=== PATIENT | female | born 1945 | race Caucasian/White ===

== ENCOUNTER 2018-06-23 05:57 | Day surgery (SDC) | payer MEDICARE, OTHER, SELFPAY ==
[2018-06-16 13:39] LABS: Hematocrit 37.8 % (37-47); Hemoglobin 12.4 g/dl (12.0-15.0); Mean Corp Hgb Conc 32.8 g/gl (32-36); Mean Corpuscular Hgb 29.6 pg (27.0-32.0); Mean Corpuscular Volume 90.2 fL (81-99); Mean Platelet Vol. 9.7 fl (6.2-12.0); Platelet Count 316 K/mm3 (150-450); RBC Distribution Width CV 13.8 % (11.6-14.6); RBC Distribution Width SD 45.3 fl (35.1-43.9); Red Blood Count 4.19 M/mm3 (4.2-5.4); White Blood Count 7.6 K/mm3 (4.4-11.0)
[2018-06-16 13:42] LABS: Scan Indicated on CBC? Y/N NO
[2018-06-16 14:17] LABS: Anion Gap 4 (5-15); BUN 14 mg/dL (7-18); BUN/Creat Ratio 16.8 RATIO (10-20); Calcium,Total 8.9 mg/dL (8.5-10.1); Chloride 104 mmol/L (98-107); Creatinine, Serum 0.84 mg/dL (0.55-1.02); EST Glomerular Filtration Rate 72 mL/min (>60); Est Glom Filt Rate - Afr Amer 87 mL/min (>60); Glucose 81 mg/dL (74-106); Potassium 4.1 mmol/L (3.5-5.1); Sodium Level 139 mmol/L (136-145); Thyroid Stim Hormone (TSH) 0.83 uIU/mL (0.358-3.74)
[2018-06-23] VITALS (9 sets, daily range): BP systolic 126–158; BP diastolic 62–78; PULSE 65–91; RESP 14–18; TEMP 36.4–37; O2SAT 93–99; BMI 25.9
[2018-06-23] MEDS: Phenazopyridine 95 MG Tablet 190 MG PO (06:24)
[2018-06-23] MEDS: Lubricating Jelly 60 GM Tube 30 GM TOPICAL (07:39)
[2018-06-23] MEDS: Cefazolin 2 GM in 0.9% Normal Saline 100 ML IV (07:52)
[2018-06-23] MEDS: Bupiv/Epi 0.5% Mpf 30 ML Vial (08:10)
--- NOTE | 2018-06-23 09:25 | PCM.DC.GS ---
Discharge Diet: No Restrictions Discharge Activity: Return to Normal Activity May shower in (days): 6 May resume sexual activity in: 6 weeks Weight Bearing Status: Full weight bearing Call your doctor if your incision/area has: Sudden Increased Bleeding, Foul Smelling Discharge Call your doctor if you observe: Fever of 101 or Higher, Coldness, Increased Pain, Numbness or Tingling, Change in Color, Inability to urinate, Inability to have a bowel movement, Using more than one pad per hour, Shortness of breath, Dizziness, Fainting spells, Swelling in the ankles, Chest pain, Prolonged hiccoughing, Increased palpitations (irregular heartbeat), Calf discomfort, Uncontrolled pain Allergies/Adverse Reactions: Allergies bacitracin [From Neosporin ([id number])] Adverse Reaction (Verified 06/23/18 06:16) Unknown neomycin [From Neosporin ([id number])] Adverse Reaction (Verified 06/23/18 06:16) Unknown polymyxin B [From Neosporin ([id number])] Adverse Reaction (Verified 06/23/18 06:16) Unknown Medications to take at Discharge Esomeprazole Mag Trihydrate [Nexium] 40 mg PO DAILY 06/30/15 Gabapentin [Neurontin] 100 mg PO PRN PRN 06/30/15 Levothyroxine [Synthroid] 50 mcg PO QODAY 06/30/15 Multivit with Calcium,Iron,Min [Multiple Vitamins For Women] 1 ea PO DAILY 06/30/15 escitalopram 5 mg tablet 5 mg PO QDAY 12/28/17 Estrogens, Conjugated [Premarin] 1 applic VAGINAL QODAY 06/16/18 Gabapentin [Neurontin] 300 mg PO QHS 06/16/18 L.acidoph,Paracasei, B.lactis [Probiotic] 1 each PO DAILY 06/16/18 Levothyroxine Sodium [Synthroid] 25 mcg PO QODAY 06/16/18 Pravastatin Sodium [Pravachol] 5 mg PO QHS 06/16/18 Primary Care Physician: Adrienne Riojas MD [Primary Care Provider] - Test Results: Test results from this visit will be discussed in further detail at your follow-up appointment, if applicable. Please Follow Up With: Mita Waller MD When: 6 weeks Proposed Discharge Date: 06/23/18
[2018-06-23] MEDS: fentaNYL 100 MCG/2 ML Ampul 25 MCG IV (09:52)
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
== END 2018-06-23 17:10 | disposition home or self-care (01) ==
LOC: SDC 05:58 → AC 05:59
PROVIDERS: Family Provider Internal Medicine; PCP Internal Medicine; Visit Provider Obstetrics & Gynecology
PROC: (CPT 57260; principal; 2018-06-23 07:15)
DX: N99.3 Prolapse of vaginal vault after hysterectomy (principal); N39.3 Stress incontinence (female) (male); K21.9 Gastro-esophageal reflux disease without esophagitis; E03.9 Hypothyroidism, unspecified; E78.00 Pure hypercholesterolemia, unspecified; I44.7 Left bundle-branch block, unspecified; G47.33 Obstructive sleep apnea (adult) (pediatric)
CPT/HCPCS: 00860; 52000; 57200; 57288; 36415; 74018; 80048; 84443; 85027; 93005; J7120; C1771; J2405

== ENCOUNTER → 2018-07-12 11:09 | Outpatient (CLI) | payer MEDICARE, OTHER, SELFPAY ==
[2018-07-12 11:24] LABS: Bacteria 0 SEEN /hpf (None Seen); Mucous, Urine 0 SEEN /hpf (<or=2+); Red Blood Cells-Urine 0 SEEN /hpf (0-5); Squamous Epithelial Cells - UA 0 SEEN /hpf (5-10)
[2018-07-12 11:54] LABS: Color, Urine Yellow (Yellow); Glucose, Dipstick Normal (Normal); Ketone-Dipstick Negative (Negative); Leukocyte Esterase-Dipstick 500 /ul (Negative); Nitrite-Dipstick Negative (Negative); Occult Blood-Urine 10 /ul (Negative); Protein-Dipstick Negative (Negative); Specific Gravity, Urine 1.005 (1.002-1.030); Urine Bilirubin Dipstick Negative (Negative); Urine Clarity Clear (Clear); Urine Urobilinogen Normal (Normal)
[2018-07-12 12:06] LABS: White Blood Cells 5-10 SEEN /hpf (0-5)
== END ==
PROVIDERS: Family Provider Internal Medicine; PCP Internal Medicine; Visit Provider Obstetrics & Gynecology
DX: R31.9 Hematuria, unspecified (principal)
CPT/HCPCS: 81001; 87086

== ENCOUNTER → 2018-10-19 12:33 | Outpatient (CLI) | payer MEDICARE, OTHER, SELFPAY ==
--- NOTE | 2018-10-19 12:37 | BI_ITS ---
MAMMOGRAPHY - BILATERAL SCREENING REASON FOR EXAM: Female, 73 years old. Routine annual screening examination. PERTINENT HISTORY: Non-contributory. TECHNIQUE: Digital bilateral breast anai (3D mammographic acquisition) in the CC and MLO projections. 2-D mediolateral oblique (MLO) and craniocaudad (CC) views of both breasts were obtained. CAD: Full Field Digital Mammography with Computer Added Detection was performed. COMPARISON: Comparison is made with prior outside examination of August 16, 2017. FINDINGS: Breast Composition: There are scattered areas of fibroglandular density. There are no dominant masses or suspicious calcifications. Stable small bilateral benign-appearing axillary lymph nodes. No other significant abnormalities are identified. There has been no significant change since the prior study. BI/SCREENING MAMM (CAD), BILAT IMPRESSION: Stable bilateral screening mammogram. Yearly follow-up mammogram recommended. (A) ASSESSMENT CATEGORY: BIRADS Category 2: Benign. A letter regarding these results will be sent to the patient by the facility within 30 days. Approximately 10% of breast cancers are not detected by mammography. A normal mammogram should not delay biopsy of a clinically suspicious abnormality. [id number] Electronically Signed: Anthony Milian MD at 14:47 EST Tel [phone], Service support ,
--- OUTSIDE RECORDS SUMMARY | 2018-12-05 07:49 | XMS RPT_ITS ---
:1945 Author Organization OHIP Care Team Providers Name Role Phone Nieves Lazaro Attending Unavailable Talampas, Kira Referring Unavailable Talampas, Kira Primary Care Unavailable South, Mita Attending Unavailable South, Mita Referring Unavailable Talampas, Kira Primary Care Unavailable South, Mita Attending Unavailable South, Mita Referring Unavailable Talampas, Kira Primary Care Unavailable Marla Watson Attending Unavailable Talampas, Kira Primary Care Unavailable Cameron Mg Attending Unavailable South, Mita Referring Unavailable TALAMPAS, KIRA D Attending Unavailable TALAMPAS, KIRA D Referring Unavailable TALAMPAS, KIRA D Referring Unavailable MALI ARGUETA (DIRECTOR STAFFING) Attending Unavailable MALI ARGUETA (DIRECTOR STAFFING) Referring Unavailable TESTRAKE, ELLIE Attending Unavailable MALI ARGUETA (DIRECTOR STAFFING) Referring Unavailable TESTRAKE, ELLIE Referring Unavailable BRITT, ARTEMIO E Attending Unavailable BRITT, ARTEMIO E Referring Unavailable TESTRAKE, ELLIE Attending Unavailable TALAMPAS, KIRA D Referring Unavailable TESTRAKE, ELLIE Referring Unavailable TESTRAKE, ELLIE Referring Unavailable TESTRAKE, ELLIE Attending Unavailable TESTRAKE, ELLIE Referring Unavailable TESTRAKE, ELLIE Referring Unavailable TESTRAKE, ELLIE Referring Unavailable TESTRAKE, ELLIE Referring Unavailable TALAMPAS, KIRA D Referring Unavailable TESTRAKE, ELLIE Referring Unavailable TALAMPAS, KIRA D Attending Unavailable TALAMPAS, KIRA D Referring Unavailable BRITT, ARTEMIO E Referring Unavailable ARGUETA, MALI (DIRECTOR STAFFING) Attending Unavailable TESTRAKE, ELLIE Referring Unavailable THORPE, LILIANA (NURSE ADVISOR) Attending Unavailable ARGUETA, MALI (DIRECTOR STAFFING) Referring Unavailable TESTRAKE, ELLIE Attending Unavailable TESTRAKE, ELLIE Referring Unavailable BRITT, ARTEMIO E Attending Unavailable BRITT, ARTEMIO E Referring Unavailable INMAN, RENE Admitting Unavailable INMAN, RENE Attending Unavailable THORPE, LILIANA (NURSE ADVISOR) Referring Unavailable THORPE, LILIANA (NURSE ADVISOR) Attending Unavailable INMAN, RENE Referring Unavailable TESTRAKE, ELLIE Referring Unavailable TESTRAKE, ELLIE Attending Unavailable TESTRAKE, ELLIE Referring Unavailable BRITT, ARTEMIO E Attending Unavailable BRITT, ARTEMIO E Referring Unavailable BRITT, ARTEMIO Attending Unavailable BRITT, ARTEMIO Referring Unavailable TALAMPAS, KIRA Primary Care Unavailable BRITT, ARTEMIO Attending Unavailable BRITT, ARTEMIO Referring Unavailable TALAMPAS, KIRA Primary Care Unavailable PROBLEMS PROBLEMS DATE TYPE CONDITION / CODE ATTENDING STATUS SOURCE Active Pain, unspecified / NA Active [place] [facility] R52(ICD-10) Clinic Main [place] Repository Active Gastro-esophageal THORPE, Active [place] 9 reflux disease without LILIANA (NURSE ADVISOR) Clinic Main esophagitis / [place] K21.9(ICD-10) Repository Active Functional dyspepsia / THORPE, Active [facility] 9 K30(ICD-10) LILIANA (NURSE ADVISOR) Clinic Main [place] Repository Active Encounter for QUENTIN Active [place] 8 screening for [facility] Main malignant neoplasm of [place] colon / Z12.11(ICD-10) Repository Active Displaced fracture of NA Active [place] 8 proximal phalanx of [facility] Main left lesser toe(s), [place] subsequent encounter Repository for fracture with delayed healing / S92.512G(ICD-10) Active Other cardiomyopathies NA Active [place] [facility] / I42.8(ICD-10) Clinic Main [place] Repository Active Hyperlipidemia, NA Active [place] [facility] unspecified / Clinic Main E78.5(ICD-10) [place] Repository Active Essential (primary) NA Active [place] [facility] hypertension / Clinic Main I10(ICD-10) [place] Repository Active Nondisplaced fracture NA Active [place] 8 of proximal phalanx of [facility] Main left lesser toe(s), [place] subsequent encounter Repository for fracture with delayed healing / S92.515G(ICD-10) Active Displaced fracture of NA Active [place] 8 proximal phalanx of [facility] Main left lesser toe(s), [place] subsequent encounter Repository for fracture with malunion / S92.512P(ICD-10) Unknown R31.9 - Hematuria, South, Mita Active [facility] unspecified / Community R31.9(ICD-10) Hospital Repository Active Displaced fracture of NA Active [place] 8 proximal phalanx of [facility] Main left lesser toe(s), [place] initial encounter for Repository closed fracture / S92.512A(ICD-10) Unknown R94.31 - Abnormal Haritha, [place] Active [facility] 8 electrocardiogram Community [ECG] [EKG] / Hospital R94.31(ICD-10) Repository Unknown I44.7 - Left Haritha, Cameron Active [facility] 8 bundle-branch block, Community unspecified / Hospital I44.7(ICD-10) Repository Active Unspecified injury of NA Active [facility] 8 left foot, initial Clinic Main encounter / [place] S99.922A(ICD-10) Repository Active Left bundle-branch BRITT, Active [facility] 8 block, unspecified / ARTEMIO E Clinic Other I44.7(ICD-10) [place] Repository Admitting Unknown / UNK(Unknown) BRITT, Active [facility] 8 diagnosis [facility] Repository Active Pure NA Active [place] 8 hypercholesterolemia, Clinic Main unspecified / [place] E78.00(ICD-10) Repository Active Hypothyroidism, NA Active [place] [facility] unspecified / Clinic Main E03.9(ICD-10) [place] Repository Active Other usp NA Active [place] 8 (current) drug therapy Clinic Main / Z79.899(ICD-10) [place] Repository Active Other specified NA Active [place] 8 disorders of bone Clinic Main density and structure, [place] unspecified site / Repository M85.80(ICD-10) PROCEDURES PROCEDURES No Procedure Records FoundRESULTS RESULTS PROGRESS Observed: 11/22/2018 Status: COMPLETED Source: [place] 9:03 AM [facility] REPOSIT[facility] HNO ID: [id number] Author: Ellie Dent Service: (none) Author Type: Physician Type: Progress Notes Filed: 11/22/2018 9:09 AM Note Text: Follow up podiatric office visit for: Chief Complaint: This 73 year old who presents for follow up:fracutre of left hallux, left 2nd toe and left 3rd toe Patient is now wearing regular shoe and insert. She is walking 2 miles every other day. She has no pain. Occasionally, she will have some numbness in her left 3rd toe. Overall, she is feeling well. She has no other complaints. She has new xrays to review. PAIN EVALUATION 11/22/2018 Pain Score: 0 Pain Location: Foot-Left Description: / Duration Amount of Time: 6 Duration Units: Months Frequency: Intermittent Intervention: Declined No results found for: HBA1C PCP: Kira Robertson MD PAST MEDICAL HISTORY Diagnosis Date - Cervical disc disease - Diverticulosis of colon - GERD (gastroesophageal reflux disease) - History of shingles recurrent episodes--over 3 recurrences - HLD (hyperlipidemia) 07/22/2018 - HTN (hypertension) 07/22/2018 - Hypothyroid - Left bundle branch block EF 50% - MINA (obstructive sleep apnea) 07/21/2018 - Osteopenia - PHN (postherpetic neuralgia) 05/25/2016 - PONV (postoperative nausea and vomiting) 07/21/2018 Current Outpatient Prescriptions: sucralfate (CARAFATE) 1 gram tablet Take 1 tablet by mouth twice daily as needed. escitalopram oxalate (LEXAPRO) 10 mg tablet Take 0.5 tablets by mouth once daily. esomeprazole (NEXIUM) 40 mg capsule Take 1 capsule by mouth daily before breakfast. Take on additional capsule daily for one - two months levothyroxine (SYNTHROID) 25 mcg tablet TAKE 1 TABLET BY MOUTH EVERY OTHER DAY ON AN EMPTY STOMACH FOR THYROID. TAKE 50 MCG ON ALTERNATING DAY levothyroxine (SYNTHROID) 50 mcg tablet TAKE 1 TABLET BY MOUTH EVERY OTHER DAY. TAKE 25 MCG ON ALTERNATING DAY ezetimibe (ZETIA) 10 mg tablet Take 1 tablet by mouth once daily. gabapentin (NEURONTIN) 300 mg capsule Take 1 capsule by mouth daily at bedtime. mupirocin (BACTROBAN) 2 % ointment Apply 1 application to affected area three times daily as needed. For wounds estradiol (ESTRACE) 0.01 % (0.1 mg/gram) vaginal cream Use fingertip amount nightly x 2 weeks, then every other night x 2 weeks, then 1-2x weekly for maintenance LACTOBACILLUS ACIDOPHILUS (PROBIOTIC ORAL) Take by mouth. MULTIVITAMIN ORAL Take by mouth. No current facility-administered medications for this visit. ALLERGIES Allergen Reactions - Neosporin [Neomycin* Rash PAST SURGICAL HISTORY Procedure Laterality Date - COLONOSCOP W/ OR W/O [facility] SPEC Colonoscopy - COLONOSCOP W/ OR W/O [facility] SPEC 11/13/2018 repeat 10 years - EGD W/O OR W/BRUSH/WASH 11/13/2018 EGD - PAST SURGICAL HISTORY OF 06/23/2018 cystocele, rectocele and sling - REMOVAL GALLBLADDER Cholecystectomy - REPAIR ROTATOR CUFF,ACUTE Rotator cuff repair - S STRATASIS URETHRAL SLING 2X30 - TOTAL ABDOM HYSTERECTOMY Hysterectomy, MARISOL and BSO Physical Exam: Constitutional: Pt is a well developed 73 year old female who is alert, oriented, cooperative and in no apparent distress. OBJECTIVE: NVSI unchanged from previous visit. Dermatological: Nails 1-5 left are normal. Webspaces clean and dry 1-4 left. . Skin appears well hydrated and supple. good color, texture, turgor. No open lesions present. No callosities present. Musculoskeletal/Orthopaedic: Patient has no pain to palpation of left foot Toes 1-5 left foot are rectus xrays of left foot reviewed. There is healed fracture of left 1st and 2nd toe. 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 History and physical examination completed today. 2. Reviewed xrays with patient today. Left 1st and 2nd toe fractures are now healed. 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 This will likely not heal. If she is asympotomatic, she could likely leave alone. She opted to do this. She will continue with good appropriate shoes. If she has pain in future, she can contact me. 3. Discussed occasional burning of toe. Reminded patient of cyst of 3rd toe. This could be applying pressure on digital nerve. If this persists, sending patient to [facility] for ultrasound guided aspiration may be an option. 4. Patient elects to monitor for now. 5. F/u prn. Ellie Dent DPM CNOV Observed: 11/22/2018 Status: COMPLETED Source: [place] 8:55 AM [facility] REPOSITORY Office Visit (PODIWS) HERLINDA ROSAS ([id number]) 1945 F Date Time Provider Department 11/22/18 8:55 AM ELLIE DENT During your visit today, we recorded the following information about you: Chari Adamson Ma 11/22/2018 9:09 AM Signed AMB ROOMING INTAKE FLOWSHEET DATA Pain Pain Score: 0/10 Pain Location: Foot-Left Description: / Duration Amount of Time: 6 Duration Units: Months Frequency: Intermittent Intervention: Declined Patient here for F/U on L foot fracture. States she has no pain. States she is wearing her powersteps in her tennis shoes and has not had any pain. No redness or swelling present. States she has a feeling of numbness across the top of her foot. Ellie Dent DPM 11/22/2018 9:09 AM Signed Follow up podiatric office visit for: Chief Complaint: This 73 year old who presents for follow up:fracutre of left hallux, left 2nd toe and left 3rd toe Patient is now wearing regular shoe and insert. She is walking 2 miles every other day. She has no pain. Occasionally, she will have some numbness in her left 3rd toe. Overall, she is feeling well. She has no other complaints. She has new xrays to review. PAIN EVALUATION 11/22/2018 Pain Score: 0 Pain Location: Foot-Left Description: /Infant Duration Amount of Time: 6 Duration Units: Months Frequency: Intermittent Intervention: Declined No results found for: HBA1C PCP: Kira Robertson MD PAST MEDICAL HISTORY Diagnosis Date - Cervical disc disease - Diverticulosis of colon - GERD (gastroesophageal reflux disease) - History of shingles recurrent episodes--over 3 recurrences - HLD (hyperlipidemia) 07/22/2018 - HTN (hypertension) 07/22/2018 - Hypothyroid - Left bundle branch block EF 50% - MINA (obstructive sleep apnea) 07/21/2018 - Osteopenia - PHN (postherpetic neuralgia) 05/25/2016 - PONV (postoperative nausea and vomiting) 07/21/2018 Current Outpatient Prescriptions: sucralfate (CARAFATE) 1 gram tablet Take 1 tablet by mouth twice daily as needed. escitalopram oxalate (LEXAPRO) 10 mg tablet Take 0.5 tablets by mouth once daily. esomeprazole (NEXIUM) 40 mg capsule Take 1 capsule by mouth daily before breakfast. Take on additional capsule daily for one - two months levothyroxine (SYNTHROID) 25 mcg tablet TAKE 1 TABLET BY MOUTH EVERY OTHER DAY ON AN EMPTY STOMACH FOR THYROID. TAKE 50 MCG ON ALTERNATING DAY levothyroxine (SYNTHROID) 50 mcg tablet TAKE 1 TABLET BY MOUTH EVERY OTHER DAY. TAKE 25 MCG ON ALTERNATING DAY ezetimibe (ZETIA) 10 mg tablet Take 1 tablet by mouth once daily. gabapentin (NEURONTIN) 300 mg capsule Take 1 capsule by mouth daily at bedtime. mupirocin (BACTROBAN) 2 % ointment Apply 1 application to affected area three times daily as needed. For wounds estradiol (ESTRACE) 0.01 % (0.1 mg/gram) vaginal cream Use fingertip amount nightly x 2 weeks, then every other night x 2 weeks, then 1-2x weekly for maintenance LACTOBACILLUS ACIDOPHILUS (PROBIOTIC ORAL) Take by mouth. MULTIVITAMIN ORAL Take by mouth. No current facility-administered medications for this visit. ALLERGIES Allergen Reactions - Neosporin [Neomycin* Rash PAST SURGICAL HISTORY Procedure Laterality Date - COLONOSCOP W/ OR W/O [facility] SPEC Colonoscopy - COLONOSCOP W/ OR W/O [facility] SPEC 11/13/2018 repeat 10 years - EGD W/O OR W/BRUSH/WASH 11/13/2018 EGD - PAST SURGICAL HISTORY OF 06/23/2018 cystocele, rectocele and sling - REMOVAL GALLBLADDER Cholecystectomy - REPAIR ROTATOR CUFF,ACUTE Rotator cuff repair - S STRATASIS URETHRAL SLING 2X30 - TOTAL ABDOM HYSTERECTOMY Hysterectomy, MARISOL and BSO Physical Exam: Constitutional: Pt is a well developed 73 year old female who is alert, oriented, cooperative and in no apparent distress. OBJECTIVE: NVSI unchanged from previous visit. Dermatological: Nails 1-5 left are normal. Webspaces clean and dry 1-4 left. . Skin appears well hydrated and supple. good color, texture, turgor. No open lesions present. No callosities present. Musculoskeletal/Orthopaedic: Patient has no pain to palpation of left foot Toes 1-5 left foot are rectus xrays of left foot reviewed. There is healed fracture of left 1st and 2nd toe. 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 History and physical examination completed today. 2. Reviewed xrays with patient today. Left 1st and 2nd toe fractures are now healed. 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 This will likely not heal. If she is asympotomatic, she could likely leave alone. She opted to do this. She will continue with good appropriate shoes. If she has pain in future, she can contact me. 3. Discussed occasional burning of toe. Reminded patient of cyst of 3rd toe. This could be applying pressure on digital nerve. If this persists, sending patient to main campus for ultrasound guided aspiration may be an option. 4. Patient elects to monitor for now. 5. F/u prn. Ellie Dent DPM Referring Provider: ELLIE DENT [[id number]] Allergies As of Date: 11/22/2018 Noted Allergy Reaction NEOSPORIN ([id number]-[place]*06/14/2017 2 - Rash Date Reviewed: 11/22/2018 Reviewed by: Chari Adamson Ma - Fully Assessed Reason for Visit: Established Patient [[id number]] Primary Visit Diagnosis:Closed displaced fracture of proximal phalanx of lesser toe of left foot with malunion, subsequent encounter [S92.512P] Prescriptions as of 11/22/2018 Sig: SUCRALFATE 1 GRAM TABLET Take 1 tablet by mouth twice * ESCITALOPRAM 10 MG TABLET Take 0.5 tablets by mouth onc* ESOMEPRAZOLE MAGNESIUM 40 MG * Take 1 capsule by mouth daily* LEVOTHYROXINE 25 MCG TABLET TAKE 1 TABLET BY MOUTH EVERY * LEVOTHYROXINE 50 MCG TABLET TAKE 1 TABLET BY MOUTH EVERY * EZETIMIBE 10 MG TABLET Take 1 tablet by mouth once d* GABAPENTIN 300 MG CAPSULE Take 1 capsule by mouth daily* MUPIROCIN 2 % TOPICAL OINTMENT Apply 1 application to affect* ESTRADIOL 0.01% (0.1 MG/GRAM)* Use fingertip amount nightly * PROBIOTIC ORAL Take by mouth. MULTIVITAMIN ORAL Take by mouth. Problem List As Of Date 11/22/2018 Noted Resolved [place]-Walker grade 3 cystocele [N81.10] INVALID FOR* [place]-Walker grade 2 rectocele [N81.6] INVALID FOR* Urge incontinence [N39.41] INVALID FOR* PHN (postherpetic neuralgia) [B02.29] INVALID FOR* Hypothyroid [E03.9] History of shingles [Z86.19] More... Cervical disc disease [M50.90] GERD (gastroesophageal reflux disease) [K21.9] Cardiomyopathy, nonischemic (HCC) [I42.8] INVALID FOR* Closed disp fracture of proximal phalanx of les*INVALID FOR* More... PONV (postoperative nausea and vomiting) [R11.2*INVALID FOR* MINA (obstructive sleep apnea) [G47.33] INVALID FOR* Left bundle branch block [I44.7] INVALID FOR* More... HTN (hypertension) [I10] INVALID FOR* HLD (hyperlipidemia) [E78.5] INVALID FOR* Pure hypercholesterolemia [E78.00] INVALID FOR* Encounter for screening for malignant neoplasm *INVALID FOR* More... Gastroesophageal reflux disease without esophag*INVALID FOR* More... Disposition: Return if symptoms worsen or fail to improve. Follow-up and Disposition History Recorded Encounter Status:Closed by ELLIE DENT DPM on 11/22/18 PROGRESS Observed: 11/22/2018 Status: COMPLETED Source: [place] 8:37 AM [facility] REPOSITORY HNO ID: [id number] Author: Chari Adamson Ma Service: (none) Author Type: (none) Type: Progress Notes Filed: 11/22/2018 9:09 AM Note Text: AMB ROOMING INTAKE FLOWSHEET DATA Pain Pain Score: 0/10 Pain Location: Foot-Left Description: / Duration Amount of Time: 6 Duration Units: Months Frequency: Intermittent Intervention: Declined Patient here for F/U on L foot fracture. States she has no pain. States she is wearing her powersteps in her tennis shoes and has not had any pain. No redness or swelling present. States she has a feeling of numbness across the top of her foot. XR FOOT 3V AP/LAT/OBL Observed: 11/22/2018 Status: F Source: [facility] 8:26 AM [facility] REPOSITORY * * *Final Report* * * DATE OF EXAM: Nov 22 2018 8:26AM [id number] [id number] - XR FOOT 3V AP/LAT/OBL LT / PROCEDURE REASON: Pain * * * * Physician Interpretation * * * * EXAMINATION: XR FOOT 3V AP/LAT/OBL LT HISTORY: follow up to left foot fracture Pain . TECHNIQUE: XR FOOT 3V AP/LAT/OBL LT Laterality: LEFT Number of different views (projections): 3 M: XB_1 COMPARISON: Comparison is made to prior study dated 18 September 2018 RESULT: AP radiographs of the bilateral feet with oblique and lateral weightbearing radiographs of the left foot show no significant change in the healing fracture of the second proximal phalanx. Best seen on the AP view again noted displaced intra-articular fracture at the base of the third proximal phalanx. Appearance and alignment of the fracture fragment is unchanged. No other significant abnormality. IMPRESSION: No significant change. Website Optimization Strategist: NICOL Transcribe Date/Time: Nov 22 2018 3:12P Dictated by : PRUDENCE CARMICHAEL MD This examination was interpreted and the report reviewed and electronically signed by: PRUDENCE CARMICHAEL MD on Nov 22 2018 3:14PM EST [id number] PROGRESS Observed: 11/22/2018 Status: COMPLETED Source: [place] 8:18 AM [facility] REPOSITORY HNO ID: [id number] Author: Fam Cabrera (Rt) Service: (none) Author Type: Silver Recovery Operator Type: Progress Notes Filed: 11/22/2018 8:27 AM Note Text: Radiology Service Progress Note PATIENT NAME: Herlinda Rosas DATE OF SERVICE: November 22, 2018 TIME: 8:18 AM PATIENT IDENTITY VERIFICATION COMPLETED USING TWO (2) METHODS: Patient confirmed name verbally and Date of . PATIENT GENDER DATA: Female. status: : No status: NO. PATIENT RELEVANT IMPLANT DATA REVIEWED: Not Applicable RADIOLOGY DEPARTMENT: General X-ray: Exam(s) Completed: Lower Extremity X-Ray(s): Foot, Left and Wt. Bearing: PERIPHERAL IV DATA: Not applicable SIGNED BY: RT Deborah November 22, 2018 8:18 AM PROGRESS Observed: 11/21/2018 Status: COMPLETED Source: [place] 8:10 AM [facility] REPOSITORY HNO ID: [id number] Author: Liliana Madrid Service: (none) Author Type: Nurse Practitioner Type: Progress Notes Filed: 11/21/2018 12:11 PM Note Text: Herlinda Rosas a 73 year old female who is returning for follow up regarding GERD. I saw the patient in consultation on 10/06/18. That note has been reviewed. The patient was seen by Dr. Inman for upper endoscopy and colonoscopy 11/13/18. The procedure report has been reviewed and findings as follows: EGD Findings: ? ? ?The examined esophagus was normal. ? ? ?The entire examined stomach was normal. Biopsies were taken with a ? ? ?cold forceps for histology. Estimated blood loss was minimal. ? ? ?The examined duodenum was normal. FINAL DIAGNOSIS Stomach, antrum, biopsy - Gastric antral mucosa with patchy mild chronic inactive gastritis. - No intestinal metaplasia or morphologic evidence of Helicobacter pylori organisms. Colonoscopy Findings: ? ? ?Scattered diverticula were found in the sigmoid colon and descending ? ? ?colon. I have reviewed the procedure and pathology reports, as well as the images, with the patient. Presenting complaint: Always hungry feeling, gnawing sensation, grumbling belly. Doesn't get a full sensation. Feeling hungry started with the start of Nexium years ago. Taking Nexium 40mg twice daily. We discussed changing to pantoprazole, if her insurance covers it. She'll check her formulary. Cholecystectomy years ago. Hasn't used the Carafate for the past week. - waiting for Angelika to request refills. Not sure if it was making a difference. I suggested decreasing to twice a day, then just before bed. Having difficulty sleeping with the head elevated on a wedge. It seems to bother her neck. REVIEW OF SYSTEMS: GENERAL: No unplanned weight loss. GI: The patient states that her appetite has been adequate. She does get hungry. There has been a bit of nausea, no vomiting. She denies dysphagia and denies odynophagia. There has not been indigestion but heartburn. There has been regurgitation. Bowel habits unchanged. There has not been melena. No new or worsening abdominal pain. All other pertinent reviewed and negative other than HPI. PAST MEDICAL HISTORY Diagnosis Date - Cervical disc disease - Diverticulosis of colon - GERD (gastroesophageal reflux disease) - History of shingles recurrent episodes--over 3 recurrences - HLD (hyperlipidemia) 07/22/2018 - HTN (hypertension) 07/22/2018 - Hypothyroid - Left bundle branch block EF 50% - MINA (obstructive sleep apnea) 07/21/2018 - Osteopenia - PHN (postherpetic neuralgia) 05/25/2016 - PONV (postoperative nausea and vomiting) 07/21/2018 PAST SURGICAL HISTORY Procedure Laterality Date - COLONOSCOP W/ OR W/O [facility] SPEC Colon[facility] - [facility] 11/13/2018 repeat 10 years - EGD W/O OR W/BRUSH/WASH 11/13/2018 EGD - PAST SURGICAL HISTORY OF 06/23/2018 cystocele, rectocele and sling - REMOVAL GALLBLADDER Cholecystectomy - REPAIR ROTATOR CUFF,ACUTE Rotator cuff repair - S STRATASIS URETHRAL SLING 2X30 - TOTAL ABDOM HYSTERECTOMY Hysterectomy, MARISOL and BSO FAMILY HISTORY Problem Relation Age of Onset - Alzheimer's Disease Mother - Stroke Mother - other (Parkinson's Disease) Father - Hypertension Sister Current Outpatient Prescriptions: sucralfate (CARAFATE) 1 gram tablet TAKE 1 TABLET BY MOUTH BEFORE MEALS AND AT BEDTIME. MAY DISSOLVE TABLET IN 2 TEASPOONS OF WATER, DRINK SOON DISSOLVED. Disp: 56 tablet Rfl: 0 escitalopram oxalate (LEXAPRO) 10 mg tablet Take 0.5 tablets by mouth once daily. Disp: 45 tablet Rfl: 3 esomeprazole (NEXIUM) 40 mg capsule Take 1 capsule by mouth daily before breakfast. Take on additional capsule daily for one - two months Disp: 30 capsule Rfl: 1 levothyroxine (SYNTHROID) 25 mcg tablet TAKE 1 TABLET BY MOUTH EVERY OTHER DAY ON AN EMPTY STOMACH FOR THYROID. TAKE 50 MCG ON ALTERNATING DAY Disp: 45 tablet Rfl: 3 levothyroxine (SYNTHROID) 50 mcg tablet TAKE 1 TABLET BY MOUTH EVERY OTHER DAY. TAKE 25 MCG ON ALTERNATING DAY Disp: 45 tablet Rfl: 3 ezetimibe (ZETIA) 10 mg tablet Take 1 tablet by mouth once daily. Disp: 30 tablet Rfl: 11 gabapentin (NEURONTIN) 300 mg capsule Take 1 capsule by mouth daily at bedtime. Disp: 90 capsule Rfl: 3 mupirocin (BACTROBAN) 2 % ointment Apply 1 application to affected area three times daily as needed. For wounds Disp: 22 g Rfl: 0 estradiol (ESTRACE) 0.01 % (0.1 mg/gram) vaginal cream Use fingertip amount nightly x 2 weeks, then every other night x 2 weeks, then 1-2x weekly for maintenance Disp: 1 Tube Rfl: 3 LACTOBACILLUS ACIDOPHILUS (PROBIOTIC ORAL) Take by mouth. Disp: Rfl: MULTIVITAMIN ORAL Take by mouth. Disp: Rfl: No current facility-administered medications for this visit. SOCIAL HISTORY: Patient is . She has never smoked. Herlinda reports her alcohol use as socially. PHYSICAL EXAMINATION: Blood pressure 116/71, pulse 85, height 154.9 cm (5' 1), weight 63.5 kg (140 lb). General Appearance: Well appearing, alert, in no acute distress, well-hydrated, well nourished. Skin: Skin color, texture, turgor normal, no suspicious rashes or lesions. Eyes: Anicteric sclera. Pupils are equally round and reactive to light. Extraocular movements are intact. . Heart: RRR.. Impression: GERD 2)dyspepsia Plan: Trial of pantoprazole instead of Nexum. Consider hyoscyamine if this doesn't help. Consider pH monitor. This visit was entirely discussion. Further plan based on the effect of pantoprazole. She agrees. I have personally interviewed this patient. I have reviewed the information that the MA entered for this encounter. I spent 20 minutes in the visit, with the total modd-qw-nukd time of the visit in counseling and coordination of care. Liliana Madrid RN APRN.SANJAY CNOV Observed: 11/21/2018 Status: COMPLETED Source: [place] 8:10 AM [facility] REPOSITORY Office Visit ([facility]) HERLINDA ROSAS ([id number]) 1945 F Date Time Provider Department 11/21/18 8:10 AM LILIANA MADRID (DAQU[place]) [facility] During your visit today, we recorded the following information about you: Pulse Blood pressure Weight Height 85/minute 116/71 63.5 kg 1.549 m Liliana Madrid RN APRN.FIRE SUPPRESSION CAPTAIN 11/21/2018 12:11 PM Signed Herlinda Rosas a 73 year old female who is returning for follow up regarding GERD. I saw the patient in consultation on 10/06/18. That note has been reviewed. The patient was seen by Dr. Inman for upper endoscopy and colonoscopy 11/13/18. The procedure report has been reviewed and findings as follows: EGD Findings: ? ? ?The examined esophagus was normal. ? ? ?The entire examined stomach was normal. Biopsies were taken with a ? ? ?cold forceps for histology. Estimated blood loss was minimal. ? ? ?The examined duodenum was normal. FINAL DIAGNOSIS Stomach, antrum, biopsy - Gastric antral mucosa with patchy mild chronic inactive gastritis. - No intestinal metaplasia or morphologic evidence of Helicobacter pylori organisms. Colonoscopy Findings: ? ? ?Scattered diverticula were found in the sigmoid colon and descending ? ? ?colon. I have reviewed the procedure and pathology reports, as well as the images, with the patient. Presenting complaint: Always hungry feeling, gnawing sensation, grumbling belly. Doesn't get a full sensation. Feeling hungry started with the start of Nexium years ago. Taking Nexium 40mg twice daily. We discussed changing to pantoprazole, if her insurance covers it. She'll check her formulary. Cholecystectomy years ago. Hasn't used the Carafate for the past week. - waiting for Angelika to request refills. Not sure if it was making a difference. I suggested decreasing to twice a day, then just before bed. Having difficulty sleeping with the head elevated on a wedge. It seems to bother her neck. REVIEW OF SYSTEMS: GENERAL: No unplanned weight loss. GI: The patient states that her appetite has been adequate. She does get hungry. There has been a bit of nausea, no vomiting. She denies dysphagia and denies odynophagia. There has not been indigestion but heartburn. There has been regurgitation. Bowel habits unchanged. There has not been melena. No new or worsening abdominal pain. All other pertinent reviewed and negative other than HPI. PAST MEDICAL HISTORY Diagnosis Date - Cervical disc disease - Diverticulosis of colon - GERD (gastroesophageal reflux disease) - History of shingles recurrent episodes--over 3 recurrences - HLD (hyperlipidemia) 07/22/2018 - HTN (hypertension) 07/22/2018 - Hypothyroid - Left bundle branch block EF 50% - MINA (obstructive sleep apnea) 07/21/2018 - Osteopenia - PHN (postherpetic neuralgia) 05/25/2016 - PONV (postoperative nausea and vomiting) 07/21/2018 PAST SURGICAL HISTORY Procedure Laterality Date - COLONOSCOP W/ OR W/O [facility] SPEC Colonoscopy - COLONOSCOP W/ OR W/O [facility] SPEC 11/13/2018 repeat 10 years - EGD W/O OR W/BRUSH/WASH 11/13/2018 EGD - PAST SURGICAL HISTORY OF 06/23/2018 cystocele, rectocele and sling - REMOVAL GALLBLADDER Cholecystectomy - REPAIR ROTATOR CUFF,ACUTE Rotator cuff repair - S STRATASIS URETHRAL SLING 2X30 - TOTAL ABDOM HYSTERECTOMY Hysterectomy, MARISOL and BSO FAMILY HISTORY Problem Relation Age of Onset - Alzheimer's Disease Mother - Stroke Mother - other (Parkinson's Disease) Father - Hypertension Sister Current Outpatient Prescriptions: sucralfate (CARAFATE) 1 gram tablet TAKE 1 TABLET BY MOUTH BEFORE MEALS AND AT BEDTIME. MAY DISSOLVE TABLET IN 2 TEASPOONS OF WATER, DRINK SOON DISSOLVED. Disp: 56 tablet Rfl: 0 escitalopram oxalate (LEXAPRO) 10 mg tablet Take 0.5 tablets by mouth once daily. Disp: 45 tablet Rfl: 3 esomeprazole (NEXIUM) 40 mg capsule Take 1 capsule by mouth daily before breakfast. Take on additional capsule daily for one - two months Disp: 30 capsule Rfl: 1 levothyroxine (SYNTHROID) 25 mcg tablet TAKE 1 TABLET BY MOUTH EVERY OTHER DAY ON AN EMPTY STOMACH FOR THYROID. TAKE 50 MCG ON ALTERNATING DAY Disp: 45 tablet Rfl: 3 levothyroxine (SYNTHROID) 50 mcg tablet TAKE 1 TABLET BY MOUTH EVERY OTHER DAY. TAKE 25 MCG ON ALTERNATING DAY Disp: 45 tablet Rfl: 3 ezetimibe (ZETIA) 10 mg tablet Take 1 tablet by mouth once daily. Disp: 30 tablet Rfl: 11 gabapentin (NEURONTIN) 300 mg capsule Take 1 capsule by mouth daily at bedtime. Disp: 90 capsule Rfl: 3 mupirocin (BACTROBAN) 2 % ointment Apply 1 application to affected area three times daily as needed. For wounds Disp: 22 g Rfl: 0 estradiol (ESTRACE) 0.01 % (0.1 mg/gram) vaginal cream Use fingertip amount nightly x 2 weeks, then every other night x 2 weeks, then 1-2x weekly for maintenance Disp: 1 Tube Rfl: 3 LACTOBACILLUS ACIDOPHILUS (PROBIOTIC ORAL) Take by mouth. Disp: Rfl: MULTIVITAMIN ORAL Take by mouth. Disp: Rfl: No current facility-administered medications for this visit. SOCIAL HISTORY: Patient is . She has never smoked. Herlinda reports her alcohol use as socially. PHYSICAL EXAMINATION: Blood pressure 116/71, pulse 85, height 154.9 cm (5' 1), weight 63.5 kg (140 lb). General Appearance: Well appearing, alert, in no acute distress, well-hydrated, well nourished. Skin: Skin color, texture, turgor normal, no suspicious rashes or lesions. Eyes: Anicteric sclera. Pupils are equally round and reactive to light. Extraocular movements are intact. . Heart: RRR.. Impression: GERD 2)dyspepsia Plan: Trial of pantoprazole instead of Nexum. Consider hyoscyamine if this doesn't help. Consider pH monitor. This visit was entirely discussion. Further plan based on the effect of pantoprazole. She agrees. I have personally interviewed this patient. I have reviewed the information that the MA entered for this encounter. I spent 20 minutes in the visit, with the total gyqb-fe-zljm time of the visit in counseling and coordination of care. Liliana Madrid RN REELING MACHINE SETUP OPERATOR.SANJAY Madrid RN REELING MACHINE SETUP OPERATOR.FIRE SUPPRESSION CAPTAIN 11/21/2018 8:53 AM Addendum Decrease carafate to twice a day. See if pantoprazole is on your formulary. Let me know via MyChart or call. Small meals throughout the day instead of 3 regular meals. Drink any alcohol with food. Continue the tea with honey and see how you do. Referring Provider: RENE INMAN [[id number]] Allergies As of Date: 11/21/2018 Noted Allergy Reaction NEOSPORIN ([id number]*06/14/2017 2 - Rash Date Reviewed: 11/21/2018 Reviewed by: Tameka Benavides Ma - Fully Assessed Reason for Visit: Procedure Follow Up [1139] Primary Visit Diagnosis:Gastroesophageal reflux disease, esophagitis presence not specified [K21.9] Other Visit Diagnosis:Functional dyspepsia [K30] Order(s):sucralfate (CARAFATE) 1 gram tabletTake 1 tablet by mouth twice daily as needed.Disp: 120 tabletRfl: 2 Prescriptions as of 11/21/2018 Sig: SUCRALFATE 1 GRAM TABLET Take 1 tablet by mouth twice * ESCITALOPRAM 10 MG TABLET Take 0.5 tablets by mouth onc* ESOMEPRAZOLE MAGNESIUM 40 MG * Take 1 capsule by mouth daily* LEVOTHYROXINE 25 MCG TABLET TAKE 1 TABLET BY MOUTH EVERY * LEVOTHYROXINE 50 MCG TABLET TAKE 1 TABLET BY MOUTH EVERY * EZETIMIBE 10 MG TABLET Take 1 tablet by mouth once d* GABAPENTIN 300 MG CAPSULE Take 1 capsule by mouth daily* MUPIROCIN 2 % TOPICAL OINTMENT Apply 1 application to affect* ESTRADIOL 0.01% (0.1 MG/GRAM)* Use fingertip amount nightly * PROBIOTIC ORAL Take by mouth. MULTIVITAMIN ORAL Take by mouth. Problem List As Of Date 11/21/2018 Noted Resolved [place]-Walker grade 3 cystocele [N81.10] INVALID FOR* [place]-Walker grade 2 rectocele [N81.6] INVALID FOR* Urge incontinence [N39.41] INVALID FOR* PHN (postherpetic neuralgia) [B02.29] INVALID FOR* Hypothyroid [E03.9] History of shingles [Z86.19] More... Cervical disc disease [M50.90] GERD (gastroesophageal reflux disease) [K21.9] Cardiomyopathy, nonischemic (HCC) [I42.8] INVALID FOR* Closed disp fracture of proximal phalanx of les*INVALID FOR* More... PONV (postoperative nausea and vomiting) [R11.2*INVALID FOR* MINA (obstructive sleep apnea) [G47.33] INVALID FOR* Left bundle branch block [I44.7] INVALID FOR* More... HTN (hypertension) [I10] INVALID FOR* HLD (hyperlipidemia) [E78.5] INVALID FOR* Pure hypercholesterolemia [E78.00] INVALID FOR* Encounter for screening for malignant neoplasm *INVALID FOR* More... Gastroesophageal reflux disease without esophag*INVALID FOR* More... Other instructions from your clinician: Decrease carafate to twice a day. See if pantoprazole is on your formulary. Let me know via [employer] or call. Small meals throughout the day instead of 3 regular meals. Drink any alcohol with food. Continue the tea with honey and see how you do. Prescriptions ordered this encounter Disp Refills Start End SUCRALFATE 1 GRAM TABLET 120 * 2 11/21/2018 Route: ORAL Sig: Take 1 tablet by mouth twice daily as needed. Medications Discontinued During This Encounter sucralfate (CARAFATE) 1 gram tablet 56 t* 0 10/12/2018 11/21/2018 Cmt: Please consider 90 day supplies to promote better adherence Sig: TAKE 1 TABLET BY MOUTH BEFORE MEALS AND AT BEDTIME. MAY DISSOLVE TABLET IN 2 TEASPOONS OF WATER, DRINK SOON DISSOLVED. Disc: Changing Therapy/Dosage Form sucralfate (CARAFATE) 1 gram tablet 56 t* 0 10/12/2018 11/21/2018 Cmt: Please consider 90 day supplies to promote better adherence Sig: TAKE 1 TABLET BY MOUTH BEFORE MEALS AND AT BEDTIME. MAY DISSOLVE TABLET IN 2 TEASPOONS OF WATER, DRINK SOON DISSOLVED. Disc: Changing Therapy/Dosage Form Encounter Status:Closed by LILIANA MADRID CNP on 11/21/18 NURSING PROG Observed: 11/13/2018 Status: COMPLETED Source: [place] 1:34 PM [facility] REPOSITORY HNO ID: [id number] Author: Mary ChicasRn) ROBBIN Sanchez Service: Nursing Author Type: Registered Nurse Type: Nursing Progress Note Filed: 11/13/2018 1:35 PM Note Text: Patient did not experience a fall prior to discharge. Patient did not experience a burn prior to discharge. Mary Sanchez RN NURSING PROG Observed: 11/13/2018 Status: COMPLETED Source: [place] 1:21 PM [facility] REPOSITORY HNO ID: [id number] Author: Mary ChicasRn) ROBBIN Sanchez Service: Nursing Author Type: Registered Nurse Type: Nursing Progress Note Filed: 11/13/2018 1:21 PM Note Text: Dr. Inman at bedside with patient and patient's to discuss procedure findings. Questions answered. Mary Sanchez RN PT ED Observed: 11/13/2018 Status: COMPLETED Source: [place] 12:58 PM [facility] REPOSITORY HNO ID: [id number] Author: Mary ChicasRn) ROBBIN Sanchez Service: Nursing Author Type: Registered Nurse Type: Patient Education Filed: 11/13/2018 12:58 PM Note Text: POST OP LEARNING RESPONSE INSTRUCTION PROVIDED TO: Patient and Spouse METHOD OF INSTRUCTION: Written instruction - handouts Verbal instruction PATIENT / FAMILY RESPONSE: Verbalizes understanding of: INFECTION MANAGEMENT-Signs and symptoms of an infection and importance of contacting the physician PHYSICAL RESTRICTIONS-Physical restrictions and recommendations after discharge from the hospital POST-PROCEDURE INSTRUCTIONS-Correct actions to take to reduce post procedure complications PATIENT SAFETY PRINCIPLES WORSENING CONDITION-Signs and symptoms of a worsening condition that warrant a call to the physician FOLLOW-UP PLAN: Patient instructed to call with any further issues Follow up phone call. SUPPLEMENTAL MATERIAL: Procedure discharge instructions REFERRAL (RECOMMENDATION): None Electronically Signed By: Mary Sanchez RN In Department: AMBULATORY SURGERY NURSING PROG Observed: 11/13/2018 Status: COMPLETED Source: [place] 12:30 PM [facility] REPOSITORY HNO ID: [id number] Author: Jennifer ChicasRnJung Chirinos RN Service: Nursing Author Type: Registered Nurse Type: Nursing Progress Note Filed: 11/13/2018 12:30 PM Note Text: Patient did not experience a fall within the Intraoperative area. Patient did not experience a burn within the Intraoperative area. Jennifer Chirinos RN BRIEF OP NOT Observed: 11/13/2018 Status: COMPLETED Source: [place] 12:28 PM [facility] REPOSITORY HNO ID: [id number] Author: Rene Inman Service: Gastroenterology Author Type: Physician Type: Brief Op Note Filed: 11/13/2018 12:28 PM Note Text: BRIEF OPERATIVE NOTE PATIENT NAME: Herlinda Rosas LOG ID: [id number] Surgery Date: 11/13/2018 Surgeon(s) and Remote Sensing Specialist(s): Rene Inman MD -Primary Procedure(s): Procedure(s) (LRB): COLONOSCOPY (N/A) EGD WITH BIOPSY (N/A) Anesthesia: Procedural Sedation Findings: Normal EGD and colonic diverticulosis Estimated Blood Loss: Minimal Specimens: Antral Preop Diagnosis: Encounter for screening for malignant neoplasm of colon [Z12.11] Gastroesophageal reflux disease without esophagitis [K21.9] Postop Diagnosis: Encounter for screening for malignant neoplasm of colon [Z12.11] Gastroesophageal reflux disease without esophagitis [K21.9] SIGNATURE: Rene Inman MD DATE: November 13, 2018 TIME: 12:28 PM HISTORY PHYSICAL Observed: 11/13/2018 Status: COMPLETED Source: [place] 11:59 AM [facility] REPOSITORY HNO ID: [id number] Author: Rene Inman Service: Gastroenterology Author Type: Physician Type: HANDP Filed: 11/13/2018 12:00 PM Note Text: PROCEDURAL SEDATION HISTORY AND PHYSICAL EXAM SERVICE DATE: 11/13/2018 SERVICE TIME: 11:59 AM Subjective HPI: This is a 73 year old female who presents with GERD and the need for screening colonoscopy PAST ANESTHESIA HISTORY: No history of adverse event PAST MEDICAL HISTORY Diagnosis Date - Cervical disc disease - Diverticulosis of colon - GERD (gastroesophageal reflux disease) - History of shingles recurrent episodes--over 3 recurrences - HLD (hyperlipidemia) 07/22/2018 - HTN (hypertension) 07/22/2018 - Hypothyroid - Left bundle branch block EF 50% - MINA (obstructive sleep apnea) 07/21/2018 - Osteopenia - PHN (postherpetic neuralgia) 05/25/2016 - PONV (postoperative nausea and vomiting) 07/21/2018 PAST SURGICAL HISTORY Procedure Laterality Date - COLONOSCOP W/ OR W/O [facility] SPEC Colonoscopy - PAST SURGICAL HISTORY OF 06/23/2018 cystocele, rectocele and sling - REMOVAL GALLBLADDER Cholecystectomy - REPAIR ROTATOR CUFF,ACUTE Rotator cuff repair - S STRATASIS URETHRAL SLING 2X30 - TOTAL ABDOM HYSTERECTOMY Hysterectomy, MARISOL and BSO Prior to Admission medications as of 11/13/18 1103 Medication Sig Last Dose Taking escitalopram oxalate (LEXAPRO) 10 mg tablet Take 0.5 tablets by mouth once daily. 11/12/2018 at 2100 Yes esomeprazole (NEXIUM) 40 mg capsule Take 1 capsule by mouth daily before breakfast. Take on additional capsule daily for one - two months 11/12/2018 at 0800 Yes levothyroxine (SYNTHROID) 25 mcg tablet TAKE 1 TABLET BY MOUTH EVERY OTHER DAY ON AN EMPTY STOMACH FOR THYROID. TAKE 50 MCG ON ALTERNATING DAY 11/12/2018 at 0800 Yes gabapentin (NEURONTIN) 300 mg capsule Take 1 capsule by mouth daily at bedtime. 11/12/2018 at Unknown time Yes estradiol (ESTRACE) 0.01 % (0.1 mg/gram) vaginal cream Use fingertip amount nightly x 2 weeks, then every other night x 2 weeks, then 1-2x weekly for maintenance 11/12/2018 at 0800 Yes MULTIVITAMIN ORAL Take by mouth. Past Week at Unknown time Yes sucralfate (CARAFATE) 1 gram tablet TAKE 1 TABLET BY MOUTH BEFORE MEALS AND AT BEDTIME. MAY DISSOLVE TABLET IN 2 TEASPOONS OF WATER, DRINK SOON DISSOLVED. 11/11/2018 levothyroxine (SYNTHROID) 50 mcg tablet TAKE 1 TABLET BY MOUTH EVERY OTHER DAY. TAKE 25 MCG ON ALTERNATING DAY 11/11/2018 ezetimibe (ZETIA) 10 mg tablet Take 1 tablet by mouth once daily. Unknown at Unknown time mupirocin (BACTROBAN) 2 % ointment Apply 1 application to affected area three times daily as needed. For wounds Unknown at Unknown time LACTOBACILLUS ACIDOPHILUS (PROBIOTIC ORAL) Take by mouth. Unknown at Unknown time ALLERGIES Allergen Reactions - Neosporin [Neomycin* Rash Objective PHYSICAL EXAM: The remainder of the physical exam is noncontributory. AIRWAY: Airway Visualization of Uvula: Yes Mouth opening greater than 2 fingerbreadths: Yes Neck Full Range of Motion: Yes LUNGS: Lungs clear to auscultation, Good diaphragmatic excursion CARDIAC: Normal S1 and S2; no rubs, murmurs, or gallops Assessment/Plan ASA Class: ASA Class:: Patient with mild systemic disease Provisional Diagnosis/Treatment Plan: GERD and need for screening colonoscopy/EGD and colonoscopy SEDATION GOAL: Moderate SIGNATURE: Rene Inman MD PATIENT NAME: Herlinda Rosas DATE: November 13, 2018 TIME: 11:59 AM PAGER: NURSING PROG Observed: 11/13/2018 Status: COMPLETED Source: [place] 11:57 AM [facility] REPOSITORY HNO ID: [id number] Author: Mary Tejeda (Rn) ROBBIN Sanchez Service: Nursing Author Type: Registered Nurse Type: Nursing Progress Note Filed: 11/13/2018 11:59 AM Note Text: [facility] PRE-OP NURSING HAND OFF NOTE SBAR Hand off given to Jennifer Chirinos RN. Hand off was communicated verbally and at the patient's bedside and all questions were answered. FALLS/BASILIO Patient did not experience a fall within the Preoperative area. Patient did not experience a burn within the Preoperative area. Mary Sanchez RN PT ED Observed: 11/13/2018 Status: COMPLETED Source: [place] 11:17 AM [facility] REPOSITORY HNO ID: [id number] Author: Mary ChicasRn) ROBBIN Sanchez Service: Nursing Author Type: Registered Nurse Type: Patient Education Filed: 11/13/2018 11:18 AM Note Text: PRE OP LEARNING ASSESSMENT PROCEDURE/SURGERY: GI PROCEDURES: Colonoscopy and EGD READINESS TO LEARN COGNITIVE ABILITY: Alert and oriented MOTIVATION TO LEARN: Eager FAMILY SUPPORT: High - Very involved in pt care PATIENT LEARNS BEST BY: Verbal Instruction FACTORS AFFECTING LEARNING: None PHYSICAL LIMITATIONS AFFECTING LEARNING: None Electronically Signed By: Mary Sanchez RN In Department: AMBULATORY SURGERY SURGICAL PATHOLOGY Observed: 11/13/2018 Status: F Source: [place] 12:00 AM [facility] REPOSITORY Specimen originated from [facility] Specimen #: [id number] Submitting Physician: RENE INMAN MD FINAL DIAGNOSIS Stomach, antrum, biopsy - Gastric antral mucosa with patchy mild chronic inactive gastritis. - No intestinal metaplasia or morphologic evidence of Helicobacter pylori organisms. ES 11/16/2018 Angie Hayden M.D. (Electronic Signature) SPECIMEN SUBMITTED A: ANTRUM, BIOPSY H/H CLINICAL DATA K21.9, Z12.11 GROSS DESCRIPTION A. Received in formalin are two pieces of dumont, soft tissue aggregating to 0.5 x 0.2 x 0.2 cm. Totally submitted in one cassette. Gross examination performed at [facility], [address] [place] [address] 11/15/2018 2:09:01 AM Date of Report: 11/16/2018 Date of Procedure: 11/13/2018 Date of Receipt: 11/14/2018 Submitted by: RENE INMAN MD Location: [facility] Diagnostic interpretation performed at [place] [address]. PROGRESS Observed: 11/09/2018 Status: COMPLETED Source: [place] 9:56 AM [facility] REPOSITORY HNO ID: [id number] Author: Artemio De La Torre Service: (none) Author Type: Physician Type: Progress Notes Filed: 11/09/2018 6:13 PM Note Text: PERTINENT CARDIAC HISTORY Cardiomyopathy - mild, nonischemic, EF normalized LBBB Pericardial Ca++ HTN MINA - CPAP HL - statin intolerant ADHERENCE TO GUIDELINES FARHANA-I or ARB for HF with prior LVEF<40 (NQF 0081) - N/A ASA or Plavix for ASHD (NQF 0067) - N/A Beta stefano for ASHD with prior ME or prior LVEF<40 (NQF 0070) - N/A Beta stefano for HF with prior LVEF<40 (NQF 0083) - N/A FARHANA-I or ARB for ASHD with DM or prior LVEF<40 (NQF 0066) - N/A Statin therapy for ASHD or FHL or DM - intolerant, on Zetia BMI documented and plan if >25 (NQF 0421) - lifestyle recommendation form Tobacco use screening and referral (NQF 0028) - lifestyle recommendation form Recommendation for whole food, plant based diet - lifestyle recommendation form CLINICAL IMPRESSION/PLAN: Herlinda Rosas has stable cardiomyopathy. Her LV function has returned to normal. There is no evidence of pericardial disease. There is no evidence of progression of her conduction abnormality. We discussed signs and symptoms to watch for. I've encouraged her to increase her exercise and improve her fitness level. I recommend follow-up in 8 months or as needed. Written and verbal health teaching given to patient, patient verbalizes understanding and agrees with treatment plan. DIAGNOSIS FOR VISIT: Cardiomyopathy HISTORY OF PRESENT ILLNESS Herlinda Rosas returns for follow-up of her nonischemic myopathy and left bundle branch block. She reports stable exercise tolerance. Her recent surgery went well. She is now walking for exercise. She's had less foot discomfort and her exercise tolerance has improved. She denies chest pain. She's had no orthopnea, edema, syncope, palpitations, TIAs, amaurosis or claudication. ALLERGIES: ALLERGIES Allergen Reactions - Neosporin [Neomycin* Rash CURRENT OUTPATIENT MEDICATIONS: sucralfate (CARAFATE) 1 gram tablet TAKE 1 TABLET BY MOUTH BEFORE MEALS AND AT BEDTIME. MAY DISSOLVE TABLET IN 2 TEASPOONS OF WATER, DRINK SOON DISSOLVED. escitalopram oxalate (LEXAPRO) 10 mg tablet Take 0.5 tablets by mouth once daily. esomeprazole (NEXIUM) 40 mg capsule Take 1 capsule by mouth daily before breakfast. Take on additional capsule daily for one - two months levothyroxine (SYNTHROID) 25 mcg tablet TAKE 1 TABLET BY MOUTH EVERY OTHER DAY ON AN EMPTY STOMACH FOR THYROID. TAKE 50 MCG ON ALTERNATING DAY levothyroxine (SYNTHROID) 50 mcg tablet TAKE 1 TABLET BY MOUTH EVERY OTHER DAY. TAKE 25 MCG ON ALTERNATING DAY ezetimibe (ZETIA) 10 mg tablet Take 1 tablet by mouth once daily. gabapentin (NEURONTIN) 300 mg capsule Take 1 capsule by mouth daily at bedtime. mupirocin (BACTROBAN) 2 % ointment Apply 1 application to affected area three times daily as needed. For wounds estradiol (ESTRACE) 0.01 % (0.1 mg/gram) vaginal cream Use fingertip amount nightly x 2 weeks, then every other night x 2 weeks, then 1-2x weekly for maintenance LACTOBACILLUS ACIDOPHILUS (PROBIOTIC ORAL) Take by mouth. MULTIVITAMIN ORAL Take by mouth. PHYSICAL EXAMINATION: VITAL SIGNS: BP 124/75 Pulse 72 Ht 5' 1 (1.55m) Wt 140 lb 9.6 oz (63.8kg) BMI 26.58 kg/(m2). Chest: Clear to auscultation. Trachea is midline. Air entry is equal. Cardiac: Regular rhythm. S2 is paradoxically split. PMI is nondisplaced. There is a soft systolic ejection murmur. Carotids are brisk without bruits. JVP is less than 10 cm. Abdomen: Soft and nontender. There are no pulsatile masses or bruits. No liver enlargement. Bowel sounds are active. Extremities: No edema. Pulses are intact and symmetrical. Recent labs were reviewed. LDL has improved slightly to 124, on ezetimibe. Electronically Signed: Artemio De La Torre MD November 09, 2018 9:56 AM CC: Kira Robertson MD CNOV Observed: 11/09/2018 Status: COMPLETED Source: [place] 9:30 AM [facility] REPOSITORY Office Visit (CAWSTR) HERLINDA ROSAS ([id number]) 1945 F Date Time Provider Department 11/09/18 9:30 AM ARTEMIO DE LA TORRE CAWSTR During your visit today, we recorded the following information about you: Pulse Blood pressure Weight Height 72/minute 124/75 63.8 kg 1.549 m Artemio De La Torre MD 11/09/2018 6:13 PM Signed PERTINENT CARDIAC HISTORY Cardiomyopathy - mild, nonischemic, EF normalized LBBB Pericardial Ca++ HTN MINA - CPAP HL - statin intolerant ADHERENCE TO GUIDELINES FARHANA-I or ARB for HF with prior LVEF<40 (NQF 0081) - N/A ASA or Plavix for ASHD (NQF 0067) - N/A Beta stefano for ASHD with prior ME or prior LVEF<40 (NQF 0070) - N/A Beta stefano for HF with prior LVEF<40 (NQF 0083) - N/A FARHANA-I or ARB for ASHD with DM or prior LVEF<40 (NQF 0066) - N/A Statin therapy for ASHD or FHL or DM - intolerant, on Zetia BMI documented and plan if >25 (NQF 0421) - lifestyle recommendation form Tobacco use screening and referral (NQF 0028) - lifestyle recommendation form Recommendation for whole food, plant based diet - lifestyle recommendation form CLINICAL IMPRESSION/PLAN: Herlinda Rosas has stable cardiomyopathy. Her LV function has returned to normal. There is no evidence of pericardial disease. There is no evidence of progression of her conduction abnormality. We discussed signs and symptoms to watch for. I've encouraged her to increase her exercise and improve her fitness level. I recommend follow-up in 8 months or as needed. Written and verbal health teaching given to patient, patient verbalizes understanding and agrees with treatment plan. DIAGNOSIS FOR VISIT: Cardiomyopathy HISTORY OF PRESENT ILLNESS Herlinda Rosas returns for follow-up of her nonischemic myopathy and left bundle branch block. She reports stable exercise tolerance. Her recent surgery went well. She is now walking for exercise. She's had less foot discomfort and her exercise tolerance has improved. She denies chest pain. She's had no orthopnea, edema, syncope, palpitations, TIAs, amaurosis or claudication. ALLERGIES: ALLERGIES Allergen Reactions - Neosporin [Neomycin* Rash CURRENT OUTPATIENT MEDICATIONS: sucralfate (CARAFATE) 1 gram tablet TAKE 1 TABLET BY MOUTH BEFORE MEALS AND AT BEDTIME. MAY DISSOLVE TABLET IN 2 TEASPOONS OF WATER, DRINK SOON DISSOLVED. escitalopram oxalate (LEXAPRO) 10 mg tablet Take 0.5 tablets by mouth once daily. esomeprazole (NEXIUM) 40 mg capsule Take 1 capsule by mouth daily before breakfast. Take on additional capsule daily for one - two months levothyroxine (SYNTHROID) 25 mcg tablet TAKE 1 TABLET BY MOUTH EVERY OTHER DAY ON AN EMPTY STOMACH FOR THYROID. TAKE 50 MCG ON ALTERNATING DAY levothyroxine (SYNTHROID) 50 mcg tablet TAKE 1 TABLET BY MOUTH EVERY OTHER DAY. TAKE 25 MCG ON ALTERNATING DAY ezetimibe (ZETIA) 10 mg tablet Take 1 tablet by mouth once daily. gabapentin (NEURONTIN) 300 mg capsule Take 1 capsule by mouth daily at bedtime. mupirocin (BACTROBAN) 2 % ointment Apply 1 application to affected area three times daily as needed. For wounds estradiol (ESTRACE) 0.01 % (0.1 mg/gram) vaginal cream Use fingertip amount nightly x 2 weeks, then every other night x 2 weeks, then 1-2x weekly for maintenance LACTOBACILLUS ACIDOPHILUS (PROBIOTIC ORAL) Take by mouth. MULTIVITAMIN ORAL Take by mouth. PHYSICAL EXAMINATION: VITAL SIGNS: BP 124/75 Pulse 72 Ht 5' 1 (1.55m) Wt 140 lb 9.6 oz (63.8kg) BMI 26.58 kg/(m2). Chest: Clear to auscultation. Trachea is midline. Air entry is equal. Cardiac: Regular rhythm. S2 is paradoxically split. PMI is nondisplaced. There is a soft systolic ejection murmur. Carotids are brisk without bruits. JVP is less than 10 cm. Abdomen: Soft and nontender. There are no pulsatile masses or bruits. No liver enlargement. Bowel sounds are active. Extremities: No edema. Pulses are intact and symmetrical. Recent labs were reviewed. LDL has improved slightly to 124, on ezetimibe. Electronically Signed: Artemio De La Torre MD November 09, 2018 9:56 AM CC: MD Artemio Caal MD 11/09/2018 9:56 AM Signed LIFESTYLE CHANGE A healthy lifestyle is the most important component of your overall treatment plan. Please give serious thought to the following areas and commit to making usp changes. EAT A WHOLE FOOD, PLANT BASED DIET The nutrition your body gets is more important than the medicine you take. What matters most is the overall way you eat. We encourage you to minimize the use of animal products (which include dairy and all meats except fatty fish) and use whole, unprocessed plant foods to provide your protein, vitamins and other nutrients. We have a lot of information to share with you on this topic. This is not a diet. It is a way of life that you will keep with you. EXERCISE REGULARLY It is not important to spend hours in the gym, lifting weights and perspiring heavily. A total of 2-3 hours per week of aerobic (causing you to be moderately short of breath) exercise is sufficient to improve your health. Talk to us before you begin a new exercise program, if you have heart disease or experience shortness of breath or chest pain. REDUCE STRESS Chronic emotional and physical stress leads to disease. Ways of reducing stress include meditation, visualization, prayer, yoga and other forms of relaxation therapy. Consistency is the stroud. Find a technique that works for you and do it every day. CULTIVATE RELATIONSHIPS Loneliness and isolation have a major negative impact on health. Seek out others who can love, care for and nurture you. Avoid hurtful relationships. MAINTAIN IDEAL BODY WEIGHT The best way to do this is to do all the things above. Our bodies naturally find the right weight if we keep moving and feed ourselves the right food. If your BMI is greater than 25, we strongly recommend a referral to a weight management program. Please speak to us or your family physician about available programs. AVOID NICOTINE IN ALL FORMS This includes all tobacco products, whether chewed, smoked, vaped, or rubbed on the skin. Smoking cessation programs, which can make use of tobacco substitutes, medications to suppress cravings and behavior management, are available. Please contact your family physician about programs in your area. Referring Provider: ARTEMIO DE LA TORRE [[id number]] Allergies As of Date: 11/09/2018 Noted Allergy Reaction NEOSPORIN ([id number]*06/14/2017 2 - Rash Date Reviewed: 11/09/2018 Reviewed by: China Cadet MA - Fully Assessed Reason for Visit: Established Patient [175] Primary Visit Diagnosis:Cardiomyopathy, nonischemic (HCC) [I42.8] Other Visit Diagnosis:LBBB (left bundle branch block) [I44.7] Prescriptions as of 11/09/2018 Sig: SUCRALFATE 1 GRAM TABLET TAKE 1 TABLET BY MOUTH BEFORE* ESCITALOPRAM 10 MG TABLET Take 0.5 tablets by mouth onc* ESOMEPRAZOLE MAGNESIUM 40 MG * Take 1 capsule by mouth daily* LEVOTHYROXINE 25 MCG TABLET TAKE 1 TABLET BY MOUTH EVERY * LEVOTHYROXINE 50 MCG TABLET TAKE 1 TABLET BY MOUTH EVERY * EZETIMIBE 10 MG TABLET Take 1 tablet by mouth once d* GABAPENTIN 300 MG CAPSULE Take 1 capsule by mouth daily* MUPIROCIN 2 % TOPICAL OINTMENT Apply 1 application to affect* ESTRADIOL 0.01% (0.1 MG/GRAM)* Use fingertip amount nightly * PROBIOTIC ORAL Take by mouth. MULTIVITAMIN ORAL Take by mouth. Problem List As Of Date 11/09/2018 Noted Resolved [place]-Walker grade 3 cystocele [N81.10] INVALID FOR* [place]-Walker grade 2 rectocele [N81.6] INVALID FOR* Urge incontinence [N39.41] INVALID FOR* PHN (postherpetic neuralgia) [B02.29] INVALID FOR* Hypothyroid [E03.9] History of shingles [Z86.19] More... Cervical disc disease [M50.90] GERD (gastroesophageal reflux disease) [K21.9] Cardiomyopathy, nonischemic (HCC) [I42.8] INVALID FOR* Closed disp fracture of proximal phalanx of les*INVALID FOR* More... PONV (postoperative nausea and vomiting) [R11.2*INVALID FOR* MINA (obstructive sleep apnea) [G47.33] INVALID FOR* Left bundle branch block [I44.7] INVALID FOR* More... HTN (hypertension) [I10] INVALID FOR* HLD (hyperlipidemia) [E78.5] INVALID FOR* Pure hypercholesterolemia [E78.00] INVALID FOR* Encounter for screening for malignant neoplasm *INVALID FOR* More... Gastroesophageal reflux disease without esophag*INVALID FOR* More... Other instructions from your clinician: LIFESTYLE CHANGE A healthy lifestyle is the most important component of your overall treatment plan. Please give serious thought to the following areas and commit to making usp changes. EAT A WHOLE FOOD, PLANT BASED DIET The nutrition your body gets is more important than the medicine you take. What matters most is the overall way you eat. We encourage you to minimize the use of animal products (which include dairy and all meats except fatty fish) and use whole, unprocessed plant foods to provide your protein, vitamins and other nutrients. We have a lot of information to share with you on this topic. This is not a diet. It is a way of life that you will keep with you. EXERCISE REGULARLY It is not important to spend hours in the gym, lifting weights and perspiring heavily. A total of 2-3 hours per week of aerobic (causing you to be moderately short of breath) exercise is sufficient to improve your health. Talk to us before you begin a new exercise program, if you have heart disease or experience shortness of breath or chest pain. REDUCE STRESS Chronic emotional and physical stress leads to disease. Ways of reducing stress include meditation, visualization, prayer, yoga and other forms of relaxation therapy. Consistency is the stroud. Find a technique that works for you and do it every day. CULTIVATE RELATIONSHIPS Loneliness and isolation have a major negative impact on health. Seek out others who can love, care for and nurture you. Avoid hurtful relationships. MAINTAIN IDEAL BODY WEIGHT The best way to do this is to do all the things above. Our bodies naturally find the right weight if we keep moving and feed ourselves the right food. If your BMI is greater than 25, we strongly recommend a referral to a weight management program. Please speak to us or your family physician about available programs. AVOID NICOTINE IN ALL FORMS This includes all tobacco products, whether chewed, smoked, vaped, or rubbed on the skin. Smoking cessation programs, which can make use of tobacco substitutes, medications to suppress cravings and behavior management, are available. Please contact your family physician about programs in your area. Medications Discontinued During This Encounter esomeprazole (NEXIUM) 40 mg capsule 90 c* 3 10/24/2018 11/09/2018 Route: ORAL Sig: Take 1 capsule by mouth once daily. Patient not taking: Reported on 11/09/2018 Disc: Reason for discontinue is not on file. gabapentin (NEURONTIN) 100 mg capsule 90 c* 3 05/22/2018 11/09/2018 Sig: TAKE ONE CAPSULE BY MOUTH ONCE DAILY IN ADDITION TO 300 MG CAPSULES Patient not taking: Reported on 11/09/2018 Disc: Course of therapy completed Encounter Status:Closed by ARTEMIO DE LA TORRE MD on 11/09/18 SCREENING MAMM (CAD), Observed: 10/19/2018 Status: F Source: [place] [place] 12:37 PM [facility] [place] [facility] Imaging Services [address] [place] [id number] SCREENING MAMM (CAD), BILAT MR#: [id number] Acct: [id number] Name: HERLINDA ROSAS Rep #: [id number] : 1945 F 73 From: Anthony Milian MD PCP: Kira Robertson MD Status: REG CLI Study: SCREENING MAMM (CAD), BILAT Date of Exam: 10/19/18 Exam# [id number] Ordering Dr: Marla Watson NP-Ariel MAMMOGRAPHY - BILATERAL SCREENING REASON FOR EXAM: Female, 73 years old. Routine annual screening examination. PERTINENT HISTORY: Non-contributory. TECHNIQUE: Digital bilateral breast anai (3D mammographic acquisition) in the CC and MLO projections. 2-D mediolateral oblique (MLO) and craniocaudad (CC) views of both breasts were obtained. CAD: Full Field Digital Mammography with Computer Added Detection was performed. COMPARISON: Comparison is made with prior outside examination of August 16, 2017. FINDINGS: Breast Composition: There are scattered areas of fibroglandular density. There are no dominant masses or suspicious calcifications. Stable small bilateral benign-appearing axillary lymph nodes. No other significant abnormalities are identified. There has been no significant change since the prior study. BI/SCREENING MAMM (CAD), BILAT IMPRESSION: Stable bilateral screening mammogram. Yearly follow-up mammogram recommended. (A) ASSESSMENT CATEGORY: BIRADS Category 2: Benign. A letter regarding these results will be sent to the patient by the facility within 30 days. Approximately 10% of breast cancers are not detected by mammography. A normal mammogram should not delay biopsy of a clinically suspicious abnormality. [id number] Electronically Signed: Anthony Milian MD at 14:47 EST Tel [phone], Service support , CC: DAQUAN Watson; Kira Robertson MD Website Optimization Strategist: Signed PROGRESS Observed: 10/19/2018 Status: COMPLETED Source: [place] 12:33 PM [facility] REPOSITORY O ID: [id number] Author: Ellie Dent Service: (none) Author Type: Physician Type: Progress Notes Filed: 10/19/2018 12:38 PM Note Text: Follow up podiatric office visit for: Chief Complaint: This 73 year old who presents for follow up:left foot pain. Patient has history of fractures to left first, 2nd and 3rd toes. She has been walking now in regular shoes. She still has some mild ache but it it not terrible. She is here to discuss her pain and to seek options regarding her pain. She has no other complaints. PAIN EVALUATION 10/19/2018 Pain Score: 3 Pain Location: Foot-Left Description: Aching Duration Amount of Time: 1 Duration Units: Months Frequency: Continuous Intervention: Other: See comment none No results found for: HBA1C PCP: Kira Robertson MD PAST MEDICAL HISTORY Diagnosis Date - Cervical disc disease - Diverticulosis of colon - GERD (gastroesophageal reflux disease) - History of shingles recurrent episodes--over 3 recurrences - HLD (hyperlipidemia) 07/22/2018 - HTN (hypertension) 07/22/2018 - Hypothyroid - Left bundle branch block EF 50% - MINA (obstructive sleep apnea) 07/21/2018 - Osteopenia - PHN (postherpetic neuralgia) 05/25/2016 - PONV (postoperative nausea and vomiting) 07/21/2018 Current Outpatient Prescriptions: escitalopram oxalate (LEXAPRO) 10 mg tablet Take 0.5 tablets by mouth once daily. esomeprazole (NEXIUM) 40 mg capsule Take 1 capsule by mouth daily before breakfast. Take on additional capsule daily for one - two months estradiol (ESTRACE) 0.01 % (0.1 mg/gram) vaginal cream Use fingertip amount nightly x 2 weeks, then every other night x 2 weeks, then 1-2x weekly for maintenance ezetimibe (ZETIA) 10 mg tablet Take 1 tablet by mouth once daily. gabapentin (NEURONTIN) 100 mg capsule TAKE ONE CAPSULE BY MOUTH ONCE DAILY IN ADDITION TO 300 MG CAPSULES gabapentin (NEURONTIN) 300 mg capsule Take 1 capsule by mouth daily at bedtime. LACTOBACILLUS ACIDOPHILUS (PROBIOTIC ORAL) Take by mouth. levothyroxine (SYNTHROID) 25 mcg tablet TAKE 1 TABLET BY MOUTH EVERY OTHER DAY ON AN EMPTY STOMACH FOR THYROID. TAKE 50 MCG ON ALTERNATING DAY levothyroxine (SYNTHROID) 50 mcg tablet TAKE 1 TABLET BY MOUTH EVERY OTHER DAY. TAKE 25 MCG ON ALTERNATING DAY MULTIVITAMIN ORAL Take by mouth. mupirocin (BACTROBAN) 2 % ointment Apply 1 application to affected area three times daily as needed. For wounds NEXIUM 40 mg capsule TAKE ONE CAPSULE BY MOUTH ONCE DAILY sucralfate (CARAFATE) 1 gram tablet TAKE 1 TABLET BY MOUTH BEFORE MEALS AND AT BEDTIME. MAY DISSOLVE TABLET IN 2 TEASPOONS OF WATER, DRINK SOON DISSOLVED. No current facility-administered medications for this visit. ALLERGIES Allergen Reactions - Neosporin [Neomycin* Rash PAST SURGICAL HISTORY Procedure Laterality Date - COLONOSCOP W/ OR W/O [facility] SPEC Colonoscopy - PAST SURGICAL HISTORY OF 06/23/2018 cystocele, rectocele and sling - REMOVAL GALLBLADDER Cholecystectomy - REPAIR ROTATOR CUFF,ACUTE Rotator cuff repair - S STRATASIS URETHRAL SLING 2X30 - TOTAL ABDOM HYSTERECTOMY Hysterectomy, MARISOL and BSO Physical Exam: Constitutional: Pt is a well developed 73 year old female who is alert, oriented, cooperative and in no apparent distress. OBJECTIVE: NVSI unchanged from previous visit. Dermatological: Nails 1-5 left are normal. Webspaces clean and dry 1-4 left. Skin appears well hydrated and supple. good color, texture, turgor. No open lesions present. No callosities present. Musculoskeletal/Orthopaedic: Patient has pain to palpation of ball of left 1st, 2nd, 3rd and 4th toes. Pain present with rom of left 1st mtpj although rom is full without crepitus xrays from September reviewed. No healing is present to left 3rd toe fracture Mri of left foot reviewed. Cyst is present to left 3rd toe. ASSESSMENT: (S92.512G) Closed displaced fracture of proximal phalanx of lesser toe of left foot with delayed healing, subsequent encounter (primary encounter diagnosis) PLAN: 1. History and physical examination completed today. 2. Discussed fracture of left foot. The fracture of left 3rd toe will likely fail to heal. She does not have any pain in this area. In absence of any pain, would opt to hold on cutting this fragement of bone out. If pain were to become present, she could elect to cut this out. 3. Discussed presence of ganglion on mri. She has no pain to this area. If pain were present, ultrasound guided aspiration is possible. 4. Will repeat xrays of left foot 5. Gel inserts dispensed today. 6. Will notify patient of results. Ellie Dent DPM PROGRESS Observed: 10/19/2018 Status: COMPLETED Source: [place] 9:48 AM [facility] REPOSITORY HNO ID: [id number] Author: Arianne Wyatt RN Service: (none) Author Type: (none) Type: Progress Notes Filed: 10/19/2018 12:38 PM Note Text: Per Herlinda Ring provided with a pair of Powerstep Comfort Last full length inserts, size 5-6 1/2 and instructed/educated in its application, wear, and care. All questions were answered, and patient was able to demonstrate competence with the necessary skills to utilize the above equipment. Arianne Wyatt RN CNOV Observed: 10/19/2018 Status: COMPLETED Source: [place] 9:10 AM [facility] REPOSITORY Office Visit (PODIWS) HERLINDA ROSAS ([id number]) 1945 F Date Time Provider Department 10/19/18 9:10 AM ELLIE DENT During your visit today, we recorded the following information about you: Omaira Casper 10/19/2018 12:38 PM Signed AMB ROOMING INTAKE FLOWSHEET DATA Risk Screening Do you have concerns about personal safety or safety in the home?: No Pain Pain Score: 3/10 Pain Location: Foot-Left Description: Aching Duration Amount of Time: 1 Duration Units: Months Frequency: Continuous Intervention: Other: See comment (none) Patients for left 3rd toe fx follow up, states still feels sore all over foot not in the specific area of the fx- sometimes feels numbness in foot. Omaira Casper 10/19/2018 9:26 AM Signed Please get X-ray done prior to 1 month follow up. Arianne Wyatt RN 10/19/2018 12:38 PM Signed Per Herlinda Ring provided with a pair of Powerstep Comfort Last full length inserts, size 5-6 1/2 and instructed/educated in its application, wear, and care. All questions were answered, and patient was able to demonstrate competence with the necessary skills to utilize the above equipment. Arianne Dent DPM 10/19/2018 12:38 PM Signed Follow up podiatric office visit for: Chief Complaint: This 73 year old who presents for follow up:left foot pain. Patient has history of fractures to left first, 2nd and 3rd toes. She has been walking now in regular shoes. She still has some mild ache but it it not terrible. She is here to discuss her pain and to seek options regarding her pain. She has no other complaints. PAIN EVALUATION 10/19/2018 Pain Score: 3 Pain Location: Foot-Left Description: Aching Duration Amount of Time: 1 Duration Units: Months Frequency: Continuous Intervention: Other: See comment none No results found for: HBA1C PCP: Kira Robertson MD PAST MEDICAL HISTORY Diagnosis Date - Cervical disc disease - Diverticulosis of colon - GERD (gastroesophageal reflux disease) - History of shingles recurrent episodes--over 3 recurrences - HLD (hyperlipidemia) 07/22/2018 - HTN (hypertension) 07/22/2018 - Hypothyroid - Left bundle branch block EF 50% - MINA (obstructive sleep apnea) 07/21/2018 - Osteopenia - PHN (postherpetic neuralgia) 05/25/2016 - PONV (postoperative nausea and vomiting) 07/21/2018 Current Outpatient Prescriptions: escitalopram oxalate (LEXAPRO) 10 mg tablet Take 0.5 tablets by mouth once daily. esomeprazole (NEXIUM) 40 mg capsule Take 1 capsule by mouth daily before breakfast. Take on additional capsule daily for one - two months estradiol (ESTRACE) 0.01 % (0.1 mg/gram) vaginal cream Use fingertip amount nightly x 2 weeks, then every other night x 2 weeks, then 1-2x weekly for maintenance ezetimibe (ZETIA) 10 mg tablet Take 1 tablet by mouth once daily. gabapentin (NEURONTIN) 100 mg capsule TAKE ONE CAPSULE BY MOUTH ONCE DAILY IN ADDITION TO 300 MG CAPSULES gabapentin (NEURONTIN) 300 mg capsule Take 1 capsule by mouth daily at bedtime. LACTOBACILLUS ACIDOPHILUS (PROBIOTIC ORAL) Take by mouth. levothyroxine (SYNTHROID) 25 mcg tablet TAKE 1 TABLET BY MOUTH EVERY OTHER DAY ON AN EMPTY STOMACH FOR THYROID. TAKE 50 MCG ON ALTERNATING DAY levothyroxine (SYNTHROID) 50 mcg tablet TAKE 1 TABLET BY MOUTH EVERY OTHER DAY. TAKE 25 MCG ON ALTERNATING DAY MULTIVITAMIN ORAL Take by mouth. mupirocin (BACTROBAN) 2 % ointment Apply 1 application to affected area three times daily as needed. For wounds NEXIUM 40 mg capsule TAKE ONE CAPSULE BY MOUTH ONCE DAILY sucralfate (CARAFATE) 1 gram tablet TAKE 1 TABLET BY MOUTH BEFORE MEALS AND AT BEDTIME. MAY DISSOLVE TABLET IN 2 TEASPOONS OF WATER, DRINK SOON DISSOLVED. No current facility-administered medications for this visit. ALLERGIES Allergen Reactions - Neosporin [Neomycin* Rash PAST SURGICAL HISTORY Procedure Laterality Date - COLONOSCOP W/ OR W/O [facility] SPEC Colonoscopy - PAST SURGICAL HISTORY OF 06/23/2018 cystocele, rectocele and sling - REMOVAL GALLBLADDER Cholecystectomy - REPAIR ROTATOR CUFF,ACUTE Rotator cuff repair - S STRATASIS URETHRAL SLING 2X30 - TOTAL ABDOM HYSTERECTOMY Hysterectomy, MARISOL and BSO Physical Exam: Constitutional: Pt is a well developed 73 year old female who is alert, oriented, cooperative and in no apparent distress. OBJECTIVE: NVSI unchanged from previous visit. Dermatological: Nails 1-5 left are normal. Webspaces clean and dry 1-4 left. Skin appears well hydrated and supple. good color, texture, turgor. No open lesions present. No callosities present. Musculoskeletal/Orthopaedic: Patient has pain to palpation of ball of left 1st, 2nd, 3rd and 4th toes. Pain present with rom of left 1st mtpj although rom is full without crepitus xrays from September reviewed. No healing is present to left 3rd toe fracture Mri of left foot reviewed. Cyst is present to left 3rd toe. ASSESSMENT: (S92.512G) Closed displaced fracture of proximal phalanx of lesser toe of left foot with delayed healing, subsequent encounter (primary encounter diagnosis) PLAN: 1. History and physical examination completed today. 2. Discussed fracture of left foot. The fracture of left 3rd toe will likely fail to heal. She does not have any pain in this area. In absence of any pain, would opt to hold on cutting this fragement of bone out. If pain were to become present, she could elect to cut this out. 3. Discussed presence of ganglion on mri. She has no pain to this area. If pain were present, ultrasound guided aspiration is possible. 4. Will repeat xrays of left foot 5. Gel inserts dispensed today. 6. Will notify patient of results. Ellie Dent DPM Referring Provider: ELLIE DENT [[id number]] Allergies As of Date: 10/19/2018 Noted Allergy Reaction NEOSPORIN ([id number]*06/14/2017 2 - Rash Date Reviewed: 10/19/2018 Reviewed by: Omaira Casper - Fully Assessed Reason for Visit: Recheck [92] Cmt: left toe fx- 3rd Primary Visit Diagnosis:Closed displaced fracture of proximal phalanx of lesser toe of left foot with delayed healing, subsequent encounter [I93.564G] Order(s):XR FOOT GENERAL 3V AP/LAT/OBL LT [[id number]] Order #: [id number] FUTURE Prescriptions as of 10/19/2018 Sig: ESCITALOPRAM 10 MG TABLET Take 0.5 tablets by mouth onc* ESOMEPRAZOLE MAGNESIUM 40 MG * Take 1 capsule by mouth daily* ESTRADIOL 0.01% (0.1 MG/GRAM)* Use fingertip amount nightly * EZETIMIBE 10 MG TABLET Take 1 tablet by mouth once d* GABAPENTIN 100 MG CAPSULE TAKE ONE CAPSULE BY MOUTH ONC* GABAPENTIN 300 MG CAPSULE Take 1 capsule by mouth daily* PROBIOTIC ORAL Take by mouth. LEVOTHYROXINE 25 MCG TABLET TAKE 1 TABLET BY MOUTH EVERY * LEVOTHYROXINE 50 MCG TABLET TAKE 1 TABLET BY MOUTH EVERY * MULTIVITAMIN ORAL Take by mouth. 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 Cervical disc disease [M50.90] GERD (gastroesophageal reflux disease) [K21.9] Cardiomyopathy, nonischemic (HCC) [I42.8] INVALID FOR* Closed disp fracture of proximal phalanx of les*INVALID FOR* More... PONV (postoperative nausea and vomiting) [R11.2*INVALID FOR* MINA (obstructive sleep apnea) [G47.33] INVALID FOR* Left bundle branch block [I44.7] INVALID FOR* More... HTN (hypertension) [I10] INVALID FOR* HLD (hyperlipidemia) [E78.5] INVALID FOR* Pure hypercholesterolemia [E78.00] INVALID FOR* Encounter for screening for malignant neoplasm *INVALID FOR* More... Gastroesophageal reflux disease without esophag*INVALID FOR* More... Other instructions from your clinician: Please get X-ray done prior to 1 month follow up. Disposition: Return in about 1 month (around 11/19/2018) for Left 3rd toe fracture. Follow-up and Disposition History Recorded Encounter Status:Closed by ELLIE DENT DPM on 10/19/18 PROGRESS Observed: 10/19/2018 Status: COMPLETED Source: [place] 9:08 AM [facility] REPOSITORY HNO ID: [id number] Author: Omaira Casper Service: (none) Author Type: (none) Type: Progress Notes Filed: 10/19/2018 12:38 PM Note Text: AMB ROOMING INTAKE FLOWSHEET DATA Risk Screening Do you have concerns about personal safety or safety in the home?: No Pain Pain Score: 3/10 Pain Location: Foot-Left Description: Aching Duration Amount of Time: 1 Duration Units: Months Frequency: Continuous Intervention: Other: See comment (none) Patients for left 3rd toe fx follow up, states still feels sore all over foot not in the specific area of the fx- sometimes feels numbness in foot. Omaira Casper CNOV Observed: 10/06/2018 Status: COMPLETED Source: [place] 9:00 AM [facility] REPOSITORY Office Visit ([facility]) HERLINDA ROSAS ([id number]) 1945 F Date Time Provider Department 10/06/18 9:00 AM LILIANA MADRID ([place]) [facility] During your visit today, we recorded the following information about you: Pulse Blood pressure Weight Height 73/minute 134/71 64.3 kg 1.549 m Liliana Madrid RN APRN.[facility] 10/06/2018 10:08 AM Signed Herlinda Rosas a 73 year old female who is a consultation requested by Mali Argueta APRN, for an opinion regarding GERD. My final recommendations will be communicated back to the requesting physician by way of shared Medical record. The patient has not been seen previously by this provider. DATE OF SERVICE: By . June 30, 2015 PREOP DX left upper quadrant abdominal pain POSTOP DX same PROCEDURE Esophagogastroduodenoscopy ANESTHESIA IV conscious sedation with 5 mg versed and 100 micrograms of fentanyl, xylocaine spray to posterior pharynx x 2 MATERIAL FORWARDED TO LABORATORY FOR EXAMINATION None INDICATIONS: The patient is a 70-year-old white female, who presents with a history of left upper quadrant abdominal pain of unknown etiology. She has undergone evaluation with a CT scan and a colonoscopy. No findings were noted. An EGD was recommended and she has recently moved to this area and now she presents for esophagogastroduodenoscopy. She has been counseled as to risks of procedure including but not limited to infection, bleeding, perforation of GI tract requiring emergency surgery, inability to complete the procedure, complications of anesthesia, etc. The patient understands and agrees to proceed. DESCRIPTION OF PROCEDURE: After informed consent was given, the patient was brought to endoscopy suite. Appropriate cardiac, blood pressure and pulse oximetry monitoring was placed. Appropriate time-out protocol was followed. The patient had her posterior pharynx sprayed with Xylocaine spray x2. Bite block was then placed. IV conscious sedation was administered. The endoscope was carefully lubricated and inserted into the patient's mouth. She was then asked to swallow and the endoscope was then advanced past the cricopharyngeus area without any resistance, then into the esophagus. It was then advanced down the esophagus into the stomach, then passed pylorus into the duodenal bulb and then to the second portion of the duodenum. No lesions were seen in the duodenum. No ulcers or masses were noted. The endoscope was retracted back into the stomach where the stomach was maximally insufflated with gas. There is no evidence of any lesions. No ulcers were noted. No inflammatory, mucosal changes were noted. Retroflexed view into the fundus and the body of the stomach revealed no evidence of any lesions. The endoscope was then retracted back into the esophagus where the GE junction was noted to be at 39 cm from the patient's teeth and appeared entirely normal. So examination was then continued up the esophagus. The patient was noted to have prominent submucosal veins and one in the esophagus. However, no ulcers, no masses were noted. The endoscope was removed intact. The patient tolerated the procedure. There were no complications. The patient was seen by Mali on 09/18/18, leading to this consultation. That note has been reviewed and part as follows: Since the last visit, she states that she has had increased GERD symptoms. Typically occurring after meals. No reflux at night is noted. She reports reflux symptoms are occurring most days. Feels her symptoms have progressively worsened over the last several months. She notes nausea but no vomiting diarrhea or constipation no blood in stools no black or tarry stools no abdominal pain but increased belching. She had an EGD 4 years ago at [facility] - CT scan document. This did not show any abnormalities. She's currently been taking Nexium 40 mg once daily. Occasionally takes Zantac or Tums which is helping somewhat. Presenting complaint: The patient presents today reporting acid reflux onset 20 years ago. Usually comfortable with taking one Nexium a day. Would have to be mindful of eating chocolate or taking NSAIDs or Bactrim. She notes that for the past 2 years reflux seems to be getting worse. States recently acid sitting in my throat. Immediate reflux right after eating, which is unusual. Also reporting a lot of eructating - coming from my toes. Gurgling in the RUQ. - not painful. The patient was instructed to increase to two a day on 09/18. Carafate also added at that time (taking it 3 times a day- not doing the morning dose). She tells me that the symptoms have improved, but not resolved. The patient wonders if medications could be contributing to her change. We reviewed the med list. Also stressors - Sister moving. Mother passing away. Moving to [place] and adjusting to [place] life..... She uses CPAP. Has used a wedge pillow in the past, but not recently - I suggested she resume that. The patient denies change in bowel habits, rectal bleeding or abdominal pain. Having a bowel movement every three days. The patient denies a family history of colon cancer. She tells me that her last colonoscopy was almost ten years ago. Component Latest Ref Rng AND Units 08/28/2018 Occult Blood, Stool Negative Negative REVIEW OF SYSTEMS: GENERAL: No weight loss, malaise or fevers HEENT: Negative for frequent or significant headaches, No changes in hearing or vision, no nose bleeds or other nasal problems NECK: Negative for lumps, goiter, pain and significant neck swelling RESPIRATORY: Negative for cough, hemoptysis, wheezing, COPD, dyspnea or shortness of breath CARDIOVASCULAR: Negative for chest pain, leg swelling, hypertension, CHF or palpitations GI: The patient states that her appetite has been good. She does get hungry. There has been some nausea, no vomiting. She admits to a slight feeling of dysphagia (rice) and denies odynophagia. There has partially been indigestion with heartburn. There has been regurgitation. Bowel habits have been regular. There has not been diarrhea. There has not been constipation. The patient denies rectal bleeding. There has not been melena. No abdominal pain. PSYCH: Some stressors. Taking Lexapro for post hepatic neuralgia. I mentioned that is also good for the stress. HEMATOLOGY/LYMPHOLOGY Negative for prolonged bleeding, bruising easily or swollen nodes ENDOCRINE: Positive for hypothyroid. NEURO: No history of headaches, syncope, paralysis, seizures or tremors. All other reviewed and negative other than HPI. PAST MEDICAL HISTORY Diagnosis Date - Cervical disc disease - Diverticulosis of colon - GERD (gastroesophageal reflux disease) - History of shingles recurrent episodes--over 3 recurrences - HLD (hyperlipidemia) 07/22/2018 - HTN (hypertension) 07/22/2018 - Hypothyroid - Left bundle branch block EF 50% - MINA (obstructive sleep apnea) 07/21/2018 - Osteopenia - PHN (postherpetic neuralgia) 05/25/2016 - PONV (postoperative nausea and vomiting) 07/21/2018 PAST SURGICAL HISTORY Procedure Laterality Date - COLONOSCOP W/ OR W/O BRSH SPEC Colonoscopy - PAST SURGICAL HISTORY OF 06/23/2018 cystocele, rectocele and sling - REMOVAL GALLBLADDER Cholecystectomy - REPAIR ROTATOR CUFF,ACUTE Rotator cuff repair - S STRATASIS URETHRAL SLING 2X30 - TOTAL ABDOM HYSTERECTOMY Hysterectomy, MARISOL and BSO FAMILY HISTORY Problem Relation Age of Onset - Alzheimer's Disease Mother - Stroke Mother - other (Parkinson's Disease) Father - Hypertension Sister Current Outpatient Prescriptions: escitalopram oxalate (LEXAPRO) 10 mg tablet Take 0.5 tablets by mouth once daily. Disp: 45 tablet Rfl: 3 esomeprazole (NEXIUM) 40 mg capsule Take 1 capsule by mouth daily before breakfast. Take on additional capsule daily for one - two months Disp: 30 capsule Rfl: 1 sucralfate (CARAFATE) 1 gram tablet Take 1g before meals and at bedtime. May dissolve 1 tab into ~ 2 tsp of water, drink as soon as dissolved. Disp: 56 tablet Rfl: 0 levothyroxine (SYNTHROID) 25 mcg tablet TAKE 1 TABLET BY MOUTH EVERY OTHER DAY ON AN EMPTY STOMACH FOR THYROID. TAKE 50 MCG ON ALTERNATING DAY Disp: 45 tablet Rfl: 3 levothyroxine (SYNTHROID) 50 mcg tablet TAKE 1 TABLET BY MOUTH EVERY OTHER DAY. TAKE 25 MCG ON ALTERNATING DAY Disp: 45 tablet Rfl: 3 ezetimibe (ZETIA) 10 mg tablet Take 1 tablet by mouth once daily. Disp: 30 tablet Rfl: 11 gabapentin (NEURONTIN) 300 mg capsule Take 1 capsule by mouth daily at bedtime. Disp: 90 capsule Rfl: 3 gabapentin (NEURONTIN) 100 mg capsule TAKE ONE CAPSULE BY MOUTH ONCE DAILY IN ADDITION TO 300 MG CAPSULES Disp: 90 capsule Rfl: 3 mupirocin (BACTROBAN) 2 % ointment Apply 1 application to affected area three times daily as needed. For wounds Disp: 22 g Rfl: 0 NEXIUM 40 mg capsule TAKE ONE CAPSULE BY MOUTH ONCE DAILY Disp: 90 capsule Rfl: 3 estradiol (ESTRACE) 0.01 % (0.1 mg/gram) vaginal cream Use fingertip amount nightly x 2 weeks, then every other night x 2 weeks, then 1-2x weekly for maintenance Disp: 1 Tube Rfl: 3 LACTOBACILLUS ACIDOPHILUS (PROBIOTIC ORAL) Take by mouth. Disp: Rfl: MULTIVITAMIN ORAL Take by mouth. Disp: Rfl: No current facility-administered medications for this visit. SOCIAL HISTORY: Patient is . She has never smoked and reports her alcohol use as socially. PHYSICAL EXAMINATION: Blood pressure 134/71, pulse 73, height 154.9 cm (5' 1), weight 64.3 kg (141 lb 12.8 oz). General Appearance: Well appearing, alert, in no acute distress, well-hydrated, well nourished. Skin: Skin color, texture, turgor normal, no suspicious rashes or lesions. Head: Normocephalic, no masses, lesions or abnormalities. Eyes: Anicteric sclera. Oropharynx: Lips, mucosa, and tongue normal, teeth and gums normal, oropharynx normal. Neck: Supple, no adenopathy. Lungs: lungs clear to auscultation. No wheezing, rhonchi, rales. Heart: RRR without murmur. Abdomen: Abdomen soft, non-tender. Bowel sounds normal. No masses, organomegaly. Extremities: No deformities, edema,. Peripheral Pulses: Normal. Neurologic: Gait normal. Sensation grossly intact. Impression: GERD - consider bile reflux as well 2)colorectal cancer screening Plan: Continue current medication routine. Elevate the head of the bed. Avoid eating/meds less than 2 1/2 hrs before bed. The patient will be scheduled for an upper endoscopy as well as a colonoscopy. Preparation for the procedures, using GoLytely as the laxative, have been explained in detail. The risks, benefits, anticipated outcomes and possible complications were mentioned. I explained the procedure in understandable terms and the patient was given printed material concerning the planned procedure. The patient had the opportunity to ask questions concerning the planned procedure. The patient freely consents to the planned procedure. The patient is encouraged to call with any questions or concerns, or should there be any change in health status between now and the scheduled procedure. I have personally interviewed and examined this patient. I have read the information that the HEALTH COMMUNICATIONS SPECIALIST documented in this encounter. I spent 30 minutes in the visit, with more than 50% of the total [id number] time of the visit in counseling / coordination of care. Liliana Madrid RN APRN.SANJAY Madrid RN APRN.SANJAY 10/06/2018 9:52 AM Addendum Please follow the provided instructions for upper endoscopy and colonoscopy. You will be using GoLytely as the laxative during the preparation. You may start the laxative as early as 1:00 in the afternoon. Your procedures will be with Dr. Inman, on November 13. The endoscopy staff will call you the day before the procedure with specific on arrival time. (Tuesday for Tuesday procedures). Move Neurontin, and any snack, to earlier in the evening. Try to elevate the head of the bed or use a wedge pillow. Referring Provider: MALI ARGUETA ([facility]) [[id number]] Allergies As of Date: 10/06/2018 Noted Allergy Reaction NEOSPORIN ([id number]*06/14/2017 2 - Rash Date Reviewed: 10/06/2018 Reviewed by: Whitney Ogden HEALTH COMMUNICATIONS SPECIALIST - Fully Assessed Reason for Visit: GERD [548] Primary Visit Diagnosis:Gastroesophageal reflux disease, esophagitis presence not specified [K21.9] Other Visit Diagnoses:Encounter for screening for malignant neoplasm of colon [Z12.11] Eructation [R14.2] Order(s):EGD [[id number]] Order #: [id number] FUTURE COLONOSCOPY SCRN NOT HIGH RISK [[id number]] Order #: [id number] FUTURE peg 3350-electrolytes (COLYTE) 240-22.72-6.72 -5.84 gram solutionTake 4,000 mL by mouth one time only for 1 dose.Disp: 1 BottleRfl: 0 Prescriptions as of 10/06/2018 Sig: ESCITALOPRAM 10 MG TABLET Take 0.5 tablets by mouth onc* ESOMEPRAZOLE MAGNESIUM 40 MG * Take 1 capsule by mouth daily* SUCRALFATE 1 GRAM TABLET Take 1g before meals and at b* LEVOTHYROXINE 25 MCG TABLET TAKE 1 TABLET BY MOUTH EVERY * LEVOTHYROXINE 50 MCG TABLET TAKE 1 TABLET BY MOUTH EVERY * EZETIMIBE 10 MG TABLET Take 1 tablet by mouth once d* GABAPENTIN 300 MG CAPSULE Take 1 capsule by mouth daily* GABAPENTIN 100 MG CAPSULE TAKE ONE CAPSULE BY MOUTH ONC* MUPIROCIN 2 % TOPICAL OINTMENT Apply 1 application to affect* NEXIUM 40 MG CAPSULE,DELAYED * TAKE ONE CAPSULE BY MOUTH ONC* ESTRADIOL 0.01% (0.1 MG/GRAM)* Use fingertip amount nightly * PROBIOTIC ORAL Take by mouth. MULTIVITAMIN ORAL Take by mouth. 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 Cervical disc disease [M50.90] GERD (gastroesophageal reflux disease) [K21.9] Cardiomyopathy, nonischemic (HCC) [I42.8] INVALID FOR* Closed disp fracture of proximal phalanx of les*INVALID FOR* More... PONV (postoperative nausea and vomiting) [R11.2*INVALID FOR* MINA (obstructive sleep apnea) [G47.33] INVALID FOR* Left bundle branch block [I44.7] INVALID FOR* More... HTN (hypertension) [I10] INVALID FOR* HLD (hyperlipidemia) [E78.5] INVALID FOR* Pure hypercholesterolemia [E78.00] INVALID FOR* Other instructions from your clinician: Please follow the provided instructions for upper endoscopy and colonoscopy. You will be using GoLytely as the laxative during the preparation. You may start the laxative as early as 1:00 in the afternoon. Your procedures will be with Dr. Inman, on November 13. The endoscopy staff will call you the day before the procedure with specific on arrival time. (Tuesday for Tuesday procedures). Move Neurontin, and any snack, to earlier in the evening. Try to elevate the head of the bed or use a wedge pillow. Prescriptions ordered this encounter Disp Refills Start End PEG 3350 240 GRAM-ELECTROLYTES 22.72* 1 Chin* 0 10/06/2018 10/06/2018 Route: ORAL Sig: Take 4,000 mL by mouth one time only for 1 dose. Follow-up and Disposition History Recorded Encounter Status:Closed by LILIANA MADRID CNP on 10/06/18 HOSP Observed: 10/06/2018 Status: COMPLETED Source: [place] 12:00 AM [facility] [place] REPOSITORY Patient:Herlinda Rosas MRN: <[id number]> Height:5' 1(1.549 m) Weight:140 lb 9.6 oz (63.776 kg) Outpatient Medications as of 11/13/18: sucralfate (CARAFATE) 1 gram tablet escitalopram oxalate (LEXAPRO) 10 mg tablet esomeprazole (NEXIUM) 40 mg capsule levothyroxine (SYNTHROID) 25 mcg tablet levothyroxine (SYNTHROID) 50 mcg tablet ezetimibe (ZETIA) 10 mg tablet gabapentin (NEURONTIN) 300 mg capsule mupirocin (BACTROBAN) 2 % ointment estradiol (ESTRACE) 0.01 % (0.1 mg/gram) vaginal cream LACTOBACILLUS ACIDOPHILUS (PROBIOTIC ORAL) MULTIVITAMIN ORAL Admission/Clinic Administered Medications as of 11/13/18: lactated ringers infusion Problem List: 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 [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] Urge incontinence [N39.41] PHN (postherpetic neuralgia) [B02.29] Hypothyroid [E03.9] History of shingles [Z86.19] Cervical disc disease [M50.90] GERD (gastroesophageal reflux disease) [K21.9] Cardiomyopathy, nonischemic (HCC) [I42.8] Closed disp fracture of proximal phalanx of lesser toe of left foot [S92.512A] PONV (postoperative nausea and vomiting) [R11.2, Z98.890] MINA (obstructive sleep apnea) [G47.33] Left bundle branch block [I44.7] HTN (hypertension) [I10] HLD (hyperlipidemia) [E78.5] Pure hypercholesterolemia [E78.00] Encounter for screening for malignant neoplasm of colon [Z12.11] Gastroesophageal reflux disease without esophagitis [K21.9] Allergies: Neosporin [Guttnibh-Ejtwxzasbv-Xuqlirraf] Date Verified: 11/13/18 Lab Values No results within the last 30 days for the following basenames: K,HCT Progress Notes (CARD ADMIN [facility]): Artemio De La Torre MD 11/09/2018 6:13 PM Signed PERTINENT CARDIAC HISTORY Cardiomyopathy - mild, nonischemic, EF normalized LBBB Pericardial Ca++ HTN MINA - CPAP HL - statin intolerant ADHERENCE TO GUIDELINES FARHANA-I or ARB for HF with prior LVEF<40 (NQF 0081) - N/A ASA or Plavix for ASHD (NQF 0067) - N/A Beta stefano for ASHD with prior ME or prior LVEF<40 (NQF 0070) - N/A Beta stefano for HF with prior LVEF<40 (NQF 0083) - N/A FARHANA-I or ARB for ASHD with DM or prior LVEF<40 (NQF 0066) - N/A Statin therapy for ASHD or FHL or DM - intolerant, on Zetia BMI documented and plan if >25 ([facility] 0421) - lifestyle recommendation form Tobacco use screening and referral ([facility] 0028) - lifestyle recommendation form Recommendation for whole food, plant based diet - lifestyle recommendation form CLINICAL IMPRESSION/PLAN: Herlinda Rosas has stable cardiomyopathy. Her LV function has returned to normal. There is no evidence of pericardial disease. There is no evidence of progression of her conduction abnormality. We discussed signs and symptoms to watch for. I've encouraged her to increase her exercise and improve her fitness level. I recommend follow-up in 8 months or as needed. Written and verbal health teaching given to patient, patient verbalizes understanding and agrees with treatment plan. DIAGNOSIS FOR VISIT: Cardiomyopathy HISTORY OF PRESENT ILLNESS Herlinda Rosas returns for follow-up of her nonischemic myopathy and left bundle branch block. She reports stable exercise tolerance. Her recent surgery went well. She is now walking for exercise. She's had less foot discomfort and her exercise tolerance has improved. She denies chest pain. She's had no orthopnea, edema, syncope, palpitations, TIAs, amaurosis or claudication. ALLERGIES: ALLERGIES Allergen Reactions - Neosporin [Neomycin* Rash CURRENT OUTPATIENT MEDICATIONS: sucralfate (CARAFATE) 1 gram tablet TAKE 1 TABLET BY MOUTH BEFORE MEALS AND AT BEDTIME. MAY DISSOLVE TABLET IN 2 TEASPOONS OF WATER, DRINK SOON DISSOLVED. escitalopram oxalate (LEXAPRO) 10 mg tablet Take 0.5 tablets by mouth once daily. esomeprazole (NEXIUM) 40 mg capsule Take 1 capsule by mouth daily before breakfast. Take on additional capsule daily for one - two months levothyroxine (SYNTHROID) 25 mcg tablet TAKE 1 TABLET BY MOUTH EVERY OTHER DAY ON AN EMPTY STOMACH FOR THYROID. TAKE 50 MCG ON ALTERNATING DAY levothyroxine (SYNTHROID) 50 mcg tablet TAKE 1 TABLET BY MOUTH EVERY OTHER DAY. TAKE 25 MCG ON ALTERNATING DAY ezetimibe (ZETIA) 10 mg tablet Take 1 tablet by mouth once daily. gabapentin (NEURONTIN) 300 mg capsule Take 1 capsule by mouth daily at bedtime. mupirocin (BACTROBAN) 2 % ointment Apply 1 application to affected area three times daily as needed. For wounds estradiol (ESTRACE) 0.01 % (0.1 mg/gram) vaginal cream Use fingertip amount nightly x 2 weeks, then every other night x 2 weeks, then 1-2x weekly for maintenance LACTOBACILLUS ACIDOPHILUS (PROBIOTIC ORAL) Take by mouth. MULTIVITAMIN ORAL Take by mouth. PHYSICAL EXAMINATION: VITAL SIGNS: BP 124/75 Pulse 72 Ht 5' 1 (1.55m) Wt 140 lb 9.6 oz (63.8kg) BMI 26.58 kg/(m2). Chest: Clear to auscultation. Trachea is midline. Air entry is equal. Cardiac: Regular rhythm. S2 is paradoxically split. PMI is nondisplaced. There is a soft systolic ejection murmur. Carotids are brisk without bruits. JVP is less than 10 cm. Abdomen: Soft and nontender. There are no pulsatile masses or bruits. No liver enlargement. Bowel sounds are active. Extremities: No edema. Pulses are intact and symmetrical. Recent labs were reviewed. LDL has improved slightly to 124, on ezetimibe. Electronically Signed: Artemio De La Torre MD November 09, 2018 9:56 AM CC: MD Artemio Caal MD 11/09/2018 9:56 AM Signed LIFESTYLE CHANGE A healthy lifestyle is the most important component of your overall treatment plan. Please give serious thought to the following areas and commit to making usp changes. EAT A WHOLE FOOD, PLANT BASED DIET The nutrition your body gets is more important than the medicine you take. What matters most is the overall way you eat. We encourage you to minimize the use of animal products (which include dairy and all meats except fatty fish) and use whole, unprocessed plant foods to provide your protein, vitamins and other nutrients. We have a lot of information to share with you on this topic. This is not a diet. It is a way of life that you will keep with you. EXERCISE REGULARLY It is not important to spend hours in the gym, lifting weights and perspiring heavily. A total of 2-3 hours per week of aerobic (causing you to be moderately short of breath) exercise is sufficient to improve your health. Talk to us before you begin a new exercise program, if you have heart disease or experience shortness of breath or chest pain. REDUCE STRESS Chronic emotional and physical stress leads to disease. Ways of reducing stress include meditation, visualization, prayer, yoga and other forms of relaxation therapy. Consistency is the stroud. Find a technique that works for you and do it every day. CULTIVATE RELATIONSHIPS Loneliness and isolation have a major negative impact on health. Seek out others who can love, care for and nurture you. Avoid hurtful relationships. MAINTAIN IDEAL BODY WEIGHT The best way to do this is to do all the things above. Our bodies naturally find the right weight if we keep moving and feed ourselves the right food. If your BMI is greater than 25, we strongly recommend a referral to a weight management program. Please speak to us or your family physician about available programs. AVOID NICOTINE IN ALL FORMS This includes all tobacco products, whether chewed, smoked, vaped, or rubbed on the skin. Smoking cessation programs, which can make use of tobacco substitutes, medications to suppress cravings and behavior management, are available. Please contact your family physician about programs in your area. Progress Notes ([facility]): Zahra Aguirre LPN 10/24/2018 10:00 AM Signed Patient has been identified by name and date of : Yes Pharmacy phones for refill(s): Pending Prescriptions Disp Refills NEXIUM 40 MG CAPSULE,DELAYED RELEASE 90 capsule 3 Sig: Take 1 capsule by mouth once daily. TED: Yes Date of last office visit in primary care: 09/2018 Last 2 Encounter Wt Readings: Date: Wt: 10/06/2018 64.3 kg (141 lb 12.8 oz) 09/18/2018 63 kg (139 lb) Previous labs/tests for medication: Not applicable Please advise. Thank you. Zahra Aguirre LPN HISTORY PHYSICAL Observed: 10/05/2018 Status: COMPLETED Source: [place] 7:05 PM [facility] REPOSITORY [facility] ID: [id number] Author: Liliana Madrid Service: (none) Author Type: Nurse Practitioner Type: HANDP Filed: 10/06/2018 10:08 AM Note Text: Herlinda Kaplans a 73 year old female who is a consultation requested by Mali Argueta APRN, for an opinion regarding GERD. My final recommendations will be communicated back to the requesting physician by way of shared Medical record. The patient has not been seen previously by this provider. DATE OF SERVICE: By . June 30, 2015 PREOP DX left upper quadrant abdominal pain POSTOP DX same PROCEDURE Esophagogastroduodenoscopy ANESTHESIA IV conscious sedation with 5 mg versed and 100 micrograms of fentanyl, xylocaine spray to posterior pharynx x 2 MATERIAL FORWARDED TO LABORATORY FOR EXAMINATION None INDICATIONS: The patient is a 70-year-old white female, who presents with a history of left upper quadrant abdominal pain of unknown etiology. She has undergone evaluation with a CT scan and a colonoscopy. No findings were noted. An EGD was recommended and she has recently moved to this area and now she presents for esophagogastroduodenoscopy. She has been counseled as to risks of procedure including but not limited to infection, bleeding, perforation of GI tract requiring emergency surgery, inability to complete the procedure, complications of anesthesia, etc. The patient understands and agrees to proceed. DESCRIPTION OF PROCEDURE: After informed consent was given, the patient was brought to endoscopy suite. Appropriate cardiac, blood pressure and pulse oximetry monitoring was placed. Appropriate time-out protocol was followed. The patient had her posterior pharynx sprayed with Xylocaine spray x2. Bite block was then placed. IV conscious sedation was administered. The endoscope was carefully lubricated and inserted into the patient's mouth. She was then asked to swallow and the endoscope was then advanced past the cricopharyngeus area without any resistance, then into the esophagus. It was then advanced down the esophagus into the stomach, then passed pylorus into the duodenal bulb and then to the second portion of the duodenum. No lesions were seen in the duodenum. No ulcers or masses were noted. The endoscope was retracted back into the stomach where the stomach was maximally insufflated with gas. There is no evidence of any lesions. No ulcers were noted. No inflammatory, mucosal changes were noted. Retroflexed view into the fundus and the body of the stomach revealed no evidence of any lesions. The endoscope was then retracted back into the esophagus where the GE junction was noted to be at 39 cm from the patient's teeth and appeared entirely normal. So examination was then continued up the esophagus. The patient was noted to have prominent submucosal veins and one in the esophagus. However, no ulcers, no masses were noted. The endoscope was removed intact. The patient tolerated the procedure. There were no complications. The patient was seen by Mali on 09/18/18, leading to this consultation. That note has been reviewed and part as follows: Since the last visit, she states that she has had increased GERD symptoms. Typically occurring after meals. No reflux at night is noted. She reports reflux symptoms are occurring most days. Feels her symptoms have progressively worsened over the last several months. She notes nausea but no vomiting diarrhea or constipation no blood in stools no black or tarry stools no abdominal pain but increased belching. She had an EGD 4 years ago at [facility] - CT scan document. This did not show any abnormalities. She's currently been taking Nexium 40 mg once daily. Occasionally takes Zantac or Tums which is helping somewhat. Presenting complaint: The patient presents today reporting acid reflux onset 20 years ago. Usually comfortable with taking one Nexium a day. Would have to be mindful of eating chocolate or taking NSAIDs or Bactrim. She notes that for the past 2 years reflux seems to be getting worse. States recently acid sitting in my throat. Immediate reflux right after eating, which is unusual. Also reporting a lot of eructating - coming from my toes. Gurgling in the RUQ. - not painful. The patient was instructed to increase to two a day on 09/18. Carafate also added at that time (taking it 3 times a day- not doing the morning dose). She tells me that the symptoms have improved, but not resolved. The patient wonders if medications could be contributing to her change. We reviewed the med list. Also stressors - Sister moving. Mother passing away. Moving to [place] and adjusting to [employer] life..... She uses CPAP. Has used a wedge pillow in the past, but not recently - I suggested she resume that. The patient denies change in bowel habits, rectal bleeding or abdominal pain. Having a bowel movement every three days. The patient denies a family history of colon cancer. She tells me that her last colonoscopy was almost ten years ago. Component Latest Ref Rng AND Units 08/28/2018 Occult Blood, Stool Negative Negative REVIEW OF SYSTEMS: GENERAL: No weight loss, malaise or fevers HEENT: Negative for frequent or significant headaches, No changes in hearing or vision, no nose bleeds or other nasal problems NECK: Negative for lumps, goiter, pain and significant neck swelling RESPIRATORY: Negative for cough, hemoptysis, wheezing, COPD, dyspnea or shortness of breath CARDIOVASCULAR: Negative for chest pain, leg swelling, hypertension, CHF or palpitations GI: The patient states that her appetite has been good. She does get hungry. There has been some nausea, no vomiting. She admits to a slight feeling of dysphagia (rice) and denies odynophagia. There has partially been indigestion with heartburn. There has been regurgitation. Bowel habits have been regular. There has not been diarrhea. There has not been constipation. The patient denies rectal bleeding. There has not been melena. No abdominal pain. PSYCH: Some stressors. Taking Lexapro for post hepatic neuralgia. I mentioned that is also good for the stress. HEMATOLOGY/LYMPHOLOGY Negative for prolonged bleeding, bruising easily or swollen nodes ENDOCRINE: Positive for hypothyroid. NEURO: No history of headaches, syncope, paralysis, seizures or tremors. All other reviewed and negative other than HPI. PAST MEDICAL HISTORY Diagnosis Date - Cervical disc disease - Diverticulosis of colon - GERD (gastroesophageal reflux disease) - History of shingles recurrent episodes--over 3 recurrences - HLD (hyperlipidemia) 07/22/2018 - HTN (hypertension) 07/22/2018 - Hypothyroid - Left bundle branch block EF 50% - MINA (obstructive sleep apnea) 07/21/2018 - Osteopenia - PHN (postherpetic neuralgia) 05/25/2016 - PONV (postoperative nausea and vomiting) 07/21/2018 PAST SURGICAL HISTORY Procedure Laterality Date - COLONOSCOP W/ OR W/O [facility] SPEC Colonoscopy - PAST SURGICAL HISTORY OF 06/23/2018 cystocele, rectocele and sling - REMOVAL GALLBLADDER Cholecystectomy - REPAIR ROTATOR CUFF,ACUTE Rotator cuff repair - S STRATASIS URETHRAL SLING 2X30 - TOTAL ABDOM HYSTERECTOMY Hysterectomy, MARISOL and BSO FAMILY HISTORY Problem Relation Age of Onset - Alzheimer's Disease Mother - Stroke Mother - other (Parkinson's Disease) Father - Hypertension Sister Current Outpatient Prescriptions: escitalopram oxalate (LEXAPRO) 10 mg tablet Take 0.5 tablets by mouth once daily. Disp: 45 tablet Rfl: 3 esomeprazole (NEXIUM) 40 mg capsule Take 1 capsule by mouth daily before breakfast. Take on additional capsule daily for one - two months Disp: 30 capsule Rfl: 1 sucralfate (CARAFATE) 1 gram tablet Take 1g before meals and at bedtime. May dissolve 1 tab into ~ 2 tsp of water, drink as soon as dissolved. Disp: 56 tablet Rfl: 0 levothyroxine (SYNTHROID) 25 mcg tablet TAKE 1 TABLET BY MOUTH EVERY OTHER DAY ON AN EMPTY STOMACH FOR THYROID. TAKE 50 MCG ON ALTERNATING DAY Disp: 45 tablet Rfl: 3 levothyroxine (SYNTHROID) 50 mcg tablet TAKE 1 TABLET BY MOUTH EVERY OTHER DAY. TAKE 25 MCG ON ALTERNATING DAY Disp: 45 tablet Rfl: 3 ezetimibe (ZETIA) 10 mg tablet Take 1 tablet by mouth once daily. Disp: 30 tablet Rfl: 11 gabapentin (NEURONTIN) 300 mg capsule Take 1 capsule by mouth daily at bedtime. Disp: 90 capsule Rfl: 3 gabapentin (NEURONTIN) 100 mg capsule TAKE ONE CAPSULE BY MOUTH ONCE DAILY IN ADDITION TO 300 MG CAPSULES Disp: 90 capsule Rfl: 3 mupirocin (BACTROBAN) 2 % ointment Apply 1 application to affected area three times daily as needed. For wounds Disp: 22 g Rfl: 0 NEXIUM 40 mg capsule TAKE ONE CAPSULE BY MOUTH ONCE DAILY Disp: 90 capsule Rfl: 3 estradiol (ESTRACE) 0.01 % (0.1 mg/gram) vaginal cream Use fingertip amount nightly x 2 weeks, then every other night x 2 weeks, then 1-2x weekly for maintenance Disp: 1 Tube Rfl: 3 LACTOBACILLUS ACIDOPHILUS (PROBIOTIC ORAL) Take by mouth. Disp: Rfl: MULTIVITAMIN ORAL Take by mouth. Disp: Rfl: No current facility-administered medications for this visit. SOCIAL HISTORY: Patient is . She has never smoked and reports her alcohol use as socially. PHYSICAL EXAMINATION: Blood pressure 134/71, pulse 73, height 154.9 cm (5' 1), weight 64.3 kg (141 lb 12.8 oz). General Appearance: Well appearing, alert, in no acute distress, well-hydrated, well nourished. Skin: Skin color, texture, turgor normal, no suspicious rashes or lesions. Head: Normocephalic, no masses, lesions or abnormalities. Eyes: Anicteric sclera. Oropharynx: Lips, mucosa, and tongue normal, teeth and gums normal, oropharynx normal. Neck: Supple, no adenopathy. Lungs: lungs clear to auscultation. No wheezing, rhonchi, rales. Heart: RRR without murmur. Abdomen: Abdomen soft, non-tender. Bowel sounds normal. No masses, organomegaly. Extremities: No deformities, edema,. Peripheral Pulses: Normal. Neurologic: Gait normal. Sensation grossly intact. Impression: GERD - consider bile reflux as well 2)colorectal cancer screening Plan: Continue current medication routine. Elevate the head of the bed. Avoid eating/meds less than 2 1/2 hrs before bed. The patient will be scheduled for an upper endoscopy as well as a colonoscopy. Preparation for the procedures, using GoLytely as the laxative, have been explained in detail. The risks, benefits, anticipated outcomes and possible complications were mentioned. I explained the procedure in understandable terms and the patient was given printed material concerning the planned procedure. The patient had the opportunity to ask questions concerning the planned procedure. The patient freely consents to the planned procedure. The patient is encouraged to call with any questions or concerns, or should there be any change in health status between now and the scheduled procedure. I have personally interviewed and examined this patient. I have read the information that the HEALTH COMMUNICATIONS SPECIALIST documented in this encounter. I spent 30 minutes in the visit, with more than 50% of the total [id number] time of the visit in counseling / coordination of care. Liliana Madrid RN APRN.FIRE SUPPRESSION CAPTAIN XR FOOT 3V AP/LAT/OBL Observed: 09/18/2018 Status: F Source: [facility] 1:04 PM [facility] REPOSITORY * * *Final Report* * * DATE OF EXAM: Sep 18 2018 1:04PM [id number] - XR FOOT 3V AP/LAT/OBL LT / PROCEDURE REASON: Closed displaced fracture of proximal phalanx of lesser toe of left foot with de * * * * Physician Interpretation * * * * HISTORY: 73-YEAR-OLD FEMALE WITH Closed displaced fracture of proximal phalanx of lesser toe of left foot with delayed healing, subsequent encounter . Hx of fracture follow up with continued pain. TECHNIQUE: XR FOOT 3V AP/LAT/OBL LT Laterality: LEFT Number of different views (projections): 3 COMPARISON: 08/31/2018 RESULT: Slight increase in callus formation and indistinctness of the second proximal phalangeal fracture consistent with healing. There is no change in the rotation or displacement of the intra-articular fracture at the third proximal phalanx at the MCP joint. Foot is otherwise unchanged. IMPRESSION: HEALING SECOND PROXIMAL PHALANGEAL FRACTURE. DELAYED UNION INTRA-ARTICULAR FRACTURE OF THE PROXIMAL PHALANX OF THE THIRD DIGIT. Website Optimization Strategist: NICOL Transcribe Date/Time: Sep 18 2018 5:07P Dictated by : CHEL WILLIAM MD This examination was interpreted and the report reviewed and electronically signed by: CHEL WILLIAM MD on Sep 18 2018 5:11PM EST [id number] Observed: 09/18/2018 Status: COMPLETED Source: [place] 12:56 PM [facility] REPOSITORY [facility] ID: [id number] Author: Faustina ChicasRt) Fam Haider Service: (none) Author Type: Silver Recovery Operator Type: Progress Notes Filed: 09/18/2018 1:05 PM Note Text: Radiology Service Progress Note PATIENT NAME: Herlinda Rosas DATE OF SERVICE: September 18, 2018 TIME: 12:56 PM PATIENT IDENTITY VERIFICATION COMPLETED USING TWO (2) METHODS: Patient confirmed name verbally and Date of . PATIENT GENDER DATA: Female. status: : No status: NO. PATIENT RELEVANT IMPLANT DATA REVIEWED: Not Applicable RADIOLOGY DEPARTMENT: General X-ray: Exam(s) Completed: Lower Extremity X-Ray(s): Foot, Left and Wt. Bearing: PERIPHERAL IV DATA: Not applicable SIGNED BY: RT Georgina September 18, 2018 12:56 PM PROGRESS Observed: 09/18/2018 Status: COMPLETED Source: [place] 11:44 AM [facility] REPOSITORY [facility] ID: [id number] Author: Mali Argueta (Cns) Service: (none) Author Type: Nurse Specialist Type: Progress Notes Filed: 09/18/2018 12:12 PM Note Text: OUTPATIENT VISIT DATE September 18, 2018 OUTPATIENT VISIT TYPE ESTABLISHED PRIMARY CARE PHYSICIAN: Kira Robertson MD CHIEF COMPLAINT: Patient presents with: Abdominal Pain History of Present Illness: Herlinda Rosas is a 73 year old female who was last seen 09/05/2018 She has been seen in the past for ACTIVE PROBLEM LIST [place]-Walker Grade 3 Cystocele [place]-Walker Grade 2 Rectocele Urge Incontinence Phn (Postherpetic Neuralgia) Hypothyroid History of Shingles Cervical Disc Disease Gerd (Gastroesophageal Reflux Disease) Cardiomyopathy, Nonischemic (Hcc) Closed Disp Fracture of Proximal Phalanx of Lesser Toe of Left Foot Ponv (Postoperative Nausea and Vomiting) Mina (Obstructive Sleep Apnea) Left Bundle Branch Block Htn (Hypertension) Hld (Hyperlipidemia) Pure Hypercholesterolemia Since the last visit, she states that she has had increased GERD symptoms. Typically occurring after meals. No reflux at night is noted. She reports reflux symptoms are occurring most days. Feels her symptoms have progressively worsened over the last several months. She notes nausea but no vomiting diarrhea or constipation no blood in stools no black or tarry stools no abdominal pain but increased belching. She had an EGD 4 years ago at [facility] - CT scan document. This did not show any abnormalities. She's currently been taking Nexium 40 mg once daily. Occasionally takes Zantac or Tums which is helping somewhat No recent hospital or ED visits. No new medical problems or medications. Able to obtain medications. No problems with taking medications or note side effects. PAST MEDICAL HISTORY Diagnosis Date - Cervical disc disease - Diverticulosis of colon - GERD (gastroesophageal reflux disease) - History of shingles recurrent episodes--over 3 recurrences - HLD (hyperlipidemia) 07/22/2018 - HTN (hypertension) 07/22/2018 - Hypothyroid - Left bundle branch block EF 50% - MINA (obstructive sleep apnea) 07/21/2018 - Osteopenia - PHN (postherpetic neuralgia) 05/25/2016 - PONV (postoperative nausea and vomiting) 07/21/2018 PAST SURGICAL HISTORY Procedure Laterality Date - COLONOSCOP W/ OR W/O [facility] SPEC Colonoscopy - PAST SURGICAL HISTORY OF 06/23/2018 cystocele, rectocele and sling - REMOVAL GALLBLADDER Cholecystectomy - REPAIR ROTATOR CUFF,ACUTE Rotator cuff repair - S STRATASIS URETHRAL SLING 2X30 - TOTAL ABDOM HYSTERECTOMY Hysterectomy, MARISOL and BSO FAMILY HISTORY Problem Relation Age of Onset - Alzheimer's Disease Mother - Stroke Mother - other (Parkinson's Disease) Father - Hypertension Sister Social History Substance Use Topics - Smoking status: Never Smoker - Smokeless tobacco: Never Used - Alcohol use Yes Comment: Socially ALLERGIES: ALLERGIES Allergen Reactions - Neosporin [Neomycin* Rash MEDICATIONS levothyroxine (SYNTHROID) 25 mcg tablet TAKE 1 TABLET BY MOUTH EVERY OTHER DAY ON AN EMPTY STOMACH FOR THYROID. TAKE 50 MCG ON ALTERNATING DAY levothyroxine (SYNTHROID) 50 mcg tablet TAKE 1 TABLET BY MOUTH EVERY OTHER DAY. TAKE 25 MCG ON ALTERNATING DAY ezetimibe (ZETIA) 10 mg tablet Take 1 tablet by mouth once daily. gabapentin (NEURONTIN) 300 mg capsule Take 1 capsule by mouth daily at bedtime. gabapentin (NEURONTIN) 100 mg capsule TAKE ONE CAPSULE BY MOUTH ONCE DAILY IN ADDITION TO 300 MG CAPSULES mupirocin (BACTROBAN) 2 % ointment Apply 1 application to affected area three times daily as needed. For wounds NEXIUM 40 mg capsule TAKE ONE CAPSULE BY MOUTH ONCE DAILY escitalopram oxalate (LEXAPRO) 10 mg tablet Take 1 tablet by mouth once daily. estradiol (ESTRACE) 0.01 % (0.1 mg/gram) vaginal cream Use fingertip amount nightly x 2 weeks, then every other night x 2 weeks, then 1-2x weekly for maintenance LACTOBACILLUS ACIDOPHILUS (PROBIOTIC ORAL) Take by mouth. MULTIVITAMIN ORAL Take by mouth. REVIEW OF SYSTEMS: GENERAL: Negative for: Weight loss or gain, Fever or Chills, Weakness and Sleep difficulties. Physical Examination: BP 120/60 Pulse 64 Resp 16 Wt 139 lb (63.1kg) BP w/Orthostatic Vitals Date and Time Orthostatic BP Orthostatic Pulse BP Pulse BP Position BP Site BP Cuff Size 09/18/18 1121 -- -- 120/60 64 Sitting Left Arm Regular Adult Peak Flow Date and Time PF Resp 09/18/18 1121 -- 16 General appearance: Well appearing, alert, in no acute distress, well-hydrated, well nourished. Skin: Skin color, texture, turgor normal, no suspicious rashes or lesions Lungs: Lungs clear to auscultation. No wheezing, rhonchi, rales Heart: RRR without murmur, gallop, or rubs. Abdomen: Abdomen soft, non-tender. Bowel sounds normal. No masses, organomegaly Extremities: No d edema, skin discoloration, clubbing or cyanosis. Good capillary refill. Peripheral pulses: Normal Neuro: Gait normal. Sensation grossly intact. Reviewed chart, outside records, tests I personally interviewed, confirmed and edited the above information if obtained by others. TESTING: Glucose (mg/dL) Date Value 02/28/2018 88 Potassium (mmol/L) Date Value 02/28/2018 4.2 Sodium (mmol/L) Date Value 02/28/2018 141 Chloride (mmol/L) Date Value 02/28/2018 102 CO2 (mmol/L) Date Value 02/28/2018 24 Creatinine (mg/dL) Date Value 02/28/2018 0.80 BUN (mg/dL) Date Value 02/28/2018 8 Anion Gap (mmol/L) Date Value 02/28/2018 15 Calcium (mg/dL) Date Value 02/28/2018 8.7 Glucose (mg/dL) Date Value 02/28/2018 88 Potassium (mmol/L) Date Value 02/28/2018 4.2 Sodium (mmol/L) Date Value 02/28/2018 141 Chloride (mmol/L) Date Value 02/28/2018 102 CO2 (mmol/L) Date Value 02/28/2018 24 Creatinine (mg/dL) Date Value 02/28/2018 0.80 BUN (mg/dL) Date Value 02/28/2018 8 Anion Gap (mmol/L) Date Value 02/28/2018 15 Calcium (mg/dL) Date Value 02/28/2018 8.7 Protein, Total (g/dL) Date Value 03/24/2017 7.3 Albumin (g/dL) Date Value 03/24/2017 4.3 Bilirubin, Total (mg/dL) Date Value 03/24/2017 0.9 Alkaline Phosphatase (U/L) Date Value 03/24/2017 87 AST (U/L) Date Value 03/24/2017 24 ALT (U/L) Date Value 09/11/2018 10 Hemoglobin (g/dL) Date Value 03/24/2017 13.1 Hematocrit (%) Date Value 03/24/2017 41.8 WBC (k/uL) Date Value 03/24/2017 5.94 Cholesterol, Total (mg/dL) Date Value 09/11/2018 195 HDL Cholesterol (mg/dL) Date Value 09/11/2018 46 LDL Cholesterol (mg/dL) Date Value 09/11/2018 124 Triglyceride (mg/dL) Date Value 09/11/2018 125 No results found for: HBA1C Ejection Fraction - Result: 56 % Date: 05/31/2016 Time: 08:10:26 IMPRESSION: Ms. Rosas is a 73 year old woman presents for progressively worsening GERD symptoms over the last couple of months After my examination and review of data, I make the following recommendations. PLAN AND RECOMMENDATIONS: 1. Gastroesophageal reflux disease, esophagitis presence not specified - ICD9: 530.81, ICD10: K21.9 - Discussed lifestyle modifications - CONSULT TO GASTROENTEROLOGY - advised for possible EGD, - ESOMEPRAZOLE MAGNESIUM 40 MG CAPSULE,DELAYED RELEASE - SUCRALFATE 1 GRAM TABLET May add H2 stefano if needed Advised to go to ER if develops chest pain, shortness of breath, or severe worsening of symptoms. Discussed risks, benefits, alternatives, and potential side effects of medications. Ms. Rosas expressed understanding and agreed with the plan. Mali Argueta APRN.KASH PIZARROOV Observed: 09/18/2018 Status: COMPLETED Source: [place] 11:00 AM [facility] REPOSITORY Office Visit (INTMWS) HERLINDA ROSAS ([id number]) 1945 F Date Time Provider Department 09/18/18 11:00 AM MALI ARGUETA (KASH) IN[facility] During your visit today, we recorded the following information about you: Pulse Respiration Blood pressure Weight 64/minute 16/minute 120/60 63 kg Mali Argueta APRN.CNS 09/18/2018 12:12 PM Signed OUTPATIENT VISIT DATE September 18, 2018 OUTPATIENT VISIT TYPE ESTABLISHED PRIMARY CARE PHYSICIAN: Kira Robertson MD CHIEF COMPLAINT: Patient presents with: Abdominal Pain History of Present Illness: Herlinda Rosas is a 73 year old female who was last seen 09/05/2018 She has been seen in the past for ACTIVE PROBLEM LIST Altamont-Walker Grade 3 Cystocele Alt[place]ont-Walker Grade 2 Rectocele Urge Incontinence Phn (Postherpetic Neuralgia) Hypothyroid History of Shingles Cervical Disc Disease Gerd (Gastroesophageal Reflux Disease) Cardiomyopathy, Nonischemic (Hcc) Closed Disp Fracture of Proximal Phalanx of Lesser Toe of Left Foot Ponv (Postoperative Nausea and Vomiting) Mina (Obstructive Sleep Apnea) Left Bundle Branch Block Htn (Hypertension) Hld (Hyperlipidemia) Pure Hypercholesterolemia Since the last visit, she states that she has had increased GERD symptoms. Typically occurring after meals. No reflux at night is noted. She reports reflux symptoms are occurring most days. Feels her symptoms have progressively worsened over the last several months. She notes nausea but no vomiting diarrhea or constipation no blood in stools no black or tarry stools no abdominal pain but increased belching. She had an EGD 4 years ago at [facility] - CT scan document. This did not show any abnormalities. She's currently been taking Nexium 40 mg once daily. Occasionally takes Zantac or Tums which is helping somewhat No recent hospital or ED visits. No new medical problems or medications. Able to obtain medications. No problems with taking medications or note side effects. PAST MEDICAL HISTORY Diagnosis Date - Cervical disc disease - Diverticulosis of colon - GERD (gastroesophageal reflux disease) - History of shingles recurrent episodes--over 3 recurrences - HLD (hyperlipidemia) 07/22/2018 - HTN (hypertension) 07/22/2018 - Hypothyroid - Left bundle branch block EF 50% - MINA (obstructive sleep apnea) 07/21/2018 - Osteopenia - PHN (postherpetic neuralgia) 05/25/2016 - PONV (postoperative nausea and vomiting) 07/21/2018 PAST SURGICAL HISTORY Procedure Laterality Date - COLONOSCOP W/ OR W/O BRSH SPEC Colonoscopy - PAST SURGICAL HISTORY OF 06/23/2018 cystocele, rectocele and sling - REMOVAL GALLBLADDER Cholecystectomy - REPAIR ROTATOR CUFF,ACUTE Rotator cuff repair - S STRATASIS URETHRAL SLING 2X30 - TOTAL ABDOM HYSTERECTOMY Hysterectomy, MARISOL and BSO FAMILY HISTORY Problem Relation Age of Onset - Alzheimer's Disease Mother - Stroke Mother - other (Parkinson's Disease) Father - Hypertension Sister Social History Substance Use Topics - Smoking status: Never Smoker - Smokeless tobacco: Never Used - Alcohol use Yes Comment: Socially ALLERGIES: ALLERGIES Allergen Reactions - Neosporin [Neomycin* Rash MEDICATIONS levothyroxine (SYNTHROID) 25 mcg tablet TAKE 1 TABLET BY MOUTH EVERY OTHER DAY ON AN EMPTY STOMACH FOR THYROID. TAKE 50 MCG ON ALTERNATING DAY levothyroxine (SYNTHROID) 50 mcg tablet TAKE 1 TABLET BY MOUTH EVERY OTHER DAY. TAKE 25 MCG ON ALTERNATING DAY ezetimibe (ZETIA) 10 mg tablet Take 1 tablet by mouth once daily. gabapentin (NEURONTIN) 300 mg capsule Take 1 capsule by mouth daily at bedtime. gabapentin (NEURONTIN) 100 mg capsule TAKE ONE CAPSULE BY MOUTH ONCE DAILY IN ADDITION TO 300 MG CAPSULES mupirocin (BACTROBAN) 2 % ointment Apply 1 application to affected area three times daily as needed. For wounds NEXIUM 40 mg capsule TAKE ONE CAPSULE BY MOUTH ONCE DAILY escitalopram oxalate (LEXAPRO) 10 mg tablet Take 1 tablet by mouth once daily. estradiol (ESTRACE) 0.01 % (0.1 mg/gram) vaginal cream Use fingertip amount nightly x 2 weeks, then every other night x 2 weeks, then 1-2x weekly for maintenance LACTOBACILLUS ACIDOPHILUS (PROBIOTIC ORAL) Take by mouth. MULTIVITAMIN ORAL Take by mouth. REVIEW OF SYSTEMS: GENERAL: Negative for: Weight loss or gain, Fever or Chills, Weakness and Sleep difficulties. Physical Examination: BP 120/60 Pulse 64 Resp 16 Wt 139 lb (63.1kg) BP w/Orthostatic Vitals Date and Time Orthostatic BP Orthostatic Pulse BP Pulse BP Position BP Site BP Cuff Size 09/18/18 1121 -- -- 120/60 64 Sitting Left Arm Regular Adult Peak Flow Date and Time PF Resp 09/18/18 112 -- 16 General appearance: Well appearing, alert, in no acute distress, well-hydrated, well nourished. Skin: Skin color, texture, turgor normal, no suspicious rashes or lesions Lungs: Lungs clear to auscultation. No wheezing, rhonchi, rales Heart: RRR without murmur, gallop, or rubs. Abdomen: Abdomen soft, non-tender. Bowel sounds normal. No masses, organomegaly Extremities: No d edema, skin discoloration, clubbing or cyanosis. Good capillary refill. Peripheral pulses: Normal Neuro: Gait normal. Sensation grossly intact. Reviewed chart, outside records, tests I personally interviewed, confirmed and edited the above information if obtained by others. TESTING: Glucose (mg/dL) Date Value 02/28/2018 88 Potassium (mmol/L) Date Value 02/28/2018 4.2 Sodium (mmol/L) Date Value 02/28/2018 141 Chloride (mmol/L) Date Value 02/28/2018 102 CO2 (mmol/L) Date Value 02/28/2018 24 Creatinine (mg/dL) Date Value 02/28/2018 0.80 BUN (mg/dL) Date Value 02/28/2018 8 Anion Gap (mmol/L) Date Value 02/28/2018 15 Calcium (mg/dL) Date Value 02/28/2018 8.7 Glucose (mg/dL) Date Value 02/28/2018 88 Potassium (mmol/L) Date Value 02/28/2018 4.2 Sodium (mmol/L) Date Value 02/28/2018 141 Chloride (mmol/L) Date Value 02/28/2018 102 CO2 (mmol/L) Date Value 02/28/2018 24 Creatinine (mg/dL) Date Value 02/28/2018 0.80 BUN (mg/dL) Date Value 02/28/2018 8 Anion Gap (mmol/L) Date Value 02/28/2018 15 Calcium (mg/dL) Date Value 02/28/2018 8.7 Protein, Total (g/dL) Date Value 03/24/2017 7.3 Albumin (g/dL) Date Value 03/24/2017 4.3 Bilirubin, Total (mg/dL) Date Value 03/24/2017 0.9 Alkaline Phosphatase (U/L) Date Value 03/24/2017 87 AST (U/L) Date Value 03/24/2017 24 ALT (U/L) Date Value 09/11/2018 10 Hemoglobin (g/dL) Date Value 03/24/2017 13.1 Hematocrit (%) Date Value 03/24/2017 41.8 WBC (k/uL) Date Value 03/24/2017 5.94 Cholesterol, Total (mg/dL) Date Value 09/11/2018 195 HDL Cholesterol (mg/dL) Date Value 09/11/2018 46 LDL Cholesterol (mg/dL) Date Value 09/11/2018 124 Triglyceride (mg/dL) Date Value 09/11/2018 125 No results found for: HBA1C Ejection Fraction - Result: 56 % Date: 05/31/2016 Time: 08:10:26 IMPRESSION: Ms. Rosas is a 73 year old woman presents for progressively worsening GERD symptoms over the last couple of months After my examination and review of data, I make the following recommendations. PLAN AND RECOMMENDATIONS: 1. Gastroesophageal reflux disease, esophagitis presence not specified - ICD9: 530.81, ICD10: K21.9 - Discussed lifestyle modifications - CONSULT TO GASTROENTEROLOGY - advised for possible EGD, - ESOMEPRAZOLE MAGNESIUM 40 MG CAPSULE,DELAYED RELEASE - SUCRALFATE 1 GRAM TABLET May add H2 stefano if needed Advised to go to ER if develops chest pain, shortness of breath, or severe worsening of symptoms. Discussed risks, benefits, alternatives, and potential side effects of medications. Ms. Rosas expressed understanding and agreed with the plan. HERNESTO Marie APRN.CNS 09/18/2018 11:56 AM Signed Increase Nexium to 2 times daily for 1-2 months Schedule follow-up appointment with [facility] for further evaluation, may need endoscopy - EGD Referring Provider: SELF [[id number]] Allergies As of Date: 09/18/2018 Noted Allergy Reaction NEOSPORIN ([id number]*06/14/2017 2 - Rash Date Reviewed: 09/18/2018 Reviewed by: Liana Meyer LPN - Fully Assessed Reason for Visit: Abdominal Pain [1] Primary Visit Diagnosis:Gastroesophageal reflux disease, esophagitis presence not specified [K21.9] Order(s):CONSULT TO GASTROENTEROLOGY [9010] Order #: [id number]: 1 esomeprazole (NEXIUM) 40 mg capsuleTake 1 capsule by mouth daily before breakfast. Take on additional capsule daily for one - two monthsDisp: 30 capsuleRfl: 1 sucralfate (CARAFATE) 1 gram tabletTake 1g before meals and at bedtime. May dissolve 1 tab into ~ 2 tsp of water, drink as soon as dissolved.Disp: 56 tabletRfl: 0 Prescriptions as of 09/18/2018 Sig: LEVOTHYROXINE 25 MCG TABLET TAKE 1 TABLET BY MOUTH EVERY * LEVOTHYROXINE 50 MCG TABLET TAKE 1 TABLET BY MOUTH EVERY * EZETIMIBE 10 MG TABLET Take 1 tablet by mouth once d* GABAPENTIN 300 MG CAPSULE Take 1 capsule by mouth daily* GABAPENTIN 100 MG CAPSULE TAKE ONE CAPSULE BY MOUTH ONC* MUPIROCIN 2 % TOPICAL OINTMENT Apply 1 application to affect* NEXIUM 40 MG CAPSULE,DELAYED * TAKE ONE CAPSULE BY MOUTH ONC* ESCITALOPRAM 10 MG TABLET Take 1 tablet by mouth once d* ESTRADIOL 0.01% (0.1 MG/GRAM)* Use fingertip amount nightly * PROBIOTIC ORAL Take by mouth. MULTIVITAMIN ORAL Take by mouth. ESOMEPRAZOLE MAGNESIUM 40 MG * Take 1 capsule by mouth daily* SUCRALFATE 1 GRAM TABLET Take 1g before meals and at b* Problem List As Of Date 09/18/2018 Noted Resolved Altamont-Walker grade 3 cystocele [N81.10] INVALID FOR* Altamont-Walker grade 2 rectocele [N81.6] INVALID FOR* Urge incontinence [N39.41] INVALID FOR* PHN (postherpetic neuralgia) [B02.29] INVALID FOR* Hypothyroid [E03.9] History of shingles [Z86.19] More... Cervical disc disease [M50.90] GERD (gastroesophageal reflux disease) [K21.9] Cardiomyopathy, nonischemic (HCC) [I42.8] INVALID FOR* Closed disp fracture of proximal phalanx of les*INVALID FOR* More... PONV (postoperative nausea and vomiting) [R11.2*INVALID FOR* MINA (obstructive sleep apnea) [G47.33] INVALID FOR* Left bundle branch block [I44.7] INVALID FOR* More... HTN (hypertension) [I10] INVALID FOR* HLD (hyperlipidemia) [E78.5] INVALID FOR* Pure hypercholesterolemia [E78.00] INVALID FOR* Other instructions from your clinician: Increase Nexium to 2 times daily for 1-2 months Schedule follow-up appointment with [facility] tier for further evaluation, may need endoscopy - EGD Prescriptions ordered this encounter Disp Refills Start End ESOMEPRAZOLE MAGNESIUM 40 MG CAPSULE* 30 c* 1 09/18/2018 Route: ORAL Sig: Take 1 capsule by mouth daily before breakfast. Take on additional capsule daily for one - two months SUCRALFATE 1 GRAM TABLET 56 t* 0 09/18/2018 Sig: Take 1g before meals and at bedtime. May dissolve 1 tab into ~ 2 tsp of water, drink as soon as dissolved. Encounter Status:Closed by MALI ROMAN on 09/18/18 ALT Collected: 09/11/2018 Status: F Source: [place] 9:12 AM [facility] REPOSITORY TYPE CODE TESTS RESULT OUT OF RANGE REFERENCE UNITS LAB ALT 7-38 U/L ALT 10 CK Collected: 09/11/2018 Status: F Source: [facility] 9:10 AM [facility] [place] REPOSITORY TYPE CODE TESTS RESULT OUT OF RANGE REFERENCE UNITS LAB CK 42-196 U/L CK 82 Performed By: #### CK, LIPB #### [facility] [address] [place] [address] LIPID PANEL, BASIC Collected: 09/11/2018 Status: F Source: [place] 9:10 AM [facility] REPOSITORY TYPE CODE TESTS RESULT OUT OF REFERENCE UNITS RANGE LAB CHOL <200 mg/dL Cholesterol 195 Result Comment: <200 mg/dL, Desirable 200-239 mg/dL, Borderline high >239 mg/dL, High LAB TRIGLY <150 mg/dL Triglyceride 125 Result Comment: <150 mg/dL, Normal 150-199 mg/dL, Borderline high 200-499 mg/dL, High >499 mg/dL, Very high LAB HDL >39 mg/dL HDL-Cholesterol 46 Result Comment: 40-59 mg/dL, Acceptable >59 mg/dL, High: Negative risk factor for coronary heart disease <40 mg/dL, Low: Positive risk factor for coronary heart disease LAB LDL <100 mg/dL LDL-Cholesterol High 124 Result Comment: <100 mg/dL, Optimal 100-129 mg/dL, Near optimal/above optimal 130-159 mg/dL, Borderline high 160-189 mg/dL, High >189 mg/dL, Very high Secondary prevention optimal LDL Cholesterol levels are recommended to be < 70 mg/dL LAB NONHDL <130 mg/dL Non HDL High Cholesterol 149 Result Comment: <130 mg/dL, Optimal 130-159 mg/dL, Near optimal/above optimal 160-189 mg/dL, Borderline high 190-219 mg/dL, High >219 mg/dL, Very high Secondary prevention optimal non HDL Cholesterol levels are recommended to be < 100 mg/dL LAB FT hrs Fasting Time 12 LAB VLDL <30 mg/dL VLDL Cholesterol 25 LAB TCHDL <5.10 TC:HDL Ratio 4.24 LAB LDLHDL <2.54 High LDL:HDL Ratio 2.70 Result Comment: Reference: 1. National Cholesterol Education Program ATP III Guideline At-A-Glance Quick Desk Reference: National Heart, Lung, and Blood [place]. National Institutes of Health. 2001: NIH Publication No. 01-3305. 2. An International Atherosclerosis Society position paper: global recommendations for the management of dyslipidemia: executive summary, Atherosclerosis. 2014: 232(2):410-413. Performed By: #### CK, LIPB #### [facility] [address] [place], [place] [address] PROGRESS Observed: 09/05/2018 Status: COMPLETED Source: [place] 8:20 AM [facility] [place] REPOSITORY HNO ID: [id number] Author: Kira Robertson Service: (none) Author Type: Physician Type: Progress Notes Filed: 09/05/2018 10:01 AM Note Text: Patient presents with: Recheck: Follow up SUBJECTIVE: Herlinda Rosas is a 73 year old year old lady here today for 6 month follow up appointment for review of medical conditions. Still dealing with the 3 toes that had broken. Wearing normal shoe today on left foot. 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 Following with Dr. Dent. If has persistent pain, states that he was recommending surgery to remove the bone fragment from proximal phalanx. Bothers her that had always been a walker for her exercise and has not been able to do that. Healed well from other surgery (June 2018 cystocele and rectocele surgery plus sling). Weight lifting restrictions noted. Neck pain that grabs if moves a certain way. Goes to chiropractor for upper cervical treatment--has for years. No radiculopathy symptoms. Has not been to PT for neck. Worries that should be doing something to prevent worsening of cervical DDD issues. Had seen spine specialists years ago and told that could be a candidate for neck surgery but opted not to proceed. No recent imaging studies. Clinically euthyroid. Trying Zetia since does not tolerate statins. Read book about vegan diet--just cannot do that strict of a diet but is working on vegetable based diet and limiting red meats; getting fish one day a week (knows studies showed 2 days a week had helped decrease risk of ASCVD issues). Asked about Shingrix. Reviewed had the prolonged bout of shingles after Zostavax and still has some discomfort right side of face from postherpetic neuralgia--does note that this has been controlled with gabapentin and seems to be decreasing. Doing fine on half pill Lexapro. Still has the 10 mg pills and does not need refill yet. PAST MEDICAL HISTORY Diagnosis Date - Cervical disc disease - Diverticulosis of colon - GERD (gastroesophageal reflux disease) - History of shingles recurrent episodes--over 3 recurrences - HLD (hyperlipidemia) 07/22/2018 - HTN (hypertension) 07/22/2018 - Hypothyroid - Left bundle branch block EF 50% - MINA (obstructive sleep apnea) 07/21/2018 - Osteopenia - PHN (postherpetic neuralgia) 05/25/2016 - PONV (postoperative nausea and vomiting) 07/21/2018 Current Outpatient Prescriptions: levothyroxine (SYNTHROID) 25 mcg tablet TAKE 1 TABLET BY MOUTH EVERY OTHER DAY ON AN EMPTY STOMACH FOR THYROID. TAKE 50 MCG ON ALTERNATING DAY levothyroxine (SYNTHROID) 50 mcg tablet TAKE 1 TABLET BY MOUTH EVERY OTHER DAY. TAKE 25 MCG ON ALTERNATING DAY ezetimibe (ZETIA) 10 mg tablet Take 1 tablet by mouth once daily. gabapentin (NEURONTIN) 300 mg capsule Take 1 capsule by mouth daily at bedtime. gabapentin (NEURONTIN) 100 mg capsule TAKE ONE CAPSULE BY MOUTH ONCE DAILY IN ADDITION TO 300 MG CAPSULES mupirocin (BACTROBAN) 2 % ointment Apply 1 application to affected area three times daily as needed. For wounds NEXIUM 40 mg capsule TAKE ONE CAPSULE BY MOUTH ONCE DAILY escitalopram oxalate (LEXAPRO) 10 mg tablet Take 1 tablet by mouth once daily. estradiol (ESTRACE) 0.01 % (0.1 mg/gram) vaginal cream Use fingertip amount nightly x 2 weeks, then every other night x 2 weeks, then 1-2x weekly for maintenance LACTOBACILLUS ACIDOPHILUS (PROBIOTIC ORAL) Take by mouth. MULTIVITAMIN ORAL Take by mouth. No current facility-administered medications for this visit. OBJECTIVE: BP 118/58 Pulse 64 Resp 20 Wt 63.1 kg (139 lb 3.2 oz) BMI 26.30 kg/m? Patient is alert, oriented times 3, no apparent distress, affect is bright, reactive. Last 5 Encounter BP Readings: Date: BP: 09/05/2018 118/58 07/21/2018 124/72 06/21/2018 126/77 06/07/2018 120/60 03/01/2018 106/60 Last 5 Encounter Wt Readings: Date: Wt: 09/05/2018 63.1 kg (139 lb 3.2 oz)* 07/21/2018 63 kg (139 lb) 06/21/2018 63 kg (138 lb 14.4 oz)* 06/07/2018 63.5 kg (140 lb) 03/01/2018 62.1 kg (137 lb)* Heart: Regular rate, rhythm, no murmurs, gallops, rubs. Lungs: Clear to auscultation, bilaterally, breathing non labored. Ext: No cyanosis, clubbing, or edema. ASSESSMENT AND PLAN: Encounter Diagnosis ICD-10-CM 1. Essential hypertension I10 2. Cervical disc disease M50.90 3. Acquired hypothyroidism E03.9 TSH BLD T4 FREE/FREE THYROX T3 FREE BLD 4. Pure hypercholesterolemia E78.00 5. History of shingles Z86.19 6. 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 TSH fine. Continue to adjust dose of replacement as indicated based on symptoms and labs. Discussed Shingrix and TDAP. See patient instructions. Discussed shingles and postherpetic neuralgia. Can hold off on Shingrix till see how does with postmarketing studies as well as till see if insurance covers. Above issues addressed with patient. Patient involved in shared decision making for management of medical issues. History and medications reviewed. Epic updated as needed Refills taken care of and meds adjusted as indicated after reviewed history, exam and labs. Health Maintenance reviewed. Updated record and/or ordered tests as recorded. Encouraged on efforts at healthy diet and regular exercise and adequate sleep. Noted that has always needed 9 hours of sleep. Since retired, sleeps later (around 11PM--used to be 9PM). Needs to keep working on diet and exercise with lifestyle changes for effective weight control as well as prevention of DM, and control of BP and lipids. Vegetable based diet with limiting red meats discussed. Try to get fish with omega 3 oils twice a week to build up HDL. Also get back to some kind of regular exercise--consider chair yoga and chair aerobics while waiting for resolution of problem with toe fracture that has nonunion and might be causing persistent pain without surgical intervention. Dr. De La Torre has labs ordered for follow up on Zetia. She thinks it contributes to weight gain, but weight stable since started on it in July according to our scale within 2 pounds of February and June weights and within ounces compared to weight at [facility] (when was going to have surgery done). See if regular exercise helps with controlling weight better. She will ask chiropractor about doing exercises. If he does not give exercises, consider going to PT. No red flag symptoms noted. Can pursue imaging studies if symptoms change. Mobic helps but upsets her stomach, so uses sparingly. Further evaluation and treatment as indicated. Kira Robertson MD CNOV Observed: 09/05/2018 Status: COMPLETED Source: [place] 8:00 AM [facility] REPOSITORY Office Visit ([facility]) ROSASCRISTIN ZAPATAIE ([id number]) 1945 F Date Time Provider Department 09/05/18 8:00 AM KIRA ROBERTSON [facility] During your visit today, we recorded the following information about you: Pulse Respiration Blood pressure Weight 64/minute 20/minute 118/58 63.1 kg Kira Robertson MD 09/05/2018 10:01 AM Signed Patient presents with: Recheck: Follow up SUBJECTIVE: Herlinda Rosas is a 73 year old year old lady here today for 6 month follow up appointment for review of medical conditions. Still dealing with the 3 toes that had broken. Wearing normal shoe today on left foot. 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 Following with Dr. Dent. If has persistent pain, states that he was recommending surgery to remove the bone fragment from proximal phalanx. Bothers her that had always been a walker for her exercise and has not been able to do that. Healed well from other surgery (June 2018 cystocele and rectocele surgery plus sling). Weight lifting restrictions noted. Neck pain that grabs if moves a certain way. Goes to chiropractor for upper cervical treatment--has for years. No radiculopathy symptoms. Has not been to PT for neck. Worries that should be doing something to prevent worsening of cervical DDD issues. Had seen spine specialists years ago and told that could be a candidate for neck surgery but opted not to proceed. No recent imaging studies. Clinically euthyroid. Trying Zetia since does not tolerate statins. Read book about vegan diet--just cannot do that strict of a diet but is working on vegetable based diet and limiting red meats; getting fish one day a week (knows studies showed 2 days a week had helped decrease risk of ASCVD issues). Asked about Shingrix. Reviewed had the prolonged bout of shingles after Zostavax and still has some discomfort right side of face from postherpetic neuralgia--does note that this has been controlled with gabapentin and seems to be decreasing. Doing fine on half pill Lexapro. Still has the 10 mg pills and does not need refill yet. PAST MEDICAL HISTORY Diagnosis Date - Cervical disc disease - Diverticulosis of colon - GERD (gastroesophageal reflux disease) - History of shingles recurrent episodes--over 3 recurrences - HLD (hyperlipidemia) 07/22/2018 - HTN (hypertension) 07/22/2018 - Hypothyroid - Left bundle branch block EF 50% - MINA (obstructive sleep apnea) 07/21/2018 - Osteopenia - PHN (postherpetic neuralgia) 05/25/2016 - PONV (postoperative nausea and vomiting) 07/21/2018 Current Outpatient Prescriptions: levothyroxine (SYNTHROID) 25 mcg tablet TAKE 1 TABLET BY MOUTH EVERY OTHER DAY ON AN EMPTY STOMACH FOR THYROID. TAKE 50 MCG ON ALTERNATING DAY levothyroxine (SYNTHROID) 50 mcg tablet TAKE 1 TABLET BY MOUTH EVERY OTHER DAY. TAKE 25 MCG ON ALTERNATING DAY ezetimibe (ZETIA) 10 mg tablet Take 1 tablet by mouth once daily. gabapentin (NEURONTIN) 300 mg capsule Take 1 capsule by mouth daily at bedtime. gabapentin (NEURONTIN) 100 mg capsule TAKE ONE CAPSULE BY MOUTH ONCE DAILY IN ADDITION TO 300 MG CAPSULES mupirocin (BACTROBAN) 2 % ointment Apply 1 application to affected area three times daily as needed. For wounds NEXIUM 40 mg capsule TAKE ONE CAPSULE BY MOUTH ONCE DAILY escitalopram oxalate (LEXAPRO) 10 mg tablet Take 1 tablet by mouth once daily. estradiol (ESTRACE) 0.01 % (0.1 mg/gram) vaginal cream Use fingertip amount nightly x 2 weeks, then every other night x 2 weeks, then 1-2x weekly for maintenance LACTOBACILLUS ACIDOPHILUS (PROBIOTIC ORAL) Take by mouth. MULTIVITAMIN ORAL Take by mouth. No current facility-administered medications for this visit. OBJECTIVE: BP 118/58 Pulse 64 Resp 20 Wt 63.1 kg (139 lb 3.2 oz) BMI 26.30 kg/m? Patient is alert, oriented times 3, no apparent distress, affect is bright, reactive. Last 5 Encounter BP Readings: Date: BP: 09/05/2018 118/58 07/21/2018 124/72 06/21/2018 126/77 06/07/2018 120/60 03/01/2018 106/60 Last 5 Encounter Wt Readings: Date: Wt: 09/05/2018 63.1 kg (139 lb 3.2 oz)* 07/21/2018 63 kg (139 lb) 06/21/2018 63 kg (138 lb 14.4 oz)* 06/07/2018 63.5 kg (140 lb) 03/01/2018 62.1 kg (137 lb)* Heart: Regular rate, rhythm, no murmurs, gallops, rubs. Lungs: Clear to auscultation, bilaterally, breathing non labored. Ext: No cyanosis, clubbing, or edema. ASSESSMENT AND PLAN: Encounter Diagnosis ICD-10-CM 1. Essential hypertension I10 2. Cervical disc disease M50.90 3. Acquired hypothyroidism E03.9 TSH BLD T4 FREE/FREE THYROX T3 FREE BLD 4. Pure hypercholesterolemia E78.00 5. History of shingles Z86.19 6. 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 TSH fine. Continue to adjust dose of replacement as indicated based on symptoms and labs. Discussed Shingrix and TDAP. See patient instructions. Discussed shingles and postherpetic neuralgia. Can hold off on Shingrix till see how does with postmarketing studies as well as till see if insurance covers. Above issues addressed with patient. Patient involved in shared decision making for management of medical issues. History and medications reviewed. Epic updated as needed Refills taken care of and meds adjusted as indicated after reviewed history, exam and labs. Health Maintenance reviewed. Updated record and/or ordered tests as recorded. Encouraged on efforts at healthy diet and regular exercise and adequate sleep. Noted that has always needed 9 hours of sleep. Since retired, sleeps later (around 11PM--used to be 9PM). Needs to keep working on diet and exercise with lifestyle changes for effective weight control as well as prevention of DM, and control of BP and lipids. Vegetable based diet with limiting red meats discussed. Try to get fish with omega 3 oils twice a week to build up HDL. Also get back to some kind of regular exercise--consider chair yoga and chair aerobics while waiting for resolution of problem with toe fracture that has nonunion and might be causing persistent pain without surgical intervention. Dr. De La Torre has labs ordered for follow up on Zetia. She thinks it contributes to weight gain, but weight stable since started on it in July according to our scale within 2 pounds of February and June weights and within ounces compared to weight at [facility] (when was going to have surgery done). See if regular exercise helps with controlling weight better. She will ask chiropractor about doing exercises. If he does not give exercises, consider going to PT. No red flag symptoms noted. Can pursue imaging studies if symptoms change. Mobic helps but upsets her stomach, so uses sparingly. Further evaluation and treatment as indicated. MD Kira Hill MD 09/05/2018 8:58 AM Addendum Try Chair Yoga--check out You Tube Check with secondary insurance if they cover TDAP (tetanus shot with whooping cough coverage) as well as Shingrix and if they do, where--pharmacy or doctor's office. Referring Provider: KIRA ROBERTSON [[id number]] Allergies As of Date: 09/05/2018 Noted Allergy Reaction NEOSPORIN ([id number]*06/14/2017 2 - Rash Date Reviewed: 09/05/2018 Reviewed by: Syl Herron LPN - Fully Assessed Reason for Visit: Recheck [92] Cmt: Follow up Primary Visit Diagnosis:Essential hypertension [I10] Other Visit Diagnoses:Cervical disc disease [M50.90] Acquired hypothyroidism [E03.9] Pure hypercholesterolemia [E78.00] History of shingles [Z86.19] Closed displaced fracture of proximal phalanx of lesser toe of left foot with nonunion, subsequent encounter [S92.512K] Comment:3rd toe Order(s):TSH BLD [SQTSH] Order #: [id number] STANDING T4 FREE/FREE THYROX [SQFT4] Order #: [id number] STANDING T3 FREE BLD [SQFREET3] Order #: [id number] STANDING Prescriptions as of 09/05/2018 Sig: LEVOTHYROXINE 25 MCG TABLET TAKE 1 TABLET BY MOUTH EVERY * LEVOTHYROXINE 50 MCG TABLET TAKE 1 TABLET BY MOUTH EVERY * EZETIMIBE 10 MG TABLET Take 1 tablet by mouth once d* GABAPENTIN 300 MG CAPSULE Take 1 capsule by mouth daily* GABAPENTIN 100 MG CAPSULE TAKE ONE CAPSULE BY MOUTH ONC* MUPIROCIN 2 % TOPICAL OINTMENT Apply 1 application to affect* NEXIUM 40 MG CAPSULE,DELAYED * TAKE ONE CAPSULE BY MOUTH ONC* ESCITALOPRAM 10 MG TABLET Take 1 tablet by mouth once d* ESTRADIOL 0.01% (0.1 MG/GRAM)* Use fingertip amount nightly * PROBIOTIC ORAL Take by mouth. MULTIVITAMIN ORAL Take by mouth. 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 Cervical disc disease [M50.90] GERD (gastroesophageal reflux disease) [K21.9] Cardiomyopathy, nonischemic (HCC) [I42.8] INVALID FOR* Closed disp fracture of proximal phalanx of les*INVALID FOR* More... PONV (postoperative nausea and vomiting) [R11.2*INVALID FOR* MINA (obstructive sleep apnea) [G47.33] INVALID FOR* Left bundle branch block [I44.7] INVALID FOR* More... HTN (hypertension) [I10] INVALID FOR* HLD (hyperlipidemia) [E78.5] INVALID FOR* Pure hypercholesterolemia [E78.00] INVALID FOR* Other instructions from your clinician: Try Chair Yoga--check out You Tube Check with secondary insurance if they cover TDAP (tetanus shot with whooping cough coverage) as well as Shingrix and if they do, where--pharmacy or doctor's office. Disposition: Return in about 6 months (around 03/06/2019) for 6 months follow up, With labs prior. Follow-up and Disposition History Recorded Encounter Status:Closed by KIRA ROBERTSON MD on 09/05/18 PROGRESS Observed: 08/31/2018 Status: COMPLETED Source: [place] 1:27 PM [facility] REPOSITORY HNO ID: [id number] Author: Savannah (Rt) Fam Chowdary Service: (none) Author Type: Silver Recovery Operator Type: Progress Notes Filed: 08/31/2018 1:27 PM Note Text: Radiology Service Progress Note PATIENT NAME: Herlinda Rosas DATE OF SERVICE: August 31, 2018 TIME: 1:27 PM PATIENT IDENTITY VERIFICATION COMPLETED USING TWO (2) METHODS: Patient confirmed name verbally and Date of . PATIENT GENDER DATA: Female. status: : No status: NO. PATIENT RELEVANT IMPLANT DATA REVIEWED: Not Applicable RADIOLOGY DEPARTMENT: General X-ray: Exam(s) Completed: Lower Extremity X-Ray(s): Foot, Left and Wt. Bearing: PERIPHERAL IV DATA: Not applicable SIGNED BY: RT Deborah August 31, 2018 1:27 PM XR FOOT 3V AP/LAT/OBL Observed: 08/31/2018 Status: F Source: [facility] 1:25 PM [facility] REPOSITORY * * *Final Report* * * DATE OF EXAM: Aug 31 2018 1:25PM [id number] - XR FOOT 3V AP/LAT/OBL LT / PROCEDURE REASON: Closed nondisplaced fracture of proximal phalanx of lesser toe of left foot with * * * * Physician Interpretation * * * * HISTORY: 73-YEAR-OLD FEMALE WITH Closed nondisplaced fracture of proximal phalanx of lesser toe of left foot with delayed healing, subsequent encounter . follow up to left foot fracture TECHNIQUE: XR FOOT 3V AP/LAT/OBL LT Laterality: LEFT Number of different views (projections): 3 COMPARISON: 07/30/2018 RESULT: Increased callus and less distinctness of the oblique fracture of the distal second proximal phalanx consistent with healing. The intra-articular displaced and rotated fracture of the proximal third proximal phalanx at the MTP joint is unchanged in position and has increased cortication along the fracture at this on the major distal fracture fragment . IMPRESSION: HEALING SECOND PROXIMAL PHALANGEAL FRACTURE. DELAYED UNION WITH ROTATION DISPLACEMENT OF THIRD PROXIMAL PHALANGEAL FRACTURE. Website Optimization Strategist: PSCB Transcribe Date/Time: Sep 01 2018 12:56P Dictated by : CHEL WILLIAM MD This examination was interpreted and the report reviewed and electronically signed by: CHEL WILLIAM MD on Sep 01 2018 12:59PM EST [id number] PROGRESS Observed: 08/31/2018 Status: COMPLETED Source: [place] 1:14 PM [facility] REPOSITORY HNO ID: [id number] Author: Sandrita Kinney Service: (none) Author Type: (none) Type: Progress Notes Filed: 08/31/2018 1:27 PM Note Text: FECAL OCCULT BLD Collected: 08/28/2018 Status: F Source: [facility] 10:00 AM [facility] [place] REPOSITORY TYPE CODE TESTS RESULT OUT OF REFERENCE UNITS RANGE LAB IFO Negative Immuno Negative FOB Result Comment: This test was developed and its performance characteristics determined by [facility]'s [facility] Pathology and Laboratory Medicine [place] ([facility]). It has not been cleared or approved by the FDA. [facility] is regulated under CLIA as qualified to perform high-complexity testing. This test is used for clinical purposes. It should not be regarded as investigational or for research. Performed By: #### IFOBT #### [facility] [address] [place], [place] [address] XR FOOT 3V AP/LAT/OBL Observed: 07/30/2018 Status: F Source: [facility] 2:15 PM [facility] REPOSITORY * * *Final Report* * * DATE OF EXAM: Jul 30 2018 2:15PM [id number] - XR FOOT 3V AP/LAT/OBL LT / PROCEDURE REASON: Displaced fracture of proximal phalanx of left lesser toe(s), subsequent encount * * * * Physician Interpretation * * * * WEIGHTBEARING 3 VIEW LEFT FOOT 07/30/2018 2:15 PM HISTORY: Displaced fracture of proximal phalanx of left lesser toe(s), subsequent encounter for fracture with malunion COMPARISON: XR 07/13/2018; MRI 07/14/2018 RESULT: Residual fracture deformities through distal portion of left second proximal phalanx as well as at the base of the first and third proximal phalanges, with extension into MTP joint joints. No radiopaque foreign body is seen. - - IMPRESSION: NONUNION OF LEFT FIRST-THIRD PROXIMAL PHALANGEAL FRACTURES. Website Optimization Strategist: PSCB Transcribe Date/Time: Jul 30 2018 7:33P Dictated by : RIGOBERTO STEWART MD This examination was interpreted and the report reviewed and electronically signed by: RIGOBERTO STEWART MD on Jul 30 2018 7:39PM EST [id number] Observed: 07/30/2018 Status: COMPLETED Source: [place] 2:05 PM [facility] REPOSITORY HNO ID: [id number] Author: Faustina Lara (Rt) Fam Haider Service: (none) Author Type: Silver Recovery Operator Type: Progress Notes Filed: 07/30/2018 2:16 PM Note Text: Radiology Service Progress Note PATIENT NAME: Herlinda Rosas DATE OF SERVICE: July 30, 2018 TIME: 2:05 PM PATIENT IDENTITY VERIFICATION COMPLETED USING TWO (2) METHODS: Patient confirmed name verbally and Date of . PATIENT GENDER DATA: Female. status: : No status: NO. PATIENT RELEVANT IMPLANT DATA REVIEWED: Not Applicable RADIOLOGY DEPARTMENT: General X-ray: Exam(s) Completed: Lower Extremity X-Ray(s): Foot, Left and Wt. Bearing: PERIPHERAL IV DATA: Not applicable SIGNED BY: RT Georgina July 30, 2018 2:05 PM CNPN Observed: 07/30/2018 Status: COMPLETED Source: [place] 12:00 AM [facility] REPOSITORY Telephone (PODIWS) CRISTINHERLINDA ([id number]) 1945 F Date Time Provider Department 9/23/18 ELLIE DENT During your visit today, we recorded the following information about you: Ellie Dent DPM 07/30/2018 8:57 PM Signed Patient is scheduled for surgery tomorrow for resection of base of proximal phlanx of 3rd toe. New xrays were ordered today. While there is incomplete healing of fracture, there appears to be some new new bone formation that is increased since last xray. I discussed with patient going in and proceeding with planned procedure or cancelling procedure and repeating xray in 2-3 weeks. Patient is 8 weeks s/p fracture. Her pain is better today. I would recommend she continue with post-op shoe. Recommend repeating xrays in 2 week. Will also look into getting bone stimluator. Patient satisfied with plan of care. GAVIOTA Bryant RN 07/31/2018 12:37 PM Signed Staci weinberg contacted in regards to bone stim. Allergies As of Date: 07/30/2018 Noted Allergy Reaction NEOSPORIN ([id number]*06/14/2017 2 - Rash Date Reviewed: 07/28/2018 Reviewed by: Erika (Rn) ROBBIN Sinha - Fully Assessed Reason for Visit: Recheck [92] Prescriptions as of 07/30/2018 Sig: GABAPENTIN 300 MG CAPSULE Take 1 capsule by mouth daily* GABAPENTIN 100 MG CAPSULE TAKE ONE CAPSULE BY MOUTH ONC* MUPIROCIN 2 % TOPICAL OINTMENT Apply 1 application to affect* NEXIUM 40 MG CAPSULE,DELAYED * TAKE ONE CAPSULE BY MOUTH ONC* LEVOTHYROXINE 25 MCG TABLET Take 1 tablet by mouth every * ESCITALOPRAM 10 MG TABLET Take 1 tablet by mouth once d* ESTRADIOL 0.01% (0.1 MG/GRAM)* Use fingertip amount nightly * PROBIOTIC ORAL Take by mouth. MULTIVITAMIN ORAL Take by mouth. 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 Cervical disc disease [M50.90] GERD (gastroesophageal reflux disease) [K21.9] Cardiomyopathy, nonischemic (HCC) [I42.8] INVALID FOR* Closed disp fracture of proximal phalanx of les*INVALID FOR* More... PONV (postoperative nausea and vomiting) [R11.2*INVALID FOR* MINA (obstructive sleep apnea) [G47.33] INVALID FOR* Left bundle branch block [I44.7] INVALID FOR* More... HTN (hypertension) [I10] INVALID FOR* HLD (hyperlipidemia) [E78.5] INVALID FOR* Encounter Status:Closed by ELLIE DENT DPM on 07/30/18 NURSING PROG Observed: 07/25/2018 Status: COMPLETED Source: [place] 7:57 AM [facility] REPOSITORY HNO ID: [id number] Author: Anayeli (Rn) ROBBIN Durant Service: Nursing Author Type: Registered Nurse Type: Nursing Progress Note Filed: 07/25/2018 8:02 AM Note Text: PACC Nurse Progress Note History AND Physical: PACC Visit Date: 07/21/18 Original HANDP Date: 07/21/18 ED visit Date: N/A Outside HANDP Scanned Date: N/A Labs Within Last 6 Months: CBC: Date 06/16/18 cbc/diff- within acceptable limits BMP/CMP: Date 06/16/18 bmp- within acceptable limits TSH 06/16/18- wnl 07/12/18 urine and urine culture- no growth Imaging Within Last 12 Months: MRI- left foot, 07/14/18,in [facility] X-ray-left foot, 07/13/18,in [facility] Cardiac Testing: EKG in last 12 Months: Yes: Date: 07/17/18, Comment: NSR, LBBB-pt with hx ECHO Date: 07/2016 , Comment: EF 56%, RVSP 30-normal Last Menstrual Period: LMP Date: N/A Postmenopausal >1yr: Yes, S/P Hysterectomy: Yes BMI Percentile (PEDS): N/A Risk Assessment: N/A Anesthesia Review: Significant Anesthesia Considerations: Postop nausea/vomiting Narrative: HX of MINA, non ischemic cardiomyopathy, LBBB Pre-op Considerations: N/A Chart Check: COMPLETED Anayeli Durant RN July 25, 2018 7:57 AM HISTORY PHYSICAL Observed: 07/21/2018 Status: COMPLETED Source: [place] 9:01 AM [facility] [place] REPOSITORY O ID: [id number] Author: Aury Cleaning (Pa) Service: (none) Author Type: Physician Remote Sensing Specialist Type: HANDP Filed: 07/22/2018 4:01 PM Note Text: HISTORY AND PHYSICAL EXAMINATION SERVICE DATE: 07/21/2018 SERVICE TIME: 9:02 AM PRIMARY CARE PHYSICIAN: Kira Robertson MD REASON FOR VISIT: Herlinda Rosas is a 73 year old female who is scheduled for excision of fracture of left 3rd toe at the request of Dr. Ellie Dent for consultation. My final recommendation will be communicated back to the requesting physician by way of shared medical record or letter. 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 On June 06 she tripped on stairs and fractured her toe. Pain is intermittnet and described as aching in nature. Pain does not radiate. Aggravating factors include walking. Alleviated by rest. Previous treatments include wearing orthopaedic shoe. Scheduled for left 3rd toe excision of fracture on 07/31. Denies recent illness, fever or chills. PAST MEDICAL HISTORY Diagnosis Date - Cervical disc disease - Diverticulosis of colon - GERD (gastroesophageal reflux disease) - History of shingles recurrent episodes--over 3 recurrences - HLD (hyperlipidemia) 07/22/2018 - HTN (hypertension) 07/22/2018 - Hypothyroid - Left bundle branch block EF 50% - MINA (obstructive sleep apnea) 07/21/2018 - Osteopenia - PHN (postherpetic neuralgia) 05/25/2016 - PONV (postoperative nausea and vomiting) 07/21/2018 PAST SURGICAL HISTORY Procedure Laterality Date - COLONOSCOP W/ OR W/O BRSH SPEC Colonoscopy - PAST SURGICAL HISTORY OF 06/23/2018 cystocele, rectocele and sling - REMOVAL GALLBLADDER Cholecystectomy - REPAIR ROTATOR CUFF,ACUTE Rotator cuff repair - S STRATASIS URETHRAL SLING 2X30 - TOTAL ABDOM HYSTERECTOMY Hysterectomy, MARISOL and BSO FAMILY HISTORY Problem Relation Age of Onset - Alzheimer's Disease Mother - Stroke Mother - other (Parkinson's Disease) Father - Hypertension Sister SOCIAL HISTORY: Social History Marital status: Spouse name: Don Years of education: Number of children: 2 Occupational History 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 Yes gabapentin (NEURONTIN) 100 mg capsule TAKE ONE CAPSULE BY MOUTH ONCE DAILY IN ADDITION TO 300 MG CAPSULES Yes NEXIUM 40 mg capsule TAKE ONE CAPSULE BY MOUTH ONCE DAILY Yes levothyroxine (SYNTHROID) 25 mcg tablet Take 1 tablet by mouth every other day. Take on empty stomach. For thyroid. (One 50 mcg on alternating day) Yes escitalopram oxalate (LEXAPRO) 10 mg tablet Take 1 tablet by mouth once daily. Yes LACTOBACILLUS ACIDOPHILUS (PROBIOTIC ORAL) Take by mouth. Yes MULTIVITAMIN ORAL Take by mouth. Yes mupirocin (BACTROBAN) 2 % ointment Apply 1 application to affected area three times daily as needed. For wounds estradiol (ESTRACE) 0.01 % (0.1 mg/gram) vaginal cream Use fingertip amount nightly x 2 weeks, then every other night x 2 weeks, then 1-2x weekly for maintenance No medication comments found. ALLERGIES Allergen Reactions - Neosporin [Neomycin* Rash REVIEW OF SYSTEMS: PAIN ASSESSMENT: General: No weight loss, malaise or fevers. Neuro: Postive for Impaired Sensorium occasionally in hands related to neck issues. post-herpetic neuralgia on RX; No history of TIAs, stroke, headaches, tremors, DIRECTOR STAFFING tumor, hemiplegia, paraplegia, quadriplegia. Respiratory: MINA on CPAP; No history of current cough, dyspnea, bronchitis or pneumonia in the last 6 weeks. No history of asthma or COPD. Cardiovascular: HLD-currenlty no RX; Non-ischemic CM with normal EF, LBBB, HTN, Negative for chest pain, orthopnea, PND, dizziness, lightheadedness or syncope. Negative for heart murmur. Negative for palpitations or arrhythmia. Negative for h/o DVT/PE. Negative for LE edema. No ME or heart surgery. GI: +GERD on RX; No PUD or liver disease. Minimal ETOH. : mild dysuria related to recent pelvic floor surgery. Minimal incontinence. No hematuria. No CKD. 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 : Denies, No LMP recorded. Patient is postmenopausal. Endocrine: +hypothryoid -treated; No DM. No oral steroids in 30 days. Hematology: No history of bleeding or clotting disorder. Pt is not taking anti-coagulation or platelet medications. No history of hematological symptoms or problems. Oncology: No history of CA metastasis, chemo within 30 days, or radiotherapy within 90 days. Has not lost 10% of body wt in 6 months. No history of oncological symptoms or problems. Psych: taking Lexapro since she had shingles. Musculoskeletal: See HPI; +b/l knee pain, neck pain. No LBP Skin: Negative for lesions, rash and itching. Objective PHYSICAL EXAM: VITALS: BP 124/72 Pulse 72 Temp (Src) 98.2 (Temporal Artery) Ht 5' 1 (1.55m) Wt 139 lb (63.1kg) SpO2 95% BMI 26.28 kg/(m2). General: Alert and oriented, No acute distress, Healthy appearance Skin: Normal color, no rash, no lesions. HEENT: EOM, pupils equal, round and reactive., No carotid bruits Cardiovascular: Normal S1 AND S2, no rubs, murmurs or gallops. No JVD. Pulse regular. Lungs: Normal breath sounds, no wheezes or crackles., No chest deformities or chest wall tenderness. Abdomen: Soft, non-tender, no rigidity., No masses or organomegaly. Extremities: Orthopaedic shoe left foot; No deformity, no edema or tenderness, no joint swelling or clubbing. Neurological: Normal cognition and motor skills. Gait normal. No weakness or sensory deficit. Pulses: Carotid and radial pulses normal +2. Diagnostic tests reviewed for today's visit: Lab Value Units Date High Low HB No results within date range. HCT No results within date range. WBC No results within date range. PLT No results within date range. NA 141 mmol/L 02/28/2018 144 136 K 4.2 mmol/L 02/28/2018 5.1 3.7 GLUC 88 mg/dL 02/28/2018 99 74 BUN 8 mg/dL 02/28/2018 21 7 CREAT 0.80 mg/dL 02/28/2018 0.96 0.58 PTSEC No results within date range. INR No results within date range. APTT No results within date range. ALT No results within date range. AST No results within date range. TBILI No results within date range. TSH 0.935 uU/mL 02/28/2018 5.500 0.400 Lab Value Units Date High Low HCGQT No results within date range. UHCG No results within date range. HCG, BODY* No results within date range. Lab Value Units Date High Low ABORHD No results within date range. ABSCREEN No results within date range. No results found for: HBA1C Most recent labs Most recent imaging Most recent EKG: normal sinus rhythm, left axis deviation, left bundle branch block, reviewed by speech and hearing director. Most recent Echo All in Epic AND outside records Assessment ASSESSMENT Patient has the following medical conditions Non-ischemic CM with normal EF PONV MINA-CPAP LBBB GERD-RX Hypothyroid-Levothyroxine HLD HTN-no RX METS: Climb a flight of stairs or walk up a hill (5.50 METs) Patient denies any chest pain or undue shortness of breath with the above physical activity. ASA Class: 3 ANESTHESIA FINDINGS: Intubation History: No history of difficult intubation Significant Anesthesia Considerations: Postop nausea/vomiting and Difficult IV/Vein Access: no Airway Exam: General: Normal appearance Mallampati Score is CLASS II ULBT: Class I - Lower incisors can bite the upper lip above the jeancarlos line Neck: Distance from hyoid to mentum during neck extension is at least 3 finger breaths, Limited movement turning to one or both sides, Pain with neck movement Mouth: Normal tongue size, Mouth opening greater than 2 finger breaths and torous palate Dentition: Caps/crowns Airway History: No history of difficult intubation STOP BANG Score: MINA uses CPAP/BiPAP PLAN This patient is optimally prepared for surgery. CONSULTS: Patient does not require consults for optimization at this time. The Following Tests/Procedures Have Been Initiated: Labs not indicated per PACC protocol, EKG not indicated per PACC protocol Planned Anesthetic: General Instructions Given to Patient: Patient given verbal and written preop instructions and voices comprehension and compliance. SIGNATURE: Aury Cleaning PA-C PATIENT NAME: Herlinda Rosas DATE: July 21, 2018 TIME: 9:02 AM PAGER/CONTACT #: MRI FOOT/TOES WO IVCON Observed: 07/14/2018 Status: F Source: [facility] 8:47 AM [facility] REPOSITORY * * *Final Report* * * DATE OF EXAM: Jul 14 2018 8:47AM [facility] [id number] - MRI FOOT/TOES WO IVCON LT / PROCEDURE REASON: Displaced fracture of proximal phalanx of left lesser toe(s), initial encounter * * * * Physician Interpretation * * * * MRI FOOT/TOES WITHOUT IV CONTRAST HISTORY: Displaced fracture of proximal phalanx of left lesser toe(s), initial encounter for closed fracture . Clinical concern for plantar plate tear associated with fracture of the third toe proximal phalanx. TECHNIQUE: Routine MRI of the left forefoot without contrast COMPARISON: Radiograph 07/13/2018 RESULT: Bone Marrow: Healing nondisplaced fracture of the great toe proximal phalanx base on the medial side. Minimally displaced impacted fracture of the second toe proximal phalanx with marrow edema extending throughout the bone and surrounding soft tissue edema. Small displaced fracture at the base of the third toe proximal phalanx on the medial side with small fracture fragment mildly displaced and rotated medially. Joints: No significant cartilage abnormalities. No significant joint effusion. Tendons: Flexor and extensor tendons are within normal limits. Plantar Plates: Thickening and increased signal at the medial plantar plate at the third MTP joint without discrete tear. Intermetatarsal Spaces: No evidence of Chong's neuroma. Lisfranc Ligament: Intact. Plantar Aponeurosis: Visualized portions of the plantar aponeurosis in within normal limits. Muscles: Muscle bulk and signal intensity are within normal limits. 0.9 x 0.4 cm STIR hyperintense, mildly T1 hypointense lesion on the plantar aspect of the third toe middle phalanx. IMPRESSION: Fractures of the first, second and third toe proximal phalanges. No discrete tear of the third plantar plate. Cystic-appearing lesion plantar aspect of the third toe middle phalanx, possibly ganglion but would be better characterized with ultrasound. Website Optimization Strategist: NICOL Transcribe Date/Time: Jul 14 2018 9:44A Dictated by : MILAGROS VILLANUEVA MD This examination was interpreted and the report reviewed and electronically signed by: SHERYL HANSEN MD on Jul 14 2018 1:20PM EST [id number] PROGRESS Observed: 07/14/2018 Status: COMPLETED Source: [place] 8:37 AM [facility] REPOSITORY HNO ID: [id number] Author: Danae (Rt) Fam Katz Service: (none) Author Type: Silver Recovery Operator Type: Progress Notes Filed: 07/14/2018 8:38 AM Note Text: Radiology Service Progress Note PATIENT NAME: Herlinda Rosas DATE OF SERVICE: July 14, 2018 TIME: 8:37 AM PATIENT IDENTITY VERIFICATION COMPLETED USING TWO (2) METHODS: Patient confirmed name verbally and Date of . PATIENT GENDER DATA: Female. status: : No status: NO. PATIENT RELEVANT IMPLANT DATA REVIEWED: Yes RADIOLOGY DEPARTMENT: MR; Exam(s) Completed: Lower MSK: Forefoot/Midfoot, left PERIPHERAL IV DATA: Not applicable SIGNED BY: RT Johnathon July 14, 2018 8:37 AM PROGRESS Observed: 07/13/2018 Status: COMPLETED Source: [place] 8:28 AM [facility] REPOSITORY HNO ID: [id number] Author: Ellie Dent Service: (none) Author Type: Physician Type: Progress Notes Filed: 07/13/2018 9:31 AM Note Text: ? Ellie Dent DPM Department of Podiatry [address] [facility] [address] Dept: [phone] Dept 07/13/2018 Follow Up Podiatric Office Visit: HPI: Herlinda Rosas is a 73 year old female. Patient presents for follow up to discuss surgical options. She is 3 weeks, 6 days post L 3rd toe fracture. Patient complains of pain when she walks. Pain is rated at 4/10, and described as aching. Interventions include: rest, post op shoe. she has new XR to review. Ellie Dent DPM PAST MEDICAL HISTORY Diagnosis Date - Cervical disc disease - Diverticulosis of colon - GERD (gastroesophageal reflux disease) - History of shingles recurrent episodes--over 3 recurrences - Hypothyroid - Left bundle branch block EF 50% - Osteopenia - PHN (postherpetic neuralgia) 05/25/2016 FAMILY HISTORY Problem Relation Age of Onset - Alzheimer's Disease Mother - Stroke Mother - other (Parkinson's Disease [Other]) Father - Hypertension Sister REVIEW OF SYSTEMS: CONSTITUTIONAL: No fevers, chills, nightsweats, unintended weight loss HEENT: Denies frequent or severe heaches, nasal congestion/sinus symptoms, problematic allergy problems. EYES: No diplopia or blurry vision. CARDIOVASCULAR: No chest pain, dyspnea, palpitations, orthopnea, PND, ankle edema. PULM: No dyspnea, unexplained cough. GI: No dysphagia/odynophagia, problematic reflux, constipation, diarrhea, changes in stool habits, hematochezia, melena. : No new urinary complaints, including dysuria, gross hematuria or pyuria. NEURO: No new balance problems, peripheral weakness/paresthesias or numbness of concern. MUSC-SKEL: No new joint pain, swelling, or erythema. PSY: No concerns regarding depression, anxiety or panic. INTEGUMENTARY: No new skin changes (rash, new or changing mole, new growth) Physical Exam: Constitutional: Pt is a well developed 73 year old female who is alert, oriented and cooperative Eyes: Following during examination. No redness or drainage. Respiratory: RR normal and nonlabored. Even breathing. No evidence of distress or shortness of breath. Psychology: Patient is engaged during conversation. Normal affect and mood. Does not appear depressed or anxious during encounter. Vascular: Dorsalis pedis and posterior tibial pulses palpable as b/l Capillary Fill time < 5 seconds to digits 1-5 b/l Skin temperature warm to warm proximal to distal b/l Hair growth present to digits Neurological: intact light touch/epicritic sensation Dermatological: Skin appears well hydrated and supple. good color, texture, turgor. Callosities absent.Open lesions absent. Wound: Not present. Musculoskeletal/Orthopaedic: Patient has pain to palpation of left 2nd interspace at base of 3rd toe. No pain with palpation of left 1st and 2nd toe. No deviation of left 2nd and 3rd toe Foot type is neutral structurally AJ ROM is full with knee extended and flexed 1st MPJ is full when loaded and no pain or crepitus are noted with ROM. MTJ, STJ are full and free of pain and crepitus. +5/5 muscle strength dorsiflexion, plantarflexion, inversion, eversion b/l Radiographs: 3 views of left foot reviewed. There is healing of left hallux and left 2nd toe. There is avulsion fracture of left 3rd toe proximal phlanx without evidence of healing ASSESSMENT: (S92.512A) Closed displaced fracture of proximal phalanx of lesser toe of left foot, initial encounter (primary encounter diagnosis) (S9.152A) Plantar plate injury, left, initial encounter PLAN: 1. History and physical examination performed. 2. Patient was examined and informed of current findings 3. Fractures of left 1st and 2nd toe appear to be healing nicely. The fracture of left 3rd toe proximal phalanx I doubt will heal because of its rotation. She is still having pain and we discussed removing this small piece of bone as I suspect this piece of bone can lead to further injury of cartilage. I suspect this fracture is too small to repair with orif. I have discussed performing this in past but she has had other pre-arranged procedures. I have discussed doing in 2 weeks but she has an appointment for her in [place]. She understands we are trying to help her but she has other issues keeping her from having this done. She is interested in having removed but may consider later this month. 4. I discussed with patient that the plantar plate of 3rd toe certainly could be affected because of avulsion of bone. If this piece of bone is excised, it could lead to plantar plate tearing and/or toe deformity. Recommend mri for further evaluation for pre-op planning on whether or not this needs to be corrected. 5. I discussed possible plantar plate repair. It would require her to be immobile for 6 weeks. She is unsure if she would want to pursue that. . She was informed that if repair is required and she elects not to pursue, she could be at risk of toe deformity. 6. Discussed just leaving avulsion fracture fragment alone and not doing anything. She would like to pursue removal. 7. Will order mri. 8. Patient consented for removal of fracture fragment but informed consent may need adjusted pending mri. Ellie Dent DPM CNOV Observed: 07/13/2018 Status: COMPLETED Source: [place] 8:25 AM [facility] REPOSITORY Office Visit (PODIWS) HERLINDA ROSAS ([id number]) 1945 F Date Time Provider Department 07/13/18 8:25 AM ELLIE DENT PODBEN During your visit today, we recorded the following information about you: Ellie Dent DPM 07/13/2018 9:31 AM Signed ? Ellie Dent DPM Department of Podiatry [address] [place] [address] Dept: [phone] Dept 07/13/2018 Follow Up Podiatric Office Visit: HPI: Herlinda Rosas is a 73 year old female. Patient presents for follow up to discuss surgical options. She is 3 weeks, 6 days post L 3rd toe fracture. Patient complains of pain when she walks. Pain is rated at 4/10, and described as aching. Interventions include: rest, post op shoe. she has new XR to review. Ellie Dent DPM PAST MEDICAL HISTORY Diagnosis Date - Cervical disc disease - Diverticulosis of colon - GERD (gastroesophageal reflux disease) - History of shingles recurrent episodes--over 3 recurrences - Hypothyroid - Left bundle branch block EF 50% - Osteopenia - PHN (postherpetic neuralgia) 05/25/2016 FAMILY HISTORY Problem Relation Age of Onset - Alzheimer's Disease Mother - Stroke Mother - other (Parkinson's Disease [Other]) Father - Hypertension Sister REVIEW OF SYSTEMS: CONSTITUTIONAL: No fevers, chills, nightsweats, unintended weight loss HEENT: Denies frequent or severe heaches, nasal congestion/sinus symptoms, problematic allergy problems. EYES: No diplopia or blurry vision. CARDIOVASCULAR: No chest pain, dyspnea, palpitations, orthopnea, PND, ankle edema. PULM: No dyspnea, unexplained cough. GI: No dysphagia/odynophagia, problematic reflux, constipation, diarrhea, changes in stool habits, hematochezia, melena. : No new urinary complaints, including dysuria, gross hematuria or pyuria. NEURO: No new balance problems, peripheral weakness/paresthesias or numbness of concern. MUSC-SKEL: No new joint pain, swelling, or erythema. PSY: No concerns regarding depression, anxiety or panic. INTEGUMENTARY: No new skin changes (rash, new or changing mole, new growth) Physical Exam: Constitutional: Pt is a well developed 73 year old female who is alert, oriented and cooperative Eyes: Following during examination. No redness or drainage. Respiratory: RR normal and nonlabored. Even breathing. No evidence of distress or shortness of breath. Psychology: Patient is engaged during conversation. Normal affect and mood. Does not appear depressed or anxious during encounter. Vascular: Dorsalis pedis and posterior tibial pulses palpable as b/l Capillary Fill time < 5 seconds to digits 1-5 b/l Skin temperature warm to warm proximal to distal b/l Hair growth present to digits Neurological: intact light touch/epicritic sensation Dermatological: Skin appears well hydrated and supple. good color, texture, turgor. Callosities absent.Open lesions absent. Wound: Not present. Musculoskeletal/Orthopaedic: Patient has pain to palpation of left 2nd interspace at base of 3rd toe. No pain with palpation of left 1st and 2nd toe. No deviation of left 2nd and 3rd toe Foot type is neutral structurally AJ ROM is full with knee extended and flexed 1st MPJ is full when loaded and no pain or crepitus are noted with ROM. MTJ, STJ are full and free of pain and crepitus. +5/5 muscle strength dorsiflexion, plantarflexion, inversion, eversion b/l Radiographs: 3 views of left foot reviewed. There is healing of left hallux and left 2nd toe. There is avulsion fracture of left 3rd toe proximal phlanx without evidence of healing ASSESSMENT: (S94.839A) Closed displaced fracture of proximal phalanx of lesser toe of left foot, initial encounter (primary encounter diagnosis) (A39.608Q) Plantar plate injury, left, initial encounter PLAN: 1. History and physical examination performed. 2. Patient was examined and informed of current findings 3. Fractures of left 1st and 2nd toe appear to be healing nicely. The fracture of left 3rd toe proximal phalanx I doubt will heal because of its rotation. She is still having pain and we discussed removing this small piece of bone as I suspect this piece of bone can lead to further injury of cartilage. I suspect this fracture is too small to repair with orif. I have discussed performing this in past but she has had other pre-arranged procedures. I have discussed doing in 2 weeks but she has an appointment for her in [place]. She understands we are trying to help her but she has other issues keeping her from having this done. She is interested in having removed but may consider later this month. 4. I discussed with patient that the plantar plate of 3rd toe certainly could be affected because of avulsion of bone. If this piece of bone is excised, it could lead to plantar plate tearing and/or toe deformity. Recommend mri for further evaluation for pre-op planning on whether or not this needs to be corrected. 5. I discussed possible plantar plate repair. It would require her to be immobile for 6 weeks. She is unsure if she would want to pursue that. . She was informed that if repair is required and she elects not to pursue, she could be at risk of toe deformity. 6. Discussed just leaving avulsion fracture fragment alone and not doing anything. She would like to pursue removal. 7. Will order mri. 8. Patient consented for removal of fracture fragment but informed consent may need adjusted pending mri. Ellie Dent DPM Referring Provider: ELLIE DENT [[id number]] Allergies As of Date: 07/13/2018 Noted Allergy Reaction NEOSPORIN ([id number]*06/14/2017 2 - Rash Date Reviewed: 07/13/2018 Reviewed by: Arianne Wyatt RN - Fully Assessed Reason for Visit: Discuss Surgery [Other] Primary Visit Diagnosis:Closed displaced fracture of proximal phalanx of lesser toe of left foot, initial encounter [U15.221A] Other Visit Diagnosis:Plantar plate injury, left, initial encounter [C31.685Y] Order(s):MRI FOOT/TOES WO BONNIE [[id number]] Order #: [id number] FUTURE Prescriptions as of 07/13/2018 Sig: GABAPENTIN 100 MG CAPSULE TAKE ONE CAPSULE BY MOUTH ONC* PRAVASTATIN 10 MG TABLET Take 1/2 tab daily MUPIROCIN 2 % TOPICAL OINTMENT Apply 1 application to affect* NEXIUM 40 MG CAPSULE,DELAYED * TAKE ONE CAPSULE BY MOUTH ONC* LEVOTHYROXINE 50 MCG TABLET Take 1 tablet by mouth every * LEVOTHYROXINE 25 MCG TABLET Take 1 tablet by mouth every * GABAPENTIN 300 MG CAPSULE Take 1 capsule by mouth daily* ESTRADIOL 0.01% (0.1 MG/GRAM)* Use fingertip amount nightly * PROBIOTIC ORAL Take by mouth. MULTIVITAMIN ORAL Take by mouth. ESCITALOPRAM 10 MG TABLET Take 1 tablet by mouth once d* Problem List As Of Date 07/13/2018 Noted Resolved [place]-Walker grade 3 cystocele [N81.10] INVALID FOR* [place]-Walker grade 2 rectocele [N81.6] INVALID FOR* Urge incontinence [N39.41] INVALID FOR* PHN (postherpetic neuralgia) [B02.29] INVALID FOR* Hypothyroid [E03.9] History of shingles [Z86.19] More... Cervical disc disease [M50.90] GERD (gastroesophageal reflux disease) [K21.9] Cardiomyopathy, nonischemic (HCC) [I42.8] INVALID FOR* Letter Text Podiatric Medicine and Surgery Ellie Dent DPM [address] [address] [address] SURGERY CONFIRMATION FORM Your surgery is scheduled for: 07/31/18 at the [facility]. You will be contacted by 3pm the day prior (Tuesday) to your surgery to review pre-operative instructions and confirm your arrival time. If you have not received a telephone call by 3pm, please contact [facility] at [phone]. Use Entrance A near the back of the hospital, where there is a covered patient drop off area. Take the elevator to the 1st floor and report to the Surgery Information Desk for check in. You will need to make sure that you have a responsible adult to drive you home the day of surgery. Plan to rest at home, same day surgery does not mean same day recovery. Proper rest helps you recover sooner. You will also need to bring a copy of your living will and/or health care power of estate planning attorney, provided you have one. Hold all NSAIDS 7 days prior to surgical date. Hold all anticoagulants 5 days prior to surgical date, with permission of prescribing physician. The night before: Nothing to eat or drink after midnight. The day of: Take prescribed medications as approved by physician with small sips of water. Please do not wear any forms of jewelry, make up, or nail divehi/toenail divehi. Make sure to leave all valuables at home. Your post-op appointments with Dr. Dent are scheduled for:08/04/18 at 8:55 am, 08/11/18 at 9:25 am and 08/17/18 at 9:55 am. You will receive a phone call to schedule an appointment in Pre-Anesthesia Consultation Clinic prior to your surgical date. This appointment will help determine if you have any risk factors for undergoing anesthesia. If you have any further questions, please do not hesitate to contact our office. Encounter Status:Closed by ELLIE DENT DPM on 07/13/18 PROGRESS Observed: 07/13/2018 Status: COMPLETED Source: [place] 8:19 AM [facility] REPOSITORY HNO ID: [id number] Author: Savannah () Fam Chowdary Service: (none) Author Type: Silver Recovery Operator Type: Progress Notes Filed: 07/13/2018 8:19 AM Note Text: Radiology Service Progress Note PATIENT NAME: Herlinda Rosas DATE OF SERVICE: July 13, 2018 TIME: 8:19 AM PATIENT IDENTITY VERIFICATION COMPLETED USING TWO (2) METHODS: Patient confirmed name verbally and Date of . PATIENT GENDER DATA: Female. status: : No status: NO. PATIENT RELEVANT IMPLANT DATA REVIEWED: Not Applicable RADIOLOGY DEPARTMENT: General X-ray: Exam(s) Completed: Lower Extremity X-Ray(s): Foot, Left and Wt. Bearing: PERIPHERAL IV DATA: Not applicable SIGNED BY: RT Deborah July 13, 2018 8:19 AM XR FOOT 3V AP/LAT/OBL Observed: 07/13/2018 Status: F Source: [facility] 8:19 AM [facility] REPOSITORY * * *Final Report* * * DATE OF EXAM: Jul 13 2018 8:19AM [id number] [id number] - XR FOOT 3V AP/LAT/OBL LT / PROCEDURE REASON: Displaced fracture of proximal phalanx of left lesser toe(s), initial encounter * * * * Physician Interpretation * * * * HISTORY: 73-YEAR-OLD FEMALE WITH Displaced fracture of proximal phalanx of left lesser toe(s), initial encounter for closed fracture . 1 month follow up to left foot fracture TECHNIQUE: XR FOOT 3V AP/LAT/OBL LT Laterality: LEFT Number of different views (projections): 3 COMPARISON: 06/26/2018 RESULT: Slight increase in callus formation about the second metatarsal fracture nondisplaced fracture of the proximal phalanx of the great toe is less distinct consistent with healing. Small osteophytes at the first MTP joint and narrowing of IP joint great toe. Increased callus formation at the fracture of the second proximal phalanx. Foot is otherwise unchanged with pes cavus. IMPRESSION: HEALING FRACTURES OF THE FIRST AND SECOND PROXIMAL PHALANGES. Website Optimization Strategist: NICOL Transcribe Date/Time: Jul 13 2018 12:40P Dictated by : CHEL WILLIAM MD This examination was interpreted and the report reviewed and electronically signed by: CHEL WILLIAM MD on Jul 13 2018 12:41PM EST [id number] URINALYSIS, COMPLETE Collected: 07/12/2018 Status: F Source: [facility] 11:20 AM [facility] [place] Order Comment: Comments: CUUR How was Urine Obtained? CLEAN CATCH TYPE CODE TESTS RESULT OUT OF RANGE REFERENCE UNITS LAB L400.3000 Yellow COLOR Normal Yellow LAB L400.3050 Clear Normal CLARITY Clear LAB L400.3200 Normal mg/dl Normal GLUCOSE, UR Normal LAB L400.3300 Negative mg/dL Normal BILIRUBIN URINE Negative LAB L400.3400 Negative mg/dl Normal KETONE UR Negative LAB L400.3465 1.002-1.030 Normal SP.GR. DIPSTX 1.005 LAB L400.3550 5.0 - 8.0 pH UR Normal 7.0 LAB L400.3600 Negative mg/dl PROT Normal DIPSTX Negative LAB L400.3700 Normal mg/dl Normal UROBILI Normal LAB L400.3750 Negative Normal NITRITE UR Negative LAB L400.3780 Negative /ul High 10 OCCULT BLOOD-UR LAB L400.3800 Negative /ul High LEUK ESTERASE 500 LAB L400.4050 0-5 /hpf WBC Normal 5-10 SEEN LAB L400.4100 0-5 /hpf 0 Normal RBC-UA SEEN LAB L400.4150 5-10 /hpf SQUAM 0 Normal EPI SEEN LAB L400.4300 None Seen /hpf 0 Normal BACTERIA SEEN LAB L400.4350 <or=2+ /hpf 0 Normal MUCUS, URINE SEEN Performed By: #### L400.0001 #### [facility] [address] [place], [address] Observed: 07/12/2018 Status: F Source: [facility] CULTURE, URINE 11:20 AM [facility] [place] Urine Culture Culture exhibits no growth. Performed By: #### M100.0650 #### [facility] [address] [place], [address] XR FOOT 3V AP/LAT/OBL Observed: 07/04/2018 Status: F Source: [facility] 9:31 AM [facility] REPOSITORY * * *Final Report* * * DATE OF EXAM: Jul 04 2018 9:31AM [id number] - XR FOOT 3V AP/LAT/OBL LT / PROCEDURE REASON: Displaced fracture of proximal phalanx of left lesser toe(s), initial encounter * * * * Physician Interpretation * * * * HISTORY: 73-YEAR-OLD FEMALE WITH Displaced fracture of proximal phalanx of left lesser toe(s), initial encounter for closed fracture . left foot fracture followup TECHNIQUE: XR FOOT 3V AP/LAT/OBL LT Laterality: LEFT Number of different views (projections): 3 COMPARISON: 06/16/2018 RESULT: Slight indistinctness of the proximal two thirds of the fracture at the base of the proximal phalanx of the great toe medially. Slight indistinctness of the second metatarsal fracture with minimal callus formation. The distal fracture fragment is angulated slightly laterally and displaced laterally approximately 1.5 mm. No change in the appearance of the avulsed fracture of the proximal phalanx at the MTP joint on the medial side which is displaced medially and angulated 90 degrees to the normal orientation of the fracture. There appears be subchondral cyst or remote fracture is partially healed of the distal phalanx of the third digit. Pes cavus. Calcaneal enthesophyte at the insertion Achilles tendon and plantar fascia enthesophyte the base of fifth metatarsal. No additional fractures are identified. IMPRESSION: FINDINGS CONSISTENT WITH PARTIAL HEALING OF THE FRACTURE OF THE FIRST AND SECOND PROXIMAL PHALANGES. THE MID DISPLACED ROTATED FRACTURE OF THE THIRD PROXIMAL PHALANX UNCHANGED WITH NO EVIDENCE OF HEALING. Website Optimization Strategist: NICOL Transcribe Date/Time: Jul 04 2018 10:39A Dictated by : CHEL WILLIAM MD This examination was interpreted and the report reviewed and electronically signed by: CHEL WILLIAM MD on Jul 04 2018 10:43AM EST [id number] PROGRESS Observed: 07/04/2018 Status: COMPLETED Source: [place] 9:26 AM [facility] REPOSITORY HNO ID: [id number] Author: Fam Mccarthy (Tech) Service: (none) Author Type: Silver Recovery Operator Type: Progress Notes Filed: 07/04/2018 9:31 AM Note Text: Radiology Service Progress Note PATIENT NAME: Herlinda Rosas DATE OF SERVICE: July 04, 2018 TIME: 9:26 AM PATIENT IDENTITY VERIFICATION COMPLETED USING TWO (2) METHODS: Patient confirmed name verbally and Date of . PATIENT GENDER DATA: Female. status: : No status: NO. PATIENT RELEVANT IMPLANT DATA REVIEWED: Not Applicable RADIOLOGY DEPARTMENT: General X-ray: Exam(s) Completed: Lower Extremity X-Ray(s): Foot, Left and Wt. Bearing: PERIPHERAL IV DATA: Not applicable SIGNED BY: Fam Avitia July 04, 2018 9:26 AM PROGRESS Observed: 07/04/2018 Status: COMPLETED Source: [place] 9:09 AM [facility] REPOSITORY HNO ID: [id number] Author: Ellie Dent Service: (none) Author Type: Physician Type: Progress Notes Filed: 07/04/2018 11:50 AM Note Text: ? Ellie Dent DPM Department of Podiatry [address] [facility] [address] Dept: [phone] Dept 07/04/2018 Follow Up Podiatric Office Visit: HPI: Herlinda Rosas is a 73 year old female. Patient presents to follow up on L 1-3 toe fractures. Patient complains of pain in 2nd toe when walking. Pain is rated at 4/10, and described as sharp. She continues to wear surgical shoe which helps. Ellie Dent DPM PCP: Kira Robertson MD PAST MEDICAL HISTORY Diagnosis Date - Cervical disc disease - Diverticulosis of colon - GERD (gastroesophageal reflux disease) - History of shingles recurrent episodes--over 3 recurrences - Hypothyroid - Left bundle branch block EF 50% - Osteopenia - PHN (postherpetic neuralgia) 05/25/2016 Current Outpatient Prescriptions: gabapentin (NEURONTIN) 100 mg capsule TAKE ONE CAPSULE BY MOUTH ONCE DAILY IN ADDITION TO 300 MG CAPSULES pravastatin (PRAVACHOL) 10 mg tablet Take 1/2 tab daily mupirocin (BACTROBAN) 2 % ointment Apply 1 application to affected area three times daily as needed. For wounds NEXIUM 40 mg capsule TAKE ONE CAPSULE BY MOUTH ONCE DAILY levothyroxine (SYNTHROID) 50 mcg tablet Take 1 tablet by mouth every other day. (One 25 mcg on alternating day) levothyroxine (SYNTHROID) 25 mcg tablet Take 1 tablet by mouth every other day. Take on empty stomach. For thyroid. (One 50 mcg on alternating day) escitalopram oxalate (LEXAPRO) 10 mg tablet Take 1 tablet by mouth once daily. gabapentin (NEURONTIN) 300 mg capsule Take 1 capsule by mouth daily at bedtime. estradiol (ESTRACE) 0.01 % (0.1 mg/gram) vaginal cream Use fingertip amount nightly x 2 weeks, then every other night x 2 weeks, then 1-2x weekly for maintenance LACTOBACILLUS ACIDOPHILUS (PROBIOTIC ORAL) Take by mouth. MULTIVITAMIN ORAL Take by mouth. No current facility-administered medications for this visit. 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 No redness or drainage. Respiratory: RR normal and nonlabored. Even breathing. No evidence of distress or shortness of breath. Psychology: Patient is engaged during conversation. Normal affect and mood. Does not appear depressed or anxious during encounter. Vascular: Dorsalis pedis and posterior tibial pulses palpable as b/l Capillary Fill time < 5 seconds to digits 1-5 b/l Skin temperature warm to warm proximal to distal b/l Hair growth present to digits Neurological: intact light touch/epicritic sensation Dermatological: Nails 1-5 b/l appear Normal. Webspaces clean and dry 1-4 b/l. Skin appears well hydrated and supple. good color, texture, turgor. Callosities absent. Open lesions absent. Wound: Not present. Musculoskeletal/Orthopaedic: Patient has pain to palpation of left 2nd interspace and left 3rd mtpj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 future and try ezetimibe. She's been asked to contact me when she is finished with her surgeries Written and verbal health teaching given to patient, patient verbalizes understanding and agrees with treatment plan. DIAGNOSIS FOR VISIT: Preoperative cardiac risk assessment Cardiomyopathy, nonischemic HISTORY OF PRESENT ILLNESS Herlinda Rosas returns for preoperative risk assessment. She will be having a [employer]IOR [employer]AK[employer] procedure as well as a podiatric procedure in the next few weeks. She reports stable exercise tolerance up to a fall she had 2 weeks ago. She had injury to her left foot with some relative immobility since then. Up until the fall, she had had good exercise tolerance and was walking on a regular basis. She has no difficulty maintaining a MET level greater than 5 for extended periods of time. She's had no orthopnea. She denies edema, syncope, palpitations, TIAs, amaurosis and claudication. She is still struggling with the statin therapy. She was unable to tolerate coenzyme Q10 because of GI symptoms. She would like to try something other than statins in the future. ALLERGIES: ALLERGIES Allergen Reactions - Neosporin [Neomycin* Rash CURRENT OUTPATIENT MEDICATIONS: gabapentin (NEURONTIN) 100 mg capsule TAKE ONE CAPSULE BY MOUTH ONCE DAILY IN ADDITION TO 300 MG CAPSULES pravastatin (PRAVACHOL) 10 mg tablet Take 1/2 tab daily mupirocin (BACTROBAN) 2 % ointment Apply 1 application to affected area three times daily as needed. For wounds NEXIUM 40 mg capsule TAKE ONE CAPSULE BY MOUTH ONCE DAILY levothyroxine (SYNTHROID) 50 mcg tablet Take 1 tablet by mouth every other day. (One 25 mcg on alternating day) levothyroxine (SYNTHROID) 25 mcg tablet Take 1 tablet by mouth every other day. Take on empty stomach. For thyroid. (One 50 mcg on alternating day) gabapentin (NEURONTIN) 300 mg capsule Take 1 capsule by mouth daily at bedtime. LACTOBACILLUS ACIDOPHILUS (PROBIOTIC ORAL) Take by mouth. MULTIVITAMIN ORAL Take by mouth. escitalopram oxalate (LEXAPRO) 10 mg tablet Take 1 tablet by mouth once daily. estradiol (ESTRACE) 0.01 % (0.1 mg/gram) vaginal cream Use fingertip amount nightly x 2 weeks, then every other night x 2 weeks, then 1-2x weekly for maintenance PHYSICAL EXAMINATION: VITAL SIGNS: BP 126/77 Pulse 66 Ht 5' .75 (1.54m) Wt 138 lb 14.4 oz (63.0kg) BMI 26.46 kg/(m2). Chest: Clear to percussion and auscultation. Trachea is midline. Air entry is equal. Cardiac: Regular rhythm. S2 is paradoxically split. PMI is nondisplaced. Is a soft systolic ejection murmur. Carotids are brisk without bruits. JVP is less than 10 cm. Abdomen: Soft and nontender. There are no pulsatile masses or bruits. No liver enlargement. Bowel sounds are active. Extremities: No edema. Pulses are intact and symmetrical. EKG shows sinus rhythm. There is left bundle branch block. No change is seen. Electronically Signed: Artemio De La Torre MD June 21, 2018 11:38 AM CC: Kira Robertson MD Referring Provider: ARTEMIO DE LA TORRE [[id number]] Allergies As of Date: 06/21/2018 Noted Allergy Reaction NEOSPORIN ([id number]*06/14/2017 2 - Rash Date Reviewed: 06/21/2018 Reviewed by: China Cadet MA - Fully Assessed Primary Visit Diagnosis:Preop cardiovascular exam [Z01.810] Other Visit Diagnosis:Cardiomyopathy, nonischemic (HCC) [I42.8] Prescriptions as of 06/21/2018 Sig: GABAPENTIN 100 MG CAPSULE TAKE ONE CAPSULE BY MOUTH ONC* PRAVASTATIN 10 MG TABLET Take 1/2 tab daily MUPIROCIN 2 % TOPICAL OINTMENT Apply 1 application to affect* NEXIUM 40 MG CAPSULE,DELAYED * TAKE ONE CAPSULE BY MOUTH ONC* LEVOTHYROXINE 50 MCG TABLET Take 1 tablet by mouth every * LEVOTHYROXINE 25 MCG TABLET Take 1 tablet by mouth every * GABAPENTIN 300 MG CAPSULE Take 1 capsule by mouth daily* PROBIOTIC ORAL Take by mouth. MULTIVITAMIN ORAL Take by mouth. ESCITALOPRAM 10 MG TABLET Take 1 tablet by mouth once d* ESTRADIOL 0.01% (0.1 MG/GRAM)* Use fingertip amount nightly * Problem List As Of Date 06/21/2018 Noted Resolved [place]-Walker grade 3 cystocele [N81.10] INVALID FOR* [place]-Walker grade 2 rectocele [N81.6] INVALID FOR* Urge incontinence [N39.41] INVALID FOR* PHN (postherpetic neuralgia) [B02.29] INVALID FOR* Hypothyroid [E03.9] History of shingles [Z86.19] More... Cervical disc disease [M50.90] GERD (gastroesophageal reflux disease) [K21.9] Cardiomyopathy, nonischemic (HCC) [I42.8] INVALID FOR* LOS history recorded Follow-up and Disposition History Recorded Encounter Status:Closed by ARTEMIO DE LA TORRE MD on 06/21/18 12 LEAD ELECTROCARDIOGRAM Observed: 06/19/2018 Status: F Source: [place] 3:14 PM [facility] [place] [facility] Cardiovascular Services [address] [place] [address] 12 Lead EKG 06/16/18 1347 MR#: [id number] Acct: [id number] Name: HERLINDA ROSAS Rep #: [id number] : 1945 73 From: Cameron Mg MD Attending Dr: Mita Waller MD Status: PRE [facility] [place] Ordering Dr: Mita Waller MD Date: 06/16/18 Location: [facility] [place] Sex: F C Admitted: Test Reason : PRE OP Blood Pressure : / mmHG Vent. Rate : 064 BPM Atrial Rate : 064 BPM P-R Int : 186 ms QRS Dur : 146 ms QT Int : 444 ms P-R-T Axes : 060 -55 114 degrees QTc Int : 458 ms Normal sinus rhythm Left axis deviation Left bundle branch block Abnormal ECG Confirmed by HARITHA PICKETT, CAMERON ([id number]), associate entertainment editor NAMAN CHOWDARY ([id number]) on 06/19/2018 3:13:36 PM Referred By: Mita Waller Confirmed By:CAMERON MG MD 06/19/18 1513 Date Cameron Mg MD CC: Kira Robertson MD; MD Mita Waller Signed CBC-COMPLETE BLOOD CNT Collected: 06/16/2018 Status: F Source: [place] NO DIFF 1:26 PM [facility] [place] TYPE CODE TESTS RESULT OUT OF RANGE REFERENCE UNITS LAB L100.1000 4.4-11.0 K/mm3 Normal WBC 7.6 LAB L100.1200 4.2-5.4 M/mm3 Low RBC 4.19 LAB L100.1300 12.0-15.0 g/dl Normal HGB 12.4 LAB L100.1400 37-47 % Normal HCT 37.8 LAB L100.1500 81-99 fL Normal MCV 90.2 LAB L100.1600 27.0-32.0 pg Normal MCH 29.6 LAB L100.1700 32-36 g/gl Normal MCHC 32.8 LAB L100.1810 11.6-14.6 % Normal RDW CV 13.8 LAB L100.1820 35.1-43.9 fl High RDW SD 45.3 LAB L100.1900 150-450 K/mm3 Normal PLT 316 LAB L100.2000 6.2-12.0 fl Normal MPV 9.7 Performed By: #### L100.0500 #### [facility] [address] [place], [place], [address] BASIC METABOLIC Collected: 06/16/2018 Status: F Source: [place] PROFILE (BMP) 1:26 PM [facility] [place] TYPE CODE TESTS RESULT OUT OF RANGE REFERENCE UNITS LAB L501.0100 74-106 mg/dL Normal GLU 81 Result Comment: Please note revised GLUCOSE reference range effective 2017. LAB L501.1000 7-18 mg/dL Normal BUN 14 LAB L501.1100 0.55-1.02 mg/dL Normal CREAT,SERUM 0.84 Result Comment: The validity of the calculated GFR AND GFRAA in patients over 70 years has not been determined. Clinical correlation is essential. LAB L501.1110 >60 mL/min Normal EST GFR 72 Result Comment: Non- GFR Calc LAB L501.1115 >60 mL/min Normal EST GFR - AA 87 Result Comment: GFR Calc LAB L501.1300 10-20 RATIO Normal BUN/CRE 16.8 LAB L501.2200 8.5-10.1 mg/dL CA Normal 8.9 LAB L501.5300 136-145 mmol/L NA Normal 139 LAB L501.5600 3.5-5.1 mmol/L K Normal 4.1 LAB L501.5900 98-107 mmol/L CL Normal 104 LAB L501.6100 21.0-32.0 mmol/L Normal CO2 31.0 LAB L501.6200 5-15 Low GAP 4 Performed By: #### L500.2500, L501.9520 #### [facility] [address] [facility] [place], [place], [id number] THYROID STIM HORMONE Collected: 06/16/2018 Status: F Source: [place] (TSH) 1:26 PM [facility] [place] TYPE CODE TESTS RESULT OUT OF RANGE REFERENCE UNITS LAB L501.9520 0.358-3.74 uIU/mL Normal TSH 0.83 Performed By: #### L500.2500, L501.9520 #### [facility] [address] [facility] [place], [address] PROGRESS Observed: 06/16/2018 Status: COMPLETED Source: [place] 9:21 AM [facility] REPOSITORY HNO ID: [id number] Author: Chen Grace Ma Service: (none) Author Type: (none) Type: Progress Notes Filed: 06/16/2018 12:07 PM Note Text: Patient provided with post op shoe, size XS, and instructed/educated in its application, wear, and care. All questions were answered, and patient was able to demonstrate competence with the necessary skills to utilize the above equipment. Chen Grace Ma PROGRESS Observed: 06/16/2018 Status: COMPLETED Source: [place] 9:03 AM [facility] REPOSITORY HNO ID: [id number] Author: Naila Gillespie) MARIA LUISA Guillory Service: (none) Author Type: Clinical Silver Recovery Operator Type: Progress Notes Filed: 06/16/2018 9:04 AM Note Text: Radiology Service Progress Note PATIENT NAME: Herlinda Rosas DATE OF SERVICE: June 16, 2018 TIME: 9:03 AM PATIENT IDENTITY VERIFICATION COMPLETED USING TWO (2) METHODS: Patient confirmed name verbally and Date of . PATIENT GENDER DATA: Female. status: : No status: NO. PATIENT RELEVANT IMPLANT DATA REVIEWED: Not Applicable RADIOLOGY DEPARTMENT: General X-ray: Exam(s) Completed: Lower Extremity X-Ray(s): Foot, Left and Wt. Bearing: PERIPHERAL IV DATA: Not applicable SIGNED BY: MARIA LUISA Gonzalez June 16, 2018 9:03 AM XR FOOT 3V AP/LAT/OBL Observed: 06/16/2018 Status: F Source: [facility] 9:03 AM [facility] REPOSITORY * * *Final Report* * * DATE OF EXAM: Jun 16 2018 9:03AM WRX [id number] - XR FOOT 3V AP/LAT/OBL LT / PROCEDURE REASON: Displaced fracture of proximal phalanx of left lesser toe(s), initial encounter * * * * Physician Interpretation * * * * EXAM: XR FOOT 3V AP/LAT/OBL LT HISTORY: Displaced fracture of proximal phalanx of left lesser toe(s), initial encounter for closed fracture . VIEWS: Weightbearing AP, oblique and lateral left foot. COMPARISON: 06/07/2018. FINDINGS: Relatively nondisplaced fracture at the proximal medial corner of great toe proximal phalanx, with no periosteal callus. Oblique fracture through the second toe proximal phalanx at distal metadiaphysis with mild impaction and 2 mm lateral displacement, unchanged. Displaced fracture at the proximal medial corner of third toe proximal phalanx, approximately 2-3 mm separation of fragments and no periosteal callus. IMPRESSION: Fractured first through third toes with no change in alignment or visible periosteal callus. Website Optimization Strategist: PSCB Transcribe Date/Time: Jun 16 2018 9:30A Dictated by : Davi BASILIO MD This examination was interpreted and the report reviewed and electronically signed by: Davi BASILIO MD on Jun 16 2018 9:34AM EST [id number] Observed: 06/16/2018 Status: COMPLETED Source: [place] 8:18 AM [facility] [place] REPOSITORY HNO ID: [id number] Author: Ellie Dent Service: (none) Author Type: Physician Type: Progress Notes Filed: 06/16/2018 12:07 PM Note Text: ? Ellie Dent DPM Department of Podiatry [address] [facility] [address] Dept: [phone] Dept 06/16/[address] Mali Argueta for an opinion regarding fracture of toe. My final recommendations will be communicated back to the requesting physician by way of shared Medical record or letter to requesting physician via US mail. Initial Podiatric Office Visit: HPI: Herlinda Rosas is a 73 year old female. Patient presents with L 1-3 toe fracture. States that she tripped on carpet about 10 days ago and caught herself before falling, in doing so, reports that toes rolled under foot. She was seen in PCP office and had XR done. Patient reports constant stabbing, throbbing, achy pain that is rated a 2-8/10 depending on activity. States that pain is worse with activity. Has some relief with staying off of it and ice. Was prescribed Mobic, but causes GI upset. She denies being diabetic and she is not a smoker. She is not currently wearing boot because it is too big. Ellie Dent DPM PCP: Kira Robertson MD PAST MEDICAL HISTORY Diagnosis Date - Cervical disc disease - Diverticulosis of colon - GERD (gastroesophageal reflux disease) - History of shingles recurrent episodes--over 3 recurrences - Hypothyroid - Left bundle branch block EF 50% - Osteopenia - PHN (postherpetic neuralgia) 05/25/2016 Current Outpatient Prescriptions: gabapentin (NEURONTIN) 100 mg capsule TAKE ONE CAPSULE BY MOUTH ONCE DAILY IN ADDITION TO 300 MG CAPSULES pravastatin (PRAVACHOL) 10 mg tablet Take 1/2 tab daily mupirocin (BACTROBAN) 2 % ointment Apply 1 application to affected area three times daily as needed. For wounds NEXIUM 40 mg capsule TAKE ONE CAPSULE BY MOUTH ONCE DAILY levothyroxine (SYNTHROID) 50 mcg tablet Take 1 tablet by mouth every other day. (One 25 mcg on alternating day) levothyroxine (SYNTHROID) 25 mcg tablet Take 1 tablet by mouth every other day. Take on empty stomach. For thyroid. (One 50 mcg on alternating day) escitalopram oxalate (LEXAPRO) 10 mg tablet Take 1 tablet by mouth once daily. gabapentin (NEURONTIN) 300 mg capsule Take 1 capsule by mouth daily at bedtime. estradiol (ESTRACE) 0.01 % (0.1 mg/gram) vaginal cream Use fingertip amount nightly x 2 weeks, then every other night x 2 weeks, then 1-2x weekly for maintenance LACTOBACILLUS ACIDOPHILUS (PROBIOTIC ORAL) Take by mouth. MULTIVITAMIN ORAL Take by mouth. No current facility-administered medications for this visit. 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 EYES: No diplopia or blurry vision. CARDIOVASCULAR: No chest pain, dyspnea, palpitations, orthopnea, PND, ankle edema. PULM: No dyspnea, unexplained cough. GI: No dysphagia/odynophagia, problematic reflux, constipation, diarrhea, changes in stool habits, hematochezia, melena. : No new urinary complaints, including dysuria, gross hematuria or pyuria. NEURO: No new balance problems, peripheral weakness/paresthesias or numbness of concern. MUSC-SKEL: No new joint pain, swelling, or erythema. PSY: No concerns regarding depression, anxiety or panic. INTEGUMENTARY: No new skin changes (rash, new or changing mole, new growth) Physical Exam: Constitutional: Pt is a well developed 73 year old female who is alert, oriented and cooperative Eyes: Following during examination. No redness or drainage. Respiratory: RR normal and nonlabored. Even breathing. No evidence of distress or shortness of breath. Psychology: Patient is engaged during conversation. Normal affect and mood. Does not appear depressed or anxious during encounter. Vascular: Dorsalis pedis and posterior tibial pulses palpable as b/l Capillary Fill time < 5 seconds to digits 1-5 b/l Skin temperature warm to warm proximal to distal b/l Hair growth present to digits Neurological: intact light touch/epicritic sensation Dermatological: Nails 1-5 b/l appear Normal. Webspaces clean and dry 1-4 b/l. Skin appears well hydrated and supple. good color, texture, turgor. Callosities absent.Open lesions absent. Wound: Not present. Musculoskeletal/Orthopaedic: Patient has pain to palpation of left 2nd toe and left 3rd mtpj Foot type is neutral structurally AJ ROM is full with knee extended and flexed 1st MPJ is full when loaded and no pain or crepitus are noted with ROM. MTJ, STJ are full and free of pain and crepitus. +5/5 muscle strength dorsiflexion, plantarflexion, inversion, eversion b/l Radiographs: 3 views of left foot reviewed from june 07. There is nondisplaced fracture of left hallux and left 2nd toe. There is rotated fracture fragement of left 3rd toe proximal phalanx ASSESSMENT: (U18.064A) Closed displaced fracture of proximal phalanx of lesser toe of left foot, initial encounter (primary encounter diagnosis) PLAN: Patient was examined and informed of current findings Discussed fracture of left hallux and left 2nd toe. They are nondisplaced with anatomic alignment. Discussed surgical shoe and limit ambulation with follow-up xrays. Patient elects for conservative care for left hallux and 2nd toe There is rotated fragment of left 3rd toe at mtpj. There is concern that this may not be able to heal given rotation. I will place her in surgical shoe and repeat xrays. I did discuss monitoring this vs electing to remove. She may consider removal pending xray. I will order xray and notify patient of results and will discuss thereafter. Ellie Dent DPM CNOV Observed: 06/16/2018 Status: COMPLETED Source: [place] 8:10 AM [facility] REPOSITORY Office Visit (PODIWS) HERLINDA ROSAS ([id number]) 1945 F Date Time Provider Department 06/16/18 8:10 AM ELLIE DENT During your visit today, we recorded the following information about you: Ellie Dent DPM 06/16/2018 12:07 PM Signed ? Ellie Dent DPM Department of Podiatry [facility] [address] [facility] [address] Dept: [phone] Dept 06/16/[address] Mali Argueta for an opinion regarding fracture of toe. My final recommendations will be communicated back to the requesting physician by way of shared Medical record or letter to requesting physician via [place] mail. Initial Podiatric Office Visit: HPI: Herlinda Rosas is a 73 year old female. Patient presents with L 1-3 toe fracture. States that she tripped on carpet about 10 days ago and caught herself before falling, in doing so, reports that toes rolled under foot. She was seen in PCP office and had XR done. Patient reports constant stabbing, throbbing, achy pain that is rated a 2-8/10 depending on activity. States that pain is worse with activity. Has some relief with staying off of it and ice. Was prescribed Mobic, but causes GI upset. She denies being diabetic and she is not a smoker. She is not currently wearing boot because it is too big. Ellie Dent DPM PCP: Kira Robertson MD PAST MEDICAL HISTORY Diagnosis Date - Cervical disc disease - Diverticulosis of colon - GERD (gastroesophageal reflux disease) - History of shingles recurrent episodes--over 3 recurrences - Hypothyroid - Left bundle branch block EF 50% - Osteopenia - PHN (postherpetic neuralgia) 05/25/2016 Current Outpatient Prescriptions: gabapentin (NEURONTIN) 100 mg capsule TAKE ONE CAPSULE BY MOUTH ONCE DAILY IN ADDITION TO 300 MG CAPSULES pravastatin (PRAVACHOL) 10 mg tablet Take 1/2 tab daily mupirocin (BACTROBAN) 2 % ointment Apply 1 application to affected area three times daily as needed. For wounds NEXIUM 40 mg capsule TAKE ONE CAPSULE BY MOUTH ONCE DAILY levothyroxine (SYNTHROID) 50 mcg tablet Take 1 tablet by mouth every other day. (One 25 mcg on alternating day) levothyroxine (SYNTHROID) 25 mcg tablet Take 1 tablet by mouth every other day. Take on empty stomach. For thyroid. (One 50 mcg on alternating day) escitalopram oxalate (LEXAPRO) 10 mg tablet Take 1 tablet by mouth once daily. gabapentin (NEURONTIN) 300 mg capsule Take 1 capsule by mouth daily at bedtime. estradiol (ESTRACE) 0.01 % (0.1 mg/gram) vaginal cream Use fingertip amount nightly x 2 weeks, then every other night x 2 weeks, then 1-2x weekly for maintenance LACTOBACILLUS ACIDOPHILUS (PROBIOTIC ORAL) Take by mouth. MULTIVITAMIN ORAL Take by mouth. No current facility-administered medications for this visit. 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 EYES: No diplopia or blurry vision. CARDIOVASCULAR: No chest pain, dyspnea, palpitations, orthopnea, PND, ankle edema. PULM: No dyspnea, unexplained cough. GI: No dysphagia/odynophagia, problematic reflux, constipation, diarrhea, changes in stool habits, hematochezia, melena. : No new urinary complaints, including dysuria, gross hematuria or pyuria. NEURO: No new balance problems, peripheral weakness/paresthesias or numbness of concern. MUSC-SKEL: No new joint pain, swelling, or erythema. PSY: No concerns regarding depression, anxiety or panic. INTEGUMENTARY: No new skin changes (rash, new or changing mole, new growth) Physical Exam: Constitutional: Pt is a well developed 73 year old female who is alert, oriented and cooperative Eyes: Following during examination. No redness or drainage. Respiratory: RR normal and nonlabored. Even breathing. No evidence of distress or shortness of breath. Psychology: Patient is engaged during conversation. Normal affect and mood. Does not appear depressed or anxious during encounter. Vascular: Dorsalis pedis and posterior tibial pulses palpable as b/l Capillary Fill time < 5 seconds to digits 1-5 b/l Skin temperature warm to warm proximal to distal b/l Hair growth present to digits Neurological: intact light touch/epicritic sensation Dermatological: Nails 1-5 b/l appear Normal. Webspaces clean and dry 1-4 b/l. Skin appears well hydrated and supple. good color, texture, turgor. Callosities absent.Open lesions absent. Wound: Not present. Musculoskeletal/Orthopaedic: Patient has pain to palpation of left 2nd toe and left 3rd mtpj Foot type is neutral structurally AJ ROM is full with knee extended and flexed 1st MPJ is full when loaded and no pain or crepitus are noted with ROM. MTJ, STJ are full and free of pain and crepitus. +5/5 muscle strength dorsiflexion, plantarflexion, inversion, eversion b/l Radiographs: 3 views of left foot reviewed from june 07. There is nondisplaced fracture of left hallux and left 2nd toe. There is rotated fracture fragement of left 3rd toe proximal phalanx ASSESSMENT: (Q98.811A) Closed displaced fracture of proximal phalanx of lesser toe of left foot, initial encounter (primary encounter diagnosis) PLAN: Patient was examined and informed of current findings Discussed fracture of left hallux and left 2nd toe. They are nondisplaced with anatomic alignment. Discussed surgical shoe and limit ambulation with follow-up xrays. Patient elects for conservative care for left hallux and 2nd toe There is rotated fragment of left 3rd toe at mtpj. There is concern that this may not be able to heal given rotation. I will place her in surgical shoe and repeat xrays. I did discuss monitoring this vs electing to remove. She may consider removal pending xray. I will order xray and notify patient of results and will discuss thereafter. GAVIOTA Bryant Ma 06/16/2018 8:47 AM Signed Have XR done today - we will call you with results Chen Grace Ma 06/16/2018 12:07 PM Signed Patient provided with post op shoe, size XS, and instructed/educated in its application, wear, and care. All questions were answered, and patient was able to demonstrate competence with the necessary skills to utilize the above equipment. Chen Grace Ma Referring Provider: MALI ARGUETA ([facility]) [[id number]] Allergies As of Date: 06/16/2018 Noted Allergy Reaction NEOSPORIN (OEOKETVA-[id number]-TJ*06/14/2017 2 - Rash Date Reviewed: 06/16/2018 Reviewed by: Chen Grace Ma - Fully Assessed Reason for Visit: Toe Fracture [1222] Primary Visit Diagnosis:Closed displaced fracture of proximal phalanx of lesser toe of left foot, initial encounter [P14.856Q] Order(s):XR FOOT GENERAL 3V AP/LAT/OBL LT [[id number]] Order #: [id number] FUTURE Prescriptions as of 06/16/2018 Sig: GABAPENTIN 100 MG CAPSULE TAKE ONE CAPSULE BY MOUTH ONC* PRAVASTATIN 10 MG TABLET Take 1/2 tab daily MUPIROCIN 2 % TOPICAL OINTMENT Apply 1 application to affect* NEXIUM 40 MG CAPSULE,DELAYED * TAKE ONE CAPSULE BY MOUTH ONC* LEVOTHYROXINE 50 MCG TABLET Take 1 tablet by mouth every * LEVOTHYROXINE 25 MCG TABLET Take 1 tablet by mouth every * ESCITALOPRAM 10 MG TABLET Take 1 tablet by mouth once d* GABAPENTIN 300 MG CAPSULE Take 1 capsule by mouth daily* ESTRADIOL 0.01% (0.1 MG/GRAM)* Use fingertip amount nightly * PROBIOTIC ORAL Take by mouth. MULTIVITAMIN ORAL Take by mouth. Problem List As Of Date 06/16/2018 Noted Resolved Altamont-Walker grade 3 cystocele [N81.10] INVALID FOR* Altamont-Walker grade 2 rectocele [N81.6] INVALID FOR* Urge incontinence [N39.41] INVALID FOR* PHN (postherpetic neuralgia) [B02.29] INVALID FOR* Hypothyroid [E03.9] History of shingles [Z86.19] More... Cervical disc disease [M50.90] GERD (gastroesophageal reflux disease) [K21.9] Other instructions from your clinician: Have XR done today - we will call you with results Encounter Status:Closed by ELLIE DENT DPM on 06/16/18 XR FOOT 3V AP/LAT/OBL Observed: 06/07/2018 Status: F Source: [facility] 12:11 PM [facility] REPOSITORY * * *Final Report* * * DATE OF EXAM: Jun 07 2018 12:11PM WRX [id number] - XR FOOT 3V AP/LAT/OBL LT / PROCEDURE REASON: Unspecified injury of left foot, initial encounter * * * * Physician Interpretation * * * * EXAMINATION: XR FOOT 3V AP/LAT/OBL LT HISTORY: left foot injury last night/pain at second digit Unspecified injury of left foot, initial encounter . TECHNIQUE: XR FOOT 3V AP/LAT/OBL LT Laterality: LEFT Number of different views (projections): 3 M: XB_1 COMPARISON: None RESULT: There are acute fractures in the first 3 digits. -Oblique, nondisplaced intra-articular fracture at the medial base of the first proximal phalanx -Oblique, minimally laterally displaced fracture of the distal aspect of the second proximal phalanx without discrete intra-articular extension. -Oblique, mildly displaced intra-articular fracture of the medial aspect of the base of the third proximal phalanx. No additional fractures or dislocations are identified. Joint spaces appear preserved. There is no widening in the area of the Lisfranc ligament. Well-corticated ossification near the base of the fifth middle tarsal is likely a ossicle in the peroneus brevis. There are plantar and posterior calcaneal spurs. No other significant abnormality. IMPRESSION: Fractures of the first through third left toes as described. Website Optimization Strategist: PSCB Transcribe Date/Time: Jun 07 2018 12:18P Dictated by : BENJA MCCARTHY MD This examination was interpreted and the report reviewed and electronically signed by: BENJA MCCARTHY MD on Jun 07 2018 12:24PM EST [id number] PROGRESS Observed: 06/07/2018 Status: COMPLETED Source: [place] 12:04 PM [facility] REPOSITORY HNO ID: [id number] Author: Fam Mccarthy (Tech) Service: (none) Author Type: Silver Recovery Operator Type: Progress Notes Filed: 06/07/2018 12:12 PM Note Text: Radiology Service Progress Note PATIENT NAME: Herlinda Rosas DATE OF SERVICE: June 07, 2018 TIME: 12:04 PM PATIENT IDENTITY VERIFICATION COMPLETED USING TWO (2) METHODS: Patient confirmed name verbally and Date of . PATIENT GENDER DATA: Female. status: : No status: NO. PATIENT RELEVANT IMPLANT DATA REVIEWED: Not Applicable RADIOLOGY DEPARTMENT: General X-ray: Exam(s) Completed: Lower Extremity X-Ray(s): Foot, Left and Wt. Bearing: PERIPHERAL IV DATA: Not applicable SIGNED BY: Fam Avitia June 07, 2018 12:04 PM PROGRESS Observed: 06/07/2018 Status: COMPLETED Source: [place] 11:50 AM [facility] REPOSITORY HNO ID: [id number] Author: Mali Argueta (Cns) Service: (none) Author Type: Nurse Specialist Type: Progress Notes Filed: 06/07/2018 11:56 AM Note Text: OUTPATIENT VISIT DATE June 07, 2018 OUTPATIENT VISIT TYPE ESTABLISHED PRIMARY CARE PHYSICIAN: Kira Robertson MD CHIEF COMPLAINT: Patient presents with: Pain (foot): left foot injury on steps History of Present Illness: Herlinda Rosas is a 73 year old female who was last seen 02/2018 by Kira Robertson MD. 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 She reports walking in the ER yesterday and rolling her left foot, with toes rolling under toward plantar surface of her foot. Foot is now swollen and painful, especially the second toe. Pain is increased with walking. Appears bruised, swollen. No recent hospital or ED visits. No new medical problems or medications. Able to obtain medications. No problems with taking medications or note side effects. PAST MEDICAL HISTORY Diagnosis Date - Cervical disc disease - Diverticulosis of colon - GERD (gastroesophageal reflux disease) - History of shingles recurrent episodes--over 3 recurrences - Hypothyroid - Left bundle branch block EF 50% - Osteopenia - PHN (postherpetic neuralgia) 05/25/2016 PAST SURGICAL HISTORY Procedure Laterality Date - COLONOSCOP W/ OR W/O BRSH SPEC Colonoscopy - REMOVAL GALLBLADDER Cholecystectomy - REPAIR ROTATOR CUFF,ACUTE Rotator cuff repair - S STRATASIS URETHRAL SLING 2X30 - TOTAL ABDOM HYSTERECTOMY Hysterectomy, MARISOL and BSO FAMILY HISTORY Problem Relation Age of Onset - Alzheimer's Disease Mother - Stroke Mother - Parkinson's Disease [Other] [OTHER] Father - Hypertension Sister Social History Substance Use Topics - Smoking status: Never Smoker - Smokeless tobacco: Never Used - Alcohol use Yes Comment: Socially ALLERGIES: ALLERGIES Allergen Reactions - Neosporin [Neomycin* Rash MEDICATIONS gabapentin (NEURONTIN) 100 mg capsule TAKE ONE CAPSULE BY MOUTH ONCE DAILY IN ADDITION TO 300 MG CAPSULES pravastatin (PRAVACHOL) 10 mg tablet Take 1/2 tab daily mupirocin (BACTROBAN) 2 % ointment Apply 1 application to affected area three times daily as needed. For wounds NEXIUM 40 mg capsule TAKE ONE CAPSULE BY MOUTH ONCE DAILY levothyroxine (SYNTHROID) 50 mcg tablet Take 1 tablet by mouth every other day. (One 25 mcg on alternating day) levothyroxine (SYNTHROID) 25 mcg tablet Take 1 tablet by mouth every other day. Take on empty stomach. For thyroid. (One 50 mcg on alternating day) escitalopram oxalate (LEXAPRO) 10 mg tablet Take 1 tablet by mouth once daily. gabapentin (NEURONTIN) 300 mg capsule Take 1 capsule by mouth daily at bedtime. estradiol (ESTRACE) 0.01 % (0.1 mg/gram) vaginal cream Use fingertip amount nightly x 2 weeks, then every other night x 2 weeks, then 1-2x weekly for maintenance LACTOBACILLUS ACIDOPHILUS (PROBIOTIC ORAL) Take by mouth. MULTIVITAMIN ORAL Take by mouth. REVIEW OF SYSTEMS: GENERAL: Negative for: Weight loss or gain, Fever or Chills, Weakness and Sleep difficulties. Physical Examination: BP 120/60 Pulse 68 Resp 16 Wt 140 lb (63.5kg) BP w/Orthostatic Vitals Date and Time Orthostatic BP Orthostatic Pulse BP Pulse BP Position BP Site BP Cuff Size 06/07/184 -- -- 120/60 68 Sitting Left Arm Regular Adult Peak Flow Date and Time PF Resp 06/07/18 1114 -- 16 General appearance: Well appearing, alert, in no acute distress, well-hydrated, well nourished. Skin: Skin color, texture, turgor normal, no suspicious rashes or lesions Head: Normocephalic, no masses, lesions, tenderness or abnormalities Extremities: left forefoot tender to palpation, swollen, early ecchymosis, no deformities appreciated on exam, no cyanosis. Good capillary refill. Peripheral pulses: Normal 2/4 DP left Neuro: Gait normal. Sensation grossly intact. Reviewed chart, outside records, tests I personally interviewed, confirmed and edited the above information if obtained by others. TESTING: Glucose (mg/dL) Date Value 02/28/2018 88 Potassium (mmol/L) Date Value 02/28/2018 4.2 Sodium (mmol/L) Date Value 02/28/2018 141 Chloride (mmol/L) Date Value 02/28/2018 102 CO2 (mmol/L) Date Value 02/28/2018 24 Creatinine (mg/dL) Date Value 02/28/2018 0.80 BUN (mg/dL) Date Value 02/28/2018 8 Anion Gap (mmol/L) Date Value 02/28/2018 15 Calcium (mg/dL) Date Value 02/28/2018 8.7 Glucose (mg/dL) Date Value 02/28/2018 88 Potassium (mmol/L) Date Value 02/28/2018 4.2 Sodium (mmol/L) Date Value 02/28/2018 141 Chloride (mmol/L) Date Value 02/28/2018 102 CO2 (mmol/L) Date Value 02/28/2018 24 Creatinine (mg/dL) Date Value 02/28/2018 0.80 BUN (mg/dL) Date Value 02/28/2018 8 Anion Gap (mmol/L) Date Value 02/28/2018 15 Calcium (mg/dL) Date Value 02/28/2018 8.7 Protein, Total (g/dL) Date Value 03/24/2017 7.3 Albumin (g/dL) Date Value 03/24/2017 4.3 Bilirubin, Total (mg/dL) Date Value 03/24/2017 0.9 Alkaline Phosphatase (U/L) Date Value 03/24/2017 87 AST (U/L) Date Value 03/24/2017 24 ALT (U/L) Date Value 03/24/2017 10 Hemoglobin (g/dL) Date Value 03/24/2017 13.1 Hematocrit (%) Date Value 03/24/2017 41.8 WBC (k/uL) Date Value 03/24/2017 5.94 Cholesterol, Total (mg/dL) Date Value 02/28/2018 234 HDL Cholesterol (mg/dL) Date Value 02/28/2018 41 LDL Cholesterol (mg/dL) Date Value 02/28/2018 163 Triglyceride (mg/dL) Date Value 02/28/2018 148 No results found for: HBA1C Ejection Fraction - Result: 56 % Date: 05/31/2016 Time: : IMPRESSION: Ms. Rosas is a 73 year old woman presents with left foot injury. After my examination and review of data, I make the following recommendations. PLAN AND RECOMMENDATIONS: 1. Foot injury, left, initial encounter - ICD9: 959.7, ICD10: S99.922A - XR FOOT GENERAL 3V AP/LAT/OBL RT - today - CONSULT TO PODIATRY - will see if can add on appointment, call has been placed Advised: Rest and elevate the affected painful area. Use a crutch or cane to offload weight from the foot Apply ice 15-20 minutes 3 or 4 times a day. Meloxicam as needed for pain As pain recedes, begin normal activities slowly as tolerated. Call if symptoms persist. Advised to go to ER if develops chest pain, shortness of breath, or severe worsening of symptoms. Discussed risks, benefits, alternatives, and potential side effects of medications. Ms. Rosas expressed understanding and agreed with the plan. Mali Argueta APRN.DIRECTOR STAFFING CNOV Observed: 06/07/2018 Status: COMPLETED Source: [place] 11:00 AM [facility] REPOSITORY Office Visit (INTMWS) HERLINDA ROSAS ([id number]) 1945 F Date Time Provider Department 06/07/18 11:00 AM MALI ARGUETA (KASH) INTMWS During your visit today, we recorded the following information about you: Pulse Respiration Blood pressure Weight 68/minute 16/minute 120/60 63.5 kg Mali Argueta APRN.DIRECTOR STAFFING 06/07/2018 11:50 AM Addendum Rest and elevate the affected painful area. Use a crutch or cane to offload weight from the foot Apply ice 15-20 minutes 3 or 4 times a day. Meloxicam as needed for pain As pain recedes, begin normal activities slowly as tolerated. Call if symptoms persist. Mali Argueta APRN.DIRECTOR STAFFING 06/07/2018 11:56 AM Signed OUTPATIENT VISIT DATE June 07, 2018 OUTPATIENT VISIT TYPE ESTABLISHED PRIMARY CARE PHYSICIAN: Kira Robertson MD CHIEF COMPLAINT: Patient presents with: Pain (foot): left foot injury on steps History of Present Illness: Herlinda Rosas is a 73 year old female who was last seen 02/2018 by Kira Robertson MD. 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 She reports walking in the ER yesterday and rolling her left foot, with toes rolling under toward plantar surface of her foot. Foot is now swollen and painful, especially the second toe. Pain is increased with walking. Appears bruised, swollen. No recent hospital or ED visits. No new medical problems or medications. Able to obtain medications. No problems with taking medications or note side effects. PAST MEDICAL HISTORY Diagnosis Date - Cervical disc disease - Diverticulosis of colon - GERD (gastroesophageal reflux disease) - History of shingles recurrent episodes--over 3 recurrences - Hypothyroid - Left bundle branch block EF 50% - Osteopenia - PHN (postherpetic neuralgia) 05/25/2016 PAST SURGICAL HISTORY Procedure Laterality Date - COLONOSCOP W/ OR W/O BRSH SPEC Colonoscopy - REMOVAL GALLBLADDER Cholecystectomy - REPAIR ROTATOR CUFF,ACUTE Rotator cuff repair - S STRATASIS URETHRAL SLING 2X30 - TOTAL ABDOM HYSTERECTOMY Hysterectomy, MARISOL and BSO FAMILY HISTORY Problem Relation Age of Onset - Alzheimer's Disease Mother - Stroke Mother - Parkinson's Disease [Other] [OTHER] Father - Hypertension Sister Social History Substance Use Topics - Smoking status: Never Smoker - Smokeless tobacco: Never Used - Alcohol use Yes Comment: Socially ALLERGIES: ALLERGIES Allergen Reactions - Neosporin [Neomycin* Rash MEDICATIONS gabapentin (NEURONTIN) 100 mg capsule TAKE ONE CAPSULE BY MOUTH ONCE DAILY IN ADDITION TO 300 MG CAPSULES pravastatin (PRAVACHOL) 10 mg tablet Take 1/2 tab daily mupirocin (BACTROBAN) 2 % ointment Apply 1 application to affected area three times daily as needed. For wounds NEXIUM 40 mg capsule TAKE ONE CAPSULE BY MOUTH ONCE DAILY levothyroxine (SYNTHROID) 50 mcg tablet Take 1 tablet by mouth every other day. (One 25 mcg on alternating day) levothyroxine (SYNTHROID) 25 mcg tablet Take 1 tablet by mouth every other day. Take on empty stomach. For thyroid. (One 50 mcg on alternating day) escitalopram oxalate (LEXAPRO) 10 mg tablet Take 1 tablet by mouth once daily. gabapentin (NEURONTIN) 300 mg capsule Take 1 capsule by mouth daily at bedtime. estradiol (ESTRACE) 0.01 % (0.1 mg/gram) vaginal cream Use fingertip amount nightly x 2 weeks, then every other night x 2 weeks, then 1-2x weekly for maintenance LACTOBACILLUS ACIDOPHILUS (PROBIOTIC ORAL) Take by mouth. MULTIVITAMIN ORAL Take by mouth. REVIEW OF SYSTEMS: GENERAL: Negative for: Weight loss or gain, Fever or Chills, Weakness and Sleep difficulties. Physical Examination: BP 120/60 Pulse 68 Resp 16 Wt 140 lb (63.5kg) BP w/Orthostatic Vitals Date and Time Orthostatic BP Orthostatic Pulse BP Pulse BP Position BP Site BP Cuff Size 06/07/18 1114 -- -- 120/60 68 Sitting Left Arm Regular Adult Peak Flow Date and Time PF Resp 06/07/18 1114 -- 16 General appearance: Well appearing, alert, in no acute distress, well-hydrated, well nourished. Skin: Skin color, texture, turgor normal, no suspicious rashes or lesions Head: Normocephalic, no masses, lesions, tenderness or abnormalities Extremities: left forefoot tender to palpation, swollen, early ecchymosis, no deformities appreciated on exam, no cyanosis. Good capillary refill. Peripheral pulses: Normal 2/4 DP left Neuro: Gait normal. Sensation grossly intact. Reviewed chart, outside records, tests I personally interviewed, confirmed and edited the above information if obtained by others. TESTING: Glucose (mg/dL) Date Value 02/28/2018 88 Potassium (mmol/L) Date Value 02/28/2018 4.2 Sodium (mmol/L) Date Value 02/28/2018 141 Chloride (mmol/L) Date Value 02/28/2018 102 CO2 (mmol/L) Date Value 02/28/2018 24 Creatinine (mg/dL) Date Value 02/28/2018 0.80 BUN (mg/dL) Date Value 02/28/2018 8 Anion Gap (mmol/L) Date Value 02/28/2018 15 Calcium (mg/dL) Date Value 02/28/2018 8.7 Glucose (mg/dL) Date Value 02/28/2018 88 Potassium (mmol/L) Date Value 02/28/2018 4.2 Sodium (mmol/L) Date Value 02/28/2018 141 Chloride (mmol/L) Date Value 02/28/2018 102 CO2 (mmol/L) Date Value 02/28/2018 24 Creatinine (mg/dL) Date Value 02/28/2018 0.80 BUN (mg/dL) Date Value 02/28/2018 8 Anion Gap (mmol/L) Date Value 02/28/2018 15 Calcium (mg/dL) Date Value 02/28/2018 8.7 Protein, Total (g/dL) Date Value 03/24/2017 7.3 Albumin (g/dL) Date Value 03/24/2017 4.3 Bilirubin, Total (mg/dL) Date Value 03/24/2017 0.9 Alkaline Phosphatase (U/L) Date Value 03/24/2017 87 AST (U/L) Date Value 03/24/2017 24 ALT (U/L) Date Value 03/24/2017 10 Hemoglobin (g/dL) Date Value 03/24/2017 13.1 Hematocrit (%) Date Value 03/24/2017 41.8 WBC (k/uL) Date Value 03/24/2017 5.94 Cholesterol, Total (mg/dL) Date Value 02/28/2018 234 HDL Cholesterol (mg/dL) Date Value 02/28/2018 41 LDL Cholesterol (mg/dL) Date Value 02/28/2018 163 Triglyceride (mg/dL) Date Value 02/28/2018 148 No results found for: HBA1C Ejection Fraction - Result: 56 % Date: 05/31/2016 Time: 08:10:26 IMPRESSION: Ms. Rosas is a 73 year old woman presents with left foot injury. After my examination and review of data, I make the following recommendations. PLAN AND RECOMMENDATIONS: 1. Foot injury, left, initial encounter - ICD9: 959.7, ICD10: S99.922A - XR FOOT GENERAL 3V AP/LAT/OBL RT - today - CONSULT TO PODIATRY - will see if can add on appointment, call has been placed Advised: Rest and elevate the affected painful area. Use a crutch or cane to offload weight from the foot Apply ice 15-20 minutes 3 or 4 times a day. Meloxicam as needed for pain As pain recedes, begin normal activities slowly as tolerated. Call if symptoms persist. Advised to go to ER if develops chest pain, shortness of breath, or severe worsening of symptoms. Discussed risks, benefits, alternatives, and potential side effects of medications. Ms. Rosas expressed understanding and agreed with the plan. Mali Argueta APRN.DIRECTOR STAFFING Referring Provider: SELF [[id number]] Allergies As of Date: 06/07/2018 Noted Allergy Reaction NEOSPORIN (KNYKTOPM-[id number]*06/14/2017 2 - Rash Date Reviewed: 06/07/2018 Reviewed by: Liana Meyer LPN - Fully Assessed Reason for Visit: Pain (foot) [760] Cmt: left foot injury on steps Primary Visit Diagnosis:Foot injury, left, initial encounter [S99.922A] Order(s):CONSULT TO PODIATRY [9034] Order #: [id number]: 1 XR FOOT GENERAL 3V AP/LAT/OBL LT [[id number]] Order #: [id number] FUTURE Prescriptions as of 06/07/2018 Sig: GABAPENTIN 100 MG CAPSULE TAKE ONE CAPSULE BY MOUTH ONC* PRAVASTATIN 10 MG TABLET Take 1/2 tab daily MUPIROCIN 2 % TOPICAL OINTMENT Apply 1 application to affect* NEXIUM 40 MG CAPSULE,DELAYED * TAKE ONE CAPSULE BY MOUTH ONC* LEVOTHYROXINE 50 MCG TABLET Take 1 tablet by mouth every * LEVOTHYROXINE 25 MCG TABLET Take 1 tablet by mouth every * ESCITALOPRAM 10 MG TABLET Take 1 tablet by mouth once d* GABAPENTIN 300 MG CAPSULE Take 1 capsule by mouth daily* ESTRADIOL 0.01% (0.1 MG/GRAM)* Use fingertip amount nightly * PROBIOTIC ORAL Take by mouth. MULTIVITAMIN ORAL Take by mouth. Problem List As Of Date 06/07/2018 Noted Resolved Altamont-Walker grade 3 cystocele [N81.10] INVALID FOR* Altamont-Walker grade 2 rectocele [N81.6] INVALID FOR* Urge incontinence [N39.41] INVALID FOR* PHN (postherpetic neuralgia) [B02.29] INVALID FOR* Hypothyroid [E03.9] History of shingles [Z86.19] More... Cervical disc disease [M50.90] GERD (gastroesophageal reflux disease) [K21.9] Other instructions from your clinician: Rest and elevate the affected painful area. Use a crutch or cane to offload weight from the foot Apply ice 15-20 minutes 3 or 4 times a day. Meloxicam as needed for pain As pain recedes, begin normal activities slowly as tolerated. Call if symptoms persist. Encounter Status:Closed by MALI ROMAN on 06/07/18 PROGRESS Observed: 03/01/2018 Status: COMPLETED Source: [place] 5:47 PM [facility] REPOSITORY HNO ID: [id number] Author: Artemio De La Torre Service: (none) Author Type: Physician Type: Progress Notes Filed: 03/01/2018 5:51 PM Note Text: PERTINENT CARDIAC HISTORY Cardiomyopathy - mild, nonischemic, EF normalized LBBB Pericardial constriction? HTN MINA - CPAP HL - statin intolerant ADHERENCE TO GUIDELINES FARHANA-I or ARB for HF with prior LVEF<40 (NQF 0081) - N/A ASA or Plavix for ASHD (NQF 0067) - N/A Beta stefano for ASHD with prior ME or prior LVEF<40 (NQF 0070) - N/A Beta stefano for HF with prior LVEF<40 (NQF 0083) - N/A FARHANA-I or ARB for ASHD with DM or prior LVEF<40 (NQF 0066) - N/A Statin therapy for ASHD or FHL or DM - met BMI documented and plan if >25 (NQF 0421) - lifestyle recommendation form Tobacco use screening and referral (NQF 0028) - lifestyle recommendation form Recommendation for whole food, plant based diet - lifestyle recommendation form CLINICAL IMPRESSION/PLAN: Herlinda Rosas has well compensated, mild cardiomyopathy. Her ejection fraction has returned to near normal. She has some not been able to tolerate statin but has not tried coenzyme Q10 . This will be initiated at 100 milligrams daily. I've asked her to restart her Lipitor at 5 milligrams daily and try to increase to 10 if tolerated. Alternatively, we can try pravastatin or Crestor. Once we achieve a stable dose, lipid profile is to be repeated. 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 She's been advised to watch for edema. I will see her in 8 months or as needed. Written and verbal health teaching given to patient, patient verbalizes understanding and agrees with treatment plan. DIAGNOSIS FOR VISIT: left bundle branch block HISTORY OF PRESENT ILLNESS Herlinda Rosas returns for follow-up of her left bundle and nonischemic cardiomyopathy. She reports stable exercise tolerance. She has been walking on a regular basis. She's had no chest pain. She denies orthopnea, edema, syncope. She has had no palpitations, TIAs, amaurosis or claudication. Blood pressure has been under good control. She has been able to tolerate 5 milligrams of Lipitor a day but no more. ALLERGIES: ALLERGIES Allergen Reactions - Neosporin [Neomycin* Rash CURRENT OUTPATIENT MEDICATIONS: mupirocin (BACTROBAN) 2 % ointment Apply 1 application to affected area three times daily as needed. For wounds NEXIUM 40 mg capsule TAKE ONE CAPSULE BY MOUTH ONCE DAILY atorvastatin (LIPITOR) 10 mg tablet Take 0.5 tablets by mouth once daily. levothyroxine (SYNTHROID) 50 mcg tablet Take 1 tablet by mouth every other day. (One 25 mcg on alternating day) levothyroxine (SYNTHROID) 25 mcg tablet Take 1 tablet by mouth every other day. Take on empty stomach. For thyroid. (One 50 mcg on alternating day) escitalopram oxalate (LEXAPRO) 10 mg tablet Take 1 tablet by mouth once daily. gabapentin (NEURONTIN) 100 mg capsule Take 1 capsule by mouth once daily. In addition to 300 mg capsule gabapentin (NEURONTIN) 300 mg capsule Take 1 capsule by mouth daily at bedtime. estradiol (ESTRACE) 0.01 % (0.1 mg/gram) vaginal cream Use fingertip amount nightly x 2 weeks, then every other night x 2 weeks, then 1-2x weekly for maintenance LACTOBACILLUS ACIDOPHILUS (PROBIOTIC ORAL) Take by mouth. MULTIVITAMIN ORAL Take by mouth. PHYSICAL EXAMINATION: VITAL SIGNS: BP 106/60 Pulse 63 Ht 5' .5 (1.54m) Wt 137 lb (62.1kg) BMI 26.31 kg/(m2). Chest: Clear to percussion and auscultation. Trachea is midline. Air entry is equal. Cardiac: Regular rhythm. S2 is paradoxically split. PMI is nondisplaced. There is a soft systolic ejection murmur. Carotids are brisk without bruits. JVP is less than 10 cm. Kussmaul sign is negative. Abdomen: Soft and nontender. There are no pulsatile masses or bruits. No liver enlargement. Bowel sounds are active. Extremities: No edema. Pulses are intact and symmetrical. EKG shows sinus rhythm with left bundle. There is no significant change from 10/14/16. Recent labs were reviewed. LDL has increased to 163. TSH was normal. Electronically Signed: Artemio De La Torre MD March 01, 2018 5:47 PM CC: Kira Robertson MD CNOV Observed: 03/01/2018 Status: COMPLETED Source: [place] 9:00 AM [facility] REPOSITORY Office Visit (AGCARDWST) HERLINDA ROSAS ([id number]) 1945 F Date Time Provider Department 03/01/18 9:00 AM ARTEMIO DE LA TORRE AGCARDWST During your visit today, we recorded the following information about you: Pulse Blood pressure Weight Height 63/minute 106/60 62.1 kg 1.537 m Artemio De La Torre MD 03/01/2018 9:36 AM Signed Restart lipitor at 5 mg daily and try to increase to 10 mg as tolerated Start [id number] 100 mg daily. LIFESTYLE CHANGE A healthy lifestyle is the most important component of your overall treatment plan. Please give serious thought to the following areas and commit to making usp changes. EAT A WHOLE FOOD, PLANT BASED DIET The nutrition your body gets is more important than the medicine you take. What matters most is the overall way you eat. We encourage you to minimize the use of animal products (which include dairy and all meats except fatty fish) and use whole, unprocessed plant foods to provide your protein, vitamins and other nutrients. We have a lot of information to share with you on this topic. We also hold Shared Medical Appointments, where you can come visit with Dr. De La Torre in the company of other patients and spend over an hour talking about the challenges of changing the way you eat. This is not a ANDquot;dietANDquot;. It is a way of life that you will keep with you. EXERCISE REGULARLY It is not important to spend hours in the gym, lifting weights and perspiring heavily. A total of 2-3 hours per week of aerobic (causing you to be moderately short of breath) exercise is sufficient to improve your health. Talk to us before you begin a new exercise program, if you have heart disease or experience shortness of breath or chest pain. REDUCE STRESS Chronic emotional and physical stress leads to disease. Ways of reducing stress include meditation, visualization, prayer, yoga and other forms of relaxation therapy. Consistency is the stroud. Find a technique that works for you and do it every day. CULTIVATE RELATIONSHIPS Loneliness and isolation have a major negative impact on health. Seek out others who can love, care for and nurture you. Avoid hurtful relationships. MAINTAIN IDEAL BODY WEIGHT The best way to do this is to do all the things above. Our bodies naturally find the right weight if we keep moving and feed ourselves the right food. If your BMI is greater than 25, we strongly recommend a referral to a weight management program. Please speak to us or your family physician about available programs. AVOID NICOTINE IN ALL FORMS This includes all tobacco products, whether chewed, smoked, vaped, or rubbed on the skin. Smoking cessation programs, which can make use of tobacco substitutes, medications to suppress cravings and behavior management, are available. Please contact your family physician about programs in your area. Artemio De La Torre MD 03/01/2018 5:51 PM Signed PERTINENT CARDIAC HISTORY Cardiomyopathy - mild, nonischemic, EF normalized LBBB Pericardial constriction? HTN MINA - CPAP HL - statin intolerant ADHERENCE TO GUIDELINES FARHANA-I or ARB for HF with prior LVEFANDlt;40 (NQF 0081) - N/A ASA or Plavix for ASHD (NQF 0067) - N/A Beta stefano for ASHD with prior ME or prior LVEFANDlt;40 (NQF 0070) - N/A Beta stefano for HF with prior LVEFANDlt;40 (NQF 0083) - N/A FARHANA-I or ARB for ASHD with DM or prior LVEFANDlt;40 (NQF 0066) - N/A Statin therapy for ASHD or FHL or DM - met BMI documented and plan if ANDgt;25 (NQF 0421) - lifestyle recommendation form Tobacco use screening and referral (NQF 0028) - lifestyle recommendation form Recommendation for whole food, plant based diet - lifestyle recommendation form CLINICAL IMPRESSION/PLAN: Herlinda Rosas has well compensated, mild cardiomyopathy. Her ejection fraction has returned to near normal. She has some not been able to tolerate statin but has not tried coenzyme Q10 . This will be initiated at 100 milligrams daily. I've asked her to restart her Lipitor at 5 milligrams daily and try to increase to 10 if tolerated. Alternatively, we can try pravastatin or Crestor. Once we achieve a stable dose, lipid profile is to be repeated. 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 She's been advised to watch for edema. I will see her in 8 months or as needed. Written and verbal health teaching given to patient, patient verbalizes understanding and agrees with treatment plan. DIAGNOSIS FOR VISIT: left bundle branch block HISTORY OF PRESENT ILLNESS Herlinda Rosas returns for follow-up of her left bundle and nonischemic cardiomyopathy. She reports stable exercise tolerance. She has been walking on a regular basis. She's had no chest pain. She denies orthopnea, edema, syncope. She has had no palpitations, TIAs, amaurosis or claudication. Blood pressure has been under good control. She has been able to tolerate 5 milligrams of Lipitor a day but no more. ALLERGIES: ALLERGIES Allergen Reactions - Neosporin [Neomycin* Rash CURRENT OUTPATIENT MEDICATIONS: mupirocin (BACTROBAN) 2 % ointment Apply 1 application to affected area three times daily as needed. For wounds NEXIUM 40 mg capsule TAKE ONE CAPSULE BY MOUTH ONCE DAILY atorvastatin (LIPITOR) 10 mg tablet Take 0.5 tablets by mouth once daily. levothyroxine (SYNTHROID) 50 mcg tablet Take 1 tablet by mouth every other day. (One 25 mcg on alternating day) levothyroxine (SYNTHROID) 25 mcg tablet Take 1 tablet by mouth every other day. Take on empty stomach. For thyroid. (One 50 mcg on alternating day) escitalopram oxalate (LEXAPRO) 10 mg tablet Take 1 tablet by mouth once daily. gabapentin (NEURONTIN) 100 mg capsule Take 1 capsule by mouth once daily. In addition to 300 mg capsule gabapentin (NEURONTIN) 300 mg capsule Take 1 capsule by mouth daily at bedtime. estradiol (ESTRACE) 0.01 % (0.1 mg/gram) vaginal cream Use fingertip amount nightly x 2 weeks, then every other night x 2 weeks, then 1-2x weekly for maintenance LACTOBACILLUS ACIDOPHILUS (PROBIOTIC ORAL) Take by mouth. MULTIVITAMIN ORAL Take by mouth. PHYSICAL EXAMINATION: VITAL SIGNS: BP 106/60 Pulse 63 Ht 5' .5ANDquot; (1.54m) Wt 137 lb (62.1kg) BMI 26.31 kg/(m2). Chest: Clear to percussion and auscultation. Trachea is midline. Air entry is equal. Cardiac: Regular rhythm. S2 is paradoxically split. PMI is nondisplaced. There is a soft systolic ejection murmur. Carotids are brisk without bruits. JVP is less than 10 cm. Kussmaul sign is negative. Abdomen: Soft and nontender. There are no pulsatile masses or bruits. No liver enlargement. Bowel sounds are active. Extremities: No edema. Pulses are intact and symmetrical. EKG shows sinus rhythm with left bundle. There is no significant change from 10/14/16. Recent labs were reviewed. LDL has increased to 163. TSH was normal. Electronically Signed: Artemio De La Torre MD March 01, 2018 5:47 PM CC: Kira Robertson MD Referring Provider: ARTEMIO DE LA TORRE [[id number]] Allergies As of Date: 03/01/2018 Noted Allergy Reaction NEOSPORIN ([id number]*06/14/2017 2 - Rash Date Reviewed: 03/01/2018 Reviewed by: Gely Rios - Fully Assessed Reason for Visit: Follow Up [171] Primary Visit Diagnosis:LBBB (left bundle branch block) [I44.7] Order(s):ECG B/O W INTERP (MED OFFICE) [ECG06] Order #: [id number] Prescriptions as of 03/01/2018 Sig: MUPIROCIN 2 % TOPICAL OINTMENT Apply 1 application to affect* NEXIUM 40 MG CAPSULE,DELAYED * TAKE ONE CAPSULE BY MOUTH ONC* ATORVASTATIN 10 MG TABLET Take 0.5 tablets by mouth onc* LEVOTHYROXINE 50 MCG TABLET Take 1 tablet by mouth every * LEVOTHYROXINE 25 MCG TABLET Take 1 tablet by mouth every * ESCITALOPRAM 10 MG TABLET Take 1 tablet by mouth once d* GABAPENTIN 100 MG CAPSULE Take 1 capsule by mouth once * GABAPENTIN 300 MG CAPSULE Take 1 capsule by mouth daily* ESTRADIOL 0.01% (0.1 MG/GRAM)* Use fingertip amount nightly * PROBIOTIC ORAL Take by mouth. MULTIVITAMIN ORAL Take by mouth. Problem List As Of Date 03/01/2018 Noted Resolved [place]-Walker grade 3 cystocele [N81.10] INVALID FOR* [place]-Walker grade 2 rectocele [N81.6] INVALID FOR* Urge incontinence [N39.41] INVALID FOR* PHN (postherpetic neuralgia) [B02.29] INVALID FOR* Hypothyroid [E03.9] History of shingles [Z86.19] More... Cervical disc disease [M50.90] GERD (gastroesophageal reflux disease) [K21.9] Other instructions from your clinician: Restart lipitor at 5 mg daily and try to increase to 10 mg as tolerated Start [id number] 100 mg daily. LIFESTYLE CHANGE A healthy lifestyle is the most important component of your overall treatment plan. Please give serious thought to the following areas and commit to making usp changes. EAT A WHOLE FOOD, PLANT BASED DIET The nutrition your body gets is more important than the medicine you take. What matters most is the overall way you eat. We encourage you to minimize the use of animal products (which include dairy and all meats except fatty fish) and use whole, unprocessed plant foods to provide your protein, vitamins and other nutrients. We have a lot of information to share with you on this topic. We also hold Shared Medical Appointments, where you can come visit with Dr. De La Torre in the company of other patients and spend over an hour talking about the challenges of changing the way you eat. This is not a diet. It is a way of life that you will keep with you. EXERCISE REGULARLY It is not important to spend hours in the gym, lifting weights and perspiring heavily. A total of 2-3 hours per week of aerobic (causing you to be moderately short of breath) exercise is sufficient to improve your health. Talk to us before you begin a new exercise program, if you have heart disease or experience shortness of breath or chest pain. REDUCE STRESS Chronic emotional and physical stress leads to disease. Ways of reducing stress include meditation, visualization, prayer, yoga and other forms of relaxation therapy. Consistency is the stroud. Find a technique that works for you and do it every day. CULTIVATE RELATIONSHIPS Loneliness and isolation have a major negative impact on health. Seek out others who can love, care for and nurture you. Avoid hurtful relationships. MAINTAIN IDEAL BODY WEIGHT The best way to do this is to do all the things above. Our bodies naturally find the right weight if we keep moving and feed ourselves the right food. If your BMI is greater than 25, we strongly recommend a referral to a weight management program. Please speak to us or your family physician about available programs. AVOID NICOTINE IN ALL FORMS This includes all tobacco products, whether chewed, smoked, vaped, or rubbed on the skin. Smoking cessation programs, which can make use of tobacco substitutes, medications to suppress cravings and behavior management, are available. Please contact your family physician about programs in your area. Encounter Status:Closed by ARTEMIO DE LA TORRE MD on 03/01/18 BASIC METABOLIC PANL Collected: 02/28/2018 Status: F Source: [place] 9:45 AM [facility] REPOSITORY TYPE CODE TESTS RESULT OUT OF REFERENCE UNITS RANGE LAB GLU 74-99 mg/dL Glucose 88 Result Comment: The [place] [employer] Association (ADA) provides guidance for cutoff values for fasting glucose and random glucose. The ADA defines fasting as no caloric intake for at least 8 hours. Fas ting plasma glucose results between 100 to 125 mg/dL indicate increased risk for diabetes (prediabetes). Fasting plasma glucose results greater than or equal to 126 mg/dL meet the criteria for diagnosis of diabetes. In the absence of unequivocal hyperglycemia, results should be confirmed by repeat testing. In a patient with classic symptoms of hyperglycemia or hyperglycemic crisis, random plasma glucose results greater than or equal to 200 mg/dL meet the criteria for diagnosis of diabetes. Reference: Standards of Medical Care in Diabetes 2016, [place] [employer]. Diabetes Care. 2016.39(Suppl 1). LAB BUN 7-21 mg/dL BUN 8 LAB CRET 0.58-0.96 mg/dL Creatinine 0.80 LAB NA 136-144 mmol/L Sodium 141 LAB K 3.7-5.1 mmol/L Potassium 4.2 LAB CL 97-105 mmol/L Chloride 102 LAB CO2 22-30 mmol/L CO2 24 LAB AGAP 9-18 mmol/L Anion Gap 15 LAB CA 8.5-10.2 mg/dL Calcium, Total 8.7 LAB GFRAA eGFR- Amer. >60 LAB GFRNAA . eGFR-All Other Races >60 Result Comment: eGFR (Estimated GFR) Units of measure: mL/min/1.73 meters squared eGFR is derived from the reexpressed MDRD Study equation using the following parameters: serum creatinine, age, gender and race. The creatinine assay has been calibrated to be traceable to IDMS. An eGFR <60 mL/min/1.73m2 for >3 months is consistent with chronic kidney disease. Refer to KDOQI guidelines for clinical interpretation. In patients with unstable renal function, e.g. those with acute kidney injury, the eGFR may not accurately reflect actual GFR. Performed By: #### BMP, LIPB, TSH, FT4, VITD #### [facility] [address] [place], [place] [address] LIPID PANEL, BASIC Collected: 02/28/2018 Status: F Source: [place] 9:45 AM [facility] [place] REPOSITORY TYPE CODE TESTS RESULT OUT OF REFERENCE UNITS RANGE LAB CHOL <200 mg/dL Cholesterol High 234 Result Comment: <200 mg/dL, Desirable 200-239 mg/dL, Borderline high >239 mg/dL, High LAB TRIGLY <150 mg/dL Triglyceride 148 Result Comment: <150 mg/dL, Normal 150-199 mg/dL, Borderline high 200-499 mg/dL, High >499 mg/dL, Very high LAB HDL >39 mg/dL HDL-Cholesterol 41 Result Comment: 40-59 mg/dL, Acceptable >59 mg/dL, High: Negative risk factor for coronary heart disease <40 mg/dL, Low: Positive risk factor for coronary heart disease LAB LDL <100 mg/dL LDL-Cholesterol High 163 Result Comment: <100 mg/dL, Optimal 100-129 mg/dL, Near optimal/above optimal 130-159 mg/dL, Borderline high 160-189 mg/dL, High >189 mg/dL, Very high Secondary prevention optimal LDL Cholesterol levels are recommended to be < 70 mg/dL LAB NONHDL <130 mg/dL Non HDL High Cholesterol 193 Result Comment: <130 mg/dL, Optimal 130-159 mg/dL, Near optimal/above optimal 160-189 mg/dL, Borderline high 190-219 mg/dL, High >219 mg/dL, Very high Secondary prevention optimal non HDL Cholesterol levels are recommended to be < 100 mg/dL LAB FT hrs Fasting Time 14 LAB VLDL <30 mg/dL High VLDL Cholesterol 30 LAB TCHDL <5.10 High TC:HDL Ratio 5.71 LAB LDLHDL <2.54 High LDL:HDL Ratio 3.98 Result Comment: Reference: 1. National Cholesterol Education Program ATP III Guideline At-A-Glance Quick Desk Reference: National Heart, Lung, and Blood [place]. National Institutes of Health. 2001: NIH Publication No. 01-3305. 2. An International Atherosclerosis Society position paper: global recommendations for the management of dyslipidemia: executive summary, Atherosclerosis. 2014: 232(2):410-413. Performed By: #### BMP, LIPB, TSH, FT4, VITD #### [place] [address] TSH Collected: 02/28/2018 Status: F Source: [place] 9:45 AM [facility] REPOSITORY TYPE CODE TESTS RESULT OUT OF RANGE REFERENCE UNITS LAB TSH 0.400-5.500 uU/mL TSH 0.935 Performed By: #### BMP, LIPB, TSH, FT4, VITD #### [place] [address] FREE T4 Collected: 02/28/2018 Status: F Source: [place] 9:45 AM [facility] REPOSITORY TYPE CODE TESTS RESULT OUT OF RANGE REFERENCE UNITS LAB FT4 0.9-1.7 ng/dL Free T4 1.1 Performed By: #### BMP, LIPB, TSH, FT4, VITD #### [place] [address] VITAMIN D 25 HYDROXY Collected: 02/28/2018 Status: F Source: [place] 9:45 AM [facility] REPOSITORY TYPE CODE TESTS RESULT OUT OF REFERENCE UNITS RANGE LAB VITD 31.0-80.0 ng/mL Vitamin D 25 59.3 Hydroxy Result Comment: Classification of 25 [place] Vitamin D status: Insufficiency/Moderate Deficiency: < or = 30 ng/mL Sufficiency/Optimal Levels: 31 to 80 ng/mL Toxicity: > 100 ng/mL Test performed by chemiluminescent immunoassay. Performed By: #### BMP, LIPB, TSH, FT4, VITD #### [place] [address] PROGRESS Observed: 02/24/2018 Status: COMPLETED Source: [place] 8:14 AM [facility] REPOSITORY HNO ID: [id number] Author: Kira Robertson Service: (none) Author Type: Physician Type: Progress Notes Filed: 03/05/2018 11:38 PM Note Text: Patient presents with: Recheck SUBJECTIVE: Herlinda Rosas is a 73 year old year old lady here today for 6 month follow up appointment for review of medical conditions. Doing well. 2008 had colonoscopy. Was told 5 years given diverticulosis. No polyps known. No problems from diverticulosis. Cannot eat corn or popcorn. GERD popping up back again. Settling down now but last week had to take Nexium, Zantac and TUMS. Still taking porbiotics--controls the IBS (constipation and diarrhea). Clinically euthyroid. Doing fine on rest of meds for lipids, BP, and postherpetic neuralgia. PAST MEDICAL HISTORY Diagnosis Date - Cervical disc disease - Diverticulosis of colon - GERD (gastroesophageal reflux disease) - History of shingles recurrent episodes--over 3 recurrences - Hypothyroid - Left bundle branch block EF 50% - Osteopenia - PHN (postherpetic neuralgia) 05/25/2016 Current Outpatient Prescriptions: NEXIUM 40 mg capsule TAKE ONE CAPSULE BY MOUTH ONCE DAILY atorvastatin (LIPITOR) 10 mg tablet Take 0.5 tablets by mouth once daily. levothyroxine (SYNTHROID) 50 mcg tablet Take 1 tablet by mouth every other day. (One 25 mcg on alternating day) levothyroxine (SYNTHROID) 25 mcg tablet Take 1 tablet by mouth every other day. Take on empty stomach. For thyroid. (One 50 mcg on alternating day) escitalopram oxalate (LEXAPRO) 10 mg tablet Take 1 tablet by mouth once daily. gabapentin (NEURONTIN) 100 mg capsule Take 1 capsule by mouth once daily. In addition to 300 mg capsule gabapentin (NEURONTIN) 300 mg capsule Take 1 capsule by mouth daily at bedtime. estradiol (ESTRACE) 0.01 % (0.1 mg/gram) vaginal cream Use fingertip amount nightly x 2 weeks, then every other night x 2 weeks, then 1-2x weekly for maintenance LACTOBACILLUS ACIDOPHILUS (PROBIOTIC ORAL) Take by mouth. MULTIVITAMIN ORAL Take by mouth. No current facility-administered medications for this visit. OBJECTIVE: BP 122/62 Pulse 60 Resp 14 Wt 61.2 kg (135 lb) BMI 25.93 kg/m2 Patient is alert, oriented times 3, no apparent distress, affect is bright, reactive. Last 5 Encounter BP Readings: Date: BP: 02/24/2018 122/62 09/28/2017 120/62 07/29/2017 102/60 06/14/2017 110/60 03/23/2017 120/64 Last 5 Encounter Wt Readings: Date: Wt: 02/24/2018 61.2 kg (135 lb) 09/28/2017 64 kg (141 lb) 07/29/2017 61.9 kg (136 lb 6.4 oz) 06/14/2017 62.1 kg (137 lb) 03/23/2017 62.1 kg (137 lb) Heart: Regular rate, rhythm, no murmurs, gallops, rubs. Lungs: Clear to auscultation, bilaterally, breathing non labored. Ext: No cyanosis, clubbing, or edema. ASSESSMENT AND PLAN: Encounter Diagnosis ICD-10-CM 1. Acquired hypothyroidism E03.9 2. Postherpetic neuralgia B02.29 Controlled with the extra gabapentin; other dose for cervical DDD 3. Cervical disc disease M50.90 4. Other constipation K59.09 5. Osteopenia, unspecified location M85.80 VITAMIN D 25 HYDROXY Considering Shingrix. Doing okay on gabapentin. Bactroban for wounds prn since allergic reaction to Neosporin. Above issues addressed with patient. Patient involved in shared decision making for management of her medical issues. History and medications reviewed. Epic updated as needed Refills taken care of and meds adjusted as indicated after reviewed history, exam and labs. Health Maintenance reviewed. Updated record and/or ordered tests as recorded. Encouraged on efforts at healthy diet and regular exercise and adequate sleep. Clinically euthyroid. TSH fine. Continue to adjust dose of replacement as indicated based on symptoms and labs. Discussed management of neck issues. Exercises/stretches. Further evaluation and treatment as indicated. The majority of the visit was spent counseling and/or coordinating care for the patient. Sreq-lg-ocpl time was at least 25 minutes. MD AMINATA Hill Observed: 02/24/2018 Status: COMPLETED Source: [place] 8:00 AM [facility] REPOSITORY Office Visit (INTMWS) HERLINDA ROSAS ([id number]) 1945 F Date Time Provider Department 02/24/18 8:00 AM KIRA ROBERTSON During your visit today, we recorded the following information about you: Pulse Respiration Blood pressure Weight 60/minute 14/minute 122/62 61.2 kg Kira Robertson MD 03/05/2018 11:38 PM Signed Patient presents with: Recheck SUBJECTIVE: Herlinda Rosas is a 73 year old year old lady here today for 6 month follow up appointment for review of medical conditions. Doing well. 2008 had colonoscopy. Was told 5 years given diverticulosis. No polyps known. No problems from diverticulosis. Cannot eat corn or popcorn. GERD popping up back again. Settling down now but last week had to take Nexium, Zantac and TUMS. Still taking porbiotics--controls the IBS (constipation and diarrhea). Clinically euthyroid. Doing fine on rest of meds for lipids, BP, and postherpetic neuralgia. PAST MEDICAL HISTORY Diagnosis Date - Cervical disc disease - Diverticulosis of colon - GERD (gastroesophageal reflux disease) - History of shingles recurrent episodes--over 3 recurrences - Hypothyroid - Left bundle branch block EF 50% - Osteopenia - PHN (postherpetic neuralgia) 05/25/2016 Current Outpatient Prescriptions: NEXIUM 40 mg capsule TAKE ONE CAPSULE BY MOUTH ONCE DAILY atorvastatin (LIPITOR) 10 mg tablet Take 0.5 tablets by mouth once daily. levothyroxine (SYNTHROID) 50 mcg tablet Take 1 tablet by mouth every other day. (One 25 mcg on alternating day) levothyroxine (SYNTHROID) 25 mcg tablet Take 1 tablet by mouth every other day. Take on empty stomach. For thyroid. (One 50 mcg on alternating day) escitalopram oxalate (LEXAPRO) 10 mg tablet Take 1 tablet by mouth once daily. gabapentin (NEURONTIN) 100 mg capsule Take 1 capsule by mouth once daily. In addition to 300 mg capsule gabapentin (NEURONTIN) 300 mg capsule Take 1 capsule by mouth daily at bedtime. estradiol (ESTRACE) 0.01 % (0.1 mg/gram) vaginal cream Use fingertip amount nightly x 2 weeks, then every other night x 2 weeks, then 1-2x weekly for maintenance LACTOBACILLUS ACIDOPHILUS (PROBIOTIC ORAL) Take by mouth. MULTIVITAMIN ORAL Take by mouth. No current facility-administered medications for this visit. OBJECTIVE: BP 122/62 Pulse 60 Resp 14 Wt 61.2 kg (135 lb) BMI 25.93 kg/m2 Patient is alert, oriented times 3, no apparent distress, affect is bright, reactive. Last 5 Encounter BP Readings: Date: BP: 02/24/2018 122/62 09/28/2017 120/62 07/29/2017 102/60 06/14/2017 110/60 03/23/2017 120/64 Last 5 Encounter Wt Readings: Date: Wt: 02/24/2018 61.2 kg (135 lb) 09/28/2017 64 kg (141 lb) 07/29/2017 61.9 kg (136 lb 6.4 oz) 06/14/2017 62.1 kg (137 lb) 03/23/2017 62.1 kg (137 lb) Heart: Regular rate, rhythm, no murmurs, gallops, rubs. Lungs: Clear to auscultation, bilaterally, breathing non labored. Ext: No cyanosis, clubbing, or edema. ASSESSMENT AND PLAN: Encounter Diagnosis ICD-10-CM 1. Acquired hypothyroidism E03.9 2. Postherpetic neuralgia B02.29 Controlled with the extra gabapentin; other dose for cervical DDD 3. Cervical disc disease M50.90 4. Other constipation K59.09 5. Osteopenia, unspecified location M85.80 VITAMIN D 25 HYDROXY Considering Shingrix. Doing okay on gabapentin. Bactroban for wounds prn since allergic reaction to Neosporin. Above issues addressed with patient. Patient involved in shared decision making for management of her medical issues. History and medications reviewed. Epic updated as needed Refills taken care of and meds adjusted as indicated after reviewed history, exam and labs. Health Maintenance reviewed. Updated record and/or ordered tests as recorded. Encouraged on efforts at healthy diet and regular exercise and adequate sleep. Clinically euthyroid. TSH fine. Continue to adjust dose of replacement as indicated based on symptoms and labs. Discussed management of neck issues. Exercises/stretches. Further evaluation and treatment as indicated. The majority of the visit was spent counseling and/or coordinating care for the patient. [id number]-pl-kokr time was at least 25 minutes. MD Kira Hill MD 02/24/2018 8:33 AM Signed Consider sodium alginate (in Gaviscon) 30 minutes after a meal to see if helps with reflux. Could get sodium alginate liquid through [employer]. Consider Miralax to prevent constipation from persisting. Referring Provider: KIRA ROBERTSON [[id number]] Allergies As of Date: 02/24/2018 Noted Allergy Reaction NEOSPORIN ([id number]*06/14/2017 2 - Rash Date Reviewed: 02/24/2018 Reviewed by: Marla Deras Direct Care Professional - Fully Assessed Reason for Visit: Recheck [92] Primary Visit Diagnosis:Acquired hypothyroidism [E03.9] Other Visit Diagnoses:Postherpetic neuralgia [B02.29] Comment:Controlled with the extra gabapentin; other dose for cervical DDD Cervical disc disease [M50.90] Other constipation [K59.09] Osteopenia, unspecified location [M85.80] Order(s):VITAMIN D 25 HYDROXY [SQVITD] Order #: [id number] FUTURE mupirocin (BACTROBAN) 2 % ointmentApply 1 application to affected area three times daily as needed. For woundsDisp: 22 gRfl: 0 Prescriptions as of 02/24/2018 Sig: MUPIROCIN 2 % TOPICAL OINTMENT Apply 1 application to affect* NEXIUM 40 MG CAPSULE,DELAYED * TAKE ONE CAPSULE BY MOUTH ONC* ATORVASTATIN 10 MG TABLET Take 0.5 tablets by mouth onc* LEVOTHYROXINE 50 MCG TABLET Take 1 tablet by mouth every * LEVOTHYROXINE 25 MCG TABLET Take 1 tablet by mouth every * ESCITALOPRAM 10 MG TABLET Take 1 tablet by mouth once d* GABAPENTIN 100 MG CAPSULE Take 1 capsule by mouth once * GABAPENTIN 300 MG CAPSULE Take 1 capsule by mouth daily* ESTRADIOL 0.01% (0.1 MG/GRAM)* Use fingertip amount nightly * PROBIOTIC ORAL Take by mouth. MULTIVITAMIN ORAL Take by mouth. Medication notes this encounter ESCITALOPRAM 10 MG TABLET >> Kira Robertson MD 02/24/2018 8:35 AM >> KIRA ROBERTSON MD TueFeb 24, 2018 8:35 AM Takes half pill daily now; not needing whole pill. Problem List As Of Date 02/24/2018 Noted Resolved [place]-Walker grade 3 cystocele [N81.10] INVALID FOR* [place]-Walker grade 2 rectocele [N81.6] INVALID FOR* Urge incontinence [N39.41] INVALID FOR* PHN (postherpetic neuralgia) [B02.29] INVALID FOR* Hypothyroid [E03.9] History of shingles [Z86.19] More... Cervical disc disease [M50.90] GERD (gastroesophageal reflux disease) [K21.9] Other instructions from your clinician: Consider sodium alginate (in Gaviscon) 30 minutes after a meal to see if helps with reflux. Could get sodium alginate liquid through [employer]. Consider Miralax to prevent constipation from persisting. Prescriptions ordered this encounter Disp Refills Start End MUPIROCIN 2 % TOPICAL OINTMENT 22 g 0 02/24/2018 Route: TOPICAL Sig: Apply 1 application to affected area three times daily as needed. For wounds Medications Discontinued During This Encounter nitroglycerin sublingual (NITROSTAT)* 25 B* 3 07/25/2015 02/24/2018 Route: SUBLINGUAL Sig: Dissolve 1 tablet under the tongue as needed. FOR CHEST PAIN. IF NO RELIEF CALL 911 Disc: Reason for discontinue is not on file. MELATONIN ORAL 02/24/2018 Class: Historical Med Route: ORAL Sig: Take by mouth. Disc: Reason for discontinue is not on file. Disposition: Return in about 6 months (around 08/26/2018) for 6 months follow up, With labs prior. Follow-up and Disposition History Recorded Encounter Status:Closed by KIRA ROBERTSON MD on 03/05/18 SIGN WIRER OFFICE VISIT Observed: 12/30/2017 Status: F Source: ANA LAURA REPORT 6:05 AM [facility] [address] [place] [address] OFFICE VISIT Date of Service: 12/28/17 MR#: [id number] Acct: [id number] Name: HERLINDA ROSAS Rep #: [id number] : 1945 Provider: Nieves Lazaro MD Age/Sex: 72/F [place] [facility] [place]: [place] Intake Vital Signs12/28/17 Height 5 ft 1 in 12/28/17 Weight: 138 lb 4 oz 12/28/17 Body Mass Index (BMI) 26.1 12/28/17 Blood Pressure 127/71 Intake Visit Reasons: annual Chief Complaint: est annual Is patient in pain?: No Allergies No Known Allergies Allergy (Verified 12/28/17 15:09) Medications Esomeprazole Mag Trihydrate [Nexium] 40 mg PO DAILY 06/30/15 [History Confirmed 12/28/17] Gabapentin [Neurontin] 300 mg PO BIDCM 06/30/15 [History Confirmed 12/28/17] Levothyroxine [Synthroid] 50 mcg PO DAILY 06/30/15 [History Confirmed 12/28/17] Multivit with Calcium,Iron,Min [Multiple Vitamins For Women] 1 ea PO DAILY 06/30/15 [History Confirmed 12/28/17] conjugated estrogens 0.625 mg/gram vaginal cream 1 applic VAGINAL .COMPLEX #30 g 12/28/17 [Rx Confirmed 12/28/17] escitalopram 5 mg tablet 5 mg PO QDAY 12/28/17 [History Confirmed 12/28/17] Is last menstrual period known: No Post menopausal: Yes Patient : No : No PFSH Medical History Thyroid disorder (Acute) Surgical History H/O rotator cuff surgery (Acute) History of total abdominal hysterectomy (Acute) gallbladder surgery (Acute) urethral sling (Acute) Family History Mother CVA (cerebral vascular accident) Alzheimer disease Father Parkinsons disease Social History Smoking Status: Never smoker alcohol intake: current details: social substance use type: does not use caffeine: Yes frequency: 3-4 times per week seatbelt use: always do you feel safe at home: Yes additional social history: Don- Retired Patient is retired Pregancy History 2 Elective abortions Hx Para 2 Spontaneous abortions Past Pregnancies Del. DatName [place]/WeeksOutcome Route [facility] Diana Pollard LgAnestheMNel LocaProviderFOB e ht en tn Unknown 1968 Rya n Unknown 1972 [place] in HPI annual : Details: HERLINDA ROSAS is a 72 year old who presents for follow up of her cystocele. She has an appointment with Dr Mita Waller. she is going to [place] for a month. symptoms have stayed stable. her urinary symptoms are insignfiicant but the vaginal bulge bothers her. she is continuing the vaginal estrogen cream. ROS Const Constitutional: Reports as per HPI; denies poor appetite, fatigue, increased appetite, weight gain or weight loss GI GI: Reports as per HPI; denies bloating, abdominal pain, constipation, vomiting or nausea : Reports as per HPI Exam Const General: cooperative, healthy appearing, comfortable, no acute distress, well developed, well groomed HENMT Head: normal to inspection, normocephalic Ears: hearing grossly normal bilaterally, external ears normal Nose: external nose normal Face and sinus: normal facial exam Skin General: no rashes or lesions noted Extrem General: no pedal edema, normal to inspection Psych Appearance: grossly normal Mental Status: mental status grossly normal Affect: normal affect Speech and Movement: speech and movement normal Attitude: cooperative Assessment AND Plan Problems 1. Midline cystocele N81.11 Plan recommend urogyn evaluation plan for surgery. fu with dr heladio Montoya New: conjugated estrogens apply fingertip amount or 1-2g VAGINAL every night x 2 weeks then 1-3 x weekly for maintenance Coding Level of Care Code Off vis,est,level 3 Diagnoses Midline cystocele N81.11 Cystocele location: midline 12/30/17 0605 <Electronically signed by Nieves Lazaro MD> Date Nieves Lazaro MD Cosigner Signature: Date (if applicable) CC: ALLERGIES ALLERGIES DATE TYPE / CODE NAME / CODE REACTION SEVERITY SOURCE 06/23/2018 Drug neomycin/I022951 Unknown Unknown [facility]/416 775(RXNORM) [facility] 367995(SN Repository ED CT) 06/23/2018 Drug bacitracin/F0060 Unknown Unknown [place] [facility] Allergy/416 85493(RXNO) Hospital 288746(SN Repository ED CT) 06/23/2018 Drug polymyxin Unknown Unknown [facility] Allergy/416 B/[id number]([facility] 221889([facility] OR) Repository ED CT) 12/28/2017 Drug No Known Unknown [facility] Allergy/416 Allergies/Q82359 Hospital 429055(SNOM 0388(RXNORM) Repository ED CT) 06/14/2017 DRUG/741648 NEOMYCIN-BACITRA RASH [facility] 003(SNOMED AB-POLYMYXIN [facility] [place]) Repository NG/[id number] [facility](SNOMED AB-[facility]MYX[facility]) Repository ENCOUNTERS ENCOUNTERS ADMIT/DISCHARGE ACCOUNT NUMBER ADMITTING ENCOUNTER LOCATION SOURCE CLASS 11/22/2018/11/22/19 [id number] Ambulatory [address] [place] Repository 11/22/2018/11/22/19 [id number] Ambulatory [address] [place] Repository 11/21/2018/11/21/19 [id number] Ambulatory [address] [place] Repository 11/13/2018/11/13/19 [id number] [place] Ambulatory [address] [place] Repository 11/09/2018/11/10/19 [id number] Ambulatory [address] [place] Repository 11/09/2018 [id number] Ambulatory [facility] MEDICAL Repository CENTERBuildi ng:CAGWS 10/19/2018 [id number] Ambulatory [facility] ding:OPBI Repository 10/19/2018/10/20/20 [id number] Ambulatory [address] [place] Repository 10/06/2018/10/06/20 [id number] Ambulatory [address] [place] Repository 09/18/2018/09/18/20 [id number] Ambulatory [address] [place] Repository 09/18/2018/09/19/20 [id number] Ambulatory [place] [facility] [place] Repository 09/11/2018/09/12/20 [id number] Ambulatory [place] [facility] [place] Repository 09/05/2018/09/06/20 [id number] Ambulatory [place] [facility] [place] Repository 08/31/2018/08/31/20 [id number] Ambulatory [address] [place] Repository 08/28/2018/08/28/20 [id number] Ambulatory [address] [place] Repository 07/30/2018/07/30/20 [id number] Ambulatory [address] [place] Repository 07/21/2018/09/17 [id number] Ambulatory [place] [facility] [place] Repository 07/14/2018/07/20/20 [id number] Ambulatory [address] [place] Repository 07/13/2018/07/13/20 [id number] Ambulatory [address] [place] Repository 07/13/2018/07/13/20 [id number] Ambulatory [address] [place] Repository 07/12/2018 [id number] Ambulatory [facility] ding:LAB Repository 07/04/2018/07/04/20 [id number] Ambulatory [address] [place] Repository 07/04/2018/07/04/20 [id number] Ambulatory [address] [place] Repository 06/23/2018/06/23/20 [id number] Ambulatory [address] ding:SDCRoom Repository : AC03 06/21/2018/06/21/20 [id number] Ambulatory [address] [place] Repository 06/16/2018/06/16/20 [id number] Ambulatory [address] [place] Repository 06/16/2018/06/27/20 [id number] Ambulatory [address] [place] Repository 06/16/2018 [id number] Ambulatory BMS[facility]: [facility] Repository 06/07/2018/06/07/20 [id number] Ambulatory [address] [place] Repository 06/07/2018/06/08/20 [id number] Ambulatory [address] [place] Repository 03/01/2018/03/01/20 [id number] Ambulatory [address] [place] Repository 03/01/2018/03/01/20 [id number] Ambulatory DENICE Brady [address] MEDICAL Repository CENTERBuildi ng:CAGWS 02/28/2018 [id number] Ambulatory [facility] [place] Repository 02/24/2018/03/07/20 [id number] Ambulatory [address] [place] Repository 12/28/2017/12/28/19 [id number] Ambulatory BMSBuilding: [facility] Repository PAYERS PAYERS ENCOUNTER GUARANTOR PAYER SUBSCRIBER SOURCE 11/09/2018 HERLINDA BURKETT [facility] ALBERTOOB: Insurance:MEDICARE A BURGESSDOB: Health System AND BPolicy Number: [id number] [id number] WAYAPT Date: [address], [place] [address]Kgg: () 11/09/2018 Secondary HERLINDA [facility] Insurance:[facility] AARP BURGESSDOB: Health System SUPPLEMENTPolicy [id number] Repository Number: [id number] Date: 10/19/2018 HERLINDA H Primary HERLINDA H [facility] [id number] Insurance:MEDICARE BURGESSDOB: [facility] PART A BPolicy Number: [id number] [facility] [id number] Repository [address] [place] [address] Date:2018-09-05 75508Ujj: () 10/19/2018 Secondary HERLINDA H [place] Insurance:AARPPolicy BURGESSDOB: Community Number: [id number] [facility] [id number] Repository Date:4160-30-11[address], [place] [address]LP: 10/19/2018 Tertiary NOT GIVENUNK [facility] Insurance:SELF PAY [facility] Number: Effective Repository Date:2018-09-05 07/12/2018 HERLINDA H Primary HERLINDA H [place] [facility] [id number] Insurance:MEDICARE BURGESSDOB: [facility] PART A BPolicy Number: [id number] Care Hospital of [facility] [id number] Repository [address] [place] [address] Date:2018-07-12 36711Myz: () 07/12/2018 Secondary HERLINAD H [place] Insurance:AARPPolicy BURGESSDOB: Community Number: [id number] Hospital [id number] Repository Date:4495-06-50[address], [place] [address]HH: 07/12/2018 Tertiary NOT GIVENUNK [facility] Insurance:SELF PAY [facility] Number: Effective Repository Date:2018-07-12 06/23/2018 HERLINDA H Primary HERLINDA H [place] [id number] Insurance:MEDICARE BURGESSDOB: [facility] PART A BPolicy Number: [id number] Care Hospital [facility] [id number] Repository [address] [place] [address] Date:2018-05-05 80015Qpe: () 06/23/2018 Secondary HERLINDA H [facility] Insurance:AARPPolicy BURGESSDOB: Community Number: [id number] Hospital [id number] Repository Date:3076-65-42[address], [place] [address]IW: 06/23/2018 Tertiary NOT GIVENUNK Ana [facility] Insurance:SELF PAY [facility] Effective Repository Date:2018-05-05 06/16/2018 HERLINDA H Primary HERLINDA H [facility] [id number] Insurance:MEDICARE BURGESSDOB: [facility] PART A BPolicy Number: [id number] Care Hospital of [facility] [place] [id number] Repository [address] [place] [address] Date:2018-05-05 29541Bdm: () 06/16/2018 Secondary HERLINDA H [facility] Insurance:AARPPolicy BURGESSDOB: Community Number: [id number] Hospital [id number] Repository Date:1472-77-76[address], [place] [address]GL: 06/16/2018 Tertiary NOT GIVENUNK Ana Laura Insurance:SELF PAY [facility] Number: Effective Repository Date:2018-06-16 03/01/2018 HERLINDA Primary HERLINDA [facility] BURGESSDOB: Insurance:MEDICARE A BURGESSDOB: Health System AND BPolicy Number: [id number] [facility] [id number] [address] Date: [address], [place] [address]Cgk: () 03/01/2018 Secondary HERLINDA [facility] Insurance:[facility] AARP BURGESSDOB: [facility] [id number] Repository Number: [id number] Date: 12/28/2017 HERLINDA Paulo Primary HERLINDA H Ana Laurarad [id number] Insurance:MEDICARE [facility] PART A BPolicy Number: [id number] Care Hospital of [facility] [place] [id number] Repository [address] [place] [address] Date:2017-12-09 14502Tcf: () 12/28/2017 Secondary HERLINDA Bates [facility] Insurance:AARPPolicy [facility] Number: [id number] [facility] [id number] Repository Date:6889-47-03[address], [place] [address]NZ: 12/28/2017 Tertiary NOT GIVENUNK Ana Laura Insurance:SELF PAY [facility] Number: Effective Repository Date:2017-12-09
== END ==
PROVIDERS: Family Provider Internal Medicine; PCP Internal Medicine; Visit Provider Nurse Practitioner Women's Health
DX: Z12.31 Encounter for screening mammogram for malignant neoplasm of breast (principal)
CPT/HCPCS: 77063; 77067

== ENCOUNTER → 2019-11-23 08:12 | Outpatient (CLI) | payer MEDICARE, OTHER, SELFPAY ==
--- NOTE | 2019-11-23 08:17 | BI_ITS ---
MAMMOGRAPHY - BILATERAL SCREENING REASON FOR EXAM: Female, 74 years old. Routine annual screening examination. PERTINENT HISTORY: Non-contributory. TECHNIQUE: Digital bilateral breast pamela (3D mammographic acquisition) in the CC and MLO projections. 2-D mediolateral oblique (MLO) and craniocaudad (CC) views of both breasts were obtained. CAD: Full Field Digital Mammography with Computer Added Detection was performed. COMPARISON: Comparison is made with prior study dated October 19, 2018. FINDINGS: Breast Composition: There are scattered areas of fibroglandular density. There are no dominant masses or suspicious calcifications. Stable small benign appearing bilateral axillary lymph nodes. No other significant abnormalities are identified. There has been no significant change since the prior study. BI/SCREEN MAMM (CAD) W/PAMELA BILAT IMPRESSION: Stable bilateral screening mammogram. Yearly follow-up mammogram recommended. (A) ASSESSMENT CATEGORY: BIRADS Category 2: Benign. A letter regarding these results will be sent to the patient by the facility within 30 days. Approximately 10% of breast cancers are not detected by mammography. A normal mammogram should not delay biopsy of a clinically suspicious abnormality. [id number] Electronically Signed: Anthony Milian, at 12:37 EST , Service support ,
== END ==
PROVIDERS: Family Provider Internal Medicine; PCP Internal Medicine; Referring Provider Obstetrics & Gynecology; Visit Provider Obstetrics & Gynecology
DX: Z12.31 Encounter for screening mammogram for malignant neoplasm of breast (principal)
CPT/HCPCS: 77063; 77067

== ENCOUNTER 2020-12-31 08:31 | Outpatient (RCR) | payer MEDICARE, OTHER, SELFPAY ==
[2018-06-23 06:18] VITALS: BMI 25.9
== END 2020-12-31 23:59 ==
LOC: IMMUN 08:31
PROVIDERS: PCP Internal Medicine; Visit Provider Family Medicine
DX: Z23 Encounter for immunization (principal)
CPT/HCPCS: 0011A; 0012A; 91301

== ENCOUNTER → 2021-02-05 09:52 | Outpatient (CLI) | payer MEDICARE, SELFPAY ==
--- NOTE | 2021-02-05 09:58 | MRI_ITS ---
STUDY: MRI BRAIN WITH AND WITHOUT CONTRAST (ATTENTION INTERNAL AUDITORY CANALS - I.A.C.''s) REASON FOR EXAM: Female, 75 years old. BILATERAL HEARING LOSS TECHNIQUE: Standardized multiplanar fat and water weighted pulse sequences were obtained. IV 13 cc dotarem was administered for the contrast portion of the examination. COMPARISON: None. FINDINGS: Normal bilateral temporal bones. Normal bilateral internal auditory canals. There is no demonstrated intracanalicular or cisternal vestibular schwannoma (acoustic neuroma). There is no enhancement of the bilateral VIIth or VIIIth cranial nerves. Normal bilateral cochlea, vestibules and semicircular canals. Normal size of the ventricles and extra-axial spaces for the patient''s age. Minor periventricular white matter ischemic changes without mass effect or restricted diffusion. Normal bilateral basal ganglia. Normal thalami. Normal flow voids within the major intracranial circulation suggesting patency by spin echo criteria. Normal venous enhancement. There is no enhancing intra-axial or extra-axial abnormality. There is no extra-axial fluid accumulation. Empty sella deformity of uncertain significance. Normal, infundibular stalk, optic chiasm and hypothalamus. Normal tectal plate and pineal gland. Normal midbrain, na and medulla. Normal cerebellum. Normal basal cisterns. Post surgical changes of the orbits. Within the constraints of a routine brain study. Normal visualized paranasal sinuses. Normal calvarium and skull base. Normal visualized soft tissue structures. Normal visualized upper cervical spine. MRI/Brain W/WO Contrast IMPRESSION: Minor periventricular white matter ischemic changes without evidence for acute infarct. Empty sella deformity of uncertain significance. No evidence for acoustic or vestibular schwannoma Electronically Signed: Ernesto Alfredo MD at 20:48 EDT , Service support ,
[2021-02-05 10:51] LABS: CREATININE FINGERSTICK 0.9 mg/dL (0.55-1.02)
== END ==
PROVIDERS: PCP Internal Medicine; Referring Provider Otolaryngology Otolaryngology/Facial Plastic Surgery; Visit Provider Otolaryngology Otolaryngology/Facial Plastic Surgery
DX: H90.3 Sensorineural hearing loss, bilateral (principal)
CPT/HCPCS: 70553; A9575

== ENCOUNTER → 2021-03-05 10:49 | Outpatient (CLI) | payer MEDICARE, SELFPAY ==
[2018-06-23 06:18] VITALS: BMI 25.9
--- NOTE | 2021-03-05 10:52 | BI_ITS ---
MAMMOGRAPHY - BILATERAL SCREENING REASON FOR EXAM: Female, 76 years old. Routine annual screening examination. PERTINENT HISTORY: Non-contributory. TECHNIQUE: Digital bilateral breast pamela (3D mammographic acquisition) in the CC and MLO projections. 2-D mediolateral oblique (MLO) and craniocaudad (CC) views of both breasts were obtained. CAD: Full Field Digital Mammography with Computer Added Detection was performed. COMPARISON: Comparison is made with prior study dated 11/23/2019 and 10/19/2018. FINDINGS: Breast Composition: There are scattered areas of fibroglandular density. There are no dominant masses or suspicious calcifications. Stable small benign-appearing bilateral axillary lymph nodes. No other significant abnormalities are identified. There has been no significant change since the prior study. BI/SCRN MAMM (CAD)W/PAMELA BILAT IMPRESSION: Stable bilateral screening mammogram. Yearly follow-up mammogram recommended. (A) ASSESSMENT CATEGORY: BIRADS Category 2: Benign. A letter regarding these results will be sent to the patient by the facility within 30 days. Approximately 10% of breast cancers are not detected by mammography. A normal mammogram should not delay biopsy of a clinically suspicious abnormality. [id number] Electronically Signed: Anthony Milian MD at 11:35 EDT , Service support ,
== END ==
PROVIDERS: PCP Internal Medicine; Referring Provider Obstetrics & Gynecology; Visit Provider Obstetrics & Gynecology
DX: Z12.31 Encounter for screening mammogram for malignant neoplasm of breast (principal)
CPT/HCPCS: 77063; 77067

== ENCOUNTER → 2022-03-10 | Outpatient (CLI) | payer MEDICARE, SELFPAY ==
--- NOTE | 2022-03-10 12:22 | BI_ITS ---
MAMMOGRAPHY - BILATERAL SCREENING REASON FOR EXAM: Female, 77 years old. Routine annual screening examination. PERTINENT HISTORY: Non-contributory. TECHNIQUE: Digital bilateral breast pamela (3D mammographic acquisition) in the CC and MLO projections. 2-D mediolateral oblique (MLO) and craniocaudad (CC) views of both breasts were obtained. CAD: Full Field Digital Mammography with Computer Added Detection was performed. COMPARISON: Comparison is made with prior study dated 03/05/2021 and 11/23/2019. FINDINGS: Breast Composition: There are scattered areas of fibroglandular density. There are no dominant masses or suspicious calcifications. Stable small benign-appearing bilateral axillary No other significant abnormalities are identified. There has been no significant change since the prior study. BI/SCRN MAMM (CAD)W/PAMELA BILAT IMPRESSION: Stable bilateral screening mammogram. Yearly follow-up mammogram recommended. (A) ASSESSMENT CATEGORY: BIRADS Category 2: Benign. A letter regarding these results will be sent to the patient by the facility within 30 days. Approximately 10% of breast cancers are not detected by mammography. A normal mammogram should not delay biopsy of a clinically suspicious abnormality. [id number] Electronically Signed: Anthony Milian MD at 13:26 EDT ,
== END | disposition home or self-care (01) ==
LOC: OPBI 12:19
PROVIDERS: PCP Internal Medicine; Referring Provider Obstetrics & Gynecology; Visit Provider Obstetrics & Gynecology
DX: Z12.31 Encounter for screening mammogram for malignant neoplasm of breast (principal)
CPT/HCPCS: 77063; 77067

== ENCOUNTER 2022-09-23 09:41 | Day surgery (SDC) | payer MEDICARE, SELFPAY ==
[2022-09-23] VITALS (7 sets, daily range): BP systolic 70–114; BP diastolic 47–69; PULSE 64–82; RESP 16–18; TEMP 36.2–36.6; O2SAT 93–96; BMI 25.4
--- NOTE | 2022-09-23 | ESO_PTH ---
PATIENT: MADELAINE CARRINGTON LOC: EN U#:[id number] AGE/SX: 77/F ROOM: RE09/23/[address]: Dr. Luc Solares DO : 1945 BED: DIS: 09/23/2022 SPEC #: [id number] RECD: 09/23/22 14:11 STATUS: PING REQ #: [id number] RADU: 09/23/22 00:[address]: Luc Solares DEPT: SURGICAL PATHOLOGY RECD BY: Ashwin Mckeon ENTERED: 09/24/22 10:06 SP TYPE: THANG SILVA DR: Dr. Adrienne Riojas MD Tissues: Esophagus, NOS Procedures: Special Stain Group II Surgery Specimen Level IV Alcian Blue/PAS (control) HEADER OPERATION: EGD ([facility]) with PH probe PRE-OP DIAGNOSIS: GERD TISSUE SUBMITTED: Distal esophagus MICROSCOPIC DIAGNOSIS Distal esophagus, biopsy: Fragments of gastroesophageal mucosa with chronic inflammation. Intestinal metaplasia (goblet cell metaplasia) not identified. See comment. YURY:luis angel 09/27/2022 COMMENT Alcian blue/PAS stain with matched control is used in the evaluation of the specimen. MICROSCOPIC DESCRIPTION Slides are reviewed. GROSS DESCRIPTION Received in fixative is one container labeled with the patient's name and designated distal esophageal biopsy. The specimen consists of multiple irregular fragments of light dumont soft tissue that in aggregate measure 1 x 0.6 x 0.1 cm. The specimen is totally submitted in one cassette. / YURY:luis angel 09/24/2022 TC:3 CPT: 13078, 90081
[2022-09-23] MEDS: Lactated Ringers 1,000 ML 15 ML IV (10:00)
--- NOTE | 2022-09-23 10:54 | HP.PCM_ITS ---
History and Physical Date of Admission: 09/23/22 77 F who presents to the office today to establish care with GI locally. Has been seeing GI at [facility] but wants to see GI in [place]. Her has dementia. Lifelong heartburn, was on Nexium x 20 yrs, stopped working about 6 yrs ago, so she switched to pantoprazole but then developed constipation, so she reverted back to Nexium. Takes it BID. Reflux up to throat, tickle in her throat worse after eating, and a cough. Cough is better since esomeprazole was increased to BID. She was also taking famotidine 40 mg, since stopping that she has increased acid. No dysphagia. Chocolate triggers reflux. No early satiety. No nausea or vomiting. No abdominal pain. She has gained a few lbs over the years but nothing extreme. BM every 3 days, takes a magnesium gummy prn for constipation. No melena or hematochezia. No diarrhea. Saw ENT Dr Fernandez for sudden hearing loss, he did laryngoscopy, saw erythema. 11/13/18 EGD and colonoscopy Her mother had esophageal dysmotility ROS Const Constitutional: No fatigue ENT ENT: No difficulty swallowing Gastro GI: No abdominal pain, belching, bloating, change in bowel habits, change in stool character, coffee ground emesis, constipation, cramping, diarrhea, h eartburn, difficulty swallowing, feeling full early, excessive flatus, incontinent of stools, Vomiting blood/hematemesis, Blood in stool, loose stools, Black,tarry stools, nausea/dyspepsia, pain with swallowing, vomiting or other Musc Musculoskeletal: Positive for joint pain, back pain, muscle weakness, numbness and tingling Skin Skin: No yellowing of the eye or itchy eyes Neuro Neurology: Positive for numbness and tingling Psych Psychiatric: No anxiety and No depression Endo Endocrine: No fatigue Aller/Imm Allergy/Immunologic: No itchy eyes Arjun/Lymp Hematologic/Lymphatic: No easy bleeding or easy bruising Exam Const General: cooperative and healthy appearing Nutritional Appearance: average body habitus Orientation: alert, awake and oriented x3 HENMT Head: normal to inspection Eyes General: appearance normal, both eyes and all related structures Resp Effort & Inspection: normal respiratory effort GI Inspection: normal to inspection Quality Reporting Tobacco Screening ([facility] 138) Smoking Status: Never smoker Assessment and Plan Assessment and Plan (1) GERD (gastroesophageal reflux disease): ?Status:?Acute ?Plan: 77 yr old female with refractory GERD on bid dosing of PPI EGD with Lares pH, try going off esomeprazole 5 days prior Discussed possible reasons for refractory acid reflux including gastroparesis, bile acid reflux, esophageal dysmotility, hiatal hernia Will get gastric emptying study Leaving for winter in [place] Oct 26 until Spring ? ? ? Orders: Orders Gastric Emptying Study Today K31.84 - Gastroparesis ? I have examined the patient and the H&P has been reviewed. There are no clinical changes since date of exam.
--- NOTE | 2022-09-23 11:22 | OP.CCLET_ITS ---
09/23/2022 Adrienne Riojsa [address] [place] [address] Re : Upper GI endoscopy procedure for Herlinda Rosas Dear Dr. Riojas This procedure was performed on September. My impressions and recommendations are as follows: Impressions : - Esophageal mucosal changes consistent with eosinophilic esophagitis. Biopsied. - Medium-sized hiatal hernia. - A few gastric polyps. - No gross lesions in the second portion of the duodenum. Recommendations : - Discharge patient to home. - Resume previous diet. - Continue present medications. - Await pathology results. My findings are described in the full procedure note, which is enclosed. If I can be of further assistance, please feel free to contact me at . Sincerely, Luc Friend, 09/23/2022 11:21:54 AM This report has been signed electronically.
--- NOTE | 2022-09-23 11:22 | OP.EGD_ITS ---
Patient Name: Herlinda Rosas Procedure Date: 09/23/2022 10:46 AM Date of : 1945 Age: 77 Procedure: Upper GI endoscopy Indications: Heartburn, Failure to respond to medical treatment Providers: Luc Solares DO Medicines: Monitored Anesthesia Care Patient Profile: This is a 77 year old female. Refer to note in patient chart for documentation of history and physical. Patient has symptoms of chronic heartburn. Complications: No immediate complications. Procedure: Pre-Anesthesia Assessment: - Prior to the procedure, a History and Physical was performed, and patient medications and allergies were reviewed. The patient is competent. The risks and benefits of the procedure and the sedation options and risks were discussed with the patient. All questions were answered and informed consent was obtained. Patient identification and proposed procedure were verified by the physician in the pre-procedure area. Mental Status Examination: alert and oriented. Airway Examination: normal oropharyngeal airway and neck mobility. Respiratory Examination: clear to auscultation. CV Examination: normal. Prophylactic Antibiotics: The patient does not require prophylactic antibiotics. Prior Anticoagulants: The patient has taken no previous anticoagulant or antiplatelet agents. After reviewing the risks and benefits, the patient was deemed in satisfactory condition to undergo the procedure. The anesthesia plan was to use monitored anesthesia care (MAC). Immediately prior to administration of medications, the patient was re-assessed for adequacy to receive sedatives. The heart rate, respiratory rate, oxygen saturations, blood pressure, adequacy of pulmonary ventilation, and response to care were monitored throughout the procedure. The physical status of the patient was re-assessed after the procedure. After obtaining informed consent, the endoscope was passed under direct vision. Throughout the procedure, the patient's blood pressure, pulse, and oxygen saturations were monitored continuously. The gastroscope was introduced through the mouth, and advanced to the second part of duodenum. The upper GI endoscopy was accomplished without difficulty. The patient tolerated the procedure well. Scope In: 11:02:57 AM Scope Out: 11:12:12 AM Total Procedure Duration Time 0 hours 9 minutes 15 seconds Findings: Mucosal changes including ringed esophagus and small-caliber esophagus were found in the lower third of the esophagus. Biopsies were obtained from the proximal and distal esophagus with cold forceps for histology of suspected eosinophilic esophagitis. Verification of patient identification for the specimen was done. Estimated blood loss was minimal. The CABA capsule with delivery system was introduced through the mouth and advanced into the esophagus, such that the CABA pH capsule was positioned 35 cm from the incisors, which was 6 cm proximal to the GE junction. Suction was applied to the well of the CABA pH capsule to suck in the adjacent mucosa of the esophagus using the external vacuum pump set at a minimum vacuum pressure of 550 mmHg for 30 seconds. The CABA pH capsule was then deployed by depressing the plunger on top of the handle to advance the locking pin into the mucosa, thereby attaching the capsule to the esophagus. The plunger was then rotated a quarter turn clockwise to release the capsule from the delivery system. The delivery system was then withdrawn. Endoscopy was utilized for probe placement and diagnostic evaluation. A medium-sized hiatal hernia was present. A few 2 mm sessile polyps with no bleeding and no stigmata of recent bleeding were found in the gastric fundus. No gross lesions were noted in the second portion of the duodenum. Impression: - Esophageal mucosal changes consistent with eosinophilic esophagitis. Biopsied. - Medium-sized hiatal hernia. - A few gastric polyps. - No gross lesions in the second portion of the duodenum. Recommendation: - Discharge patient to home. - Resume previous diet. - Continue present medications. - Await pathology results. Procedure Code(s): --- Professional --- 73495, Esophagogastroduodenoscopy, flexible, transoral; with biopsy, single or multiple CPT copyright 2017 [employer]. All rights reserved. The codes documented in this report are preliminary and upon molding press operator review may be revised to meet current compliance requirements. Luc Solares DO 09/23/2022 11:21:54 AM This report has been signed electronically. Number of Addenda: 0 Note Initiated On: 09/23/2022 10:46 AM
--- NOTE | 2022-10-01 12:11 | PCM.HP.BLA ---
History and Physical Date of Admission: 09/23/22 Study: 48-hour?Lares?pH capsule was placed on esophagus during EGD on 09/23/22 ? Indications for?Lares?pH Study: reflux despite PPI therapy ? Study Findings?? ? 48-hour overview: symptoms associated with meals, no acid episodes when supine ? Using data from the worst of the two days, acid exposure time is 2.7%.?Percent acid exposure time?is the single parameter which has been shown to best correlate with endoscopic damage. Normal is <4.4% on the worst day, therefore this result is?normal.? ? The?DeMeester Score?(normal is <14.72) on the worst of the two days is 10.6 which is?normal.?The DeMeester Score is a method of adding weights to six common pH measurement parameters, and presenting esophageal acid exposure data as a cumulative score.? ? Symptom Index (SI)?>50% is significant (it indicates that >50% of the observed symptoms were associated with reflux).? In this study, the SI is 5% which?is not significant. ? Symptom Association Probability (SAP)?helps to determine if there is a true correlation between symptoms and reflux. SAP >95% indicates a likely correlation.? In this study, the SAP is 62.4% which?does not indicate a true correlation.? ? Interpretation ? Normal study Charges/Coding Procedures Gastroenterology CF Procedures [id number]: 02499 Gastroesophageal reflux test
== END 2022-09-23 12:30 | disposition home or self-care (01) ==
LOC: EN 09:44 → AC 09:47
PROVIDERS: PCP Internal Medicine; Referring Provider Internal Medicine; Visit Provider Internal Medicine Gastroenterology
PROC: 0DJ08ZZ Inspection of Upper Intestinal Tract, Via Natural or Artificial Opening Endoscopic (ICD-10-PCS; CPT 43235; principal; 2022-09-23 10:40)
DX: K44.9 Diaphragmatic hernia without obstruction or gangrene (principal); K31.7 Polyp of stomach and duodenum; K31.84 Gastroparesis; K21.9 Gastro-esophageal reflux disease without esophagitis
CPT/HCPCS: 43239; 88305; 88313; J7120; J2405

== ENCOUNTER → 2023-03-24 | Outpatient (CLI) | payer MEDICARE, SELFPAY ==
--- NOTE | 2023-03-24 09:59 | BI_ITS ---
MAMMOGRAPHY - BILATERAL SCREENING REASON FOR EXAM: Female, 78 years old. Routine annual screening examination. PERTINENT HISTORY: Non-contributory. TECHNIQUE: Digital bilateral breast pamela (3D mammographic acquisition) in the CC and MLO projections. 2-D mediolateral oblique (MLO) and craniocaudad (CC) views of both breasts were obtained. CAD: Full Field Digital Mammography with Computer Added Detection was performed. COMPARISON: Comparison is made with prior study of March 10, 2022 and March 05, 2021. FINDINGS: Breast Composition: There are scattered areas of fibroglandular density. There are no dominant masses or suspicious calcifications. Stable small benign-appearing bilateral axillary lymph nodes. No other significant abnormalities are identified. There has been no significant change since the prior study. BI/SCRN MAMM (CAD)W/PAMELA BILAT IMPRESSION: Stable bilateral screening mammogram. Yearly follow-up mammogram recommended. (A) ASSESSMENT CATEGORY: BIRADS Category 2: Benign. A letter regarding these results will be sent to the patient by the facility within 30 days. Approximately 10% of breast cancers are not detected by mammography. A normal mammogram should not delay biopsy of a clinically suspicious abnormality. [id number] Electronically Signed: Anthony Milian MD at 13:25 EDT ,
== END | disposition home or self-care (01) ==
LOC: OPBI 09:58
PROVIDERS: PCP Internal Medicine; Referring Provider Obstetrics & Gynecology; Visit Provider Obstetrics & Gynecology
DX: Z12.31 Encounter for screening mammogram for malignant neoplasm of breast (principal)
CPT/HCPCS: 77063; 77067

== ENCOUNTER → 2024-05-14 | Outpatient (CLI) | payer MEDICARE, SELFPAY ==
--- NOTE | 2024-05-14 15:42 | BI_ITS ---
MAMMOGRAPHY - BILATERAL SCREENING REASON FOR EXAM: Female, 79 years old. Routine annual screening examination. PERTINENT HISTORY: Non-contributory. TECHNIQUE: Digital bilateral breast pamela (3D mammographic acquisition) in the CC and MLO projections. 2-D mediolateral oblique (MLO) and craniocaudad (CC) views of both breasts were obtained. CAD: Full Field Digital Mammography with Computer Added Detection was performed. COMPARISON: Comparison is made with prior study of March 24, 2023 and March 10, 2022. FINDINGS: Breast Composition: There are scattered areas of fibroglandular density. There are no dominant masses or suspicious calcifications. There are stable small bilateral fat containing axillary lymph nodes. No other significant abnormalities are identified. There has been no significant change since the prior study. BI/SCRN MAMM (CAD)W/PAMELA BILAT IMPRESSION: Stable bilateral screening mammogram. Yearly follow-up mammogram recommended. (A) ASSESSMENT CATEGORY: BIRADS Category 2: Benign. A letter regarding these results will be sent to the patient by the facility within 30 days. Approximately 10% of breast cancers are not detected by mammography. A normal mammogram should not delay biopsy of a clinically suspicious abnormality. [id number] Electronically Signed: Anthony Milian MD at 8:40 EDT ,
== END | disposition home or self-care (01) ==
LOC: OPBI 15:42
PROVIDERS: PCP Internal Medicine; Referring Provider Obstetrics & Gynecology; Visit Provider Obstetrics & Gynecology
DX: Z12.31 Encounter for screening mammogram for malignant neoplasm of breast (principal)
CPT/HCPCS: 77063; 77067

== ENCOUNTER → 2024-08-02 | Outpatient (CLI) | payer SELFPAY, MEDICARE ==
--- NOTE | 2024-08-02 07:52 | CT_ITS ---
STUDY: CT CHEST WITHOUT CONTRAST REASON FOR EXAM: Female, 79 years old. CAD SCREEN RADIATION DOSAGE (If Supplied By Facility): CTDIvol = ( 12.19 ) mGy, DLP = ( 219.42 ) mGycm TECHNIQUE: Transaxial imaging was performed without the administration of intravenous contrast material. Individualized dose optimization techniques were used for this CT. COMPARISON: No relevant priors. FINDINGS: CHEST The lungs are normal. There is no demonstrated pleural abnormality. There are mild calcifications of the coronary arteries. There are small lymph nodes within the mediastinum, which are normal in size and morphology most compatible with reactive lymph hyperplasia. Normal hilar regions. Normal unenhanced pulmonary arteries. There is atherosclerotic calcification of the aortic arch. Normal osseous structures. There is no demonstrated abnormality of the visualized upper abdomen. CT/Limited Chest CT Cardiac Only IMPRESSION: Mild degree of coronary artery calcification. Electronically Signed: Anthony Milian MD at 13:47 EDT ,
--- NOTE | 2024-08-02 16:39 | CA.SCORE ---
Calcium Scoring Date of Study:: 08/02/24 Coronary Calcium Scoring: High-resolution Computed Tomographic imaging of the chest was performed on [08/02/24 ], with particular attention paid to the coronary arteries. Images from the examination were analyzed for the presence and extent of coronary artery calcification , using coronary calcium quantification software. The patient tolerated the procedure well and there were no complications. The results of the coronary calcification analysis are provided below. Findings Coronary Artery Left Main (LM): 0 Left Anterior Descending (LAD): 0 Left Circumflex (LCX): 0 Right Coronary Artery (RCA): 28 Total Agatston Score: 28 Percentile Rankinth to 50th percentile Calcium Scoring Interpretation: Different methods to categorize the overall amount of coronary plaque. Overall amount CAC SIS Visual of coronary plaque P1 Mild -100 <2 1-2 vessels with mild amount of plaque P2 Moderate 101-300 3-4 1-2 vessels with moderate amount, 3 vessels with mild amount of plaque P3 Severe 301-999 5-7 3 vessels with moderate amount, 1 vessel with severe amount of plaque P4 Extensive >1000 >8 2-3 vessels with severe amount of plaque Calcium Score: Mild: 1-2 vessels w/mild amount of plaque Conclusion: Mild plaque disease only noted in the RCA distribution.
== END | disposition home or self-care (01) ==
PROVIDERS: PCP Internal Medicine; Referring Provider Internal Medicine Interventional Cardiology; Visit Provider Internal Medicine Interventional Cardiology
DX: Z13.6 Encounter for screening for cardiovascular disorders (principal)
CPT/HCPCS: 75571; 76380

== ENCOUNTER → 2024-09-07 | Outpatient (CLI) | payer MEDICARE, SELFPAY | END | disposition home or self-care (01) | LOC: US 12:51 | PROVIDERS: PCP Internal Medicine; Referring Provider Urology; Visit Provider Urology | DX: N39.0 Urinary tract infection, site not specified (principal) | CPT/HCPCS: 76770 ==

== ENCOUNTER → 2025-04-15 | Outpatient (CLI) | payer MEDICARE, SELFPAY ==
--- NOTE | 2025-04-15 13:34 | CT_ITS ---
PROCEDURE: EXTREMITY LOWER WITHOUT CONTRA 04/15/2025 REASON FOR EXAM: VARUS DEFORMITY, NOT ELSEWHERE CLASSIFIED, LEFT KNEE TECHNIQUE: Axial CT images of the left lower extremity obtained with intravenous contrast. Coronal and Sagittal reconstruction series were provided. CONTRAST: None One or more dose reduction techniques were used (e.g., Automated exposure control, adjustment of the mA and/or kV according to patient size, use of iterative reconstruction technique). RADIATION DOSE SUMMARY: DLP: 1209.96 mGycm COMPARISON: None FINDINGS: Bones: There is a 1.0 by 0.5 cm benign-appearing bone island in the medial tibial plateau. Joints: There is moderate to severe tricompartment osteoarthritis at the knee with joint space narrowing and marginal osteophytes. There is a small joint effusion at the knee. Soft Tissues: There is no soft tissue mass. There is no adenopathy. Atherosclerotic calcifications are noted. CT/Extremity Lower without Contra IMPRESSION: There is moderate to severe tricompartment osteoarthritis at the knee with join t space narrowing and marginal osteophytes. There is a small joint effusion. Reading Location: [facility]
[2025-04-15 14:05] LABS: Absolute Neutrophil Count 6.2 X10^3/uL (2.0-7.7); Basophil# 0.07 X10^3/uL; Basophil% 0.7 % (0-1); Eosinophil# 0.23 X10^3/uL; Eosinophils% 2.5 % (0-5); Hematocrit 35.1 % (37-47); Hemoglobin 11.5 g/dL (12.0-15.0); Lymphocyte % 23.5 % (19-41); Mean Corp Hgb Conc 32.8 g/dL (32-36); Mean Corpuscular Hgb 28.6 pg (27.0-32.0); Mean Corpuscular Volume 87.3 fL (81-99); Mean Platelet Vol. 9.2 fl (6.2-12.0); Monocyte# 0.69 X10^3/uL; Monocyte% 7.4 % (0-10); NRBC Flagged by Analyzer 0 % (0-5); Neutrophil # 6.16 X10^3/uL (2.7-7.7); Neutrophil % 65.7 % (47-70); Platelet Count 386 K/mm3 (150-450); RBC Distribution Width CV 13.8 % (11.6-14.6); RBC Distribution Width SD 44.4 fl (35.1-43.9); Red Blood Count 4.02 M/mm3 (4.2-5.4); White Blood Count 9.4 K/mm3 (4.4-11.0)
[2025-04-15 14:32] LABS: Albumin, Serum 4.4 g/dL (3.4-4.8); Anion Gap 10 (5-15); BUN 15 mg/dL (4-19); BUN/Creat Ratio 18.5 RATIO (10-20); Calcium,Total 9.3 mg/dL (7.6-11.0); Carbon Dioxide 24.3 mmol/L (21.0-32.0); Chloride 100 mmol/L (98-108); Creatinine, Serum 0.82 mg/dL (0.70-1.20); EST Glomerular Filtration Rate 74 (>60); Glucose 90 mg/dL (70-99); Magnesium 2.2 mg/dL (1.5-2.2); Potassium 4.4 mmol/L (3.3-5.1); Sodium Level 135 mmol/L (133-145)
[2025-04-15 14:38] LABS: Thyroid Stim Hormone (TSH) 0.815 uIU/mL (0.300-4.200)
== END | disposition home or self-care (01) ==
LOC: CT 13:28
PROVIDERS: Student in an Organized Health Care Education/Training Program; PCP Internal Medicine; Referring Provider Specialist; Visit Provider Specialist
DX: Z01.818 Encounter for other preprocedural examination (principal); M21.162 Varus deformity, not elsewhere classified, left knee; M17.0 Bilateral primary osteoarthritis of knee
CPT/HCPCS: 36415; 73700; 80048; 82040; 83735; 84443; 85025; 87081

== ENCOUNTER 2025-05-13 10:46 | Observation (INO) | payer MEDICARE, SELFPAY ==
--- NOTE | 2025-04-16 11:11 | EKG12_ITS ---
Test Reason : PREOP Blood Pressure : */* mmHG Vent. Rate : 61 BPM Atrial Rate : 61 BPM P-R Int : 184 ms QRS Dur : 138 ms QT Int : 474 ms P-R-T Axes : 50 -33 -22 degrees QTcB Int : 477 ms Normal sinus rhythm Left axis deviation Left bundle branch block Abnormal ECG Confirmed by Manuel Soria ([id number]), news videotape editor STUART GARZA ([id number]) on 04/17/2025 10:14:58 AM Referred By: Mario Narayanan Confirmed By: Manuel Soria
--- NOTE | 2025-04-16 12:57 | PAT.ANE_ITS ---
Pre-Assessment Diagnosis/Proposed Procedure Planned Operative Procedure(s): ROBOTIC ASSISTED LEFT TOTAL KNEE ARTHROPLASTY Anesthesia History Anesthesia History - photolithographer: Anesthesia History - photolithographer Hx Hospitalization No 04/08/25 09:44 Any Problems With Anesthesia Yes: N,V 04/08/25 09:44 Cholinesterase deficiency No 04/08/25 09:44 You/Your Family Experience No 04/08/25 09:44 fever (hyperthermia) with Relationship Recent Exposure to Contagious No 07/25/24 11:22 Disease Does patient have nerve No 04/08/25 09:44 stimulator Patient instructed to have device shut off --Does patient have Pacemaker or ICD? When Was Last Pacemaker Check QUESTION #4 FULL TEXT: You/Your Family Experience fever (hyperthermia) with Anesthesia Last Oral Intake Last Oral intake: Last Oral Intake NPO since Meds taken in AM with sips of water? Meds patient instructed to take am of surgery PONV PONV - photolithographer: PONV - photolithographer Female Yes 04/08/25 09:44 HX of Motion Sickness No 04/08/25 09:44 HX of N/V After Surgery Yes 04/08/25 09:44 Non-Smoker Yes 04/08/25 09:44 Duration of Surgery greater Yes 04/08/25 09:44 than 60 minutes Number of Risk Factors 4 04/08/25 09:44 PONV Score Severe Risk 04/08/25 09:44 Height & Weight Height & Weight: Anesthesia: Height & Weight Height 5 ft 1 in 08/06/24 08:04 Respiratory Assessment Respiratory Assessment - photolithographer: Respiratory Tract Infection Hx - photolithographer Hx Respiratory Tract Infection No 04/08/25 09:44 STOP Sleep Apnea STOP Sleep Apnea - photolithographer: STOP Sleep Apnea - photolithographer Hx Hypertension Yes: CONTROLLED WITH MED 04/08/25 09:44 Hx Sleep Apnea Yes 04/08/25 09:44 CPAP Yes 04/08/25 09:44 BIPAP No 04/08/25 09:44 Do you snore loudly (louder than talking or can be heard Do you often feel tired/ fatigued/ sleepy during daytime? Has anyone observed you stop breathing during sleep? STOP Results Positive 04/08/25 09:44 QUESTION #5 FULL TEXT : Do you snore loudly (louder than talking or can be heard through closed doors)? 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 Specify any problems Hx of Preganancy in last 3 No 04/08/25 09:44 Months Nurse Filling Out Transfusion DSCHRIBER 04/08/25 09:44 & Questions: Date: 04/08/25 04/08/25 09:44 Time: 09:54 04/08/25 09:44 Patient unable to answer at this time (ie. confused, unrespo /Reproduction History /Reproductive History - photolithographer: /Reproductive Hx- photolithographer Hx Now No 04/08/25 09:44 Gestational Age (in weeks): EDC: Hx Hx Para Hx Section SAB No 04/08/25 09:44 [facility] Medical History (Updated 04/08/25 @ 10:07 by Fanta Munson) Wears glasses Post-menopausal Depression Back pain Difficulty swallowing History of hiatal hernia Hx of fracture of foot Leg cramps History of pain when walking Left bundle branch block (LBBB) Wears hearing aid Loss of hearing Anxiety Alcohol use Arthritis CPAP (continuous positive airway pressure) dependence Non-smoker History of echocardiogram History of stress test Cardiology follow-up encounter PHN (postherpetic neuralgia) Osteopenia HTN (hypertension) HLD (hyperlipidemia) Diverticulosis of colon GERD (gastroesophageal reflux disease) Thyroid disorder Home Medications Medication Instructions Recorded Last Taken Type levothyroxine 50 mcg tablet 50 mcg PO QODAY 06/30/15 U nknown History xcjyuzqdholk-Bo-sksg-minerals 1 ea PO DAILY 06/30/15 U nknown History L.acidoph,paracasei,B.animalis 10 1 ea PO DAILY Unknown History billion cell capsule gabapentin 300 mg capsule 300 mg PO QHS 06/16/18 Unkno wn History levothyroxine 25 mcg tablet 25 mcg PO QODAY 06/16/18 0 06/23/18 05:15 History (Synthroid) 25 MCG lisinopril 2.5 mg tablet 2.5 mg PO QHS 09/14/22 Unkno wn History escitalopram oxalate 10 mg tablet 5 mg PO QHS 08/06/24 Unknown History mecobalamin (vitamin B12) 500 mcg 500 mcg PO DAILY Unknown History chewable tablet magnesium gluconate 12.5 mg 500 mg PO QHS 09/14/24 Unk nown History magnesium (250 mg) tablet esomeprazole magnesium 40 mg 40 mg PO BID #60 caps Unknown Rx capsule,delayed release famotidine 40 mg tablet 40 mg PO QHS #30 tabs Unknown Rx rosuvastatin 5 mg tablet 10 mg PO MOWEFR 04/04/25 Unk nown History calcium 600 mg (as 1 tab PO DAILY 04/08/25 Unkn own History carbonate)-vitamin D3 5 mcg (200 unit) tablet (Calcium 600 + D(3)) Allergy/AdvReac Type Severity Reaction Status Date / Time bacitracin (From Neosporin AdvReac Unknown Verified 04/08/25 09:33 ([id number])) neomycin (From Neosporin AdvReac Unknown Verified 04/08/25 09:33 ([id number])) polymyxin B (From Neosporin AdvReac Unknown Verified 04/08/25 09:33 ([id number])) Family History Mother CVA (cerebral vascular accident) Alzheimer disease Father Parkinsons disease Surgical History (Updated 04/08/25 @ 10:07 by Fanta Munson) History of cardiac catheterization Hx of right cataract extraction Hx of left cataract extraction History of esophagogastroduodenoscopy (EGD) Hx of colonoscopy History of cystoscopy H/O rotator cuff surgery History of total abdominal hysterectomy Social History Smoking Status: Never smoker alcohol intake: current details: social substance use type: does not use caffeine: Yes frequency: 3-4 times per week seatbelt use: always do you feel safe at home: Yes additional social history: Don- Retired Patient is retired Audit: Pertinent Findings Pertinent Findings EKG Perinent findings: 06/16/2018. Normal sinus rhythm 64 bpm. Left bundle branch block. Echo (EF%) pertinent findings: 06/23/2015. Normal size. EF 40%. Mild global hypokinesis left ventricle. Recommendation Anesthesia Recommendation Anesthesia recommendation: OPTIMIZED for anesthesia
--- NOTE | 2025-04-25 12:01 | PCM.HP.BLA ---
History and Physical History and Physical Patient Name: Herlinda Segura: 1945 From: DATE OF PRE-OPERATIVE EXAM: 04/22/2025 DATE OF SURGERY: 04/29/2025 SCHEDULED PROCEDURE: Robotic assisted left total knee arthroplasty. HISTORY OF PRESENT ILLNESS: Patient states that her left knee pain is intermittent, sharp. Patient states that stairs, bending down on her knees make her pain worse. Patient states that sitting, resting, elevating the leg help to alleviate her pain. Patient states that she is no longer able to get down on the floor on her hands and knees without difficulty doing to pain. Patient states that she has to do stairs very carefully due to the pain. Patient states that she has tried cortisone injection, physical therapy, home exercises with no help. Patient states that she has tried rest, gel injection, oral medications with help. Patient states oral medication she has tried have been Tylenol and Mobic off-and-on for years. Patient states that she did received 1 cortisone injection at [facility]. Patient states that she has not tried ice, heat, elevation, weight loss, compression, chiropractor. Patient states that she has lost 5 pounds. Patient denies any previous surgeries on the affected joint. Patient states that sometimes when she does her daily walks she puts on an elastic knee support brace. Currently, the patient is using magnesium applied topically for toe cramping. She reports unsuccessful previous treatments including gel injections, which are now providing shorter periods of relief. The patient mentions difficulty navigating stairs and that her knee pain has begun to impact her daily functioning, particularly her ability to care for her who has Alzheimer's. The patient also reports aching in her left hip area when bending, with cramping from her hip down over the past year. She experiences severe cramping in the middle toe that goes underneath her foot, which may impact her recovery post-surgery. The patient is enrolled in the Prescribed Fit program and walks daily. REVIEW OF SYSTEMS: Review Of Systems: Constitutional: Denies change in appetite, fever and weight change. Cardiovasular: Denies chest pain, heart murmur and irregular heartbeat. Respiratory: Denies cough, pneumonia, shortness of breath, tuberculosis and wheezing. Gastrointestinal: Reports constipation and heartburn, but denies diarrhea, nausea, rectal itching, bloody stools and vomiting. Genitourinary: . (F Genital Sx) Denies incontinence. Musculoskeletal: Reports pain, but denies leg swelling, trouble walking and weakness. Skin: Reports history of shingles, but denies Raynaud's and tattoo. Neurological: Reports numbness/tingling but denies ambulatory dysfunction, dizziness and tremor. Psychiatric: Reports anxiety and stress, but denies insomnia. Hematologic/Lymphatic: Denies anemia, bleeding/bruising tendency and past transfusion. Reviewed, no changes. 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 SOCIAL HISTORY: Social History: Marital: .Occupation: Retired.Work Status: Retired.Hand Dominance: Right-handed. Personal Habits: Tobacco Use: Patient has never smoked.Cigarette Use: Never Smoked Cigarettes.Smokeless Tobacco: Never Used Smokeless Tobacco.E-Cigarette Use: Never used.Alcohol: Weekly use.Drug Use: Denies Use.Enjoy Exercising: Daily. Reviewed, no changes. VITALS: Ht: 60.5" Wt: 139lb Wt k.050 BMI: 26.7 BP: 128/68 Pulse: 68 Resp: 16 T: 97.3 T: 36.3C Pain Level: 8/10 O2SatR: 95 ALLERGIES: Neosporin Neomycin MEDICATIONS: Lisinopril 2.5 mg take 1 tablet by mouth once daily, Levothyroxine Sodium 25 mcg take 1 tablet by mouth every other day on an empty stomach for thyroid. take 50 mcg tablets on alternating days, Crestor 20 mg three a week, Multivitamin take one(1) tablet daily., Probiotic 1 by mouth every day, Nexium 40 mg 1 by mouth every day, Levothyroxine Sodium 50 mcg takes on alternating days, Magnesium Gluconate 250 mg 1 po qdaily, Gabapentin (Once-Daily) 300 mg as needed, Escitalopram Oxalate 5 mg, Pepcid 40 mg 1 by mouth every day PRE-OP EXAM: General appearance:NORMAL Other: Eyes: Conjunctivae and lids: NORMAL Pupils: ERR Ears, Nose, Mouth, and Throat: NORMAL Other: Inspection of lips, teeth and gums: NORMAL Other: Neck: Examination of neck: no masses noted. Respiratory: Assessment of respiratory effort: NORMAL Other: Auscultation of lungs: clear to auscultation no wheezes, rhonchi or rales. Cardiovascular: Auscultation of heart: regular rate and rhythm, no murmurs, gallops or rubs. Exam of carotid arteries: NORMAL Other: Gastrointestinal: Exam of abdomen: soft, nontender, nondistended bowel sounds present. Lymphatic: Palpation of nodes in neck: NORMAL Other: Palpation of nodes in Axillae: NORMAL Other: Neurological: see below Psychiatric: Orientation to time, place and person: NORMAL Other: Mood and affect: NORMAL Other: PHYSICAL EXAMINATION: - Physical Examination: - Left Knee: Inspection: Moderate swelling/effusion noted Alignment: Varus, correctable Stability: 2mm MCL laxity ROM: 0-125 - Right Knee: Inspection: Moderate swelling noted Alignment: Varus, correctable Stability: 2mm MCL laxity ROM: 0-125 IMAGING STUDIES: - Diagnostic Test Results and Labs: - X-rays: - 02/20/2025: - Bilateral knees: Complete loss of joint space, worse on the left - Progression of arthritis compared to August 2023 - Kneecaps: Narrowed space, particularly in the left knee - 08/2023: Significant knee arthritis present. Comparative x-rays show progression of disease since last radiographs IMPRESSION: Hard of hearing Hypercholesterolemia Sleep apnea Thyroid disease Hypertension Left bundle branch block Acid reflux Anxiety Diverticulosis Bilateral primary osteoarthritis of the knees Varus deformity of the right knee Varus deformity left knee Overweight PLAN: The surgeon did discuss and review all treatment options with the patient including surgical versus nonsurgical. At this time the patient does wish to proceed with the above-stated procedure. Potential risks benefits and complications of the procedure were discussed and reviewed with the patient including but not limited to , infection, nerve and blood vessel damage, persistent pain, numbness, tingling, paresthesias, blood clot, pulmonary embolism, in the requirement for possible further surgery. Patient expressed full understanding. Has no further questions for the doctor. Does agree to proceed with the above-stated procedure, and has signed the appropriate surgery consent form. DVT prophylaxis: Patient will be on aspirin 81 mg twice daily for 4 weeks postoperatively. Patient will be wearing TONY hose for 2 weeks postoperatively. Pain medications: Patient will be on Tylenol 1000 mg every 8 hours, meloxicam, and oxycodone as needed for pain control. Patient will be on famotidine for 30 days postoperatively. Patient will be on senna as needed for postoperative constipation. ___ I have re-examined the patient. There are no clinical changes since date of exam. ___ See progress notes for changes. ___ Dictated on admission Date: Time: Signature:
[2025-05-13] VITALS (17 sets, daily range): BP systolic 85–139; BP diastolic 54–88; PULSE 47–81; RESP 14–16; TEMP 36.1–36.8; O2SAT 96–100; BMI 26.2; BMI 10.9
[2025-05-13] MEDS: LR 1,000 ML - BOLUS PREOP 999 ML IV (10:29)
[2025-05-13] MEDS: Magnesium 1 GM over 15 mins IV (10:30)
--- NOTE | 2025-05-13 10:46 | PCM.PRE.AN2 ---
ASA Classification* ASA Classification ASA Classification: 3 Assessment & Plan Anesthesia* Anesthesia Assessment Anesthesia Assessment: Discussed sedation and/or anesthesia options, risks, benefits, and alternatives with patient/parents/legal guardian/POA. Questions invited. The patient/parents/legal guardian/POA seems to understand and agrees to proceed with anesthesia plan. Reviewed the physical assessment, medical history, allergy history and patient home medications list prior to surgery/procedure/anesthetic and documented any changes. Performed airway and anesthesia risk assessments. Anesthesia Type Anesthesia Type: General and Block Anesthesia Focused Assessment* Temperature: 97.2 F Pulse Rate: 72 Blood Pressure: 139/60 Respiratory Rate: 14 Pulse Ox: 98 Airway Assessment Mouth opens: >3 cm Mallampati Score: II Labs Anesthesia Preop lab: CBC WBC 9.4 K/mm3 (4.4-11.0) 04/15/25 13:50 04/15/25 RBC 4.02 M/mm3 (4.2-5.4) L 04/15/25 13:50 04/15/25 Hgb 11.5 g/dL (12.0-15.0) L 04/15/25 13:50 04/15/25 Hct 35.1 % (37-47) L 04/15/25 13:50 04/15/25 Plt Count 386 K/mm3 (150-450) 04/15/25 13:50 04/15/25 CHEMISTRY Potassium 4.4 mmol/L (3.3-5.1) 04/15/25 13:50 04/15/25 Sodium 135 mmol/L (133-145) 04/15/25 13:50 04/15/25 Magnesium 2.2 mg/dL (1.5-2.2) 04/15/25 13:50 04/15/25 BUN 15 mg/dL (4-19) 04/15/25 13:50 04/15/25 Creatinine 0.82 mg/dL (0.70-1.20) 04/15/25 13:50 04/15/25 Glucose 90 mg/dL (70-99) 04/15/25 13:50 04/15/25 TSH 0.815 uIU/mL (0.300-4.200) 04/15/25 13:50 04/15/25 COAG Pre-Assessment Diagnosis/Proposed Procedure Planned Operative Procedure(s): ROBOTIC ASSISTED LEFT TOTAL KNEE ARTHROPLASTY Anesthesia History Anesthesia History - last remodeler repairer: Anesthesia History - last remodeler repairer Hx Hospitalization No 05/06/25 09:01 Any Problems With Anesthesia Yes: N,V 05/06/25 09:01 Cholinesterase deficiency No 05/06/25 09:01 You/Your Family Experience No 05/06/25 09:01 fever (hyperthermia) with Relationship Recent Exposure to Contagious No 05/13/25 10:21 Disease Does patient have nerve No 05/06/25 09:01 stimulator Patient instructed to have device shut off --Does patient have Pacemaker No 05/13/25 10:21 or ICD? When Was Last Pacemaker Check QUESTION #4 FULL TEXT: You/Your Family Experience fever (hyperthermia) with Anesthesia Last Oral Intake Last Oral intake: Last Oral Intake NPO since 22:00 05/13/25 10:21 Meds taken in AM with sips of Yes 05/13/25 10:21 water? Meds patient instructed to take am of surgery PONV PONV - last remodeler repairer: PONV - last remodeler repairer Female Yes 05/06/25 09:01 HX of Motion Sickness No 05/06/25 09:01 HX of N/V After Surgery Yes 05/06/25 09:01 Non-Smoker Yes 05/06/25 09:01 Duration of Surgery greater Yes 05/06/25 09:01 than 60 minutes Number of Risk Factors 4 05/06/25 09:01 PONV Score Severe Risk 05/06/25 09:01 Height & Weight Height & Weight: Anesthesia: Height & Weight Height 5 ft 1 in 05/13/25 10:21 Weight: 63 kg 05/13/25 10:21 Body Mass Index (BMI) 26.2 05/13/25 10:21 Respiratory Assessment Respiratory Assessment - last remodeler repairer: Respiratory Tract Infection Hx - last remodeler repairer Hx Respiratory Tract Infection No 05/06/25 09:01 STOP Sleep Apnea STOP Sleep Apnea - last remodeler repairer: STOP Sleep Apnea - last remodeler repairer Hx Hypertension Yes: CONTROLLED WITH MED 05/06/25 09:01 Hx Sleep Apnea Yes 05/06/25 09:01 CPAP Yes 05/06/25 09:01 BIPAP No 05/06/25 09:01 Do you snore loudly (louder than talking or can be heard Do you often feel tired/ fatigued/ sleepy during daytime? Has anyone observed you stop breathing during sleep? STOP Results Positive 05/06/25 09:01 QUESTION #5 FULL TEXT : Do you snore loudly (louder than talking or can be heard through closed doors)? 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 Specify any problems Hx of Preganancy in last 3 No 05/06/25 09:01 Months Nurse Filling Out Transfusion VCHRISTIN 05/06/25 09:01 & Questions: Date: 05/06/25 05/06/25 09:01 Time: 09:05/06/25 09:01 Patient unable to answer at this time (ie. confused, unrespo /Reproduction History /Reproductive History - last remodeler repairer: /Reproductive Hx- last remodeler repairer Hx Now No 05/06/25 09:01 Gestational Age (in weeks): EDC: Hx Hx Para Hx Section SAB No 05/06/25 09:01 Active Medications Active Medications: Current Medications Generic Name Dose Route Start Last Admin Trade Name Freq PRN Reason Stop Dose Admin Lactated Ringer's 1,000 mls @ 125 mls/hr 05/13/25 09:00 IV 05/13/25 16:59 .Q8H SEAN Insulin Human Lispro 1 - 6 unit 05/13/25 09:00 Insulin Lispro 100 Unit/Ml Insuln.Pen SC Q4H PRN PRN BG>/= 180, SEE PROTOCOL Protocol PFSH Medical History Wears glasses Post-menopausal Depression Back pain Difficulty swallowing History of hiatal hernia Hx of fracture of foot Leg cramps History of pain when walking Left bundle branch block (LBBB) Wears hearing aid Loss of hearing Anxiety Alcohol use Arthritis CPAP (continuous positive airway pressure) dependence Non-smoker History of echocardiogram History of stress test Cardiology follow-up encounter PHN (postherpetic neuralgia) Osteopenia HTN (hypertension) HLD (hyperlipidemia) Diverticulosis of colon GERD (gastroesophageal reflux disease) Thyroid disorder Home Medications Medication Instructions Recorded Last Taken Type levothyroxine 50 mcg tablet 50 mcg PO QODAY 06/30/15 05/12/25 History vhjpjvsvzwqr-Zj-guih-minerals 1 ea PO DAILY 06/30/15 05/08/25 History L.acidoph,paracasei,B.animalis 10 1 ea PO DAILY 06/16/18 05/12/25 History billion cell capsule gabapentin 300 mg capsule 300 mg PO QHS 06/16/18 05/12/25 History levothyroxine 25 mcg tablet 25 mcg PO QODAY 06/16/18 05/13/25 07:00 History (Synthroid) lisinopril 2.5 mg tablet 2.5 mg PO QHS 09/14/22 05/12/25 History escitalopram oxalate 10 mg tablet 5 mg PO QHS 08/06/24 05/12/25 History mecobalamin (vitamin B12) 500 mcg 500 mcg PO DAILY 08/06/24 05/08/25 History chewable tablet magnesium gluconate 12.5 mg 500 mg PO QHS 09/14/24 05/12/25 History magnesium (250 mg) tablet esomeprazole magnesium 40 mg 40 mg PO BID #60 caps 04/04/25 05/13/25 07:00 Rx capsule,delayed release famotidine 40 mg tablet 40 mg PO QHS #30 tabs 04/04/25 05/12/25 Rx rosuvastatin 5 mg tablet 10 mg PO MOWEFR 04/04/25 05/10/25 History calcium 600 mg (as 1 tab PO DAILY 04/08/25 05/08/25 History carbonate)-vitamin D3 5 mcg (200 unit) tablet (Calcium 600 + D(3)) ferrous sulfate 325 mg (65 mg 325 mg PO BID 05/06/25 05/12/25 History iron) tablet (FeroSul) Allergy/AdvReac Type Severity Reaction Status Date / Time bacitracin (From Neosporin AdvReac Unknown Verified 05/13/25 10:17 ([id number])) neomycin (From Neosporin AdvReac Unknown Verified 05/13/25 10:17 ([id number])) polymyxin B (From Neosporin AdvReac Unknown Verified 05/13/25 10:17 ([id number])) Family History Mother CVA (cerebral vascular accident) Alzheimer disease Father Parkinsons disease Surgical History History of cardiac catheterization Hx of right cataract extraction Hx of left cataract extraction History of esophagogastroduodenoscopy (EGD) Hx of colonoscopy History of cystoscopy H/O rotator cuff surgery History of total abdominal hysterectomy Social History Smoking Status: Never smoker alcohol intake: current details: social substance use type: does not use caffeine: Yes frequency: 3-4 times per week seatbelt use: always do you feel safe at home: Yes additional social history: Don- Retired Patient is retired Review of Systems (Anesthesia) ROS Narrative System reviewed and no additional complaints, except as documented.
[2025-05-13] MEDS: Cefazolin 2 GM in 0.9% Normal Saline (100mL Bag) 100 ML IV (12:19)
[2025-05-13] MEDS: TXA 1000mg in NS100 100ml (IVPB at Incision) 660 MG IV (12:30)
[2025-05-13] MEDS: TXA 1000mg in NS100 100ml (IVPB at Closure) 660 MG IV (13:28)
[2025-05-13] MEDS: JPS (Morphine 10mg/ml) OPERA.SITE (13:40)
--- NOTE | 2025-05-13 13:49 | PCM.OPRPT ---
Operative Report (Standard) Operative Information Date of Procedure: 05/13/25 Pre-Operative Diagnosis: Left knee primary osteoarthritis Post-Operative Diagnosis: Left knee primary osteoarthritis Surgery/Procedure Performed: Left knee minimally invasive robotic assisted total arthroplasty taproom attendant: Yes Computer Numerical Control Programmer: Angela Coto Tasks completed by furniture removalist's assistant: Other (See body of operative report) Additional assistant director?: No Type of Anesthesia: Spinal RN Documented Start/Stop Times: Operation Date: 05/13/25 12:00 Case Time Into Pre-Op 05/13/25 10:01 Anesthesia Start 05/13/25 12:19 Into Room 05/13/25 12:19 Procedure Start 05/13/25 12:43 Procedure Start Time: 12:43 Procedure Stop Time: 13:43 Select all DRAINS/GRAFTS/IMPLANTS that apply: Prosthetic device Prosthetic device details: See body of operative report Special Medications: 2 g Ancef, 1 g TXA at incision, 1 g TXA closure, 10 mg Decadron, joint cocktail (5 mg Duramorph, 30 mL of 0.5% Ropivicaine, 1000 units of epinephrine, 30 mg of Toradol) Estimated Blood Loss: 50 Fluids Replaced: 800 Specimen collected: Yes Description of specimen(s) removed: Bony cuts Description of surgery: Implants used: 1. [place] size 2 triathlon cruciate retaining distal femoral press-fit component 2. Bianca size 3 press-fit tritanium tibial baseplate 3. Bianca X3 9 mm CS polyethylene Brief history operative indications: 80-year-old F with history of left knee osteoarthritis with radiographic findings with loss of joint space, osteophyte formation and subchondral sclerosis. Failed conservative measures as mentioned in the H&P. Discussion of total knee arthroplasty as well as risk and benefits were discussed the patient including but not limited to blood loss, DVTs, PEs, neurovascular damage, general risk of anesthesia including loss of life, and stiffness or instability were discussed with patient. Patient demonstrated understanding and was able to sign informed consent. Procedure: On the date of procedure patient's left lower extremity was marked in the preoperative area. The patient was then taken back to the operating room where the patient was placed on the table in the supine position. All bony prominences were identified a well-padded. Anesthesia assumed control of the C-spine and airway and remained controlled throughout the remainder of the procedure. A tourniquet was placed on the left upper thigh and the leg was prepped in a sterile fashion. The surgeon then scrubbed at this time .Upon reentering the room left lower extremity was draped in a standard orthopedic fashion. A timeout was then called and everyone agreed upon the side, the site, the procedure to be performed, patient's identity and antibiotics given. Esmarch bandage was used to exsanguinate the extremity and the tourniquet was placed up to 250 mmHg with the knee in flexion. A midline skin incision was made and sharp dissection was taken down through skin subcutaneous tissue and fat. The standard medial parapatellar incision was made and the patella was subluxed laterally. An Appropriate deep MCL release was done and the fat pad was resected. Our attention was then directed to the patella. The patella was everted and inspected and found to have appropriate cartilage for retention. The knee was then flexed up in 2 femoral pins were placed inside the incision and 2 tibial pins were placed outside the incision in the medial tibia bicortically. Once this was completed the 2 checkpoints in the femur and tibia were placed. Knee was then flexed up and the bony landmarks were registered. Once this was completed knee was taken through range of motion and manually stressed allowing us to a plan for an appropriate tibial cut. The robotic arm was brought into the field sterilely and checkpoint and saw were registered. Based on the patient's deformity the tibial cut was made 2. At this time the tensioner was then placed in the joint and ligament tension was checked at 90 degrees and full extension. Based on the patient's ligamentous tension appropriate adjustments were made to the operative plan and ligament releases were done. Once we were happy with our operative plan with balanced flexion and extension gaps our attention was directed to the femur. The robot was brought into the field sterilely and registered. Posterior condylar cuts, anterior chamfer cuts and anterior cuts were appropriately made for a size 2 femur. When these were completed the saws were switched out in the distal femoral and posterior chamfer cuts were made. Protecting the soft tissue throughout this time. A size 3 tibial base plate was selected. the knee was flexed to 90 degrees and the soft tissues and posterior osteophytes were removed from the joint. 40 cc of the periarticular injection was injected into the posterior medial corner of the joint. The appropriate trials were then placed on the femur and tibia. A trial polyethylene was trialed to ensure proper balancing and stability of the knee. The appropriate tibial internal rotation was then marked with a bovie. Our attention was then directed to the patella. Patellar tracking was checked and deemed appropriate. Once we were happy lug holes were drilled for the femur and trial components were removed. The tibia was subluxed and pinned into place and the keel was punched and drilled appropriately. Final components were verified and opened. The wound was copiously irrigated with normal saline. When the cement was ready the components were impacted and cemented into place starting with the tibia then the femur, finally the patella was compressed into place. The trial poly component was placed and the knee was placed in full extension. Once the the implants were secured, the tracking, alignment and balance were verified and a size [] polyethylene component was placed. Once the final components were placed a 3-minute dilute Betadine lavage was performed followed by an Irrisept lavage was performed and the wound was copiously irrigated with normal saline solution and the periarticular injection was given. The wound was closed in a layer schmitz fashion using #1 vicryl interrupted sutures for the arthrotomy, 2-0 interrupted Vicryl suture for the subcuticular layer and monica for final skin closure. A sterile compressive dressing was then placed. The patient was then awakened from anesthesia, transferred to the [facility] and transferred to the PACU for recovery. Post op plan DVT ppx: ASA 81mg BID, thigh high compression stockings Follow up: in office in 2 weeks for wound check PT: to start POD #0 at hospital, outpatient PT should be arranged. My physician assistant director was a vital part of this case, they was important because there was not another skilled set of hands available to their training and aptitude needed for safe and appropriate completion of this case. They were important in appropriate retraction during the case, and protection of soft tissues during bony cuts. In particular the experience and skill of this assistant director made for safe retraction and exposure during implantation of medical implants without damage to vital soft tissues or structures. His intimate knowledge of the case and my steps aided in safe and expedient completion of the procedure as well as appropriate position of the leg during the case. He was also vital in assisting with closure under my direct supervision. Due to the complexity of this case robotic arm was used to assist in the surgery to improve accuracy and clinical outcomes. Surgical Findings: Stage IV osteoarthritis. Stable knee with good patella tracking Complications Complications: No Admit VTE Documentation VTE Present on Admission: No VTE Mechan Device Prophylaxis: SCD's and Thigh High TONY Hose VTE Pharm Prophylaxis ordered?: Yes
--- NOTE | 2025-05-13 14:45 | RAD_ITS ---
PROCEDURE: KNEE 1 OR 2 VIEWS 05/13/2025 REASON FOR EXAM: POST OP TECHNIQUE: KNEE 1 OR 2 VIEWS COMPARISON: None provided. RAD/Knee 1 or 2 Views IMPRESSION: The patient is postoperative left knee arthroplasty, with femoral and tibial co mponents noted and with overlying skin monica present. Satisfactory alignment is seen. No fracture site is evident Reading Location: [address]
--- NOTE | 2025-05-13 14:47 | EKG12_ITS ---
Test Reason : SHOULDER PAIN Blood Pressure : */* mmHG Vent. Rate : 56 BPM Atrial Rate : 56 BPM P-R Int : 220 ms QRS Dur : 152 ms QT Int : 560 ms P-R-T Axes : 30 -55 118 degrees QTcB Int : 540 ms Sinus bradycardia with 1st degree A-V block Left axis deviation Left bundle branch block Abnormal ECG When compared with ECG of 16-Apr-2025 11:16, [place] interval has increased Nonspecific T wave abnormality, worse in Lateral leads QT has lengthened Confirmed by DOMINGA PICKETT, JAJA ([id number]), editor at large STUART GARZA ([id number]) on 05/15/2025 7:13:45 AM Referred By: Mario Narayanan Confirmed By: JAJA ORR MD
--- NOTE | 2025-05-13 15:23 | PCM.POST.ANE ---
Anesthesia: Postop Eval I Current Vital Signs Temperature: 97.2 F Pulse Rate: 72 Blood Pressure: 139/60 Respiratory Rate: 16 Pulse Ox: 98 Oxygen Delivery Method: Room Air Assessment Airway patent: Yes Spontaneous unlabored respirations: Yes Mental status: Awake and Calm nausea: No Vomiting: No Anesthesia Complication: No Fluid Hydration Crystalloid volume administer (ml): 800 Total IV fluid infused: 800 Progress Note Anesthesia document: Postop Eval 1 completed: Yes
--- NOTE | 2025-05-13 15:33 | POSTOPAN2_ITS ---
Anesthesia Postop Eval I Sum Postop Eval Completion status Anesthesia document: Postop Eval 1 completed: Yes Anesthesia Postop Eval I Summary Anesthesia Postop Eval I Summary: Anesthesia Postop Eval I: Assessment Summary Airway patent Yes 05/13/25 15:23 [email or web address] Spontaneous unlabored Yes 05/13/25 15:23 [email or web address] respirations Mental status Awake,Calm 05/13/25 15:23 [email or web address] nausea No 05/13/25 15:23 [email or web address] Vomiting No 05/13/25 15:23 [email or web address] Anesthesia Postop Eval I: Fluid Summary Crystalloid volume administer 800 05/13/25 15:23 [email or web address] (ml) Colloids volume administered ( ml) Blood Product volume administered (ml) Total IV fluid infused 800 05/13/25 15:23 [email or web address] Anesthesia Postop Eval I: Summary Notes Anesthesia Complication No 05/13/25 15:23 [email or web address] Anesthesia Complication Comment: Post-operative progress note Anesthesia: Postop Eval II Evaluation Mental status: Awake Pain Level: 9 (Pain between shoulder blades, EKG done (normal), Dr. Melton assessed pt. Pain medication given/ Ativan given. Patient currently resting comfortably. ) nausea: Yes Vomiting: No
--- NOTE | 2025-05-13 15:33 | PCM.POSTANE2 ---
Anesthesia Postop Eval I Sum Postop Eval Completion status Anesthesia document: Postop Eval 1 completed: Yes Anesthesia Postop Eval I Summary Anesthesia Postop Eval I Summary: Anesthesia Postop Eval I: Assessment Summary Airway patent Yes 05/13/25 15:23 [email or web address] Spontaneous unlabored Yes 05/13/25 15:23 [email or web address] respirations Mental status Awake,Calm 05/13/25 15:23 [email or web address] nausea No 05/13/25 15:23 [email or web address] Vomiting No 05/13/25 15:23 [email or web address] Anesthesia Postop Eval I: Fluid Summary Crystalloid volume administer 800 05/13/25 15:23 [email or web address] (ml) Colloids volume administered ( ml) Blood Product volume administered (ml) Total IV fluid infused 800 05/13/25 15:23 [email or web address] Anesthesia Postop Eval I: Summary Notes Anesthesia Complication No 05/13/25 15:23 [email or web address] Anesthesia Complication Comment: Post-operative progress note Anesthesia: Postop Eval II Evaluation Mental status: Awake Pain Level: 9 (Pain between shoulder blades, EKG done (normal), Dr. Melton assessed pt. Pain medication given/ Ativan given. Patient currently resting comfortably. ) nausea: Yes Vomiting: No
[2025-05-13] MEDS: LR 1,000 ML - BOLUS POSTOP 999 ML IV (15:45)
[2025-05-13] MEDS: LR 1,000 ML - 125 ML/HR (POST BOLUS) POST OP IV (17:37)
--- NOTE | 2025-05-13 18:51 | PCM.CONS.GEN ---
Assessment & Plan Assessment/Plan (1) GERD (gastroesophageal reflux disease): QUALIFIERS: Esophagitis presence: esophagitis presence not specified Qualified Code(s): K21.9 - Gastro-esophageal reflux disease without esophagitis (2) CPAP (continuous positive airway pressure) dependence: PLAN: Plan #Hypertension - Will hold home lisinopril to allow room for pain management, add back as tolerated #MINA -Continue home NIPPV, patient did bring hers in from home and will be using it tonight #Hypothyroidism -Continue Synthroid #Depression/anxiety -Continue home Lexapro #GERD -Continue PPI # Left knee primary osteo -Status post left knee minimally invasive robotic assisted total arthroplasty with Dr. Narayanan 05/13/2025 -PT/OT -General Management and pain management per primary #DVT ppx: Timing and agent at discretion of primary Gwendolyn Adamson MD Time spent in the patient's overall evaluation, decision-making process, review of diagnostic data, adjustment of management, discussion with other providers, nursing and ancillary staff involved in patient's care documentation, 13 Minutes HPI Consult Data Date of Consult: 05/13/25 HPI Narrative Reason for Consultation: medical management HPI Narrative: MADELAINE CARRINGTON, is a 80-year-old female history of hypothyroidism, hypertension, anxiety who presented to [facility] 05/13/2025 for a left knee minimally invasive robotic assisted total arthroplasty for left knee primary osteoarthritis. Hospitalist consulted for postoperative medical management. Patient evaluated at bedside. She reports overall feeling well, she was just resting comfortably. Did feel a little bit nauseous after surgery but this is resolved. No other new or acute complaints [facility] Medical History (Updated 05/13/25 @ 18:[address] Gwendolyn Adamson MD) Alcohol use Anxiety Arthritis Back pain Cardiology follow-up encounter CPAP (continuous positive airway pressure) dependence Depression Difficulty swallowing Diverticulosis of colon GERD (gastroesophageal reflux disease) History of echocardiogram History of hiatal hernia History of pain when walking History of stress test HLD (hyperlipidemia) HTN (hypertension) Hx of fracture of foot Left bundle branch block (LBBB) Leg cramps Loss of hearing Non-smoker Osteopenia PHN (postherpetic neuralgia) Post-menopausal Thyroid disorder Wears glasses Wears hearing aid Home Medications Medication Instructions Recorded Last Taken Type levothyroxine 50 mcg tablet 50 mcg PO QODAY 06/30/15 05/12/25 History hhekdqxpfqsc-Bw-bxdf-minerals 1 ea PO DAILY 06/30/15 05/08/25 History L.acidoph,paracasei,B.animalis 10 1 ea PO DAILY 06/16/18 05/12/25 History billion cell capsule gabapentin 300 mg capsule 300 mg PO QHS 06/16/18 05/12/25 History levothyroxine 25 mcg tablet 25 mcg PO QODAY 06/16/18 05/13/25 07:00 History (Synthroid) lisinopril 2.5 mg tablet 2.5 mg PO QHS 09/14/22 05/12/25 History escitalopram oxalate 10 mg tablet 5 mg PO QHS 08/06/24 05/12/25 History mecobalamin (vitamin B12) 500 mcg 500 mcg PO DAILY 08/06/24 05/08/25 History chewable tablet magnesium gluconate 12.5 mg 500 mg PO QHS 09/14/24 05/12/25 History magnesium (250 mg) tablet esomeprazole magnesium 40 mg 40 mg PO BID #60 caps 04/04/25 05/13/25 07:00 Rx capsule,delayed release famotidine 40 mg tablet 40 mg PO QHS #30 tabs 04/04/25 05/12/25 Rx rosuvastatin 5 mg tablet 10 mg PO MOWEFR 04/04/25 05/10/25 History calcium 600 mg (as 1 tab PO DAILY 04/08/25 05/08/25 History carbonate)-vitamin D3 5 mcg (200 unit) tablet (Calcium 600 + D(3)) ferrous sulfate 325 mg (65 mg 325 mg PO BID 05/06/25 05/12/25 History iron) tablet (FeroSul) Allergy/AdvReac Type Severity Reaction Status Date / Time bacitracin (From Neosporin AdvReac Unknown Verified 05/13/25 10:17 ([id number])) neomycin (From Neosporin AdvReac Unknown Verified 05/13/25 10:17 ([id number])) polymyxin B (From Neosporin AdvReac Unknown Verified 05/13/25 10:17 ([id number])) Family History Mother CVA (cerebral vascular accident) Alzheimer disease Father Parkinsons disease Surgical History H/O rotator cuff surgery History of cardiac catheterization History of cystoscopy History of esophagogastroduodenoscopy (EGD) History of total abdominal hysterectomy Hx of colonoscopy Hx of left cataract extraction Hx of right cataract extraction Social History Smoking Status: Never smoker alcohol intake: current details: social substance use type: does not use caffeine: Yes frequency: 3-4 times per week seatbelt use: always do you feel safe at home: Yes additional social history: Don- Retired Patient is retired ROS ROS Narrative General: Denies fever HENT: Denies headache, denies stuffy nose, denies sore throat EYES: Denies changes in vision Resp: Denies cough, denies shortness of breath Cardiac: Denies chest pain GI: Denies abdominal pain, denies changes in bowel, little bit of nausea after surgery but this is resolved : Denies changes in urination Extremity: Denies swelling MSK: Denies unilateral weakness Neuro: Denies any numbness/tingling Heme: Denies any bleeding or bruising Skin: Denies rashes Psychiatric: No complaints voiced Physical Exam Narrative General: Alert, no apparent distress HEENT: Atraumatic, normocephalic Eyes: extraocular movements grossly intact Neck: Supple Respiratory: normal respiratory effort, no overt wheezes or rhonchi Cardiovascular: Regular rate and rhythm GI: nondistended Extremities: Moving all extremities aside from left knee Neuro: No overt focal neurological deficits Psych: Cooperative Lab / Micro Data Labs: Laboratory Results - last 24 hr 05/13/25 10:26: POC Glucose 76 Imaging Radiology Impression Knee X-Ray 05/13/25 14:45 IMPRESSION: The patient is postoperative left knee arthroplasty, with femoral and tibial components noted and with overlying skin monica present. Satisfactory alignment is seen. No fracture site is evident Reading Location: [id number] Charges/Coding Visit Charges Office Visits / Consults: [id number] OV L2 Est 10min
[2025-05-13] MEDS: Cefazolin 1 GM/50 ML BAG IV (20:20)
[2025-05-13] MEDS: Senna/Docusate Sodium 1 Tablet 2 TABLET PO (20:40)
[2025-05-14 01:55] VITALS: BP 131/57; PULSE 63; RESP 16; TEMP 36.1; O2SAT 98
[2025-05-14] MEDS: 0.9% Saline Lock 10 ML Syringe IV (04:43)
[2025-05-14] MEDS: Cefazolin 1 GM/50 ML BAG IV (04:43)
[2025-05-14 04:48] VITALS: BP 124/81; PULSE 60; RESP 16; TEMP 36.1; O2SAT 96
[2025-05-14 06:34] LABS: Hematocrit 33.7 % (37-47); Hemoglobin 11.1 g/dL (12.0-15.0); Immature Granulocytes Count 0.060 X10^3/uL (0.0-0.0); Mean Corp Hgb Conc 32.9 g/dL (32-36); Mean Corpuscular Volume 89.4 fL (81-99); Mean Platelet Vol. 9.6 fl (6.2-12.0); NRBC Flagged by Analyzer 0 % (0-5); Platelet Count 319 K/mm3 (150-450); RBC Distribution Width CV 14.4 % (11.6-14.6); RBC Distribution Width SD 46.8 fl (35.1-43.9); Red Blood Count 3.77 M/mm3 (4.2-5.4); White Blood Count 14.4 K/mm3 (4.4-11.0)
[2025-05-14 07:09] LABS: Anion Gap 9 (5-15); BUN 9 mg/dL (4-19); BUN/Creat Ratio 12.7 RATIO (10-20); Calcium,Total 8.7 mg/dL (7.6-11.0); Carbon Dioxide 24.2 mmol/L (21.0-32.0); Chloride 102 mmol/L (98-108); Estimated Creatinine Clearance 23.97 ml/min (50-250); Glucose 121 mg/dL (70-99); Potassium 4.5 mmol/L (3.3-5.1)
[2025-05-14 08:34] VITALS: BP 114/55; PULSE 58; RESP 18; TEMP 36.5; O2SAT 97
[2025-05-14] MEDS: Senna/Docusate Sodium 1 Tablet 2 TABLET PO (08:37)
[2025-05-14] MEDS: Ensure Surgery 237 ML LIQUID PO (08:42)
--- NOTE | 2025-05-14 09:02 | PCM.PN.ORT ---
Subjective Subjective Patient appears to be comfortable in bed. Patient states that she is feeling ready to go home and has plans for her friend to pick her up and people to stay with her and her today. Patient states that her pain is adequately controlled at this time. Patient states that she has been up to the bathroom but has not yet worked with physical therapy. Patient denies any nausea, vomiting, dizziness. Patient denies any fevers, chills, signs of infection. Patient denies any shortness of breath, chest pain, calf pain. Patient denies any adverse events overnight. Objective Data Objective Data Vital Signs: Vital Signs Temp Pulse Resp BP Pulse Ox O2 Del Method O2 Flow Rate 97.7 F L 58 L 18 114/55 L 97 Room Air 2 05/14/25 08:34 05/14/25 08:34 05/14/25 08:34 05/14/25 08:34 05/14/25 08:34 05/14/25 08:34 05/13/25 20:47 Oxygen Flow Rate (L/min) 2 Oxygen Delivery Method Room Air Weight: 26.2 kg Body Mass Index (BMI) 10.9 Intake & Output: Intake and Output for Last 24 Hours 05/12/25 05/13/25 05/14/25 23:59 23:59 23:59 Intake Total 3749.58 / 3749.58 689.58 / 689.58 Output Total 100 / 100 Balance 3649.58 / 3649.58 689.58 / 689.58 Lab / Micro Data 05/14/25 06:12 05/14/25 06:12 Labs: Laboratory Results - last 24 hr 05/13/25 10:26: POC Glucose 76 05/14/25 06:12: WBC 14.4 H, RBC 3.77 L, Hgb 11.1 L, Hct 33.7 L, MCV 89.4, MCH 29.4, MCHC 32.9, RDW Std Deviation 46.8 H, RDW Coeff of [place] 14.4, Plt Count 319, MPV 9.6, Immature Gran % (Auto) 0.400, Neut % (Auto) 88.4 H, Lymph % (Auto) 5.6 L, [place] % (Auto) 5.5, Eos % (Auto) 0.0, Baso % (Auto) 0.1, Absolute Neuts (auto) 12.8 H, Absolute Lymphs (auto) 0.81 L, Nucleated RBC % 0, Sodium 136, Potassium 4.5, Chloride 102, Carbon Dioxide 24.2, Anion Gap 9, BUN 9, Creatinine 0.74, Estim Creat Clear Calc 23.97 L, Est GFR (MDRD) Non-Af 83, BUN/Creatinine Ratio 12.7, Glucose 121 H, Calcium 8.7 Radiography Diagnostic Testing: Radiology Impression Knee X-Ray 05/13/25 14:45 IMPRESSION: The patient is postoperative left knee arthroplasty, with femoral and tibial components noted and with overlying skin monica present. Satisfactory alignment is seen. No fracture site is evident Reading Location: [address] Physical Exam Narrative Vital signs are stable and afebrile. TONY hose in place bilaterally SCDs in place bilaterally Dressing is clean, dry, intact Dorsiflexion and plantarflexion are performed pain or restriction Sensation intact to light touch Neurovascularly intact overall Negative Homans bilaterally. Const alert, oriented x3 and no apparent distress Assessment & Plan Assessment/Plan (1) Status post total left knee replacement: PLAN: Status post left total knee arthroplasty day 1 1. DVT prophylaxis: Patient will be on aspirin 81 mg twice daily for 4 weeks postoperatively. Patient will be wearing TONY hose for 2 weeks postoperatively. Patient was educated she can take TONY hose off at night. 2. Pain medications: Patient was instructed to take Tylenol 1000 mg every 8 hours [id number] taking no more than 3000 and 24 hours. Patient will be on meloxicam for 30 days postoperatively. Patient was educated if meloxicam flares up her reflux she can discontinue. Patient will then be taking oxycodone as needed for postoperative pain control. OARRS report was reviewed today. The risk of abuse potential for narcotic pain medication was discussed and reviewed with patient. 3. Constipation: Patient will be on senna as instructed until first bowel movement to decrease risk of impaction following surgery. Patient was instructed if they have not had a bowel movement in 3 days to contact her office for reevaluation. 4. Physical therapy: Patient will be weightbearing as tolerated with walker. Patient will begin outpatient physical therapy today and have outpatient physical therapy established. 5. Reactive leukocytosis: White blood cell count is currently 14.4. Vital signs are stable and patient is afebrile. Patient did receive Decadron intraoperatively. 6. H&H: 11.1/33.7. Patient was taking ferrous sulfate and folic acid prior to surgery. Will have patient continue taking medications. Will have patient get outpatient labs and follow-up with primary care provider in 1 week for chronic management of anemia. 7. Incentive spirometry: Patient was encouraged to use incentive spirometer every hour that she is awake for the first week to exercise lungs and decrease risk of postoperative infection. 8. Patient is to follow-up per postoperative instructions. 9. Medicine is involved in case at this time. Appreciate recommendations from medicine for safe and proper discharge. 10. Patient does have follow-up appointment scheduled with our office in 2 weeks postoperatively. 11. Patient is okay for discharge if pain is adequately controlled, works with physical therapy and does well, and is okay per medicine doctors instructions. 12. Disposition: Patient is doing well at this time. Patient states that she is ready to go home and get some rest. Patient will continue to be weightbearing as tolerated with a walker. Patient will work with physical therapy prior to discharge. Patient does have outpatient physical therapy established. Patient states that she does feel safe for discharge as she has people coming to help her and her . Patient is to follow-up per postoperative instructions. Patient will continue with ferrous sulfate and folic acid and get labs with primary care provider in roughly 1 week. Will plan to send medications to patient's pharmacy of choice. Medicine doctor did verbally state that patient was medically stable and was okay for discharge from his standpoint. Will follow-up with patient in 2 weeks postoperatively. Patient was encouraged to call with any questions, concerns, new problems.
--- NOTE | 2025-05-14 09:15 | CASEMGMT ---
Met with patient to complete DAMON form. DAMON form and its content were verbally explained and patient's questions were answered to the best of my ability. Patient voiced understanding and signed DAMON form. Patient provided a copy of signed DAMON form and original placed in patient's chart. Patient had no further questions. Annia Chairez, Discharge Planning Asst
--- NOTE | 2025-05-14 09:21 | PCM.DC ---
Discharge Instructions Diet Discharge Diet: No restrictions DC O2, CPAP, BIPAP needs Home O2 Discharge instructions: No Dressing / Incision Discharge Activity: Use Walker (Weightbearing as tolerated with walker.) Weight Bearing Status: Weight bearing as tolerated (With walker.) Keep extremity elevated above heart level: Left Leg Dressing / Incision Call your doctor if your incision/area has: Continuous Slow Oozing, Sudden Increased Bleeding, Increased Pain/ Swelling, Increased Redness, Foul Smelling Discharge and Swelling at the incision site Call your doctor if you observe: Fever of 101 or Higher, Coldness, Increased Pain, Numbness or Tingling, Inability to urinate, Inability to have a bowel movement, Using more than 1 pad per hour, Shortness of breath, Dizziness, Fainting spells, Swelling in the ankles, Chest pain, Increased palpitations (irregular heartbeat), Calf discomfort and Uncontrolled pain Remove Dressing in: 5 days (May get dressing wet on postop day 1. May remove dressing on postop day 5. Can leave open to air as long as incision is clean, dry, intact.) Cleanse incision/area with: Soap & Water Additional Dressing/Incision Instructions:: Patient was educated to do no soaking, submerging of incision for 6 weeks postoperatively. Patient was educated no lotions, salves, oils for 6 weeks postoperatively. Follow Up Care Test Results: Test results from this visit will be discussed in further detail at your follow-up appointment, if applicable. Discharge Plan Admission Admit Date/Time: 05/13/25 10:46 Attending Provider: Mario Narayanan Primary Care Provider: Adrienne Riojas Consulting Providers: Victor Manuel Neri Discharge Orders/Prescriptions Prescriptions: New acetaminophen 500 mg Tablet 1,000 mg PO Q8H Qty: 0 0RF aspirin 81 mg capsule 81 mg PO BID 30 Days Qty: 60 0RF meloxicam 7.5 mg Tablet 7.5 mg PO BID 30 Days Qty: 60 0RF sennosides-docusate sodium [Stimulant Laxative Plus] 8.6-50 mg Tablet 2 tab PO BID 3 Days Qty: 12 0RF oxycodone 5 mg Tablet 5 - 10 mg PO Q4H PRN PRN (Reason: As needed for pain) 7 Days Qty: 42 0RF Continued lisinopril 2.5 mg tablet 2.5 mg PO QHS rosuvastatin 5 mg tablet 10 mg PO MOWEFR escitalopram oxalate 10 mg tablet 5 mg PO QHS mecobalamin (vitamin B12) 500 mcg tablet,chewable 500 mcg PO DAILY magnesium gluconate 12.5 mg magne- sium (250 mg) tablet 500 mg PO QHS famotidine 40 mg tablet 40 mg PO QHS Qty: 30 2RF esomeprazole magnesium 40 mg capsule,delayed release(DR/EC) 40 mg PO BID Qty: 60 2RF Rx Instructions: Take 30minutes before eating breakfast and dinner. levothyroxine 50 MCG tablet 50 mcg PO QODAY nisceukknjrh-Ig-jztr-minerals 1 EACH tablet 1 ea PO DAILY levothyroxine [Synthroid] 25 MCG tablet 25 mcg PO QODAY gabapentin 300 MG capsule 300 mg PO QHS L.acidoph,paracasei,B.animalis 1 EACH capsule 1 ea PO DAILY calcium carbonate-vitamin D3 [Calcium 600 + D(3)] 600 mg-5 mcg (200 unit) tablet 1 tab PO DAILY ferrous sulfate [FeroSul] 325 mg (65 mg iron) tablet 325 mg PO BID Other Ambulatory Orders: CBC W/Diff, Automated (Routine) Timeframe: 1 Week Facility: [facility] - Location: Laboratory Ordered By: Angela Coto Referrals / Follow Up: Adrienne Riojas MD [Primary Care Provider] - Disposition Disposition (needs filled in before D/C Order can be placed): Home, Self Care
[2025-05-14 11:00] VITALS: O2SAT 95
--- NOTE | 2025-05-14 11:46 | CASEMGMT ---
ROBBIN BRANDT spoke with therapy, reports pt did well, awaiting notes. ROBBIN BRANDT into pt room, pt sitting up in chair dressed. Pt states she has OP therapy set up at and the [facility] van to transport her. She states this starts on . Pt has a FWW, polar care and cane at home. Pt has Alzheimers. She states she has set up aide services through [facility] for a couple of weeks. She states her is physically able and she does not physically care for him. Pt attends support groups for Alzheimers and has been for a couple of years. Pt denies any homegoing needs. Discussed with ISABELLE.
[2025-05-14 12:48] VITALS: BP 117/63; PULSE 65; RESP 16; TEMP 36.4; O2SAT 94
== END 2025-05-14 14:15 | disposition home or self-care (01) ==
LOC: SDC 17:33 → MS3 17:33
PROVIDERS: Admitting Provider Specialist; PCP Internal Medicine; Referring Provider Specialist; Visit Provider Specialist
PROC: 0SRD0JZ Replacement of Left Knee Joint with Synthetic Substitute, Open Approach (ICD-10-PCS; CPT 27447; principal; 2025-05-13 11:30)
DX: M17.12 Unilateral primary osteoarthritis, left knee (principal); K21.9 Gastro-esophageal reflux disease without esophagitis; F41.9 Anxiety disorder, unspecified; I10 Essential (primary) hypertension; E78.00 Pure hypercholesterolemia, unspecified; I44.7 Left bundle-branch block, unspecified; H91.92 Unspecified hearing loss, left ear; Z79.899 Other long term (current) drug therapy; Z79.890 Hormone replacement therapy; E03.9 Hypothyroidism, unspecified; F32.A Depression, unspecified; G47.33 Obstructive sleep apnea (adult) (pediatric)
CPT/HCPCS: 27447; 01402; S2900; 36415; 73560; 80048; 82962; 85025; 93005; 94668; 96361; 96365; 96366; 96375; 97162; 99221; C1776; A4216; G0378; J2405; J3475

== ENCOUNTER → 2025-05-27 | Outpatient (CLI) | payer MEDICARE, SELFPAY ==
--- NOTE | 2025-05-27 15:31 | VDLE_ITS ---
Reason For Study Reason For Study: Left leg swelling RIGHT LEFT CFV is compressible, spontaneous, phasic, competent GSV is normal. and demonstrates normal augmentation. CFV is compressible, spontaneous, phasic, competent, Procedure and demonstrates normal augmentation. This is a venous duplex using B-mode, color flow and FV is compressible, spontaneous, phasic, competent spectral Doppler. and demonstrates normal augmentation. Exam performed in department. POP V is compressible, spontaneous, phasic, competent A preliminary report was called and/or faxed to Nnamdi and demonstrates normal augmentation. PA. T/P Trunk is compressible. PTV is compressible. LT PerV is compressible. VL/Venous Duplex US, Unilateral Interpretation Summary Deep veins of the left lower extremity are patent and compressible segmentally. There is no evidence of left lower extremity deep vein thrombosis. Valvular competence appears intact within the p roximal deep venous system on the left . The left great saphenous vein appears patent and compressible segmentally. The right common femoral vein is patent and compressible . Ordering Physician: Angela Coto Referring Physician: Adrienne Riojas M.D. Performed By: Xiao Vega RVT
== END | disposition home or self-care (01) ==
LOC: CVS 15:28
PROVIDERS: PCP Internal Medicine
DX: R22.42 Localized swelling, mass and lump, left lower limb (principal)
CPT/HCPCS: 93971

== ENCOUNTER 2025-06-27 09:30 | Outpatient (RCR) | payer MEDICARE, SELFPAY ==
--- NOTE | 2025-05-16 18:16 | HP.PTEVAL_ITS ---
Patient's Visit Information Visit Information Visit Information: MADELAINE CARRINGTON is a 80 year old F referred to Physical Therapy by Dr. Mario Narayanan MD with a diagnosis of PRESENCE LEFT ARTIFICAL KNEE JOINT, AGTER CARE JOINT REPLACMENT,OA LEFT. Date of Evaluation: 05/16/25 Physical Therapist: Jaya Alejo, PT, Cert MDT, OCS Visit Plan Frequency: 2-3x /Week Duration: 4-6 Weeks Plan: S/P TKA 05/13/25 LOWER INSCION HAD MILD CLEAR DRAINAGE PT INTERVENTIONS VASO FOR EDEMA ,ROM KNEE ,PROGRESS TO STRENGTHENING EX'S QUADS/HAMS/HIP ,FLEXABILITY ,FUNCTIONAL STRENGTHENING AND CP Subjective Subjective: This 80 y/o female presents to physical therapy with left s/p TKA on 05/13/25 [facility] done by Dr Narayanan . Patient d/c next day with FWW. Patient had spinal for surgery . Medication oxycodone.RTD this tuesday. Patient 2 story home with basement with with 5 steps with rail. Patient walk in shower with grab rails and toilet. Patient spouse dementia adult family home program manager assist with spouse. Patient is able to dress self . Aides are doing cooking and cleaning. Patient sleeping in recliner. Patient reports increase edema. Patient has h/o RTC repair. Patient has been icing. Patient denies paresthesia/tingling . No prior PT. Patient condition affects QOL and function /walking. Patient goals to return to normal SOCAIL: VOCATION:retired Pain Left Knee: Pain Intensity (Out of 10): 10 Pain Intensity Range: 10 Objective Objective: POSTURE: mild forward posture SKIN: incision well approximate lower incision bandage wet ,clear drainage ,bandage over incision of knee intact dried GAIT: ambulates with fww decrease stance time LLE with slow thomas ,WBAT LLE ,decrease swing phase knee flexed STAIRS: one step at time EDEMA: thigh to calf edema GIRTH PATELLA: 41.8 cm GIRTH 6 SUPRAPATELLAR: 57.8 AAROM: supine knee flexion 5-70 degrees , MMT: ( peak force) 0 quads/hams/hip Balance/Special Test Scores Lower Extremity Functional Score: 14 TUG Test Time Seconds: 54.8 WOMAC Total Score: 65 WOMAC Percentatge: 29.3500 Goals Goal 1:: I with HEP for TKA Goal Time Frame: 4-6 Weeks Goal 2:: Patient to Increase AROM supine knee flexion 0-100 degrees to improve stairs Goal Time Frame: 4-6 Weeks Goal 3:: Patient to improve peak force quads/hams hip by 15-20 # strength to improve function Goal Time Frame: 4-6 Weeks Goal 4:: Patent to improve ambulate with with/without cane with improved gait pattern Goal Time Frame: 4-6 Weeks Goal 5:: Patient to improve LFES score by 5 -10 points to improve QOL and gait Goal Time Frame: 4-6 Weeks Goal 6:: Patient to improve TUG score less than 20 seconds to improve safe gait Goal Time Frame: 4-6 Weeks Rehabilitation Potential Physical Therapy Diagnosis: This patient underwent s/p left TKA on 05/13 with decrease ROM ,strength , increase edema ,impairs gait and ADLS thus benefit from skilled PT Anticipated Interventions Patient/Client Instruction: Educate patient on: Condition and Plan of Care For the Purpose of:: To decrease pain, To increase ROM, To improve muscle performance and motor function, To improve ability to perform ADL's, To increase tolerance to activity/condition/position, To improve ability of physical actions for home/community/work/leisure, To improve health of tissue, To decrease soft tissue restriction, To increase flexibility/ROM, To improve endurance, To improve balance and To improve tolerance to ADL's Therapeutic Exercise to Include: Strength training, Postural training, Gait and locomotor training, Passive ROM and Active ROM Comment: QUADS/HAMS/HIP For the Purpose of:: To decrease pain, To increase ROM, To improve muscle performance and motor function, To improve ability to perform ADL's, To improve ability of physical actions for home/community/work/leisure, To improve health of tissue, To decrease soft tissue restriction and To increase flexibility/ROM Cryotherapy (ice pack, ice massage): Yes Vasopneumatic device: Yes For the Purpose of:: To decrease pain, To decrease swelling/inflammation, To increase ROM, To improve nutrient delivery to tissue, To increase oxygenation perfusion, To improve health of tissue and To decrease soft tissue restriction Text: Thank you for the opportunity to evaluate your patient. For Medicare and Medicare HMO plans, please review the plan of care and approve it. It will need to be FAXED BACK to us at [phone] for Medicare purposes. For Medicare only, by signing this I certify the plan of care. Please let me know if there are questions or concerns regarding this plan of care. Physician Signature: Date:
--- NOTE | 2025-06-27 09:53 | HP.PTDCSUM_ITS ---
Discharge Summary D/C summary: It has been my pleasure to treat MADELAINE CARRINGTON referred by Dr. Mario Narayanan MD, with the diagnosis of PRESENCE LEFT ARTIFICAL KNEE JOINT, AGTER CARE JOINT REPLACMENT,OA LEFT for a total of 13 visit(s). Discharge Date: 06/27/25 Please see the following information for a summary of their discharge status. Subjective Subjective: Doing well no pain Walking good Pain Left Knee: Pain Intensity (Out of 10): 1 Overall Improvement % Improvement: 80 Objective Objective/Function: POSTURE: mild forward posture SKIN: NORMAL intact GAIT: ambulates with fww decrease stance time LLE with slow thomas ,WBAT LLE ,decrease swing phase knee flexed STAIRS: ascend/descend 12 steps alternating EDEMA: intact GIRTH PATELLA: 38..8 cm GIRTH 6 SUPRAPATELLAR: 52.8 AAROM: supine knee flexion 0-120 degree, MMT: ( peak force) quads 26.1,hamstrings 24.1 ,hip flexion 27.2 Goals Goal 1:: I with HEP for TKA Goal Progress: Goal Met Goal 2:: Patient to Increase AROM supine knee flexion 0-100 degrees to improve stairs Goal Progress: Goal Met Goal 3:: Patient to improve peak force quads/hams hip by 15-20 # strength to imp rove function Goal Progress: Goal Met Goal 4:: Patent to improve ambulate with with/without cane with improved gait pattern Goal Progress: Goal Met Goal 5:: Patient to improve LFES score by 5 -10 points to improve QOL and gait Goal Progress: Goal Met Goal 6:: Patient to improve TUG score less than 20 seconds to improve safe gait Goal Progress: Goal Met Plan Plan: D/C to HEP D/C Information Discharge Comments: HEP d/c sentence: If there are questions or concerns regarding this patient's physical therapy, please feel free to call me at [phone]. Thank you for the referral of this patient. Sincerely, Jaya Alejo PT, Cert MDT, OCS Balance/Gait/Functional tests Balance/Special Test Scores Lower Extremity Functional Score: 57 TUG Test Time Seconds: 11.6 Tug Test: <20 sec.=mostly independent WOMAC Total Score: 1 WOMAC Percentage: 98.9600 Improvement % Improvement: 80
== END 2025-06-27 19:00 | disposition home or self-care (01) ==
LOC: PT 09:30
PROVIDERS: PCP Internal Medicine; Referring Provider Specialist; Visit Provider Specialist
DX: Z98.890 Other specified postprocedural states (principal)
CPT/HCPCS: 97110; 97162

== ENCOUNTER → 2025-08-01 | Outpatient (CLI) | payer MEDICARE, SELFPAY ==
--- NOTE | 2025-08-01 17:05 | MRI_ITS ---
PROCEDURE: SPINE LUMBAR (ROUTINE) 08/01/2025 REASON FOR EXAM: PAIN X1 YEAR, LEFT SIDED BUTTOCK PAIN TECHNIQUE: Procedure Code: MRISPL Modality: MR Procedure: SPINE LUMBAR (ROUTINE) COMPARISON: None available. FINDINGS: For the purposes of this report, the most caudal rectangular vertebral body will be designated L5. The next most caudal trapezoidal shaped vertebral body will be designated S1. The intervening disc at the lumbosacral angle is designated L5-S1. The normal lumbar lordosis is maintained. The lumbar vertebral bodies are normal in height. Grade 1 L4-L5 anterolisthesis. The lumbar bone marrow signal is within normal limits. Multilevel disc desiccation. There is no evidence of signal abnormality in the imaged distal spinal cord. The conus medullaris terminates at the level of T12-L1. L1-L2: Disc bulge, bilateral facet arthrosis, ligamentum flavum hypertrophy. Flattening of the ventral thecal sac. No significant neural foraminal narrowing. L2-L3: Disc bulge with superimposing right paracentral disc protrusion, bilateral facet arthrosis, and ligamentum flavum hypertrophy. Mild spinal canal stenosis and right subarticular zone narrowing. Moderate right neural foraminal narrowing. No significant left neural foraminal narrowing L3-L4: Disc bulge, bilateral facet arthrosis, and ligamentum flavum hypertrophy contributes to moderate spinal canal stenosis. Mild crowding of the descending nerve roots. No significant neural foraminal narrowing. L4-L5: Uncovering of the disc, bilateral facet arthrosis, and ligamentum flavum hypertrophy. Moderate spinal canal stenosis and subarticular zone narrowing. There is crowding of the descending and traversing nerve roots. No significant neural foraminal narrowing. L5-S1: Disc bulge, bilateral facet arthrosis, and ligamentum flavum hypertrophy. Mild spinal canal stenosis. [id number] left neural foraminal narrowing. MRI/Spine Lumbar (Routine) IMPRESSION: Lumbar spondylosis most prominent at L4-L5 where there is moderate spinal canal stenosis and at L5-S1 where there is [id number] left neural foraminal stenosis. Additional details as discu ssed above. Reading Location: [id number]
== END | disposition home or self-care (01) ==
LOC: MRI 16:57
PROVIDERS: PCP Internal Medicine; Referring Provider Student in an Organized Health Care Education/Training Program; Visit Provider Student in an Organized Health Care Education/Training Program
DX: M54.16 Radiculopathy, lumbar region (principal); M43.16 Spondylolisthesis, lumbar region
CPT/HCPCS: 72148